=== PATIENT | female | born 1945 | race Caucasian/White ===

== ENCOUNTER 2020-08-11 12:41 | Outpatient (REF) | payer MEDICARE, SELFPAY ==
--- NOTE | 2020-08-11 12:52 | XR_ITS ---
EXAMINATION: XR HAND WRIST, RIGHT CLINICAL INFORMATION: Unspecified injury right wrist, hand, fingers COMPARISON: None TECHNIQUE: The hand and wrist are imaged together in large [id number] images for a total of 3 views. FINDINGS: There is an oblique fracture involving the base and proximal shaft fifth metacarpal. There is mild dorsal angulation at the fracture site suggested on lateral view. There is no dislocation or destructive process. The ulnar variance is neutral. There is narrowing of the DIP joints. Associated central erosive changes are are present at the index finger DIP joint and lesser involvement fourth finger DIP joint. 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 IMPRESSION: 1. Fracture base and proximal shaft fifth metacarpal with mild dorsal angulation fracture site. 2. 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
== END 2020-08-11 12:42 | disposition home or self-care (01) ==
LOC: HO.HMGCX 12:41
PROVIDERS: PCP Family Medicine; Visit Provider Nurse Practitioner Family
DX: S69.91XA Unspecified injury of right wrist, hand and finger(s), initial encounter (principal); X58.XXXA Exposure to other specified factors, initial encounter; Y93.9 Activity, unspecified; Y92.9 Unspecified place or not applicable; Y99.8 Other external cause status
CPT/HCPCS: 73110; 73130

== ENCOUNTER 2020-08-25 12:07 | Outpatient (REF) | payer MEDICARE, SELFPAY ==
--- NOTE | 2020-08-25 12:53 | XR_ITS ---
EXAMINATION: XR HAND, RIGHT CLINICAL INFORMATION: Pain COMPARISON: Previous exam 08/11/2020 TECHNIQUE: 3 views of the right hand. FINDINGS: There is a fracture through the base and proximal shaft of the fifth metacarpal bone. Alignment is unchanged. There is overlying soft tissue swelling. There is a cyst in the scaphoid bone. There is arthritis at the IP joints with joint space narrowing, osteophyte formation and some cystic or erosive changes. There is arthritis at the second MCP joint. XR/XR hand RT min 3V IMPRESSION: No change in the minimally displaced fracture at the base of the fifth metacarpal bone from previous exam. Arthritis.
== END 2020-08-25 12:08 | disposition home or self-care (01) ==
LOC: HO.HOSX 12:07
PROVIDERS: PCP Family Medicine; Visit Provider Physician Assistant
DX: S62.306A Unspecified fracture of fifth metacarpal bone, right hand, initial encounter for closed fracture (principal)
CPT/HCPCS: 26600; 29075; 73130; 99212

== ENCOUNTER 2020-09-09 13:29 | Outpatient (REF) | payer MEDICARE, SELFPAY ==
--- NOTE | 2020-09-09 13:33 | XR_ITS ---
EXAMINATION: XR HAND, RIGHT CLINICAL INFORMATION: Fracture of the fifth metacarpal bone. COMPARISON: 08/25/2020 TECHNIQUE: PA, lateral, and oblique views of the right hand. FINDINGS: Fracture at the proximal aspect of the fifth metacarpal is again noted with unchanged alignment compared to prior. Minimal callus noted. There is diffuse joint space narrowing throughout the interphalangeal joints. Mild radial subluxation and angulation at the second and fourth digit distal interphalangeal joints. Associated Gull wing deformity . The soft tissues are unremarkable. XR/XR hand RT min 3V IMPRESSION: Unchanged alignment of the fifth metacarpal fracture. Early callus formation. Arthritic changes are again noted, with findings suggestive of erosive osteoarthritis at the second and fourth distal interphalangeal joints.
== END 2020-09-09 13:30 | disposition home or self-care (01) ==
LOC: HO.HOSX 13:29
PROVIDERS: Visit Provider Physician Assistant
DX: S62.306A Unspecified fracture of fifth metacarpal bone, right hand, initial encounter for closed fracture (principal); S62.308D Unspecified fracture of other metacarpal bone, subsequent encounter for fracture with routine healing
CPT/HCPCS: 73130; 99212

== ENCOUNTER 2020-10-29 14:30 | Outpatient (REF) | payer MEDICARE, SELFPAY ==
--- NOTE | 2020-10-29 14:36 | XR_ITS ---
EXAMINATION: XR CHEST CLINICAL INFORMATION: COPD. COMPARISON: Chest radiographs 08/26/2018, 05/23/2016 TECHNIQUE: 2 views of the chest were obtained. FINDINGS: There is mild hyperinflation/COPD slightly greater left upper zone. There is no airspace consolidation, vascular congestion, pleural reaction, or effusion. The cardiac and hilar and mediastinal contours and bony structures are stable. There are no significant changes from prior studies. XR/XR chest 2V IMPRESSION: Mild hyperinflation/COPD. No acute intrathoracic disease.
== END 2020-10-29 14:31 | disposition home or self-care (01) ==
LOC: HO.HMGCX 14:30
PROVIDERS: PCP Family Medicine; Visit Provider Nurse Practitioner Family
DX: J44.9 Chronic obstructive pulmonary disease, unspecified (principal)
CPT/HCPCS: 71046

== ENCOUNTER 2020-10-30 14:51 | Emergency (ER) | payer MEDICARE, SELFPAY ==
[2020-10-30 14:54] VITALS: BP 149/88; PULSE 99; RESP 28; TEMP 36.7; O2SAT 92; BMI 25.2
--- NOTE | 2020-10-30 15:01 | ECG_ITS ---
Test Reason : DYSPNEA Blood Pressure : / mmHG Vent. Rate : 087 BPM Atrial Rate : 087 BPM P-R Int : 174 ms QRS Dur : 080 ms QT Int : 378 ms P-R-T Axes : 075 018 058 degrees QTc Int : 454 ms Sinus rhythm with occasional Premature ventricular complexes Possible Left atrial enlargement Anteroseptal infarct (cited on or before 26-APR-2013) Abnormal ECG When compared with ECG of 14-DEC-2017 01:13, Premature ventricular complexes are now Present Questionable change in initial forces of Anterior leads Referred By: Kathy Ramsay Electronically Signed By:Remy Howard
--- NOTE | 2020-10-30 15:01 | XR_ITS ---
EXAMINATION: XR CHEST CLINICAL INFORMATION: Shortness of breath COMPARISON: Chest radiograph from 10/29/2020 TECHNIQUE: Frontal view of the chest was obtained. FINDINGS: Mild hyperinflation of the bilateral lung griffin. Mild right basilar atelectasis. There is no focal consolidation. There is no pneumothorax. The trachea is midline. The current mediastinal silhouette is not enlarged. Aorta is mildly tortuous with atherosclerotic calcifications. There is no pleural effusions. Osseous structures are intact. XR/XR chest 1V IMPRESSION: 1. Hyperinflation of the bilateral lung griffin. 2. Mild right basilar atelectasis.
--- NOTE | 2020-10-30 15:37 | ED_ITS ---
HPI - SOB/Dyspnea General Chief Complaint: Dyspnea Stated Complaint: sob Time Seen by Provider: 10/30/20 15:00 Source: patient Mode of arrival: ambulatory History of Present Illness HPI Narrative: 74-year-old F with a past medical history of COPD, diabetes, depression, osteoporosis, cholecystectomy, presenting to the ED complaining of worsening SOB, cough, upper back pain, & myalgias x4 days. Reports sister who lives below her is COVID-19 positive. Denies fever, chills, recent travel, LE edema, history of blood clots, abdominal pain, vomiting/diarrhea, oral OCPs MD elicited complaint: shortness of breath and cough Related Data Home Medications Medication Instructions Recorded Confirmed albuterol sulfate 90 mcg/actuation INHALATION 08/10/20 10/11/20 aerosol inhaler atorvastatin 20 mg tablet 20 mg PO DAILY 08/10/20 10/11/20 budesonide 180 mcg/actuation INHALATION 08/10/20 10/11/20 breath activated powder inhaler ibuprofen 800 mg tablet 800 mg PO TID 08/10/20 10/11/20 ipratropium 20 mcg-albuterol 100 1 puff PO QID 08/10/20 10/11/20 mcg/actuation mist for inhalation metformin 500 mg tablet 500 mg PO BID 08/10/20 10/11/20 omeprazole 40 mg capsule,delayed 40 mg PO BEDTIME 08/10/20 10/11/20 release oxybutynin chloride 15 mg 15 mg PO DAILY 08/10/20 10/11/20 tablet,extended release 24 hr pantoprazole 40 mg tablet,delayed 40 mg PO DAILY 08/10/20 release escitalopram oxalate 5 mg tablet 5 mg PO DAILY 10/29/20 flu vac qv 2019(18yr up)rc(PF) ml IM 10/29/20 sertraline 100 mg tablet 0 mg PO 10/29/20 Previous Rx's Medication Instructions Recorded bupropion HCl 150 mg tablet,12 hr 150 mg PO BID 90 Days #180 tab 08/10/20 sustained-release citalopram 40 mg tablet 40 mg PO DAILY 90 Days #90 tab 08/10/20 miscellaneous medical supply 1 ea MISCELLANEOUS DAILY #1 ea 08/13/20 arm brace #1 ea 09/10/20 ipratropium 0.5 mg-albuterol 3 mg 3 ml INHALATION Q6H PRN #90 ml 10/11/20 (2.5 mg base)/3 mL nebulization soln azithromycin 250 mg tablet See Rx Instructions PO .COMPLEX #6 10/29/20 tab prednisone 20 mg tablet 20 mg PO DAILY 9 Days #18 tab 10/29/20 azithromycin 250 mg PO DAILY 4 Days #4 tab 10/30/20 benzonatate [Tessalon Perles] 100 mg PO TID PRN #10 cap 10/30/20 prednisone 40 mg PO DAILY 4 Days #8 tab 10/30/20 Allergies Allergy/AdvReac Type Severity Reaction Status Date / Time lisinopril Allergy Unknown RAsh, Verified 10/11/20 12:11 Swelling No Known Allergies Allergy Verified 09/09/20 13:47 [No Known Allergies*] Review of Systems Review of Systems: Constitutional: No Weight loss, No Fever, No Chills, + Fatigue, No Malaise Cardiovascular: No Chest Pain, + SOB, + Dyspnea on Exertion, No Orthopnea, No Edema, No Palpitations Respiratory: + Cough, No Sputum, No Wheezing, No Dyspnea Gastrointestinal: No Nausea, No Vomiting, No Diarrhea, No Constipation, No Abdominal pain Genitourinary: No irregular bleeding, No Dysuria, No Urinary Frequency, No Hematuria Musculoskeletal: +back pain, No Myalgias, No Joint Swelling Skin: No Skin Lesions, No rash Yes all other systems are reviewed and are negative [facility] Past Medical History Attestation statement: The following information was validated with the patient. Medical History (Updated 10/30/20 @ 18:30 by DELTA Travis) COPD (chronic obstructive pulmonary disease) Diabetes FHx: cholecystectomy Major depression Osteoporosis Surgical History Hx of tonsillectomy Previous back surgery Family History Family History Other Diabetes Social History Social History Household Members: None Alcohol intake: former Smoking Status: Former smoker Advance Directives: No Advance Directives Information Provided: No Current occupation: Retired -[employer] Physical Exam Vital Signs: Vital Signs: Last Vital Signs Temp 97.9 F 10/30/20 17:19 Pulse 78 10/30/20 17:19 Resp 32 H 10/30/20 17:19 BP 128/80 10/30/20 17:19 Pulse Ox 95 10/30/20 17:19 Body Mass Index 25.2 Const: General: cooperative Orientation/consciousness: patient oriented x3 Limitations: no limitations HENMT: Head: Yes normal to inspection Ears: hearing grossly normal bilaterally General nose exam: Normal external nose present Face and sinus: Yes normal facial exam Eyes: General: appearance normal, both eyes and all related structures EOM: EOMs intact bilaterally Neck: Neck: Yes normal visual inspection and Yes no meningeal signs Resp: Effort & Inspection: no stridor and tachypneic Auscultation: clear to auscultation bilaterally, no rales, no rhonchi and no wheezes Cardio: Rate: regular rate Heart sounds: S1 normal heart sound present and S2 normal heart sound present GI: Inspection: Yes normal to inspection Palpation (GI): Soft to palpation, nontender, no guarding and not rigid Skin: Rashes: no rashes Wounds: no wounds Neuro: General: patient oriented x3 and no meningeal signs Extrem: Other: No LE edema or calf tenderness General: Yes normal to inspection Course Course Course Narrative: * No leukocytosis, D-dimer negative, mild hyponatremia of 132, CRP mildly elevated * Chest x-ray showing hyperinflation of the bilateral lung griffin. Mild right basilar atelectasis * COVID-19 positive > will ambulate with pulse ox * Patient ambulated with pulse ox with respiratory maintaining saturation 95% or greater on room air. Reports symptomatic improvement in the ED. Would like to go home. Will give 1st dose of azithromycin in the ED and symptoms and strict return precautions discussed. Patient verbalized understanding feel safe for discharge home MDM - SOB/Dyspnea MDM Narrative Medical decision making narrative: 74-year-old F with a past medical history of COPD, diabetes, depression, osteoporosis, cholecystectomy, presenting to the ED complaining of worsening SOB, cough, upper back pain, & myalgias x4 days. On exam tachypneic, sating 92% on room air, lungs CTA, no LE edema. Concern for COVID-19/viral syndrome vs COPD exacerbation vs PE. Lower concern for bacterial PNA Plan: EKG, labs, CXR, COVID-19 testing, albuterol, Decadron, magnesium, re- evaluate Lab Data Result diagrams: 10/30/20 16:26 10/30/20 16:26 Labs: Lab Results 10/30/20 10/30/20 10/30/20 Range/Units 16:26 16:26 16:26 WBC 7.1 (4.8-10.8) X10*3/uL RBC 3.69 L (4.20-5.50) X10*6/uL Hgb 10.0 L (12.0-16.0) g/dl Hct 30.2 L (37-47) % MCV 81.8 (80-98) fL MCH 27.1 (27.0-33.0) pg MCHC 33.1 (31.0-35.0) g/dl RDW 15.2 (11.0-16.0) % Plt Count 280 (160-400) X10*3/uL MPV 8.5 L (9.4-12.3) fL Immature Gran % (Auto) 0.4 (0.0-0.4) % Neut % (Auto) 72.7 (45-73) % Lymph % (Auto) 23.3 (20-40) % [place] % (Auto) 3.4 (2-11) % Eos % (Auto) 0.1 (0-4) % Baso % (Auto) 0.1 (0-2) % Lymph # (Auto) 1.7 (1.2-4.9) X10*3/uL [place] # (Auto) 0.2 (0.1-1.2) X10*3/uL Eos # (Auto) 0.0 (0.0-0.4) X10*3/uL Baso # (Auto) 0.0 (0.0-0.2) X10*3/uL Abs Immat Gran (auto) 0.03 (0.00-0.03) X10*3/uL Absolute Neuts (auto) 5.2 (2.0-8.3) X10*3/uL Absolute Nucleated RBC 0.000 (0.0-0.012) X10*3/uL Nucleated RBC % (auto) 0.0 (0.0-0.2) /100WBC PT (10.8-13.0) SEC INR (0.9-1.1) APTT (24.1-38.0) SEC D-Dimer NG/ML Hold Blue Top Sodium 132 L (135-145) mmol/L Potassium 4.6 (3.3-5.1) mmol/l Chloride 97 (96-108) mmol/L Carbon Dioxide 23 (22-29) mmol/L Anion Gap 17 (12-20) BUN 14 (9-16) mg/dL Creatinine 0.65 (0.5-1.4) mg/dL Estim Creat Clear Calc 62.6 Estimated GFR > 60 Random Glucose 114 (60-115) mg/dL Lactic Acid 1.6 (0.5-2.0) mmol/L Calcium 8.8 (8.4-10.2) mg/dL Magnesium 2.0 (1.6-2.6) mg/dL Ferritin (10-250) ng/mL Total Bilirubin 0.2 (0.0-1.0) mg/dL Direct Bilirubin 0.2 (0.0-0.5) mg/dL AST 16 (5-31) U/L ALT 18 (0-31) U/L Alkaline Phosphatase 69 (39-117) U/L Lactate Dehydrogenase 197 (122-220) U/L Troponin I High Sens (<3.5-17.0) ng/L C-Reactive Protein 1.79 H (< or = 0.50) mg/dL B-Natriuretic Peptide (<100) pg/mL Total Protein 6.5 (6.5-8.0) g/dL Albumin 4.2 (3.5-5.0) g/dL Procalcitonin ng/mL Coronavirus (PCR) (Negative) Influenza Type A (PCR) (Negative) Influenza Type B (PCR) (Negative) RSV RNA Qual (PCR) (Negative) 10/30/20 10/30/20 10/30/20 Range/Units 16:26 16:26 16:26 WBC (4.8-10.8) X10*3/uL RBC (4.20-5.50) X10*6/uL Hgb (12.0-16.0) g/dl Hct (37-47) % MCV (80-98) fL MCH (27.0-33.0) pg MCHC (31.0-35.0) g/dl RDW (11.0-16.0) % Plt Count (160-400) X10*3/uL MPV (9.4-12.3) fL Immature Gran % (Auto) (0.0-0.4) % Neut % (Auto) (45-73) % Lymph % (Auto) (20-40) % [place] % (Auto) (2-11) % Eos % (Auto) (0-4) % Baso % (Auto) (0-2) % Lymph # (Auto) (1.2-4.9) X10*3/uL [place] # (Auto) (0.1-1.2) X10*3/uL Eos # (Auto) (0.0-0.4) X10*3/uL Baso # (Auto) (0.0-0.2) X10*3/uL Abs Immat Gran (auto) (0.00-0.03) X10*3/uL Absolute Neuts (auto) (2.0-8.3) X10*3/uL Absolute Nucleated RBC (0.0-0.012) X10*3/uL Nucleated RBC % (auto) (0.0-0.2) /100WBC PT 10.7 L (10.8-13.0) SEC INR 0.9 (0.9-1.1) APTT 27.6 (24.1-38.0) SEC D-Dimer 202 NG/ML Hold Blue Top SEE NOTE Sodium (135-145) mmol/L Potassium (3.3-5.1) mmol/l Chloride (96-108) mmol/L Carbon Dioxide (22-29) mmol/L Anion Gap (12-20) BUN (9-16) mg/dL Creatinine (0.5-1.4) mg/dL Estim Creat Clear Calc Estimated GFR Random Glucose (60-115) mg/dL Lactic Acid (0.5-2.0) mmol/L Calcium (8.4-10.2) mg/dL Magnesium (1.6-2.6) mg/dL Ferritin 29 (10-250) ng/mL Total Bilirubin (0.0-1.0) mg/dL Direct Bilirubin (0.0-0.5) mg/dL AST (5-31) U/L ALT (0-31) U/L Alkaline Phosphatase (39-117) U/L Lactate Dehydrogenase (122-220) U/L Troponin I High Sens (<3.5-17.0) ng/L C-Reactive Protein (< or = 0.50) mg/dL B-Natriuretic Peptide (<100) pg/mL Total Protein (6.5-8.0) g/dL Albumin (3.5-5.0) g/dL Procalcitonin ng/mL Coronavirus (PCR) POSITIVE A (Negative) Influenza Type A (PCR) NEGATIVE (Negative) Influenza Type B (PCR) NEGATIVE (Negative) RSV RNA Qual (PCR) NEGATIVE (Negative) 10/30/20 10/30/20 Range/Units 16:26 16:26 WBC (4.8-10.8) X10*3/uL RBC (4.20-5.50) X10*6/uL Hgb (12.0-16.0) g/dl Hct (37-47) % MCV (80-98) fL MCH (27.0-33.0) pg MCHC (31.0-35.0) g/dl RDW (11.0-16.0) % Plt Count (160-400) X10*3/uL MPV (9.4-12.3) fL Immature Gran % (Auto) (0.0-0.4) % Neut % (Auto) (45-73) % Lymph % (Auto) (20-40) % [place] % (Auto) (2-11) % Eos % (Auto) (0-4) % Baso % (Auto) (0-2) % Lymph # (Auto) (1.2-4.9) X10*3/uL [place] # (Auto) (0.1-1.2) X10*3/uL Eos # (Auto) (0.0-0.4) X10*3/uL Baso # (Auto) (0.0-0.2) X10*3/uL Abs Immat Gran (auto) (0.00-0.03) X10*3/uL Absolute Neuts (auto) (2.0-8.3) X10*3/uL Absolute Nucleated RBC (0.0-0.012) X10*3/uL Nucleated RBC % (auto) (0.0-0.2) /100WBC PT (10.8-13.0) SEC INR (0.9-1.1) APTT (24.1-38.0) SEC D-Dimer NG/ML Hold Blue Top Sodium (135-145) mmol/L Potassium (3.3-5.1) mmol/l Chloride (96-108) mmol/L Carbon Dioxide (22-29) mmol/L Anion Gap (12-20) BUN (9-16) mg/dL Creatinine (0.5-1.4) mg/dL Estim Creat Clear Calc Estimated GFR Random Glucose (60-115) mg/dL Lactic Acid (0.5-2.0) mmol/L Calcium (8.4-10.2) mg/dL Magnesium (1.6-2.6) mg/dL Ferritin (10-250) ng/mL Total Bilirubin (0.0-1.0) mg/dL Direct Bilirubin (0.0-0.5) mg/dL AST (5-31) U/L ALT (0-31) U/L Alkaline Phosphatase (39-117) U/L Lactate Dehydrogenase (122-220) U/L Troponin I High Sens 7.2 (<3.5-17.0) ng/L C-Reactive Protein (< or = 0.50) mg/dL B-Natriuretic Peptide 153 H (<100) pg/mL Total Protein (6.5-8.0) g/dL Albumin (3.5-5.0) g/dL Procalcitonin < 0.02 ng/mL Coronavirus (PCR) (Negative) Influenza Type A (PCR) (Negative) Influenza Type B (PCR) (Negative) RSV RNA Qual (PCR) (Negative) Discharge Plan Discharge Clinical Impression: COVID-19 Patient Disposition: Home, Self-Care Instructions: COVID-19 (Coronavirus Disease 2019) (ED) Additional Instructions: You have COVID-19 Continue using your prescribed medications at home You need to self isolate according to state and Federal regulations Call your doctor to inform them If you develop constant worsening shortness of breath, chest pain, or fever unresolved with Tylenol and Motrin at home return to the ED Azithromycin as an antibiotic, take as prescribed Prednisone as a steroid, take as prescribed Use albuterol inhaler dose apply to you today in emergency department Natalie Oconnell are for cough Prescriptions: New benzonatate [Jiasalon Anish] 100 mg capsule 100 mg PO TID PRN (Reason: cough) Qty: 10 RF: 0 azithromycin 250 mg tablet 250 mg PO DAILY 4 Days Qty: 4 RF: 0 prednisone 20 mg tablet 40 mg PO DAILY 4 Days Qty: 8 RF: 0 No Action albuterol sulfate 90 mcg/actuation HFA aerosol inhaler inhalation RF: 0 oxybutynin chloride 15 mg tablet extended release 24hr 15 mg PO DAILY RF: 0 ibuprofen 800 mg tablet 800 mg PO TID RF: 0 Combivent Respimat 20-100 mcg/actuation mist 1 puff PO QID RF: 0 pantoprazole 40 mg tablet,delayed release (DR/EC) 40 mg PO DAILY RF: 0 omeprazole 40 mg capsule,delayed release(DR/EC) 40 mg PO BEDTIME RF: 0 atorvastatin 20 mg tablet 20 mg PO DAILY RF: 0 metformin 500 mg tablet 500 mg PO BID RF: 0 Pulmicort Flexhaler 180 mcg/actuation aerosol powdr breath activated inhalation RF: 0 citalopram 40 mg tablet 40 mg PO DAILY 90 Days Qty: 90 RF: 0 bupropion HCl 150 mg tablet sustained-release 12 hr 150 mg PO BID 90 Days Qty: 180 RF: 0 miscellaneous medical supply Misc 1 ea miscellaneous DAILY Qty: 1 RF: 0 ipratropium-albuterol 0.5 mg-3 mg(2.5 mg base)/3 mL solution for nebulization 3 ml inhalation Q6H PRN (Reason: wheezing) Qty: 90 RF: 3 sertraline 100 mg tablet 0 mg PO RF: 0 escitalopram oxalate 5 mg tablet 5 mg PO DAILY RF: 0 Flublok Quad [id number] (PF) 180 mcg (45 mcg x 4)/0.5 mL syringe IM RF: 0 azithromycin 250 mg tablet See Rx Instructions PO .COMPLEX Qty: 6 RF: 0 prednisone 20 mg tablet 20 mg PO DAILY 9 Days Qty: 18 RF: 0 (DME) Wrist Brace Misc See Rx Instructions .MEDSUPPLY Qty: 1 RF: 0 Referrals: Jonathan Geronimo MD [Primary Care Provider] - 2 days (Call)
[2020-10-30 16:16] VITALS: BP 132/77; PULSE 85; RESP 34; TEMP 36.9; O2SAT 96
--- NOTE | 2020-10-30 16:17 | PC.NURSE ---
first contact with patient. anxious. skion pwd. tachipnic but able to calm with reassurance. st on monitor. aware of plan for labs etc. states room o2 normallyt 94%.
[2020-10-30 16:41] LABS: MANUAL DIFF FLAG NO
[2020-10-30 16:42] LABS: Basophils Percent Auto 0.1 % (0-2); Eosinophils Percent Auto 0.1 % (0-4); Hematocrit 30.2 % (37-47); Imm Gran Abs Auto 0.03 X10*3/uL (0.00-0.03); Imm Gran Pct Auto 0.4 % (0.0-0.4); Lymphocytes Absolute Auto 1.7 X10*3/uL (1.2-4.9); Lymphocytes Percent Auto 23.3 % (20-40); Mean Corpuscular HGB Conc 33.1 g/dl (31.0-35.0); Mean Corpuscular Hemoglobin 27.1 pg (27.0-33.0); Mean Corpuscular Volume 81.8 fL (80-98); Mean Platelet Volume 8.5 fL (9.4-12.3); Monocytes Absolute Auto 0.2 X10*3/uL (0.1-1.2); Monocytes Percent Auto 3.4 % (2-11); Neutrophils Absolute Auto 5.2 X10*3/uL (2.0-8.3); Neutrophils Percent Auto 72.7 % (45-73); Platelet Count 280 X10*3/uL (160-400); Red Blood Count 3.69 X10*6/uL (4.20-5.50); Red Cell Distribution Width 15.2 % (11.0-16.0); White Blood Count 7.1 X10*3/uL (4.8-10.8)
[2020-10-30 16:48] LABS: INTERNATIONAL NORM RATIO 0.9 (0.9-1.1); Prothrombin Time 10.7 SEC (10.8-13.0)
[2020-10-30 16:51] LABS: D Dimer 202 NG/ML; Partial Thromboplastin Time 27.6 SEC (24.1-38.0)
[2020-10-30] MEDS: Magnesium Sulfate/H2O 2 GM/50 ML PIGGYBACK IV (16:55)
[2020-10-30] MEDS: dexAMETHasone sod phosphate 4 MG/ML VIAL 6 MG IVPUSH (16:55)
[2020-10-30] MEDS: Albuterol Sulfate 90 MCG 8 GM INHALER 4 PUFF INHALE (17:02)
[2020-10-30 17:12] LABS: Alanine Aminotransferase 18 U/L (0-31); Albumin Level 4.2 g/dL (3.5-5.0); Alkaline Phosphatase 69 U/L (39-117); Anion Gap 17 (12-20); Aspartate Amino Transferase 16 U/L (5-31); Bilirubin Direct 0.2 mg/dL (0.0-0.5); Bilirubin Total 0.2 mg/dL (0.0-1.0); Blood Urea Nitrogen 14 mg/dL (9-16); C Reactive Protein 1.79 mg/dL (< or = 0.50); Calcium 8.8 mg/dL (8.4-10.2); Carbon Dioxide 23 mmol/L (22-29); Chloride 97 mmol/L (96-108); Creatinine Clr Calc Pharmacy 62.6; Estimated Glomerular Filt Rate > 60; Glucose Random 114 mg/dL (60-115); Lactate Dehydrogenase 197 U/L (122-220); Potassium 4.6 mmol/l (3.3-5.1); Sodium 132 mmol/L (135-145); Total Protein 6.5 g/dL (6.5-8.0)
[2020-10-30 17:14] LABS: Lactic Acid 1.6 mmol/L (0.5-2.0)
[2020-10-30 17:19] VITALS: BP 128/80; PULSE 78; RESP 32; TEMP 36.6; O2SAT 95
--- NOTE | 2020-10-30 17:23 | PC.NURSE ---
PT REPORTS FEELING NOTABLE IMPROVEMENT IN EASE OF BREATHING S/P MEDICATION, AWAITING LAB RESULTS AND RE-EVAL.
[2020-10-30 17:29] LABS: Influenza A PCR NEGATIVE (Negative); Influenza B PCR NEGATIVE (Negative); Resp Syncy Virus RNA Qual PCR NEGATIVE (Negative); SARS COV2 PCR INHOUSE POSITIVE (Negative)
[2020-10-30 17:31] LABS: Procalcitonin < 0.02 ng/mL
[2020-10-30 17:32] LABS: Ferritin 29 ng/mL (10-250)
[2020-10-30 17:45] LABS: B Type Natriuretic Peptide 153 pg/mL (<100); Troponin-I High Sensitivity 7.2 ng/L (<3.5-17.0)
[2020-10-30 18:02] VITALS: PULSE 93; RESP 96
[2020-10-30 19:03] VITALS: BP 120/80; PULSE 93; RESP 18; TEMP 36.7; O2SAT 94
[2020-10-30] MEDS: Azithromycin 500 MG TABLET PO (19:05)
== END 2020-10-30 19:12 | disposition home or self-care (01) ==
PROVIDERS: Physician Assistant; Emergency Provider Emergency Medicine; PCP Internal Medicine
DX: U07.1 COVID-19 (principal); E11.9 Type 2 diabetes mellitus without complications; J44.9 Chronic obstructive pulmonary disease, unspecified; Z90.49 Acquired absence of other specified parts of digestive tract; Z79.899 Other long term (current) drug therapy
CPT/HCPCS: 0241U; 36415; 71045; 80048; 80076; 82728; 83605; 83615; 83735; 83880; 84145; 84484; 85025; 85379; 85610; 85730; 86140; 87040; 93005; 96365; 96366; 96367; 96375; 99283; 99284; 99285; J1100; J3475

== ENCOUNTER → 2020-12-07 12:21 | Outpatient (REF) | payer MEDICARE, SELFPAY ==
--- NOTE | 2020-12-07 12:25 | ECG_ITS ---
Hook-up date: 2020-12-07 14:01:00 Duration: 47:59:00 Test Indications: PALPITATIONS Medications: 190565 QRS complexes 3852 Ventricular ectopics which represent 3 % of total QRS comp. 1704 Supraventricular ectopics which represent 1 % of total QRS comp. * Paced QRS complexs which represent % of total QRS comp. VENTRICULAR ECTOPY 3790 Isolated 606 Bigeminal Cycles 31 Couplets 0 Runs 0 Beats in Runs * Beats LONGEST at * BPM at :: -- * Beats FASTEST at * BPM at :: -- SUPRAVENTRICULAR ECTOPY 1682 Isolated 11 Couplets 0 Runs 0 Beats in Runs * Beats LONGEST at * BPM at :: -- * Beats FASTEST at * BPM at :: -- HEART RATES 62 MIN at 07:05:59 2020-12-08 85 AVG 123 MAX at 14:36:46 2020-12-07 LONGEST RR 1.2480 secs at 15:19:40 2020-12-07 S-T LEVELS Channel 1 - 128 mm at 14:01:00 2020-12-07 - 128 mm at 14:01:00 2020-12-07 Channel 2 - 128 mm at 14:01:00 2020-12-07 - 128 mm at 14:01:00 2020-12-07 Channel 3 - 128 mm at 03:32:01 -- - 128 mm at 03:32:01 Basic rhythm Normal sinus rhythm No long pause or profound bradycardia Frequent Premature ventricular complexes , 3% of total beats, isolated Occasional Premature atrial complexes Patient did not report any symptoms in the diary Referred By: Quique Perez Overread By: COLLEEN ZAMUDIO MD
--- NOTE | 2020-12-07 12:25 | CA_ITS ---
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 The visually estimated ejection fraction is between 60-65%. - There is moderate septal asymmetric hypertrophy. - Possible basal inferior hypokinesis. - There is mild calcification of the aortic valve. - There is mild aortic valve regurgitation. - Small plaque is seen in the ascending aorta. Findings Left Ventricle Normal left ventricular cavity size. There is mildly increased left ventricular wall thickness. The left ventricular systolic function is normal. The visually estimated ejection fraction is between 60-65%. E/E prime ratio is between 8 and 15 consistent with indeterminate filling pressures. Evidence suggests grade I (mild) diastolic dysfunction. There is moderate septal asymmetric hypertrophy. Possible basal inferior hypokinesis. Right Ventricle Normal right ventricular cavity size and systolic function. Atria The left atrium is normal in size. The right atrium is normal in size. Aortic Valve There is a normal trileaflet aortic valve. There is mild calcification of the aortic valve. There is no aortic valve stenosis. There is mild aortic valve regurgitation. Mitral Valve The mitral valve appears normal. There is mild mitral valve regurgitation. There is no mitral valve stenosis. Pulmonic Valve The pulmonic valve was not well visualized. Tricuspid Valve There is trace tricuspid valve regurgitation. The pulmonary artery systolic pressure is normal. Great Vessels The asc aorta is normal in size. Small plaque is seen in the ascending aorta. Venous The inferior vena cava is normal in size and collapses greater than 50% with inspiration. Pericardium/Pleural There is no evidence of pericardial effusion. Prior Study Comparison Changes noted compared to prior study dated: 12/17/2018. See comments on wall motion. Measurements 2D Linear Measurements IVSd: 1.37 0.6-0.9/0.6-1.0 cm LVIDd: 4.67 3.9-5.3/4.2-5.9 cm LVIDd Index: 3.05 2.4-3.2/2.2-3.1 cm/m2 LVIDs: 2.45 2.0-3.6 cm LVPWd: 1.10 0.7-1.1 cm Ao Root: 3.20 2.1-3.5 cm LA Diam: 3.10 2.7-3.8/3.0-4.0 cm LAIDs Index: 2.03 1.5-2.3 cm/m2 LV Mass: 272.63 67-162/88-224 g LV Mass Index: 178.19 43-95/49-115 g/m2 LVOT Diam: 2.40 3.0+(-)1.3 cm 2D Systolic Function EF 4C: 61.00 >55% Mitral Valve MV Pk E: 0.58 MV PK A: 1.11 MV Decel Time: 74.00 E/A: 0.50 E'Lateral: 4.35 E'Medial: 6.96 E/E' Med: 8.30 E/E' Lat: 13.20 PHT: 22.00 MVA PHT: 10.00 Decel [place]: 7.78 Aortic Valve AoV Pk Henry: 1.17 AoV Pk Grad: 5.00 AI Pk Henry: 3.71 AI [place]: 1.90 LVOT LVOT Pk Henry: 0.39 LVOT Mn Henry: 0.50 LVOT VTI: 0.16 LVOT Pk Grad: 1.00 LVOT Mn Grad: 1.00 LVOT Diam: 2.40 LVOT Area: 4.52 Diastolic Function MV Pk E: 0.58 MV Pk A: 1.11 E/A: 0.50 E'Medial: 6.96 E/E' Med: 8.30 E' Laterial: 4.35 E/E' Lat: 13.20 Tricuspid Valve RA Press: 3.00 Great Vessels Aorta Ao Root-2D: 3.20 2.0-3.7 cm Ao Asc: 3.10 2.1-3.4 cm Updated in Other Vendor System with Status of Final Jose Vyas MD electronically signed on 12/08/2020 12:15:12 PM with status of Final
== END ==
LOC: HO.CARD 12:21
PROVIDERS: Visit Provider Hospitalist
DX: R00.2 Palpitations (principal); R00.0 Tachycardia, unspecified; R06.02 Shortness of breath
CPT/HCPCS: 93225; 93226; 93306

== ENCOUNTER → 2021-03-01 11:33 | Outpatient (BNVA) | payer MEDICARE, SELFPAY | PROVIDERS: PCP Family Medicine; Referring Provider Family Medicine; Visit Provider Nurse Practitioner Family | DX: G47.9 Sleep disorder, unspecified (principal); R40.0 Somnolence | CPT/HCPCS: 99202 ==

== ENCOUNTER → 2021-04-05 19:22 | Outpatient (REF) | payer MEDICARE, SELFPAY | LOC: HO.SL 19:22 | PROVIDERS: Visit Provider Nurse Practitioner Family | DX: G47.33 Obstructive sleep apnea (adult) (pediatric) (principal); G47.61 Periodic limb movement disorder; R06.83 Snoring; J44.9 Chronic obstructive pulmonary disease, unspecified | CPT/HCPCS: 95811 ==

== ENCOUNTER → 2021-05-24 10:16 | Outpatient (BNVA) | payer SELFPAY | PROVIDERS: PCP Family Medicine; Visit Provider Nurse Practitioner Family ==

== ENCOUNTER 2021-06-09 14:00 | Outpatient (REF) | payer MEDICARE, SELFPAY ==
[2021-06-09 16:19] LABS: Hematocrit 33.1 % (37-47); Hemoglobin 10.2 g/dl (12.0-16.0); Mean Corpuscular HGB Conc 30.8 g/dl (31.0-35.0); Mean Corpuscular Volume 81.1 fL (80-98); Mean Platelet Volume 9.3 fL (9.4-12.3); Platelet Count 375 X10*3/uL (160-400); Red Blood Count 4.08 X10*6/uL (4.20-5.50); Red Cell Distribution Width 17.8 % (11.0-16.0); White Blood Count 10.8 X10*3/uL (4.8-10.8)
[2021-06-09 16:56] LABS: Alanine Aminotransferase 9 U/L (0-31); Albumin Level 4.4 g/dL (3.5-5.0); Alkaline Phosphatase 84 U/L (39-117); Anion Gap 15 (12-20); Aspartate Amino Transferase 13 U/L (5-31); Bilirubin Total 0.4 mg/dL (0.0-1.0); Blood Urea Nitrogen 17 mg/dL (9-16); Calcium 9.7 mg/dL (8.4-10.2); Carbon Dioxide 25 mmol/L (22-29); Chloride 103 mmol/L (96-108); Cholesterol 167 mg/dL; Estimated Glomerular Filt Rate > 60; Glucose Fasting 107 mg/dL (60-99); HDL Cholesterol 63 mg/dL; Iron 264 mcg/dL (30-160); LDL Cholesterol Calculated 87 mg/dl; Percent Iron Saturation 55 % (15-50); Potassium 5.3 mmol/L (3.3-5.1); Sodium 138 mmol/L (135-145); Total Iron Binding Capacity 477 mcg/dL (228-428); Total Protein 6.9 g/dL (6.5-8.0); Triglycerides 86 mg/dL; Unsaturated Iron Binding 213 ug/dL
[2021-06-09 17:17] LABS: Ferritin 14 ng/mL (10-250); TSH reflex Free T4 1.09 uIU/mL (0.32-4.0)
[2021-06-09 17:26] LABS: Folate 10.1 ng/mL (> or = 4.0); Vitamin B12 368 pg/mL (200-900)
== END 2021-06-09 14:01 | disposition home or self-care (01) ==
LOC: HO.HMGCLDS 14:00
PROVIDERS: PCP Family Medicine; Visit Provider Nurse Practitioner Family
DX: Z00.00 Encounter for general adult medical examination without abnormal findings (principal); D64.9 Anemia, unspecified; G25.81 Restless legs syndrome
CPT/HCPCS: 36415; 80053; 80061; 82607; 82728; 82746; 83540; 84443; 85027

== ENCOUNTER 2021-07-27 14:43 | Outpatient (REF) | payer MEDICARE, SELFPAY ==
--- NOTE | ~2021-07-27 | MM_ITS ---
EXAMINATION: MM SCREENING DIGITAL BREAST TOMOSYNTHESIS, BILATERAL CLINICAL INFORMATION: Screening. Asymptomatic. The lifetime risk of breast cancer based on the Tyrer-Cuzick Model is 3%. COMPARISON: Mammography: 09/05/2019, 09/03/2018, 11/20/2017, 02/27/2017 (new baseline) TECHNIQUE: Digital breast tomosynthesis is performed in both the craniocaudal and mediolateral oblique views along with computer-aided detection (CAD). Synthesized 2D images are generated from the tomosynthesis. FINDINGS: There are scattered areas of fibroglandular density (ACR BI-RADS breast composition Category b). Parenchymal pattern is similar to prior exams. There is no developing density or interval mass or architectural abnormality. No abnormal calcifications the axilla and skin contours are unremarkable. No significant changes. MM/MM tomosynthesis screening BI IMPRESSION: No mammographic evidence of malignancy. ASSESSMENT: BI-RADS 2: Benign RECOMMENDATION: Routine annual mammography screening. This patient's information was entered into a reminder system with a target due date for their next mammogram.
== END 2021-07-27 14:44 | disposition home or self-care (01) ==
LOC: HO.MAMMO 14:43
PROVIDERS: Visit Provider Family Medicine
DX: Z12.31 Encounter for screening mammogram for malignant neoplasm of breast (principal)
CPT/HCPCS: 77063; 77067

== ENCOUNTER → 2021-08-02 13:57 | Outpatient (BNVA) | payer MEDICARE, SELFPAY | PROVIDERS: PCP Family Medicine; Visit Provider Internal Medicine | DX: G47.33 Obstructive sleep apnea (adult) (pediatric) (principal); J44.9 Chronic obstructive pulmonary disease, unspecified | CPT/HCPCS: 99212 ==

== ENCOUNTER → 2021-08-23 09:39 | Outpatient (BNVA) | payer MEDICARE, SELFPAY | PROVIDERS: PCP Family Medicine; Referring Provider Family Medicine; Visit Provider Nurse Practitioner Family | DX: R19.01 Right upper quadrant abdominal swelling, mass and lump (principal); G47.33 Obstructive sleep apnea (adult) (pediatric); G47.61 Periodic limb movement disorder; G25.81 Restless legs syndrome | CPT/HCPCS: 99202; Q3014 ==

== ENCOUNTER 2021-08-30 12:06 | Outpatient (REF) | payer MEDICARE, SELFPAY ==
[2021-08-30 14:31] LABS: Blood Urea Nitrogen 23 mg/dL (9-16); Estimated Glomerular Filt Rate > 60
== END 2021-08-30 12:07 | disposition home or self-care (01) ==
LOC: HO.HMGCLDS 12:06
PROVIDERS: PCP Family Medicine; Visit Provider Surgery
DX: R19.01 Right upper quadrant abdominal swelling, mass and lump (principal)
CPT/HCPCS: 36415; 82565; 84520

== ENCOUNTER 2021-09-16 08:57 | Outpatient (REF) | payer MEDICARE, SELFPAY ==
--- NOTE | ~2021-09-16 | CT_ITS ---
EXAMINATION: CT ABDOMEN AND PELVIS WITH CONTRAST CLINICAL INFORMATION: Right upper quadrant abdominal swelling COMPARISON: Previous CT of the abdomen and pelvis most recent November 2017 TECHNIQUE: Multidetector volumetric images were obtained from the superior aspect of the liver through the pubic symphysis following administration 85 mL of Omnipaque 350 intravenous contrast. Sagittal and coronal reformatted images were obtained on the technologist's workstation. Oral contrast: Yes This CT examination was performed using dose optimization techniques as appropriate, variously including the following: *Automated exposure control *Adjustment of mA and/or kV according to patient size (this includes techniques or standardized protocols for targeted exams where dose is matched to indication/reason for exam; i.e. extremities or head) *Use of iterative reconstruction technique DLP: 370 mGy-cm FINDINGS: LUNG BASES: The visualized lung bases are unremarkable. LIVER, GALLBLADDER, AND BILIARY TREE: The liver is normal in size, shape, and attenuation. No focal hepatic lesion or biliary ductal dilatation is present. The gallbladder has been removed. PANCREAS: Body and tail of the pancreas are normal. The head of the pancreas appears to have been removed. SPLEEN: Unremarkable. ADRENAL GLANDS: Unremarkable. KIDNEYS AND URETERS: There are areas of mild cortical thinning or scarring in both kidneys. The kidneys are otherwise unremarkable. BLADDER: Not optimally distended. GASTROINTESTINAL TRACT: There is diverticulosis of the colon. There is no evidence of diverticulitis. There are postsurgical changes from gastrojejunostomy. There is question of a small esophagal hernia. The appendix is unremarkable. ABDOMINAL WALL: There is a small umbilical hernia containing fat. There are atrophic changes of the right rectus muscle. LYMPH NODES: Normal. VASCULAR: There is evidence of atherosclerotic disease. No aneurysm is seen. PELVIC VISCERA: Unremarkable. OSSEOUS STRUCTURES: There is bilateral femoral head AVN. There is scoliosis and degenerative changes of the lumbar spine. CT/CT abdomen pelvis w con IMPRESSION: Atrophy of the right rectus muscle. No right upper quadrant hernia seen. Small umbilical hernia containing fat. Postsurgical changes and question prior Whipple procedure. Question small esophageal hernia. Diverticulosis of the colon. Bilateral femoral head AVN. Scoliosis and degenerative changes of the lumbar spine. Fleischner guidelines were followed.
[2021-09-16] MEDS: iohexoL 350 MG/ML 100 ML INFUS..BTL IV (11:58)
== END 2021-09-16 08:58 | disposition home or self-care (01) ==
LOC: HO.CT 08:57
PROVIDERS: PCP Family Medicine; Visit Provider Surgery
DX: R19.01 Right upper quadrant abdominal swelling, mass and lump (principal); K57.30 Diverticulosis of large intestine without perforation or abscess without bleeding; Z90.49 Acquired absence of other specified parts of digestive tract; Z90.411 Acquired partial absence of pancreas
CPT/HCPCS: 74177; Q9967

== ENCOUNTER → 2021-09-27 11:35 | Outpatient (BNVA) | payer MEDICARE, SELFPAY | PROVIDERS: PCP Family Medicine; Referring Provider Family Medicine; Visit Provider Nurse Practitioner | DX: K91.5 Postcholecystectomy syndrome (principal); K21.9 Gastro-esophageal reflux disease without esophagitis; K86.89 Other specified diseases of pancreas; R13.10 Dysphagia, unspecified; R68.81 Early satiety; F10.11 Alcohol abuse, in remission; J44.9 Chronic obstructive pulmonary disease, unspecified; G47.30 Sleep apnea, unspecified; M87.051 Idiopathic aseptic necrosis of right femur; M87.052 Idiopathic aseptic necrosis of left femur | CPT/HCPCS: 99202 ==

== ENCOUNTER → 2021-10-04 13:39 | Outpatient (BNVA) | payer MEDICARE, SELFPAY | PROVIDERS: PCP Family Medicine; Visit Provider Internal Medicine | DX: J44.9 Chronic obstructive pulmonary disease, unspecified (principal); G47.33 Obstructive sleep apnea (adult) (pediatric) | CPT/HCPCS: 99212 ==

== ENCOUNTER → 2021-10-27 12:49 | Outpatient (BNVA) | payer OTHER, MEDICARE, SELFPAY | PROVIDERS: PCP Family Medicine; Referring Provider Family Medicine; Visit Provider Nurse Practitioner | DX: K91.5 Postcholecystectomy syndrome (principal); K21.9 Gastro-esophageal reflux disease without esophagitis; K30 Functional dyspepsia; F10.11 Alcohol abuse, in remission | CPT/HCPCS: 99212 ==

== ENCOUNTER 2021-11-11 12:12 | Outpatient (REF) | payer OTHER, SELFPAY ==
[2021-11-11 14:21] LABS: Estimated Average Glucose 131 mg/dL; Hemoglobin A1c % 6.2 %
[2021-11-11 14:39] LABS: Creatinine Urine 111.51 mg/dL; Microalbum/Creatinine Ratio Ur 17.9 ug/mg cr
== END 2021-11-11 12:13 | disposition home or self-care (01) ==
LOC: HO.WFDLDS 12:12
PROVIDERS: Visit Provider Family Medicine
DX: R73.01 Impaired fasting glucose (principal); I10 Essential (primary) hypertension
CPT/HCPCS: 36415; 82043; 83036

== ENCOUNTER → 2021-11-17 13:25 | Outpatient (BNVA) | payer OTHER, SELFPAY | PROVIDERS: PCP Family Medicine; Referring Provider Family Medicine; Visit Provider Nurse Practitioner | DX: K86.89 Other specified diseases of pancreas (principal); K91.5 Postcholecystectomy syndrome; K21.9 Gastro-esophageal reflux disease without esophagitis; R13.10 Dysphagia, unspecified | CPT/HCPCS: 99212 ==

== ENCOUNTER → 2021-11-29 09:34 | Outpatient (BNVA) | payer OTHER, SELFPAY | PROVIDERS: PCP Family Medicine; Visit Provider Nurse Practitioner Family | DX: Z13.89 Encounter for screening for other disorder (principal) | CPT/HCPCS: Q3014 ==

== ENCOUNTER → 2021-12-07 10:13 | Outpatient (BNVA) | payer OTHER, SELFPAY | PROVIDERS: PCP Family Medicine; Visit Provider Internal Medicine | DX: G47.33 Obstructive sleep apnea (adult) (pediatric) (principal); J44.9 Chronic obstructive pulmonary disease, unspecified | CPT/HCPCS: 99212 ==

== ENCOUNTER 2021-12-23 08:02 | Outpatient (REF) | payer OTHER, SELFPAY ==
--- NOTE | ~2021-12-23 | XR_ITS ---
EXAMINATION: AP PELVIS AND BILATERAL HIPS CLINICAL INFORMATION: Right hip and pelvic pain COMPARISON: CT scan of the abdomen from 09/16/2021 TECHNIQUE: AP pelvis and bilateral hips 2 views each FINDINGS: Partially visualized lumbar spine revealed multilevel degenerative changes with scoliosis and disc space narrowing. Sacroiliac joints are unremarkable. Right hip revealed subchondral subchondral cysts formation and no narrowing of the joint space. Soft tissues are normal. Left hip demonstrate small area of geographic sclerosis most likely due to area of osteonecrosis. Pelvic bones are intact. Soft tissues unremarkable. XR/XR hip RT min 2V IMPRESSION: Subchondral cysts in right femoral head and small area of osteonecrosis in left humeral head. Degenerative changes in lower lumbar spine
--- NOTE | ~2021-12-23 | XR_ITS ---
EXAMINATION: AP PELVIS AND BILATERAL HIPS CLINICAL INFORMATION: Right hip and pelvic pain COMPARISON: CT scan of the abdomen from 09/16/2021 TECHNIQUE: AP pelvis and bilateral hips 2 views each FINDINGS: Partially visualized lumbar spine revealed multilevel degenerative changes with scoliosis and disc space narrowing. Sacroiliac joints are unremarkable. Right hip revealed subchondral subchondral cysts formation and no narrowing of the joint space. Soft tissues are normal. Left hip demonstrate small area of geographic sclerosis most likely due to area of osteonecrosis. Pelvic bones are intact. Soft tissues unremarkable. XR/XR hip LT min 2V IMPRESSION: Subchondral cysts in right femoral head and small area of osteonecrosis in left humeral head. Degenerative changes in lower lumbar spine
--- NOTE | ~2021-12-23 | XR_ITS ---
EXAMINATION: AP PELVIS AND BILATERAL HIPS CLINICAL INFORMATION: Right hip and pelvic pain COMPARISON: CT scan of the abdomen from 09/16/2021 TECHNIQUE: AP pelvis and bilateral hips 2 views each FINDINGS: Partially visualized lumbar spine revealed multilevel degenerative changes with scoliosis and disc space narrowing. Sacroiliac joints are unremarkable. Right hip revealed subchondral subchondral cysts formation and no narrowing of the joint space. Soft tissues are normal. Left hip demonstrate small area of geographic sclerosis most likely due to area of osteonecrosis. Pelvic bones are intact. Soft tissues unremarkable. XR/XR pelvis 1-2V IMPRESSION: Subchondral cysts in right femoral head and small area of osteonecrosis in left humeral head. Degenerative changes in lower lumbar spine
== END 2021-12-23 08:03 | disposition home or self-care (01) ==
LOC: HO.HOSX 08:02
PROVIDERS: Visit Provider Physician Assistant
DX: M25.551 Pain in right hip (principal); M25.552 Pain in left hip; M54.30 Sciatica, unspecified side
CPT/HCPCS: 72170; 73502; 99212

== ENCOUNTER 2022-01-25 08:13 | Outpatient (REF) | payer OTHER, SELFPAY ==
--- NOTE | ~2022-01-25 | FL_ITS ---
EXAMINATION: FL BARIUM SWALLOW CLINICAL INFORMATION: Dysphagia with liquids COMPARISON: None TECHNIQUE: Barium swallow examination is performed using fluoroscopic evaluation in addition to multiple fluoroscopic spot views. The patient is imaged both upright and prone and using both thick and thin sulfate along with effervescent granules. Barium tablet was also administered. Fluoroscopy time: 0.8 minutes DAP: 2.7 Gycm2 Images: 52 FINDINGS: There is laryngeal penetration. No aspiration is seen. There is a small sliding-type hiatal hernia. There is mild gastroesophageal reflux. Esophageal motility is normal. No mass or stricture is seen. There are postoperative changes to the stomach. The barium tablet passed freely into the stomach. FL/FL barium swallow IMPRESSION: Laryngeal penetration. No aspiration. Small sliding-type hiatal hernia and mild gastroesophageal reflux.
== END 2022-01-25 08:14 | disposition home or self-care (01) ==
LOC: HO.XRAY 08:13
PROVIDERS: PCP Family Medicine; Visit Provider Nurse Practitioner
DX: R13.10 Dysphagia, unspecified (principal)
CPT/HCPCS: 74220

== ENCOUNTER 2022-01-30 11:30 | Outpatient (REF) | payer OTHER, SELFPAY ==
[2022-01-30 13:58] LABS: Hematocrit 35.6 % (37.0-47.0); Hemoglobin 11.4 g/dl (12.0-16.0); Mean Corpuscular Hemoglobin 29.2 pg (27.0-33.0); Mean Platelet Volume 9.9 fL (9.4-12.3); Platelet Count 291 X10*3/uL (160-400); Red Blood Count 3.91 X10*6/uL (4.20-5.50); Red Cell Distribution Width 14.1 % (11.0-16.0); White Blood Count 9.9 X10*3/uL (4.8-10.8)
[2022-01-30 14:15] LABS: Iron 113 mcg/dL (30-160); Percent Iron Saturation 28 % (15-50); Total Iron Binding Capacity 410 mcg/dL (228-428); Unsaturated Iron Binding 297 ug/dL
[2022-01-30 14:38] LABS: Ferritin 19 ng/mL (10-250)
[2022-02-01 14:47] LABS: Transferrin 325 mg/dL (188-341)
== END 2022-01-30 11:31 | disposition home or self-care (01) ==
LOC: HO.HMGCLDS 11:30
PROVIDERS: Visit Provider Nurse Practitioner Family
DX: D64.9 Anemia, unspecified (principal)
CPT/HCPCS: 36415; 82728; 83540; 84466; 85027

== ENCOUNTER → 2022-03-13 10:57 | Outpatient (BNVA) | payer OTHER, SELFPAY | PROVIDERS: PCP Family Medicine; Visit Provider Internal Medicine | DX: J44.9 Chronic obstructive pulmonary disease, unspecified (principal); J96.91 Respiratory failure, unspecified with hypoxia; G47.33 Obstructive sleep apnea (adult) (pediatric) | CPT/HCPCS: 99212 ==

== ENCOUNTER → 2022-05-18 11:27 | Outpatient (BNVA) | payer OTHER, SELFPAY | PROVIDERS: PCP Family Medicine; Visit Provider Internal Medicine | DX: J44.9 Chronic obstructive pulmonary disease, unspecified (principal); G47.33 Obstructive sleep apnea (adult) (pediatric); J96.91 Respiratory failure, unspecified with hypoxia | CPT/HCPCS: 99212 ==

== ENCOUNTER 2022-07-15 10:36 | Outpatient (REF) | payer OTHER, SELFPAY ==
--- NOTE | ~2022-07-15 | XR_ITS ---
EXAMINATION: XR CHEST CLINICAL INFORMATION: Chest pain. COMPARISON: 10/30/2020 chest radiograph. TECHNIQUE: 2 views of the chest were obtained. FINDINGS: No significant abnormality is noted involving the heart, lungs, mediastinum, bony thorax or soft tissues. XR/XR chest 2V IMPRESSION: No acute cardiopulmonary process.
[2022-07-15 13:41] LABS: MANUAL DIFF FLAG NO
[2022-07-15 13:51] LABS: Appearance Urine Clear; Color Urine Yellow; Glucose Urine UA Negative (Negative); Leukocyte Esterase Urine Trace (Negative); Nitrite Urine Negative (Negative); PH 5.5 (5.0-9.0); Specific Gravity - Urine 1.025 (1.005-1.025); UMIC TRIGGER UA YES; Urine Blood Negative (Negative); Urine Ketones Negative (Negative); Urine Protein Negative (Neg-Trace)
[2022-07-15 13:54] LABS: Bacteria Urine 4+ (None Seen); Hyaline Casts Urine 0-2 /LPF (0-2); WBC Urine 0-5 /HPF (0-5)
[2022-07-15 13:56] LABS: Basophils Percent Auto 0.3 % (0-2); Eosinophils Absolute Auto 0.2 X10*3/uL (0.0-0.4); Eosinophils Percent Auto 2.6 % (0-4); Hematocrit 35.8 % (37.0-47.0); Hemoglobin 11.4 g/dl (12.0-16.0); Imm Gran Abs Auto 0.03 X10*3/uL (0.00-0.03); Imm Gran Pct Auto 0.3 % (0.0-0.4); Lymphocytes Absolute Auto 2.7 X10*3/uL (1.2-4.9); Lymphocytes Percent Auto 30.4 % (20-40); Mean Corpuscular HGB Conc 31.8 g/dl (31.0-35.0); Mean Corpuscular Hemoglobin 28.4 pg (27.0-33.0); Mean Corpuscular Volume 89.3 fL (80.0-98.0); Mean Platelet Volume 9.4 fL (9.4-12.3); Monocytes Absolute Auto 0.5 X10*3/uL (0.1-1.2); Monocytes Percent Auto 5.8 % (2-11); Neutrophils Absolute Auto 5.4 x10*3/uL (2.0-8.3); Neutrophils Percent Auto 60.6 % (45-73); Platelet Count 336 X10*3/uL (160-400); Red Blood Count 4.01 X10*6/uL (4.20-5.50); Red Cell Distribution Width 14.3 % (11.0-16.0); White Blood Count 8.9 X10*3/uL (4.8-10.8)
[2022-07-15 14:13] LABS: Alanine Aminotransferase 12 U/L (0-31); Albumin Level 4.4 g/dL (3.5-5.0); Alkaline Phosphatase 78 U/L (39-117); Anion Gap 16 (12-20); Aspartate Amino Transferase 12 U/L (5-31); Bilirubin Total < 0.2 mg/dL (0.0-1.0); Blood Urea Nitrogen 19 mg/dL (9-16); Calcium 9.1 mg/dL (8.4-10.2); Carbon Dioxide 23 mmol/L (22-29); Chloride 104 mmol/L (96-108); Cholesterol 169 mg/dL; Estimated Glomerular Filt Rate > 60; Glucose Fasting 108 mg/dL (60-99); HDL Cholesterol 66 mg/dL; LDL Cholesterol Calculated 95 mg/dl; Potassium 4.3 mmol/L (3.3-5.1); Sodium 139 mmol/L (135-145); Total Protein 6.6 g/dL (6.5-8.0); Triglycerides 42 mg/dL
[2022-07-15 14:17] LABS: Creatinine Urine 90.89 mg/dL; Microalbum/Creatinine Ratio Ur 17.6 ug/mg cr
[2022-07-15 14:21] LABS: Troponin-I High Sensitivity 5.7 ng/L (<3.5-17.0)
== END 2022-07-15 10:37 | disposition home or self-care (01) ==
LOC: HO.HMGCX 10:36
PROVIDERS: PCP Family Medicine; Visit Provider Family Medicine
DX: Z00.00 Encounter for general adult medical examination without abnormal findings (principal); R07.89 Other chest pain; I10 Essential (primary) hypertension
CPT/HCPCS: 36415; 71046; 80053; 80061; 81001; 82043; 84443; 84484; 85025

== ENCOUNTER 2022-08-02 09:50 | Outpatient (REF) | payer OTHER, SELFPAY ==
--- NOTE | ~2022-08-02 | MM_ITS ---
EXAMINATION: MM SCREENING DIGITAL BREAST TOMOSYNTHESIS, BILATERAL CLINICAL INFORMATION: Screening. Asymptomatic. The lifetime risk of breast cancer based on the Tyrer-Cuzick Model is 2%. COMPARISON: Mammography: 07/27/2021, 09/05/2019, 09/03/2018 TECHNIQUE: Digital breast tomosynthesis is performed in both the craniocaudal and mediolateral oblique views along with computer-aided detection (CAD). Synthesized 2D images are generated from the tomosynthesis. FINDINGS: There are scattered areas of fibroglandular density (ACR BI-RADS breast composition Category b). There are no significant masses, abnormal calcifications, or other abnormalities. Parenchymal pattern is similar to prior studies. There is no developing density or architectural abnormality. The axilla and skin contours are unremarkable. No significant changes. MM/MM tomosynthesis screening BI IMPRESSION: No mammographic evidence of malignancy. ASSESSMENT: BI-RADS 1: Negative RECOMMENDATION: Routine annual mammography screening. This patient's information was entered into a reminder system with a target due date for their next mammogram.
== END 2022-08-02 09:51 | disposition home or self-care (01) ==
LOC: HO.MAMMO 09:50
PROVIDERS: PCP Family Medicine; Visit Provider Family Medicine
DX: Z12.31 Encounter for screening mammogram for malignant neoplasm of breast (principal)
CPT/HCPCS: 77063; 77067

== ENCOUNTER → 2022-08-25 08:33 | Outpatient (REF) | payer OTHER, SELFPAY ==
--- NOTE | ~2022-08-25 | NM_ITS ---
Exercise Myocardial perfusion study Indication: Chest pain Technique: The patient was brought in for an dobutamine perfusion study on 08/25/2022. Patient performed a dobutamine test as per protocol and was injected 25 mCi of sestamibi was given intravenously one target HR was achieved. Images were obtained using the SPECT gamma camera interlaced with the gating device. Images were obtained in supine position. Resting perfusion study was performed on 08/28/2022. Patient was administered 25 mCi of sestamibi intravenously at rest. Images were then obtained in supine position. Images obtained with and without CT attenuation. Total DLP 76 mGy-cm. Images were processed with the software and compared side to side in short axis, horizontal long axis and vertical long axis views. Findings: The stress perfusion study showed non attenuated images show minimally reduced uptake in the basal inferolateral wall of the LV myocardium. Remainder of the LV myocardium is normally perfused. Attenuation corrected images shows thinning and mildly reduced uptake in the basal inferolateral wall of the LV myocardium.. The gated study shows normal LV systolic function with calculated LVEF of 54%. LV cavity is normal in size. The gated study shows normal systolic wall thickening and contraction of all segments. There is no transient ischemic dilation. Resting study shows no change in perfusion pattern compared to stress perfusion study. Gating at rest reveals normal systolic wall motion with ejection fraction at 55%. The findings are consistent with no reversible defect suggestive of ischemia. Fixed basal inferolateral wall defect most suggestive attenuation artifact normal wall motion although nontransmural myocardial infarction cannot be entirely ruled out.. NM/NM ruba perf SPECT rest & str Impression: 1. Likely normal myocardial perfusion with no ischemia 2. Gated LVEF is 55% 3. Transient ischemic dilatation not present Stress EKG is negative for ischemia
--- NOTE | 2022-08-25 08:37 | CA_ITS ---
Acquisition Time: 2022-08-25 08:47:18 Total Exercise Time: 00:10:40 Test Indications: cp, copd Medications: see chart Protocol: DOBUTAMINE Max HR: 141 BPM 96% of Pred: 146 BPM Max BP: 168/068 mmHG Max Work Load: 1.0 METS Pharmacological stress test with Dobutamine infusion, to max 20mcg/kg/min, without anginal symptoms, with isolated PVCs and ventricular cuplets, with normotensive response to infusion, without EKG changes meeting criteria for ischemia. Nuclear images pending. Test reviewed with dr Vays. Note: test initially ordered as a pharmacological stress test with Lexiscan however pt was sob and wheezing at baseline. Pharmacological agent changed to Dobutamine, order changed. Referred By: Yoseph Mccarthy Overread By: ELTON MARIE
== END ==
LOC: HO.CARD 08:33
PROVIDERS: PCP Family Medicine; Visit Provider Family Medicine
DX: R07.89 Other chest pain (principal)
CPT/HCPCS: 78452; 93017; A9500; J1250

== ENCOUNTER 2022-09-04 06:02 | Day surgery (SDC) | payer OTHER, SELFPAY ==
[2022-08-29 13:16] VITALS: BMI 25.9
--- NOTE | 2022-08-31 13:13 | HO.ANESPROP2 ---
Documented by User: Suzanne Chowdary NP 08/31/22 13:19 HPI - Anesthesia Eval Consult details Narrative: 76yo F for Left Cataract Extraction IOL Insertion PCP cleared (w/u for chest pain negative) No previous cataract on record PMFSH Active Problems Active Problems: All Active Problems (Updated 08/28/22 @ 13:47 by Naty Tolbert RN) Insomnia (Acute) Hand injury (Acute) Metacarpal bone fracture (Acute) Cellulitis (Acute) Diabetes (Acute) Hand pain, right (Acute) Fracture of fifth metacarpal bone of right hand (Acute) Fracture of fifth metacarpal bone with routine healing (Acute) Tachycardia (Acute) Tracheobronchitis (Acute) Cough (Acute) Anxiety (Acute) Daytime sleepiness (Acute) Memory changes (Acute) Laboratory examination ordered as part of a routine general medical examination (Acute) Severe obstructive sleep apnea (Acute) Restless leg syndrome (Acute) Periodic limb movement sleep disorder (Acute) Anemia (Acute) Annual visit for general adult medical examination without abnormal findings (Acute) Sleep apnea (Acute) Anxiety and depression (Acute) Screening for colon cancer (Acute) Screening for breast cancer (Acute) Elevated blood pressure reading (Acute) Early satiety (Acute) Abdominal mass (Acute) Right upper quadrant abdominal mass (Acute) GERD (gastroesophageal reflux disease) (Acute) Post-cholecystectomy syndrome (Acute) Pancreatic insufficiency (Acute) Dysphagia (Acute) Avascular necrosis of bones of both hips (Acute) History of alcohol abuse (Acute) Bilateral hip pain (Acute) Left otitis media (Acute) Sciatica (Acute) Otitis externa (Acute) Yeast infection (Acute) Weakness of both lower extremities (Acute) Type II diabetes mellitus, well controlled (Acute) Adult general medical exam (Acute) Mild anemia (Acute) Cervicalgia (Acute) Chest tightness (Acute) Chest pressure (Acute) UTI (urinary tract infection) (Acute) Preoperative clearance (Acute) Respiratory failure with hypoxia (Acute) Diabetes (Acute) COPD (chronic obstructive pulmonary disease) (Acute) Osteoporosis (Acute) Major depression (Acute) Past Medical History Medical History (Updated 08/28/22 @ 13:47 by Naty Tolbert RN) COPD (chronic obstructive pulmonary disease) COVID-19 Delayed gastric emptying Diabetes FHx: cholecystectomy Major depression Osteoporosis Respiratory failure with hypoxia Sleep disorder, unspecified Family History Family History Father No problems noted. Mother CVD (cardiovascular disease) Diabetes mellitus Brother No problems noted. Brother No problems noted. Brother No problems noted. Sister No problems noted. Daughter No problems noted. Daughter No problems noted. Daughter No problems noted. Other Mental health disorder Surgical History Surgical History H/O Whipple procedure History of carpal tunnel release of both wrists History of cholecystectomy History of partial gastrectomy Hx of tonsillectomy Previous back surgery Social History Social History Household Members: None Housing: House Housing Other:: no assistive devices Alcohol intake: former Patient Tobacco Use Status: Former Tobacco user e-Cigarette/Vaping Use: Never Used Second Hand Smoke Exposure: No Advance Directives: No Advance Directives Information Provided: Yes (brochure mailed) Advance Directives on File: No service: No Current occupational status: retired 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 Current occupational exposures/hazards: No Cognitive needs: No Hearing needs: No Vision needs: No Meds Allergies Allergy/AdvReac Type Severity Reaction Status Date / Time lisinopril Allergy Unknown RAsh, Verified 08/30/22 10:41 Swelling Home Medications Medication Instructions Recorded Confirmed Last Taken Type flu vac qv 2019(18yr up)rc(PF) 180 ml IM 10/29/20 07/19/22 Unknown History mcg(45 mcgx4)/0.5 mL IM syringe sertraline 100 mg tablet 200 mg PO DAILY 10/04/21 08/29/22 Unknown History docusate sodium 100 mg capsule 100 mg PO BID PRN constipation 02/10/22 08/29/22 Unknown History Exam Exam Date and Time: August 31, 2022 1313 Height,Weight and Vital Signs: Height 5 ft Weight 60.328 kg Pertinent Lab Results Pertinent Lab Results: Laboratory Tests 07/15/22 07/15/22 11:04 11:04 WBC 8.9 Hgb 11.4 L Hct 35.8 L Plt Count 336 Sodium 139 Potassium 4.3 Chloride 104 Carbon Dioxide 23 BUN 19 H Creatinine 0.76 Narrative Narrative: NM ruba perf SPECT rest & str 08/2022 Impression: ? 1.? Likely normal myocardial perfusion with no ischemia 2.? Gated LVEF is 55% 3. Transient ischemic dilatation not present ? Stress EKG is negative for ischemia EKG 07/2022 NSR @ 78 ECHO 11/2020 Conclusions: - The left ventricular systolic function is normal.? The visually estimated ejection fraction is between 60-65%. ? - There is moderate septal asymmetric hypertrophy. ? - Possible basal inferior hypokinesis. ? - There is mild calcification of the aortic valve. ? - There is mild aortic valve regurgitation.? - Small plaque is seen in the ascending aorta. ?? Assessment and Plan Assessment Anesthesia Assessment: Chart Reviewed Documented by User: Yvette Vera MD 09/04/22 07:10 [facility] Past Medical History Medical History (Updated 08/28/22 @ 13:47 by Naty Tolbert RN) COPD (chronic obstructive pulmonary disease) COVID-19 Delayed gastric emptying Diabetes FHx: cholecystectomy Major depression Osteoporosis Respiratory failure with hypoxia Sleep disorder, unspecified Family History Family History Father No problems noted. Mother CVD (cardiovascular disease) Diabetes mellitus Brother No problems noted. Brother No problems noted. Brother No problems noted. Sister No problems noted. Daughter No problems noted. Daughter No problems noted. Daughter No problems noted. Other Mental health disorder Family history of problems with anesthesia: No Surgical History Surgical History H/O Whipple procedure History of carpal tunnel release of both wrists History of cholecystectomy History of partial gastrectomy Hx of tonsillectomy Previous back surgery History of Problems with Anesthesia: No Social History Social History Household Members: None Housing: House Housing Other:: no assistive devices Alcohol intake: former Patient Tobacco Use Status: Former Tobacco user e-Cigarette/Vaping Use: Never Used Second Hand Smoke Exposure: No Advance Directives: No Advance Directives Information Provided: Yes (brochure mailed) Advance Directives on File: No service: No Current occupational status: retired 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 Current occupational exposures/hazards: No Cognitive needs: No Hearing needs: No Vision needs: No Meds Allergies Allergy/AdvReac Type Severity Reaction Status Date / Time lisinopril Allergy Unknown RAsh, Verified 08/30/22 10:41 Swelling Home Medications Medication Instructions Recorded Confirmed Last Taken Type flu vac qv 2019(18yr up)rc(PF) 180 ml IM 10/29/20 07/19/22 Unknown History mcg(45 mcgx4)/0.5 mL IM syringe sertraline 100 mg tablet 200 mg PO DAILY 10/04/21 08/29/22 Unknown History docusate sodium 100 mg capsule 100 mg PO BID PRN constipation 02/10/22 08/29/22 Unknown History Exam Airway Mallampati Class: II TM Dist: >3cm Neck ROM: Full Denture: Upper Heart: rrr Lungs: slight wheeze receiving updraft Assessment and Plan Assessment Anesthesia Assessment: Anesthesia Plan Discussed Final Anesthetic Review Family History of Problems with Anesthesia: No History of Problems with Anesthesia: No NPO: Yes ASA Class: III Final Preanesthetic Review: No Changes in Pt Med Stat, Meds/Allgs Chart Reviewed and Consent Obtained/Reviewed Patient Risk: Intermediate Procedure Risk: Intermediate Anesthetic Plan Anesthetic Plan: MAC: Disposition: Standard PACU
[2022-09-04 06:23] VITALS: BP 100/69; PULSE 83; RESP 18; TEMP 36.8; O2SAT 96
[2022-09-04] MEDS: Phenylephrine HCL 2.5% Oph SoL 2 ML BOTTLE 1 DROP EYE-LEFT ×3 (06:34→06:39)
[2022-09-04] MEDS: Tetracaine HCl/PF 0.5% Oph Sol 4 ML DROPS 1 DROP EYE-LEFT (06:34)
[2022-09-04 06:35] LABS: Glucose, Whole Blood 136 mg/dL (60-115)
[2022-09-04] MEDS: Tropicamide 1 % Ophth Sol 3 ML BTL 1 DROP EYE-LEFT ×3 (06:35→06:40)
[2022-09-04] MEDS: Cyclopentolate 1 % Ophth Sol 2 ML DRPBTL 1 DROP EYE-LEFT ×3 (06:35→06:40)
[2022-09-04] MEDS: Ketorolac Tromethamine 0.5% Op 5 ML DROPS 1 DROP EYE-LEFT ×3 (06:35→06:40)
[2022-09-04 06:56] VITALS: BP 100/69; PULSE 83; RESP 18; TEMP 36.8; O2SAT 96; BMI 25.7
[2022-09-04] MEDS: Lactated Ringers 500 ML 50 ML IV (06:59)
[2022-09-04] MEDS: Albuterol Sulfate (0.083%) 2.5 MG/3 ML VIAL.NEB INHALE (07:19)
[2022-09-04 07:20] VITALS: PULSE 79; RESP 16; O2SAT 95
--- NOTE | 2022-09-04 07:25 | HO.PNOPHT ---
Ophthalmology Procedure Procedure Date of Service: 09/04/22 Ophthalmology Viscoelastic: Healleonor Duet Dual Pack Pro Ophthalmology Lenses: TECSAEID [id number] (27) Procedure Notes: PREOPERATIVE DIAGNOSIS: Decreased visual acuity left eye secondary to cataract POSTOPERATIVE DIAGNOSIS: Same PROCEDURE: Left cataract extraction with intraocular lens insertion SURGEON: Quique Waller M.D. ANESTHESIA: Topical/MAC ESTIMATED BLOOD LOSS: None COMPLICATIONS: None After obtaining informed consent, the patient was brought to the operation room suite and placed in the supine position. After adequate sedation per anesthesia, topical drops of Tetracaine were given to the left eye. The eye was then prepped and draped in the usual sterile fashion. The operating room microscope was then positioned over the operative eye and a lid speculum placed. A paracentesis was created. Viscoelastic was then instilled into the anterior chamber. A three plane incision was then created temporally, utilizing a 2.85 mm keratome. Capsulotomy forceps were then utilized to create a circular tear capsulotomy. Hydrodissection and hydrodelineation were carried out until adequate mobilization of the nucleus occurred. Phacoemulsification was then utilized to remove the dense central nucleus followed by removal of the cortical material utilizing the automated aspiration irrigation unit. Viscoat elastic was instilled into the posterior capsular bag followed by placement of a posterior chamber intraocular lens without difficulty. The residual Viscoat elastic was then removed utilizing the automated IA machine. The wound was check and found to be watertight. The patient tolerated the procedure well and the lid speculum was removed. Intracameral injection of Vigamox 0.1 mL followed by a subtenon injection of Kenalog-40 0.2 mL were administered. The patient will be seen in the a.m.
[2022-09-04 08:00] VITALS: BP 161/64; PULSE 88; RESP 16; TEMP 36.8; O2SAT 94
--- NOTE | 2022-09-04 08:35 | P.CONAN_ITS ---
HPI - Anesthesia Eval Consult details Narrative: Left eye cataract PMFSH Active Problems Active Problems: All Active Problems (Updated 08/28/22 @ 13:47 by Naty Tolbert RN) Insomnia (Acute) Hand injury (Acute) Metacarpal bone fracture (Acute) Cellulitis (Acute) Diabetes (Acute) Hand pain, right (Acute) Fracture of fifth metacarpal bone of right hand (Acute) Fracture of fifth metacarpal bone with routine healing (Acute) Tachycardia (Acute) Tracheobronchitis (Acute) Cough (Acute) Anxiety (Acute) Daytime sleepiness (Acute) Memory changes (Acute) Laboratory examination ordered as part of a routine general medical examination (Acute) Severe obstructive sleep apnea (Acute) Restless leg syndrome (Acute) Periodic limb movement sleep disorder (Acute) Anemia (Acute) Annual visit for general adult medical examination without abnormal findings (Acute) Sleep apnea (Acute) Anxiety and depression (Acute) Screening for colon cancer (Acute) Screening for breast cancer (Acute) Elevated blood pressure reading (Acute) Early satiety (Acute) Abdominal mass (Acute) Right upper quadrant abdominal mass (Acute) GERD (gastroesophageal reflux disease) (Acute) Post-cholecystectomy syndrome (Acute) Pancreatic insufficiency (Acute) Dysphagia (Acute) Avascular necrosis of bones of both hips (Acute) History of alcohol abuse (Acute) Bilateral hip pain (Acute) Left otitis media (Acute) Sciatica (Acute) Otitis externa (Acute) Yeast infection (Acute) Weakness of both lower extremities (Acute) Type II diabetes mellitus, well controlled (Acute) Adult general medical exam (Acute) Mild anemia (Acute) Cervicalgia (Acute) Chest tightness (Acute) Chest pressure (Acute) UTI (urinary tract infection) (Acute) Preoperative clearance (Acute) Respiratory failure with hypoxia (Acute) Diabetes (Acute) COPD (chronic obstructive pulmonary disease) (Acute) Osteoporosis (Acute) Major depression (Acute) Past Medical History Medical History COPD (chronic obstructive pulmonary disease) COVID-19 Delayed gastric emptying Diabetes FHx: cholecystectomy Major depression Osteoporosis Respiratory failure with hypoxia Sleep disorder, unspecified Family History Family History Father No problems noted. Mother CVD (cardiovascular disease) Diabetes mellitus Brother No problems noted. Brother No problems noted. Brother No problems noted. Sister No problems noted. Daughter No problems noted. Daughter No problems noted. Daughter No problems noted. Other Mental health disorder Family history of problems with anesthesia: No Surgical History Surgical History H/O Whipple procedure History of carpal tunnel release of both wrists History of cholecystectomy History of partial gastrectomy Hx of tonsillectomy Previous back surgery History of Problems with Anesthesia: No Social History Social History Household Members: None Housing: House Housing Other:: no assistive devices Alcohol intake: former Patient Tobacco Use Status: Former Tobacco user e-Cigarette/Vaping Use: Never Used Second Hand Smoke Exposure: No Advance Directives: No Advance Directives Information Provided: Yes (brochure mailed) Advance Directives on File: No service: No Current occupational status: retired 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 Current occupational exposures/hazards: No Cognitive needs: No Hearing needs: No Vision needs: No Meds Allergies Allergy/AdvReac Type Severity Reaction Status Date / Time lisinopril Allergy Unknown RAsh, Verified 08/30/22 10:41 Swelling Home Medications Medication Instructions Recorded Confirmed Last Taken Type flu vac qv 2019(18yr up)rc(PF) 180 ml IM 10/29/20 07/19/22 Unknown History mcg(45 mcgx4)/0.5 mL IM syringe sertraline 100 mg tablet 200 mg PO DAILY 10/04/21 08/29/22 09/04/22 History docusate sodium 100 mg capsule 100 mg PO BID PRN constipation 02/10/22 08/29/22 Unknown History Exam Exam Date and Time: September 04, 2022 0836 Height,Weight and Vital Signs: Height 5 ft Weight 59.874 kg Last Vital Signs Temp 98.3 F 09/04/22 08:00 Pulse 88 09/04/22 08:00 Resp 16 09/04/22 08:00 BP 161/64 H 09/04/22 08:00 Pulse Ox 94 09/04/22 08:00 O2 Del Method 09/04/22 08:00 Pertinent Lab Results Pertinent Lab Results: Laboratory Tests 09/04/22 06:24 POC Glucose 136 H Airway Mallampati Class: II TM Dist: >3cm Neck ROM: Full Denture: Upper and Lower Loose/Missing/Broken Teeth: Yes Heart: rrr+[id number] Lungs: cta b/l Assessment and Plan Assessment Anesthesia Assessment: Anesthesia Plan Discussed and Chart Reviewed Final Anesthetic Review Family History of Problems with Anesthesia: No History of Problems with Anesthesia: No NPO: Yes ASA Class: III Final Preanesthetic Review: No Changes in Pt Med Stat, Meds/Allgs Chart Reviewed, Consent Obtained/Reviewed and Anes Risks/Benef Reviewed Patient Risk: Intermediate Procedure Risk: Intermediate Assessment/Block/Sedation in SS: Assess/Block/Sedation-SS Anesthetic Plan Anesthetic Plan: MAC: and Agree w/ Assess. and Plan Disposition: Standard PACU
== END 2022-09-04 08:13 | disposition home or self-care (01) ==
PROVIDERS: PCP Family Medicine; Visit Provider Ophthalmology
PROC: (CPT 66985; principal; 2022-09-04 08:50)
DX: H25.12 Age-related nuclear cataract, left eye (principal); H40.213 Acute angle-closure glaucoma, bilateral; H11.133 Conjunctival pigmentations, bilateral; Z83.511 Family history of glaucoma; H54.7 Unspecified visual loss; J44.9 Chronic obstructive pulmonary disease, unspecified; J96.91 Respiratory failure, unspecified with hypoxia; Z87.891 Personal history of nicotine dependence; F32.9 Major depressive disorder, single episode, unspecified; E11.9 Type 2 diabetes mellitus without complications; Z90.3 Acquired absence of stomach [part of]; Z79.84 Long term (current) use of oral hypoglycemic drugs; Z79.51 Long term (current) use of inhaled steroids; Z79.899 Other long term (current) drug therapy; Z88.8 Allergy status to other drugs, medicaments and biological substances; Z86.16 Personal history of COVID-19
CPT/HCPCS: 66984; 82947; 94640; J2250; J3300; V2632

== ENCOUNTER 2022-09-18 07:07 | Day surgery (SDC) | payer OTHER, SELFPAY ==
[2022-08-29 13:22] VITALS: BMI 25.9
--- NOTE | 2022-09-12 12:51 | P.CONAN_ITS ---
Documented by User: Suzanne Chowdary NP 09/12/22 12:52 HPI - Anesthesia Eval Consult details Narrative: 76yo F for Right Cataract Extraction IOL Insertion PCP cleared Left eye 09/04/22 with MAC: Midaz 2 PMFSH Active Problems Active Problems: All Active Problems (Updated 08/28/22 @ 13:47 by Naty Tolbert RN) Insomnia (Acute) Hand injury (Acute) Metacarpal bone fracture (Acute) Cellulitis (Acute) Diabetes (Acute) Hand pain, right (Acute) Fracture of fifth metacarpal bone of right hand (Acute) Fracture of fifth metacarpal bone with routine healing (Acute) Tachycardia (Acute) Tracheobronchitis (Acute) Cough (Acute) Anxiety (Acute) Daytime sleepiness (Acute) Memory changes (Acute) Laboratory examination ordered as part of a routine general medical examination (Acute) Severe obstructive sleep apnea (Acute) Restless leg syndrome (Acute) Periodic limb movement sleep disorder (Acute) Anemia (Acute) Annual visit for general adult medical examination without abnormal findings (Acute) Sleep apnea (Acute) Anxiety and depression (Acute) Screening for colon cancer (Acute) Screening for breast cancer (Acute) Elevated blood pressure reading (Acute) Early satiety (Acute) Abdominal mass (Acute) Right upper quadrant abdominal mass (Acute) GERD (gastroesophageal reflux disease) (Acute) Post-cholecystectomy syndrome (Acute) Pancreatic insufficiency (Acute) Dysphagia (Acute) Avascular necrosis of bones of both hips (Acute) History of alcohol abuse (Acute) Bilateral hip pain (Acute) Left otitis media (Acute) Sciatica (Acute) Otitis externa (Acute) Yeast infection (Acute) Weakness of both lower extremities (Acute) Type II diabetes mellitus, well controlled (Acute) Adult general medical exam (Acute) Mild anemia (Acute) Cervicalgia (Acute) Chest tightness (Acute) Chest pressure (Acute) UTI (urinary tract infection) (Acute) Preoperative clearance (Acute) Respiratory failure with hypoxia (Acute) Diabetes (Acute) COPD (chronic obstructive pulmonary disease) (Acute) Osteoporosis (Acute) Major depression (Acute) Past Medical History Medical History COPD (chronic obstructive pulmonary disease) COVID-19 Delayed gastric emptying Diabetes FHx: cholecystectomy Major depression Osteoporosis Respiratory failure with hypoxia Sleep disorder, unspecified Family History Family History Father No problems noted. Mother CVD (cardiovascular disease) Diabetes mellitus Brother No problems noted. Brother No problems noted. Brother No problems noted. Sister No problems noted. Daughter No problems noted. Daughter No problems noted. Daughter No problems noted. Other Mental health disorder Family history of problems with anesthesia: No Surgical History Surgical History H/O Whipple procedure History of carpal tunnel release of both wrists History of cholecystectomy History of partial gastrectomy Hx of tonsillectomy Previous back surgery History of Problems with Anesthesia: No Social History Social History Household Members: None Housing: House Housing Other:: no assistive devices Alcohol intake: former Patient Tobacco Use Status: Former Tobacco user e-Cigarette/Vaping Use: Never Used Second Hand Smoke Exposure: No Advance Directives: No Advance Directives Information Provided: Yes (brochure mailed) Advance Directives on File: No service: No Current occupational status: retired 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 Current occupational exposures/hazards: No Cognitive needs: No Hearing needs: No Vision needs: No Meds Allergies Allergy/AdvReac Type Severity Reaction Status Date / Time lisinopril Allergy Unknown RAsh, Verified 08/30/22 10:41 Swelling Home Medications Medication Instructions Recorded Confirmed Last Taken Type flu vac qv 2019(18yr up)rc(PF) 180 ml IM 10/29/20 07/19/22 Unknown History mcg(45 mcgx4)/0.5 mL IM syringe sertraline 100 mg tablet 200 mg PO DAILY 10/04/21 08/29/22 09/04/22 History docusate sodium 100 mg capsule 100 mg PO BID PRN constipation 02/10/22 08/29/22 Unknown History Exam Exam Date and Time: September 12, 2022 1251 Height,Weight and Vital Signs: Height 5 ft Weight 60.328 kg Pertinent Lab Results Pertinent Lab Results: Laboratory Tests 07/15/22 07/15/22 11:04 11:04 WBC 8.9 Hgb 11.4 L Hct 35.8 L Plt Count 336 Sodium 139 Potassium 4.3 Chloride 104 Carbon Dioxide 23 BUN 19 H Creatinine 0.76 Narrative Narrative: NM ruba perf SPECT rest & str 08/2022 Impression: ? 1.? Likely normal myocardial perfusion with no ischemia 2.? Gated LVEF is 55% 3. Transient ischemic dilatation not present ? Stress EKG is negative for ischemia EKG 07/2022 NSR @ 78 ECHO 11/2020 Conclusions: - The left ventricular systolic function is normal.? The visually estimated ejection fraction is between 60-65%. ? - There is moderate septal asymmetric hypertrophy. ? - Possible basal inferior hypokinesis. ? - There is mild calcification of the aortic valve. ? - There is mild aortic valve regurgitation.? - Small plaque is seen in the ascending aorta. ?? Airway Mallampati Class: II TM Dist: >3cm Neck ROM: Full Denture: Upper Heart: rrr Lungs: slight wheeze receiving updraft Assessment and Plan Assessment Anesthesia Assessment: Chart Reviewed Final Anesthetic Review Family History of Problems with Anesthesia: No History of Problems with Anesthesia: No Documented by User: Gonzalez Escobar MD 09/18/22 12:09 [facility] Past Medical History Medical History COPD (chronic obstructive pulmonary disease) COVID-19 Delayed gastric emptying Diabetes FHx: cholecystectomy Major depression Osteoporosis Respiratory failure with hypoxia Sleep disorder, unspecified Family History Family History Father No problems noted. Mother CVD (cardiovascular disease) Diabetes mellitus Brother No problems noted. Brother No problems noted. Brother No problems noted. Sister No problems noted. Daughter No problems noted. Daughter No problems noted. Daughter No problems noted. Other Mental health disorder Surgical History Surgical History H/O Whipple procedure History of carpal tunnel release of both wrists History of cholecystectomy History of partial gastrectomy Hx of tonsillectomy Previous back surgery Social History Social History Household Members: None Housing: House Housing Other:: no assistive devices Alcohol intake: former Patient Tobacco Use Status: Former Tobacco user e-Cigarette/Vaping Use: Never Used Second Hand Smoke Exposure: No Advance Directives: No Advance Directives Information Provided: Yes (brochure mailed) Advance Directives on File: No service: No Current occupational status: retired 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 Current occupational exposures/hazards: No Cognitive needs: No Hearing needs: No Vision needs: No Meds Allergies Allergy/AdvReac Type Severity Reaction Status Date / Time lisinopril Allergy Unknown RAsh, Verified 08/30/22 10:41 Swelling Home Medications Medication Instructions Recorded Confirmed Last Taken Type flu vac qv 2019(18yr up)rc(PF) 180 ml IM 10/29/20 07/19/22 Unknown History mcg(45 mcgx4)/0.5 mL IM syringe sertraline 100 mg tablet 200 mg PO DAILY 10/04/21 08/29/22 09/04/22 History docusate sodium 100 mg capsule 100 mg PO BID PRN constipation 02/10/22 08/29/22 Unknown History Exam Airway Denture: Lower Assessment and Plan Assessment Anesthesia Assessment: Anesthesia Plan Discussed Final Anesthetic Review NPO: Yes ASA Class: III Final Preanesthetic Review: No Changes in Pt Med Stat, Meds/Allgs Chart Reviewed, Consent Obtained/Reviewed and Anes Risks/Benef Reviewed Patient Risk: Intermediate Procedure Risk: Intermediate Assessment/Block/Sedation in SS: Assess/Block/Sedation-SS Anesthetic Plan Anesthetic Plan: MAC: and Agree w/ Assess. and Plan Disposition: Standard PACU
--- NOTE | 2022-09-13 08:32 | MHC.SHP ---
Pre-Procedural Eval Section A Date of Service: 09/13/22 The patient is an INPATIENT: No Changes since office visit: No Cold of Flu in the past 2 weeks, No New Medical Problems, No Changes in Medication and No Patient answered all questions The History & Physical has been completed within 30 days and I have reviewed it.: Yes Section B Chief Complaint: Age-related nuclear cataract, right eye Allergies: Allergies Allergy/AdvReac Type Severity Reaction Status Date / Time lisinopril Allergy Unknown RAsh, Verified 08/30/22 10:41 Swelling Plan Diagnosis/Plan: Unchanged I have reviewed the history and physical and performed a pertinent physical examination on my patient. No changes have occurred unless specified.
[2022-09-18 10:14] VITALS: BP 163/91; PULSE 82; RESP 18; TEMP 36.1; O2SAT 94
[2022-09-18 10:20] LABS: Glucose, Whole Blood 117 mg/dL (60-115)
[2022-09-18] MEDS: Tetracaine HCl/PF 0.5% Oph Sol 4 ML DROPS 1 DROP EYE-RIGHT (10:52)
[2022-09-18] MEDS: Lactated Ringers 500 ML 50 ML IV (10:54)
[2022-09-18] MEDS: Ketorolac Tromethamine 0.5% Op 5 ML DROPS 1 DROP EYE-RIGHT ×3 (10:55→10:58)
[2022-09-18] MEDS: Phenylephrine HCL 2.5% Oph SoL 2 ML BOTTLE 1 DROP EYE-RIGHT ×3 (10:55→10:58)
[2022-09-18] MEDS: Cyclopentolate 1 % Ophth Sol 2 ML DRPBTL 1 DROP EYE-RIGHT ×3 (10:55→10:59)
[2022-09-18] MEDS: Tropicamide 1 % Ophth Sol 3 ML BTL 1 DROP EYE-RIGHT ×3 (10:55→10:57)
--- NOTE | 2022-09-18 12:28 | HO.PNOPHT ---
Ophthalmology Procedure Procedure Date of Service: 09/18/22 Ophthalmology Viscoelastic: Mike Trant Dual Pack Pro Ophthalmology Lenses: TECSAEID [id number] (27) Procedure Notes: PREOPERATIVE DIAGNOSIS: Decreased visual acuity right eye secondary to cataract POSTOPERATIVE DIAGNOSIS: Same PROCEDURE: Right cataract extraction with intraocular lens insertion SURGEON: Quique Waller M.D. ANESTHESIA: Topical/MAC ESTIMATED BLOOD LOSS: None COMPLICATIONS: None After obtaining informed consent, the patient was brought to the operating room suite and placed in the supine position. After adequate sedation per anesthesia, topical drops of Tetracaine were given to the right eye. The eye was then prepped and draped in the usual sterile fashion. The operating room microscope was then positioned over the operative eye and a lid speculum placed. A paracentesis was created. Viscoelastic was then instilled into the anterior chamber. A three plane incision was then created temporally, utilizing a 2.85 mm keratome. Capsulotomy forceps were then utilized to create a circular tear capsulotomy. Hydrodissection and hydrodelineation were carried out until adequate mobilization of the nucleus occurred. Phacoemulsification was then utilized to remove the dense central nucleus followed by removal of the cortical material utilizing the automated aspiration irrigation unit. Viscoelastic was instilled into the posterior capsular bag followed by placement of a posterior chamber intraocular lens without difficulty. The residual Viscoelastic was then removed utilizing the automated IA machine. The wound was checked and found to be watertight. The patient tolerated the procedure well and the lid speculum was removed. Intracameral injection of Vigamox 0.1 mL followed by a subtenon injection of Kenalog-40 0.2 mL were administered. The patient will be seen in the a.m.
[2022-09-18 12:55] VITALS: BP 129/79; PULSE 88; RESP 16; TEMP 36.9; O2SAT 99
== END 2022-09-18 12:57 | disposition home or self-care (01) ==
PROVIDERS: PCP Family Medicine; Visit Provider Ophthalmology
PROC: (CPT 66985; principal; 2022-09-18 10:10)
DX: H25.11 Age-related nuclear cataract, right eye (principal); E11.9 Type 2 diabetes mellitus without complications; J44.9 Chronic obstructive pulmonary disease, unspecified; Z79.84 Long term (current) use of oral hypoglycemic drugs; Z79.899 Other long term (current) drug therapy; Z88.8 Allergy status to other drugs, medicaments and biological substances
CPT/HCPCS: 66984; 82947; J2250; J3300; J7999; V2632

== ENCOUNTER → 2022-10-19 11:26 | Outpatient (BNVA) | payer OTHER, SELFPAY | PROVIDERS: PCP Family Medicine; Visit Provider Internal Medicine | DX: J44.9 Chronic obstructive pulmonary disease, unspecified (principal); J96.91 Respiratory failure, unspecified with hypoxia; R05.9 Cough, unspecified | CPT/HCPCS: 99212 ==

== ENCOUNTER 2022-11-07 10:53 | Outpatient (REF) | payer OTHER, SELFPAY ==
--- NOTE | 2022-11-07 12:20 | PFT_ITS ---
Forced vital capacity 65%. FEV1 49%. FEV1/FVC ratio is 56. IWS11-65 25% and MVV 40%. Post bronchodilator therapy, there is a minimal improvement in FVC, FEV1 and significant improvement in LHD82-16. Total lung capacity 103%. Residual volume 138%. Diffusion capacity 62%. CONCLUSION: Severe obstructive airway disorder. There is a minimal response to bronchodilator therapy. Clinical correlation is recommended. MD SWATHI Coronado/JESSE / [id number]
== END 2022-11-07 10:54 | disposition home or self-care (01) ==
LOC: HO.RESP 10:53
PROVIDERS: PCP Family Medicine; Visit Provider Internal Medicine
DX: J44.9 Chronic obstructive pulmonary disease, unspecified (principal); J96.91 Respiratory failure, unspecified with hypoxia; R05.9 Cough, unspecified
CPT/HCPCS: 94060; 94727; 94729

== ENCOUNTER → 2022-11-15 11:02 | Outpatient (BNVA) | payer OTHER, SELFPAY | PROVIDERS: PCP Family Medicine; Visit Provider Internal Medicine | DX: J96.91 Respiratory failure, unspecified with hypoxia (principal); J44.9 Chronic obstructive pulmonary disease, unspecified; G47.61 Periodic limb movement disorder; G47.33 Obstructive sleep apnea (adult) (pediatric); Z99.81 Dependence on supplemental oxygen | CPT/HCPCS: 99212 ==

== ENCOUNTER → 2023-02-12 11:07 | Outpatient (BNVA) | payer OTHER, SELFPAY | PROVIDERS: PCP Family Medicine; Visit Provider Internal Medicine | DX: J44.9 Chronic obstructive pulmonary disease, unspecified (principal); J96.91 Respiratory failure, unspecified with hypoxia; G47.33 Obstructive sleep apnea (adult) (pediatric) | CPT/HCPCS: 99212 ==

== ENCOUNTER 2023-06-18 10:25 | Outpatient (AMB) | payer OTHER, SELFPAY ==
--- NOTE | 2023-06-18 10:43 | MHC.OFFVIS ---
Intake Vital Signs 06/18/23 10:45 Height 5 ft Weight 128 lb BMI 25.0 BP 110/64 Blood Pressure Location Lt brachial Position Sitting Pulse 87 Pulse Source Pulse Oximeter Pulse Oximetry (%) 97 Oxygen Delivery Method Room Air Intake Visit Reasons: COPD Intake Note: pt is here for follow up and states she is coughing and wheezing. but she is like this everyday. PLEASE SEND IN DUONEB TO PHARMACY. Pt's family is questioning the use of scooter for her to get around the house. Mailing Clerk Required: No Allergies lisinopril Allergy (Unknown, Verified 06/18/23 11:05) RAsh, Swelling Medication List - Last Reconciled 06/18/23 by Dmitriy Frye MD albuterol sulfate 90 mcg/actuation 1 puff inhalation Q4H PRN ascorbic acid (vitamin C) 250 mg PO DAILY atorvastatin 20 mg PO DAILY blood sugar diagnostic ([employer] Verio test strips) As directed, 90 day supply blood-glucose meter ([employer] Verio Flex Start kit) daily As directed. 999 days bupropion HCl 150 mg PO BID 1 month buspirone 10 mg PO BID clotrimazole 1% 1 appl topical BID 4 weeks flu vac qv 2019(18yr up)rc(PF) mL IM fluticasone propionate 50 mcg/actuation 1 spray intranasal Q12H ibuprofen 800 mg PO TID ipratropium-albuterol 0.5 mg-3 mg(2.5 mg base)/3 mL 3 mL inhalation QID 30 days metformin 500 mg PO BID miscellaneous medical supply 1 ea miscellaneous DAILY mupirocin 2% 1 appl topical BID 10 days omeprazole 40 mg PO .qamac 3 months sertraline 200 mg PO DAILY sucralfate (Carafate) 2 grams (2 x 1 gram) PO .qac supper 30 days Symbicort 160-4.5 mcg/actuation (budesonide-formoterol) 2 puffs inhalation BID NS Do you need a note to return to daycare/school/sports/work: No HPI COPD HPI Details 77 YEARS OLD FEMALE IS HERE FOR FOLLOW-UP, FOR HER COPD AND ALSO CINDY. CONTINUES TO HAVE COUGH AND FEELS CONGESTED IN THE CHEST, NOT ABLE TO BRING UP ANY MUCUS. MUCINEX USED TO HELP BUT SHE CANNOT AFFORD IT. GETS SHORT OF BREATH ON MINIMAL EXERTION, AND IF SHE TRIES TO WALK UP HILL OR CLIMBS STAIRS. PATIENT USED TO BENEFIT FROM USE OF DUONEB UPDRAFTS BUT HAS NOT BEEN ABLE TO GET THE SOLUTION . FAR CINDY IS CONCERNED SHE COULD NOT USE CPAP, SHE DOES USE OXYGEN 2 L/MINUTE AT NIGHT AND P.R.N. DURING THE DAYTIME. [facility] Medical History COPD (chronic obstructive pulmonary disease) COVID-19 Delayed gastric emptying Diabetes FHx: cholecystectomy Major depression Osteoporosis Respiratory failure with hypoxia Sleep disorder, unspecified Surgical History H/O Whipple procedure History of carpal tunnel release of both wrists History of cholecystectomy History of partial gastrectomy Hx of tonsillectomy Previous back surgery Family History Father MVA (motor vehicle accident) Mother CVD (cardiovascular disease) Diabetes mellitus Brother No problems noted. Brother No problems noted. Brother No problems noted. Sister No problems noted. Daughter No problems noted. Daughter No problems noted. Daughter No problems noted. 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 Current occupational exposures/hazards: No Cognitive needs: No Hearing needs: No Vision needs: No Review of Systems Const All systems reviewed & are unremarkable except as noted in HPI and below Eyes Reports no additional complaints ENT Reports nasal congestion (Mild intermittent on some days) Card Denies chest pain, Denies irregular heart rhythm and Denies leg edema Resp Reports as per HPI GI Reports heartburn (Symptoms of GERD or controlled) Reports urinary incontinence Musc Reports no additional complaints Skin/Breast Reports system reviewed and no additional complaints, except as documented Neuro Reports no additional complaints Psych Reports no additional complaints Physical Exam Vital Signs: Last Vital Signs Pulse 87 06/18/23 10:45 BP 110/64 06/18/23 10:45 Pulse Ox 97 06/18/23 10:45 Oxygen Delivery Method Room Air 06/18/23 10:45 BMI result Body Mass Index 25.0 Const General: comfortable, no acute distress, alert and awake Orientation/consciousness: patient oriented x3 HEENT Head: Yes normal to inspection General nose exam: No nasal polyps present and No nasal discharge present Face and sinus: Yes sinuses nontender Mouth: oropharynx normal Throat: Yes posterior oropharynx normal Eyes General: appearance normal, both eyes and all related structures Neck Neck: Yes normal visual inspection, Yes no lymphadenopathy, Yes trachea midline and Yes no JVD Thyroid: Thyroid normal Chest Chest palpation & inspection: normal inspection of the chest, normal palpation of entire chest wall and no tenderness Resp Other: Percussion note hyper-resonant, breath sounds are distant with prolonged expiratory phase but equal on both sides. She does have expiratory wheezes over both lower lobes. Cardio Palpation: normal PMI Rate: regular rate Rhythm: regular rhythm Heart sounds: no gallops and no murmurs GI Palpation (GI): Soft to palpation, nontender, No hepatosplenomegaly present and no masses Auscultation: normal bowel sounds Back/Spine/Pelvis Thoracic/Lumbar Spine: thoracic and lumbar spine normal to inspection Skin General skin exam: no rashes or lesions noted Neuro General: patient oriented x3 and no focal motor deficits Cranial nerves: Yes CN's II-XII intact bilaterally Extrem General: Yes normal to inspection, Yes no clubbing, cyanosis or edema and Yes no calf tenderness Psych Appearance: grossly normal and well kempt Speech and movement: Normal speech and movement present Assessment & Plan Assessment & Plan (1) COPD (chronic obstructive pulmonary disease): Comment: PATIENT HAS MODERATELY SEVERE OBSTRUCTIVE AIRWAY DISORDER. AT THIS TIME IT IS RELATIVELY STABLE TX : CONTINUE SYMBICORT 160-4.52 PUFFS B.I.D.. DUONEB UPDRAFT Q 6 HOURS WHILE AWAKE.( I have reordered the solution ) VENTOLIN HFA 2 PUFFS Q 4-6 HOURS P.R.N. WHEN OUTDOORSB Code(s): J44.9 - Chronic obstructive pulmonary disease, unspecified (2) Cough: Comment: Frequent and increasing amount of cough, is secondary to her chronic obstructive pulmonary disease, And having had COVID-19 infection. TX: Use of DuoNeb updrafts should help And advised to use diabetic Tussin syrup 2 tsp t.i.d. Code(s): R05 - Cough (3) Severe obstructive sleep apnea: Comment: In-lab PSG (04/05/21 at [facility] [place] revealed: AHI: 25.6/hr; REM AHI: n/a; O2 nadir83; Periodic limb movement of sleep (PLMS) index: 198/hr; PLMS arousal index: 27/hr. PATIENT HAS NOT BEEN ABLE TO USE USING CPAP BECAUSE, SHE JUST CANNOT TOLERATE THE MASK ON HER FACE. JUST USING O2 2 L/MINUTE DURING SLEEP. Code(s): G47.33 - Obstructive sleep apnea (adult) (pediatric) Medications: Refilled ipratropium-albuterol 0.5 mg-3 mg(2.5 mg base)/3 mL 3 mL inhalation QID 270 mL 3RF Severe COPD 30 days Coding Level of Care Code Est Pt Level 3 (05777) Diagnoses COPD (chronic obstructive pulmonary disease) J44.9 Cough R05 Severe obstructive sleep apnea G47.33
[2023-06-18 10:45] VITALS: BP 110/64; PULSE 87; O2SAT 97; BMI 25.0
== END 2023-06-18 11:05 | disposition home or self-care (01) ==
PROVIDERS: PCP Family Medicine; Visit Provider Internal Medicine
DX: J44.9 Chronic obstructive pulmonary disease, unspecified (principal); R05.9 Cough, unspecified; G47.33 Obstructive sleep apnea (adult) (pediatric)
CPT/HCPCS: 99213

== ENCOUNTER → 2023-06-18 10:25 | Outpatient (BNVA) | payer OTHER, SELFPAY | PROVIDERS: PCP Family Medicine; Visit Provider Internal Medicine | DX: J96.91 Respiratory failure, unspecified with hypoxia (principal); J44.9 Chronic obstructive pulmonary disease, unspecified; R05.9 Cough, unspecified; G47.33 Obstructive sleep apnea (adult) (pediatric); Z87.891 Personal history of nicotine dependence; Z99.81 Dependence on supplemental oxygen | CPT/HCPCS: 99212 ==

== ENCOUNTER 2023-07-16 11:47 | Outpatient (AMB) | payer OTHER, SELFPAY ==
--- NOTE | 2023-07-16 12:04 | A.OFFPC_ITS ---
Vital Signs 07/16/23 12:06 Height 5 ft Weight 130 lb 4 oz BMI 25.4 BP 112/74 Blood Pressure Location Lt brachial Position Sitting Pulse 83 Pulse Source Pulse Oximeter Pulse Oximetry (%) 98 Oxygen Delivery Method Room Air Intake Visit Reasons: CPE with f/u labs and health main Intake Note: Patient is here for her physical today, she is complaining of hip pain, right side being worse. Patient states she was supposed to get Protonix prescription, but never got it, would also like flu shot. Allergies lisinopril Allergy (Unknown, Verified 07/16/23 12:07) RAsh, Swelling Tobacco use date assessed: 07/16/23 Fall risk assessment: 2 + Falls in past year Last assessed Fall Risk: 07/16/23 Dental Screening Dental Screen Date: 07/16/23 Did you have a dental visit in the last 12 months?: Yes Did you have a dental problem in the last 6 months where you did not have access to dental care?: No Was dental information given to patient?: Patient has dentist [facility] Medical History Respiratory failure with hypoxia Delayed gastric emptying Sleep disorder, unspecified COVID-19 Diabetes COPD (chronic obstructive pulmonary disease) FHx: cholecystectomy Osteoporosis Major depression Surgical History History of carpal tunnel release of both wrists History of partial gastrectomy History of cholecystectomy H/O Whipple procedure Hx of tonsillectomy Previous back surgery Family History Father MVA (motor vehicle accident) Mother CVD (cardiovascular disease) Diabetes mellitus Brother No problems noted. Brother No problems noted. Brother No problems noted. Sister No problems noted. Daughter No problems noted. Daughter No problems noted. Daughter No problems noted. 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 Kem Medrano, Irena Farr, Shilo Arzate and colleagues, with an educational diandra from [employer]. Physical exam (Primary Care) Vital Signs: Last Vital Signs Pulse 83 07/16/23 12:06 BP 112/74 07/16/23 12:06 Pulse Ox 98 07/16/23 12:06 Oxygen Delivery Method Room Air 07/16/23 12:06 BMI result Body Mass Index 25.4 Tobacco/Smoking Status: Tobacco use Status Tobacco use date assessed 07/16/23 07/16/23 12:14 Patient Tobacco Use Status Former Tobacco user 07/16/23 12:06 e-Cigarette/Vaping Use Never Used 07/16/23 12:06 Thrive Assessment: Date of Thrive Assessment Date Thrive assessed 08/30/22 07/16/23 12:06 Assessment and Plan Assessment & Plan (1) Adult general medical exam: Code(s): Z00.00 - Encounter for general adult medical examination without abnormal findings Plan: 77-year-old female presents for complete physical exam Encouraged healthy diet with active lifestyle and plenty of exercise (2) COPD (chronic obstructive pulmonary disease): Comment: PATIENT HAS MODERATELY SEVERE OBSTRUCTIVE AIRWAY DISORDER. AT THIS TIME IT IS RELATIVELY STABLE TX : CONTINUE SYMBICORT 160-4.52 PUFFS B.I.D.. DUONEB UPDRAFT Q 6 HOURS WHILE AWAKE.( I have reordered the solution ) VENTOLIN HFA 2 PUFFS Q 4-6 HOURS P.R.N. WHEN OUTDOORSB Code(s): J44.9 - Chronic obstructive pulmonary disease, unspecified Plan: Breathing well today. No exacerbation. Continue inhaled medications. Follow-up with pulmonary medicine as recommended (3) Bilateral hip pain: Code(s): M25.551 - Pain in right hip; M25.552 - Pain in left hip Plan: Ongoing bilateral hip pain, right worse than left. She has lower extremity w eakness due to deconditioning secondary to hip pain and she has had falls due to these. Will benefit from physical therapy. She has trouble getting out of the house and also transportation issues. Referred to A for physical therapy at home. (4) GERD (gastroesophageal reflux disease): Code(s): K21.9 - Gastro-esophageal reflux disease without esophagitis Plan: Has used omeprazole in the past. Will trial esomeprazole Orders: Orders Comprehensive [place]. Panel Fast Today Z00.00 - Encounter for general adult medical examination without abnormal findings Complete Blood Count Auto Diff Today Z00.00 - Encounter for general adult medical examination without abnormal findings Microalbumin, Random (w Creat) Today I10 - Essential (primary) hypertension, Z00.00 - Encounter for general adult medical examination without abnormal findings LDL Cholesterol Direct Today Z00.00 - Encounter for general adult medical examination without abnormal findings Lipid Panel Today Z00.00 - Encounter for general adult medical examination without abnormal findings TSH reflex Free T4 Today Z00.00 - Encounter for general adult medical examination without abnormal findings UA and rflx microscopic Today Z00.00 - Encounter for general adult medical examination without abnormal findings Influenza [id number] Immunization Today Z00.00 - Encounter for general adult medical examination without abnormal findings, Z23 - Encounter for immunization [facility]errals [facility] Referral M25.559 - Pain in unspecified hip Medications: New esomeprazole magnesium 40 mg PO DAILY 90 caps 3RF 90 days flu vacc [id number] 6mos up(PF) 0.5 mL IM ONCE 0.5 mL 0RF Z00.00 - Encounter for general adult medical examination without abnormal findings, Z23 - Encounter for immunization Coding Level of Care Code Est Pt Prev Care >65y(13267) Diagnoses Adult general medical exam Z00.00 COPD (chronic obstructive pulmonary disease) J44.9 Bilateral hip pain M25.551; M25.552 GERD (gastroesophageal reflux disease) K21.9
[2023-07-16 12:06] VITALS: BP 112/74; PULSE 83; O2SAT 98; BMI 25.4
== END 2023-07-16 12:55 | disposition home or self-care (01) ==
PROVIDERS: Visit Provider Family Medicine
DX: Z23 Encounter for immunization (principal)
CPT/HCPCS: 90471; 90686; 99397

== ENCOUNTER 2023-07-16 12:42 | Outpatient (REF) | payer OTHER, SELFPAY ==
[2023-07-16 14:07] LABS: MANUAL DIFF FLAG NO
[2023-07-16 14:17] LABS: Basophils Percent Auto 0.4 % (0-2); Eosinophils Absolute Auto 0.2 X10*3/uL (0.0-0.4); Eosinophils Percent Auto 2.3 % (0-4); Hematocrit 33.8 % (37.0-47.0); Hemoglobin 10.3 g/dl (12.0-16.0); Imm Gran Abs Auto 0.03 X10*3/uL (0.00-0.03); Imm Gran Pct Auto 0.3 % (0.0-0.4); Lymphocytes Absolute Auto 3.1 X10*3/uL (1.2-4.9); Lymphocytes Percent Auto 31.8 % (20-40); Mean Corpuscular HGB Conc 30.5 g/dl (31.0-35.0); Mean Corpuscular Hemoglobin 26.2 pg (27.0-33.0); Mean Platelet Volume 9.4 fL (9.4-12.3); Monocytes Absolute Auto 0.6 X10*3/uL (0.1-1.2); Neutrophils Absolute Auto 5.7 x10*3/uL (2.0-8.3); Neutrophils Percent Auto 59.2 % (45-73); Platelet Count 350 X10*3/uL (160-400); Red Blood Count 3.93 X10*6/uL (4.20-5.50); Red Cell Distribution Width 16.4 % (11.0-16.0); White Blood Count 9.6 X10*3/uL (4.8-10.8)
[2023-07-16 14:20] LABS: Appearance Urine Clear; Color Urine Yellow; Glucose Urine UA Negative (Negative); Leukocyte Esterase Urine Small (1+) (Negative); Nitrite Urine Negative (Negative); PH 5.5 (5.0-9.0); UMIC TRIGGER UA YES; Urine Blood Negative (Negative); Urine Ketones Negative (Negative); Urine Protein Negative (Neg-Trace)
[2023-07-16 14:33] LABS: Bacteria Urine Trace (None Seen); Hyaline Casts Urine 0-2 /LPF (0-2); RBC Urine 0-2 /HPF (0-2); Squamous Epithelial Cell Urine 0-2 /HPF (0-2); WBC Urine 0-5 /HPF (0-5)
[2023-07-16 14:50] LABS: Creatinine Urine 58.86 mg/dL; Microalbum/Creatinine Ratio Ur 8.4 ug/mg cr (<30)
[2023-07-16 15:03] LABS: Alanine Aminotransferase 9 U/L (0-31); Albumin Level 4.2 g/dL (3.5-5.0); Alkaline Phosphatase 69 U/L (39-117); Anion Gap 12 (12-20); Aspartate Amino Transferase 14 U/L (5-31); Bilirubin Total 0.2 mg/dL (0.0-1.0); Blood Urea Nitrogen 17 mg/dL (9-16); Carbon Dioxide 24 mmol/L (22-29); Chloride 106 mmol/L (96-108); Cholesterol 159 mg/dL (<200); Estimated Glomerular Filt Rate > 60; Glucose Fasting 103 mg/dL (60-99); HDL Cholesterol 67 mg/dL (>40); LDL Cholesterol Calculated 74 mg/dL (<100); Potassium 4.3 mmol/L (3.3-5.1); Sodium 138 mmol/L (135-145); Total Protein 6.7 g/dL (6.5-8.0); Triglycerides 93 mg/dL (<150)
[2023-07-16 15:09] LABS: TSH reflex Free T4 1.84 uIU/mL (0.32-4.0)
[2023-07-19 04:09] LABS: LDL Cholesterol Direct 73 mg/dL (<100)
== END 2023-07-16 12:43 | disposition home or self-care (01) ==
LOC: HO.WFDLDS 12:42
PROVIDERS: Visit Provider Family Medicine
DX: Z00.00 Encounter for general adult medical examination without abnormal findings (principal); I10 Essential (primary) hypertension
CPT/HCPCS: 36415; 80053; 80061; 81001; 82043; 82570; 83721; 84443; 85025

== ENCOUNTER 2023-11-15 10:38 | Outpatient (AMB) | payer OTHER, SELFPAY ==
[2023-11-15 11:21] VITALS: BP 100/60; PULSE 89; O2SAT 98; BMI 24.4
--- NOTE | 2023-11-15 11:21 | MHC.OFFVIS ---
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 Still having shortness of breath, when walking around she has to rest , and using oxygen at night, can she get tested for poc. 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 999 days bupropion HCl 150 mg PO BID 1 month buspirone 10 mg PO BID clotrimazole 1% 1 appl topical BID 4 weeks flu vac qv 2019(18yr up)rc(PF) mL IM fluticasone propionate 50 mcg/actuation 1 spray intranasal Q12H ibuprofen 800 mg PO TID ipratropium-albuterol 0.5 mg-3 mg(2.5 mg base)/3 mL 3 mL inhalation QID 30 days metformin 500 mg PO BID miscellaneous medical supply 1 ea miscellaneous DAILY mupirocin 2% 1 appl topical BID 10 days omeprazole 40 mg PO .qamac 3 months sertraline 200 mg PO DAILY sucralfate (Carafate) 2 grams (2 x 1 gram) PO .qac supper 30 days Symbicort 160-4.5 mcg/actuation (budesonide-formoterol) 2 puffs inhalation BID NS Do you need a note to return to daycare/school/sports/work: No HPI COPD HPI Details BRENDA IS A VERY PLEASANT 78 YEARS OLD FEMALE, SHE WAS TREATED AT [facility] 4 WEEKS AGO FOR MULTILOBAR PNEUMONIA ON THE LEFT SIDE. SHE RECOVERED FROM PNEUMONIA BUT CONTINUES TO HAVE FREQUENT BOUTS OF COUGH, AND CANNOT EXPECTORATES MUCH. SHE HAS HAD NO RECURRENCE OF FEVER OR CHILLS. SHE USED TO TAKE MUCINEX BUT NOW SHE CANNOT AFFORD IT. SHE IS USING DUONEB UPDRAFTS 4 TIMES A DAY IN ADDITION TO SYMBICORT 2 PUFFS B.I.D.. .SHE REMAINS WEAK AND TIRED SHE FEELS LIKE USING OXYGEN BUT IT IS HARD FOR HER TO USE THE PORTABLE CYLINDERS. SHE HAS HISTORY OF SLEEP APNEA BUT NOT ABLE TO USE CPAP. SO SHE HAS BEEN USING O2 2 L/MINUTE AT NIGHT TO OVERCOME NOCTURNAL HYPOXEMIA. [facility] Medical History Pneumonia Respiratory failure with hypoxia Delayed gastric emptying Sleep disorder, unspecified COVID-19 Diabetes COPD (chronic obstructive pulmonary disease) FHx: cholecystectomy Osteoporosis Major depression Surgical History History of carpal tunnel release of both wrists History of partial gastrectomy History of cholecystectomy H/O Whipple procedure Hx of tonsillectomy Previous back surgery Family History Father MVA (motor vehicle accident) Mother CVD (cardiovascular disease) Diabetes mellitus Brother No problems noted. Brother No problems noted. Brother No problems noted. Sister No problems noted. Daughter No problems noted. Daughter No problems noted. Daughter No problems noted. 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 Current occupational exposures/hazards: No Cognitive needs: No Hearing needs: No Vision needs: No Review of Systems Const All systems reviewed & are unremarkable except as noted in HPI and below Eyes Reports no additional complaints ENT Reports nasal congestion (Mild intermittent on some days) Card Denies chest pain, Denies irregular heart rhythm and Denies leg edema Resp Reports as per HPI GI Reports heartburn (Symptoms of GERD or controlled) Reports urinary incontinence Musc Reports no additional complaints Skin/Breast Reports system reviewed and no additional complaints, except as documented Neuro Reports no additional complaints Psych Reports no additional complaints Physical Exam Vital Signs: Last Vital Signs Pulse 89 11/15/23 11:21 BP 100/60 11/15/23 11:21 Pulse Ox 98 11/15/23 11:21 Oxygen Delivery Method Room Air 11/15/23 11:21 BMI result Body Mass Index 24.4 Const General: comfortable, no acute distress, alert and awake Orientation/consciousness: patient oriented x3 HEENT Head: Yes normal to inspection General nose exam: No nasal polyps present and No nasal discharge present Face and sinus: Yes sinuses nontender Mouth: oropharynx normal Throat: Yes posterior oropharynx normal Eyes General: appearance normal, both eyes and all related structures Neck Neck: Yes normal visual inspection, Yes no lymphadenopathy, Yes trachea midline and Yes no JVD Thyroid: Thyroid normal Chest Chest palpation & inspection: normal inspection of the chest, normal palpation of entire chest wall and no tenderness Resp Other: Percussion note hyper-resonant, breath sounds are distant with prolonged expiratory phase but equal on both sides. SHE DOES NOT HAVE ANY LOCALIZE CREPITATIONS OR WHEEZES ON AUSCULTATION. Cardio Palpation: normal PMI Rate: regular rate Rhythm: regular rhythm Heart sounds: no gallops and no murmurs GI Palpation (GI): Soft to palpation, nontender, No hepatosplenomegaly present and no masses Auscultation: normal bowel sounds Back/Spine/Pelvis Thoracic/Lumbar Spine: thoracic and lumbar spine normal to inspection Skin General skin exam: no rashes or lesions noted Neuro General: patient oriented x3 and no focal motor deficits Cranial nerves: Yes CN's II-XII intact bilaterally Extrem General: Yes normal to inspection, Yes no clubbing, cyanosis or edema and Yes no calf tenderness Psych Appearance: grossly normal and well kempt Speech and movement: Normal speech and movement present Assessment & Plan Assessment & Plan (1) COPD (chronic obstructive pulmonary disease): Comment: PATIENT HAS MODERATELY SEVERE OBSTRUCTIVE AIRWAY DISORDER. AT THIS TIME IT IS RELATIVELY STABLE Code(s): J44.9 - Chronic obstructive pulmonary disease, unspecified Plan: TX : CONTINUE SYMBICORT 160-4.52 PUFFS B.I.D.. DUONEB UPDRAFT Q 6 HOURS WHILE AWAKE. VENTOLIN HFA 2 PUFFS Q 4-6 HOURS P.R.N. WHEN OUTDOORSB (2) Respiratory failure with hypoxia: Comment: PATIENT DOES HAVE HISTORY OF NOCTURNAL HYPOXEMIA PART OF UNTREATED SLEEP APNEA. SHE DOES USE OXYGEN 2 L/MINUTE AT NIGHT. I MADE HER WALK FOR 3-4 MINUTES IN THE HALLWAY AND O2 SAT REMAINED 96-94%. Code(s): J96.91 - Respiratory failure, unspecified with hypoxia Plan: EXPLAINED ABOUT OXYGEN. I THINK HER SHORTNESS OF BREATH IS MORE DUE TO COPD AND NOT DUE TO HYPOXEMIA. ADVISE THAT SHE CONTINUES TO USE OXYGEN 2 L/MINUTE. DURING THE DAYTIME SHE CAN USE 2 L/MINUTE FOR SHORT PERIODS ONLY P.R.N. IF SHE GETS SHORT OF BREATH WHILE SITTING. *ON HER NEXT VISIT WE WILL DO IS 6 MINUTES WALK TEST AGAIN. (3) Pneumonia: Comment: PATIENT WAS TREATED AT [facility] 4 WEEKS AGO FOR MULTI LOBE URGE PNEUMONIA ON THE LEFT SIDE. TREATED WITH COURSE OF ANTIBIOTICS AND PREDNISONE, . AND GOT BETTER PRESENT SYMPTOM IS MAINLY FREQUENT COUGH AND NOT ABLE TO EXPECTORATES. Code(s): J18.9 - Pneumonia, unspecified organism Plan: CHEST X-RAY ORDERED TO MAKE SURE THAT THERE IS NO RESIDUAL INFILTRATE. PATIENT ADVISED THAT SHE DOES NOT NEED. ANTIBIOTIC ANYMORE FOR COUGH SHE CAN USE GUAIFENESIN SYRUP 1 OR 2 TSP T.I.D.. *I WOULD ALSO GIVE HER A SHORT COURSE OF PREDNISONE THAT MAY LESSON HER RESIDUAL INFLAMMATORY PROCESS. Orders: Orders XR chest 2V Today J18.9 - Pneumonia, unspecified organism, J44.9 - Chronic obstructive pulmonary disease, unspecified Medications: New prednisone 10 mg PO BID 14 tabs 0RF COPD EXCERBATION 7 days Coding Level of Care Code Est Pt Level 4 (56447) Diagnoses COPD (chronic obstructive pulmonary disease) J44.9 Respiratory failure with hypoxia J96.91 Pneumonia J18.9
== END 2023-11-15 11:54 | disposition home or self-care (01) ==
PROVIDERS: PCP Family Medicine; Visit Provider Internal Medicine
DX: J44.9 Chronic obstructive pulmonary disease, unspecified (principal); J96.91 Respiratory failure, unspecified with hypoxia; J18.9 Pneumonia, unspecified organism
CPT/HCPCS: 99214

== ENCOUNTER 2023-11-15 10:38 | Outpatient (REF) | payer OTHER, SELFPAY ==
--- NOTE | ~2023-11-15 | XR_ITS ---
EXAMINATION: XR CHEST CLINICAL INFORMATION: Reason for Exam J18.9 - Pneumonia, unspecified organism COMPARISON: Chest radiograph 07/15/2022 TECHNIQUE: 2 views of the chest FINDINGS: Lines and tubes: None. Clear lungs. No pleural effusion. No pneumothorax. Unchanged cardiomediastinal silhouette. XR/XR chest 2V IMPRESSION: * Clear lungs.
== END 2023-11-15 10:39 | disposition home or self-care (01) ==
LOC: HO.XRAY 10:38
PROVIDERS: PCP Family Medicine; Visit Provider Internal Medicine
DX: J18.9 Pneumonia, unspecified organism (principal); J44.9 Chronic obstructive pulmonary disease, unspecified; J96.91 Respiratory failure, unspecified with hypoxia
CPT/HCPCS: 71046; 99212

== ENCOUNTER 2023-12-05 15:10 | Outpatient (AMB) | payer OTHER, SELFPAY ==
--- NOTE | 2023-12-05 15:14 | MHC.PC.OV ---
Vital Signs 12/05/23 15:16 Height 5 ft Weight 127 lb 6 oz BMI 24.9 BP 116/70 Blood Pressure Location Lt brachial Position Sitting Pulse 96 Pulse Source Pulse Oximeter Pulse Oximetry (%) 94 Oxygen Delivery Method Room Air Intake Visit Reasons: f/u diabetes, health maintenance and LE weakness Intake Note: Patient is here to follow up on diabetes and health maintenance, and lower extremity weakness, which is getting better. Allergies lisinopril Allergy (Unknown, Verified 12/05/23 15:19) RAsh, Swelling Tobacco use date assessed: 12/05/23 Dental Screening Dental Screen Date: 12/05/23 Did you have a dental visit in the last 12 months?: Yes Did you have a dental problem in the last 6 months where you did not have access to dental care?: No Was dental information given to patient?: Patient has dentist HPI f/u diabetes, health maintenance and LE weakness HPI Details 78 y/o female presents to f/u diabetes, health maintenance and LE weakness. Last A1c 03/12/23 6.1%. A1c today 12/05/23 is 7.0%. She is on metformin 500mg b.i.d. Pt notes she had been undergoing steroid therapy for her breathing. Pt notes she has been doing at home physical therapy for her lower extremity weakness which has been helping. She reports she has been feeling more steady though she does report ongoing hip and back pain. She has been trying to take ibuprofen for relief. [facility], [facility] Medical History Pneumonia Respiratory failure with hypoxia Delayed gastric emptying Sleep disorder, unspecified COVID-19 Diabetes COPD (chronic obstructive pulmonary disease) FHx: cholecystectomy Osteoporosis Major depression Surgical History History of carpal tunnel release of both wrists History of partial gastrectomy History of cholecystectomy H/O Whipple procedure Hx of tonsillectomy Previous back surgery Family History Father MVA (motor vehicle accident) Mother CVD (cardiovascular disease) Diabetes mellitus Brother No problems noted. Brother No problems noted. Brother No problems noted. Sister No problems noted. Daughter No problems noted. Daughter No problems noted. Daughter No problems noted. 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 1. Little interest or pleasure in doing things: more than half the days 2. Feeling down, depressed, or hopeless: more than half the days 3. Trouble falling or staying asleep, or sleeping too much: nearly every day 4. Feeling tired or having little energy: nearly every day 5. Poor appetite or overeating: not at all 6. Feeling bad about yourself - or that you are a failure or have let yourself or your family down: not at all 7. Trouble concentrating on things, such as reading the newspaper or watching television: nearly every day 8. Moving or speaking so slowly that other people could have noticed. Or the opposite - being so fidgety or restless that you have been moving around a lot more than usual: not at all 9. Thoughts that you would be better off or of hurting yourself in some way: not at all Total score: 13 Depression Screening Interpretation: Positive Depression Screening Done: Yes Source: Developed by Drs. Kem Medrano, Irena Farr, Shilo Arzate and colleagues, with an educational diandra from [employer]. Thrive Questionnaire Date Thrive assessed: 08/30/22 I am a: Patient What is your living situation today?: I have a steady place to live Within the past 12 months, did the food you bought not last and you didn't have the money to get more?: Never true Within the past 12 months, did you worry whether your food would run out before you got money to buy more?: Never true Do you have trouble paying for medicines?: No Do you have trouble getting transportation to medical appointments?: Yes Do you have trouble paying your heating and electricity bill?: No Do you have trouble taking care of your child, family member or friend?: No Do you have trouble with day-to-day activities such as bathing, preparing meals, shopping, managing finances, etc.?: No Are you currently unemployed and looking for a job?: No Are you interested in more education?: No THRIVE Score: 1 AUDIT C Alcohol Use Questionnaire (AUDIT-C) 1. How often do you have a drink containing alcohol?: Never 3. How often do you have six or more drinks on one occasion?: Never Total Score: 0 NANCY-7 AMB Questionnaire NANCY-7 Date NANCY - 7 assessed: 12/05/23 Feeling nervous, anxious, or on edge: 2 = More than half the days Not being able to stop or control worryin = Not at all Worrying too much about different things: 1 = Several days Trouble relaxin = Nearly every day Being so restless that it is hard to sit still: 0 = Not at all Becoming easily annoyed or irritable: 1 = Several days Feeling afraid as if something awful might happen: 1 = Several days Total NANCY-7 score (0-4 normal; 5-9 mild; 10-14 moderate; 15-21 severe): 8 Source: Developed by Drs. Kem Medrano, Irena Farr, Shilo Arzate and colleagues, with an educational diandra from [employer]. Review of Systems Const Denies chills, Denies fatigue, Denies fever(s), Denies headache(s) and Denies weakness ENT Denies dizziness and Denies headache(s) Card Denies dyspnea Resp Denies cough, Denies dyspnea, Denies wheezing and Denies other (shortness of breath) Musc Denies numbness and Denies tingling Neuro Denies dizziness, Denies headache(s), Denies numbness, Denies tingling and Denies weakness Psych Denies anxiety and Denies depression Endo Denies fatigue Aller/Immun Denies wheezing Physical exam (Primary Care) Vital Signs: Last Vital Signs Pulse 96 12/05/23 15:16 BP 116/70 12/05/23 15:16 Pulse Ox 94 12/05/23 15:16 Oxygen Delivery Method Room Air 12/05/23 15:16 BMI result Body Mass Index 24.9 Tobacco/Smoking Status: Tobacco use Status Tobacco use date assessed 12/05/23 12/05/23 15:31 Patient Tobacco Use Status Former Tobacco user 12/05/23 15:15 e-Cigarette/Vaping Use Never Used 12/05/23 15:15 PHQ-9: PHQ-9 Score PHQ-9: Total score 13 12/05/23 15:41 Depression Screening Interpretation: Positive Thrive Assessment: Date of Thrive Assessment Date Thrive assessed 08/30/22 12/05/23 15:15 Const General: well developed; No acute distress Nutritional Appearance: well nourished Orientation/consciousness: patient oriented x3 HENMT Head: Yes normocephalic and Yes atraumatic Eyes General: appearance normal, both eyes and all related structures Pupils: Equal, round and reactive pupils present EOM: EOMs intact bilaterally Resp Effort & Inspection: normal respiratory effort Auscultation: clear to auscultation bilaterally Cardio Rate: regular rate Rhythm: regular rhythm Heart sounds: S1 normal heart sound present, S2 normal heart sound present, no gallops, no murmurs and no rubs Neuro General: patient oriented x3 and gait normal Cranial nerves: Yes Equal, round and reactive pupils present Motor exam (neuro): 5/5 motor strength present throughout Psych Affect: normal affect Results AMB Hemoglobin A1c AMB Hemoglobin A1c 7.0 % Last Edit by Mirta Tran CMA on 12/05/23 15:42 Results Reviewed Results Reviewed: Laboratory Last Values Hgb A1c (Clinic) 7.0 % (4.0-6.0) H 12/05/23 15:41 Assessment and Plan Assessment & Plan (1) Diabetes: Code(s): E11.9 - Type 2 diabetes mellitus without complications Plan: A1c?has?climbed?to?7.0%.??Goal?is?less?than?7.0% She?has?had?a?couple?of?rounds?of?steroids?due?to?pneumonia?and?COPD?exacerbations. No?changes?made?to?her?metformin?today. Encouraged?her?to?continue?working?on?a?diet?low?in?sugars?and?starches Will?recheck?again?in?3?months?and?if?A1c?climbs?further,?will?adjust?her?medications (2) COPD (chronic obstructive pulmonary disease): Code(s): J44.9 - Chronic obstructive pulmonary disease, unspecified Plan: Improving?back?to?baseline?after?pneumonia. 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 Will?give?her?meloxicam?and?I?have?referred?her?to?pain?management Orders: Orders AMB Hemoglobin A1c Today Z13.9 - Encounter for screening, unspecified Referrals Pain Management Referral M25.559 - Pain in unspecified hip, M87.051 - Idiopathic aseptic necrosis of right femur, M87.052 - Idiopathic aseptic necrosis of left femur Medications: New meloxicam 15 mg PO DAILY 30 tabs 2RF 30 days Coding Level of Care Code Est Pt Level 4 (08340) Diagnoses Diabetes E11.9 COPD (chronic obstructive pulmonary disease) J44.9 Lower extremity weakness R29.898 Hip pain M25.559
[2023-12-05 15:16] VITALS: BP 116/70; PULSE 96; O2SAT 94; BMI 24.9
== END 2023-12-05 15:46 | disposition home or self-care (01) ==
PROVIDERS: PCP Family Medicine; Visit Provider Family Medicine
DX: E11.9 Type 2 diabetes mellitus without complications (principal); J44.9 Chronic obstructive pulmonary disease, unspecified; R29.898 Other symptoms and signs involving the musculoskeletal system; M25.551 Pain in right hip; M25.552 Pain in left hip
CPT/HCPCS: 83036; 99214

== ENCOUNTER 2024-01-08 11:04 | Outpatient (AMB) | payer OTHER, SELFPAY ==
[2024-01-08 11:11] VITALS: BP 94/62; PULSE 105; O2SAT 95
--- NOTE | 2024-01-08 11:11 | MHC.OFFVIS ---
Intake Vital Signs 01/08/24 11:11 Height 50 ft Weight 123 lb 7.342 oz BMI 0.2 BP 94/62 Blood Pressure Location Lt brachial Position Sitting Pulse 105 H Pulse Source Pulse Oximeter Pulse Oximetry (%) 95 Oxygen Delivery Method Room Air Intake Visit Reasons: copd Intake Note: pt is here for follow up and states she is okay, short of breath with walking. Front Desk Auxiliary Required: No Allergies lisinopril Allergy (Unknown, Verified 01/08/24 11:34) RAsh, Swelling Medication List - Last Reconciled 01/08/24 by Dmitriy Frye MD albuterol sulfate 90 mcg/actuation 1 puff inhalation Q4H PRN ascorbic acid (vitamin C) 250 mg PO DAILY atorvastatin 20 mg PO DAILY blood sugar diagnostic ([employer] Verio test strips) As directed, 90 day supply blood-glucose meter ([employer] Verio Flex Start kit) daily As directed. 999 days bupropion HCl 150 mg PO BID 1 month buspirone 10 mg PO BID clotrimazole 1% 1 appl topical BID 4 weeks flu vac qv 2019(18yr up)rc(PF) mL IM fluticasone propion-salmeterol 232-14 mcg/actuation (AirDuo RespiClick) 1 inh inhalation BID 30 days fluticasone propionate 50 mcg/actuation 1 spray intranasal Q12H ibuprofen 800 mg PO TID ipratropium-albuterol 0.5 mg-3 mg(2.5 mg base)/3 mL 3 mL inhalation QID 30 days meloxicam 15 mg PO DAILY 30 days metformin 500 mg PO BID miscellaneous medical supply 1 ea miscellaneous DAILY mupirocin 2% 1 appl topical BID 10 days omeprazole 40 mg PO .qamac 3 months sertraline 200 mg PO DAILY sucralfate (Carafate) 2 grams (2 x 1 gram) PO .qac supper 30 days Do you need a note to return to daycare/school/sports/work: No HPI copd HPI Details Eryn is 78 years old very pleasant female who is here for pulmonary follow-up after 2 months. She does have advanced chronic obstructive pulmonary disease, She has O2 concentrator at home and uses O2 2 L/minute at night. She is supposed to use portable oxygen but can not carry her large cylinder. She is supposed to have a 6 minutes walk and also to be tested for using POC . She is feeling somewhat better with the use of Advair , but the cost is prohibitive for her. She does use DuoNeb updrafts about 3 times a day. She has a past history of smoking up to 3 packs a day and quit 5 years ago, she is not in lung screening program at this time. [facility] Medical History (Updated 01/08/24 @ 11:45 by Dmitriy Frye MD) History of smoking at least 1 pack per day for at least 30 years Pneumonia Respiratory failure with hypoxia Delayed gastric emptying Sleep disorder, unspecified COVID-19 Diabetes COPD (chronic obstructive pulmonary disease) FHx: cholecystectomy Osteoporosis Major depression Surgical History History of carpal tunnel release of both wrists History of partial gastrectomy History of cholecystectomy H/O Whipple procedure Hx of tonsillectomy Previous back surgery Family History Father MVA (motor vehicle accident) Mother CVD (cardiovascular disease) Diabetes mellitus Brother No problems noted. Brother No problems noted. Brother No problems noted. Sister No problems noted. Daughter No problems noted. Daughter No problems noted. Daughter No problems noted. 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 Current occupational exposures/hazards: No Cognitive needs: No Hearing needs: No Vision needs: No Review of Systems Const All systems reviewed & are unremarkable except as noted in HPI and below Eyes Reports no additional complaints ENT Reports nasal congestion (Mild intermittent on some days) Card Denies chest pain, Denies irregular heart rhythm and Denies leg edema Resp Reports as per HPI GI Reports heartburn (Symptoms of GERD or controlled) Reports urinary incontinence Musc Reports no additional complaints Skin/Breast Reports system reviewed and no additional complaints, except as documented Neuro Reports no additional complaints Psych Reports no additional complaints Physical Exam Vital Signs: Last Vital Signs Pulse 105 H 01/08/24 11:11 BP 94/62 01/08/24 11:11 Pulse Ox 95 01/08/24 11:11 Oxygen Delivery Method Room Air 01/08/24 11:11 BMI result Body Mass Index 0.2 Const General: comfortable, no acute distress, alert and awake Orientation/consciousness: patient oriented x3 HEENT Head: Yes normal to inspection General nose exam: No nasal polyps present and No nasal discharge present Face and sinus: Yes sinuses nontender Mouth: oropharynx normal Throat: Yes posterior oropharynx normal Eyes General: appearance normal, both eyes and all related structures Neck Neck: Yes normal visual inspection, Yes no lymphadenopathy, Yes trachea midline and Yes no JVD Thyroid: Thyroid normal Chest Chest palpation & inspection: normal inspection of the chest, normal palpation of entire chest wall and no tenderness Resp Other: Percussion note hyper-resonant, breath sounds are distant with prolonged expiratory phase but equal on both sides. SHE DOES NOT HAVE ANY LOCALIZED CREPITATIONS OR WHEEZES ON AUSCULTATION BUT DOES HAVE COUGH ON DEEP INSPIRATION. Cardio Palpation: normal PMI Rate: regular rate Rhythm: regular rhythm Heart sounds: no gallops and no murmurs GI Palpation (GI): Soft to palpation, nontender, No hepatosplenomegaly present and no masses Auscultation: normal bowel sounds Back/Spine/Pelvis Thoracic/Lumbar Spine: thoracic and lumbar spine normal to inspection Skin General skin exam: no rashes or lesions noted Neuro General: patient oriented x3 and no focal motor deficits Cranial nerves: Yes CN's II-XII intact bilaterally Extrem General: Yes normal to inspection, Yes no clubbing, cyanosis or edema and Yes no calf tenderness Psych Appearance: grossly normal and well kempt Speech and movement: Normal speech and movement present Results Reviewed Results Reviewed: CHEST XRAY ON 11/14/23 WAS NEGATIVE Assessment & Plan Assessment & Plan (1) COPD (chronic obstructive pulmonary disease): Comment: PATIENT DOES HAVE CHRONIC OBSTRUCTIVE PULMONARY DISORDER SECONDARY TO HER SMOKING, CURRENT SYMPTOM IS MAINLY INTERMITTENT COUGH AND SHORTNESS OF BREATH ON EXERTION. Code(s): J44.9 - Chronic obstructive pulmonary disease, unspecified Plan: FLUTICASONE PROPIONATE NON-SALMETEROL 232-14( AIRDUO) 1 CLICK B.I.D. JONES PENA Q 6 HOURS P.R.N. ( MAY USE UP TO 3 TIMES A DAY) ALBUTEROL HFA 2 PUFFS Q 4-6 HOURS P.R.N. WHEN OUTDOORS (2) Respiratory failure with hypoxia: Comment: PATIENT DOES HAVE HISTORY OF NOCTURNAL HYPOXEMIA PART OF UNTREATED SLEEP APNEA. SHE DOES USE OXYGEN 2 L/MINUTE AT NIGHT. I MADE HER WALK FOR 3-4 MINUTES IN THE HALLWAY AND O2 SAT REMAINED 96-94%. Code(s): J96.91 - Respiratory failure, unspecified with hypoxia Plan: USE O2 2 L/MINUTE AT NIGHT (3) Severe obstructive sleep apnea: Comment: In-lab PSG (04/05/21 at [facility] ) revealed: AHI: 25.6/hr; REM AHI: n/a; O2 nadir83; Periodic limb movement of sleep (PLMS) index: 198/hr; PLMS arousal index: 27/hr. PATIENT HAS NOT BEEN ABLE TO USE USING CPAP BECAUSE, SHE JUST CANNOT TOLERATE THE MASK ON HER FACE. JUST USING O2 2 L/MINUTE DURING SLEEP. Code(s): G47.33 - Obstructive sleep apnea (adult) (pediatric) Plan: CONTINUE USING O2 2 L/MINUTE AT NIGHT (4) Pneumonia: Comment: PATIENT WAS TREATED AT [facility] 4 WEEKS AGO FOR MULTI LOBAR PNEUMONIA ON THE LEFT SIDE. TREATED WITH COURSE OF ANTIBIOTICS AND PREDNISONE, . AND GOT BETTER PRESENT SYMPTOM IS MAINLY FREQUENT COUGH AND NOT ABLE TO EXPECTORATES. Code(s): J18.9 - Pneumonia, unspecified organism Plan: CHEST X-RAY ON 11/14/2023, WAS FOUND TO BE NEGATIVE AND THE PNEUMONIA HAD RESOLVED COMPLETELY. (5) History of smoking at least 1 pack per day for at least 30 years: Comment: PATIENT HAS PAST HISTORY OF SMOKING UP TO 3 PACKS A DAY FOR ALMOST 30 YEARS. SHE QUIT SMOKING 5 YEARS AGO. Code(s): Z87.891 - Personal history of nicotine dependence Plan: COMMENDED FOR NOT SMOKING. I THINK SHE WILL BENEFIT FROM LOW-DOSE CT SCANNING PROGRAM , FOR WHICH SHE IS BEING REFERRED. Orders: Referrals Thoracic Surgery Referral J44.9 - Chronic obstructive pulmonary disease, unspecified, Z87.891 - Personal history of nicotine dependence Coding Level of Care Code Est Pt Level 4 (55886) Diagnoses COPD (chronic obstructive pulmonary disease) J44.9 Respiratory failure with hypoxia J96.91 Severe obstructive sleep apnea G47.33 Pneumonia J18.9 History of smoking at least 1 pack per day for at least 30 years Z87.893
== END 2024-01-08 11:34 | disposition home or self-care (01) ==
PROVIDERS: PCP Family Medicine; Visit Provider Internal Medicine
DX: J44.9 Chronic obstructive pulmonary disease, unspecified (principal); J96.91 Respiratory failure, unspecified with hypoxia; G47.33 Obstructive sleep apnea (adult) (pediatric); J18.9 Pneumonia, unspecified organism; Z87.891 Personal history of nicotine dependence
CPT/HCPCS: 99214

== ENCOUNTER → 2024-01-08 11:04 | Outpatient (BNVA) | payer OTHER, SELFPAY | PROVIDERS: PCP Family Medicine; Visit Provider Internal Medicine | DX: J44.9 Chronic obstructive pulmonary disease, unspecified (principal); J96.91 Respiratory failure, unspecified with hypoxia; J18.9 Pneumonia, unspecified organism; G47.33 Obstructive sleep apnea (adult) (pediatric); Z87.891 Personal history of nicotine dependence | CPT/HCPCS: 99212 ==

== ENCOUNTER 2024-02-15 09:40 | Outpatient (AMB) | payer OTHER, SELFPAY ==
--- NOTE | 2024-02-15 07:41 | MHC.OFFVIS ---
Intake Visit Reasons: Former Smoker Allergies lisinopril Allergy (Unknown, Verified 01/08/24 11:34) RAsh, Swelling HPI HPI Former Smoker: Details: Initial visit for this 78yo former smoker with a 100+PYH. Patient started smoking at age 21 for 50 years at - max 3ppd She quit ~2018. . Denies marijuana use. Denies second hand smoke exposure. Denies exposure to chemicals or substances like asbestos. . Denies known family history of lung cancer. Denies personal history of cancers. . Denies chest CT in last year. Had LDCT 11/01/2018 noting lung RADS 3- with no follow up. . Denies recent travel outside the [place]. Denies recent respiratory illness or recent hospitalization for respiratory issues. Reports testing positive for COVID x 2 Admits receiving COVID Vaccine. x 3. . Denies fever, chills, new/worsening cough, hemoptysis, hoarseness or dysphagia. Denies significant chest pain, significant dyspnea or unintentional weight loss. Patient Lung Cancer Screening Questionnaire reviewed with patient by provider. . Shared Decision Making Completed. Patient meets criteria. Discussed in detail with patient, the risk vs benefit of LDCT screening. Patient consents to proceed with scan. Discussed and encouraged continued smoking cessation. [facility] Medical History (Updated 02/15/24 @ 10:01 by Vicenta Camp PA-C) COPD (chronic obstructive pulmonary disease) Respiratory failure with hypoxia Severe obstructive sleep apnea History of COVID-19 Personal history of nicotine dependence Diabetes Pancreatic insufficiency (~2001) Post-cholecystectomy syndrome (~2001) Delayed gastric emptying Osteoporosis Surgical History (Updated 02/11/24 @ 14:43 by Vicenta Camp PA-C) History of Whipple procedure History of partial gastrectomy History of cholecystectomy History of back surgery History of carpal tunnel release of both wrists History of cataract surgery History of tonsillectomy Family History Father MVA (motor vehicle accident) Mother CVD (cardiovascular disease) Diabetes mellitus Brother No problems noted. Brother No problems noted. Brother No problems noted. Sister No problems noted. Daughter No problems noted. Daughter No problems noted. Daughter No problems noted. 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 - Patient meets criteria for LDCT for lung cancer screening purposes and is asymptomatic. - Smoking cessation counseling offered. Patients can always call [phone]. - Will arrange for a LDCT scan of the chest for screening purposes at [facility]. - Risks, benefits, and alternatives were discussed in detail and the patient agrees to proceed. - Risks discussed include but are not limited to: radiation exposure, anxiety during testing and while awaiting results, false negatives, false positives and possibility of additional intervention such as further imaging or surgical procedures for benign disease. - Benefits are obviously detection of lung cancer at an early stage which can lead to improved outcomes. - Discussed the importance of screening program compliance with adherence to yearly LDCT scan as scheduled - or sooner interval scans for personalized screening regimen. - Discussed follow up plan. Our office will send a letter discussing results and if needed set up phone call and office visit based on CT findings. - Patient educated on results categorization and the management decisions for suspicious findings potentially found on the screening LDCT scan. Any patient with a Lung RADS score of 3 or 4 will be reviewed by a multidisciplinary team at [facility] to form a plan of action in regards to scan findings. - If further work up is warranted for a suspicious lung finding this will be followed by the Lung Cancer Screening program in conjunction with the Thoracic Surgery Department at [facility]. - A copy of the office note and LDCT will be sent to the patient's PCP - as well as documentation on any associated further plans of care. - Incidental findings on LDCT are the PCP's responsibility. These findings are indicated with an S finding on the LDCT Assessment. A note discussing the findings will be sent to the PCP who is then responsible for further management. - All questions answered.? Coding Level of Care Code Lung Cancer Screening G0296 Diagnoses Personal history of nicotine dependence Z87.891
== END 2024-02-15 10:05 | disposition home or self-care (01) ==
PROVIDERS: PCP Family Medicine; Referring Provider Internal Medicine; Visit Provider Physician Assistant Medical
DX: Z87.891 Personal history of nicotine dependence (principal)
CPT/HCPCS: G0296

== ENCOUNTER 2024-02-15 09:57 | Outpatient (REF) | payer OTHER, SELFPAY ==
--- NOTE | ~2024-02-15 | CT_ITS ---
EXAMINATION: CT CHEST SCREENING CLINICAL INFORMATION: Personal history of nicotine dependence. The patient has a 35 pack-year history of smoking, having quit 3 years ago. COMPARISON: X-ray chest 11/15/2023. CT chest 11/01/2018. TECHNIQUE: Multidetector volumetric CT imaging of the chest is performed on a Siemens SOMATOM Definition scanner without contrast using low dose technique. Additional 2D coronal and sagittal reformatted images and axial 3D maximum intensity projection (MIP) images are generated on the CT workstation. This CT examination was performed using dose optimization techniques as appropriate, variously including the following: *Automated exposure control *Adjustment of mA and/or kV according to patient size (this includes techniques or standardized protocols for targeted exams where dose is matched to indication/reason for exam; i.e. extremities or head) *Use of iterative reconstruction technique DLP: 38 mGy-cm FINDINGS: LUNGS: Moderate emphysematous changes are seen along with bronchial thickening. Scattered pulmonary nodules are present the largest in the left upper lobe measuring 9 mm in greatest dimension (5:88 and solo images). This latter nodule is completely new when compared to the prior study. There is another new ill-defined subpleural density seen in the left lower lobe which could be related to scarring (5:325). A number of other small pulmonary nodules are present (Solo images have all been saved) and they are essentially unchanged when compared to the prior study, the largest being a triangular presumed perifissural left lower lobe lymph node (5:265 compare prior 4:265). MEDIASTINUM: The mediastinum is normal. CORONARY ARTERY CALCIFICATION: None visualized on this study. PLEURA: There is no pleural effusion. No pleural mass or thickening. AXILLA: No lymphadenopathy. UPPER ABDOMEN: Unremarkable. OSSEOUS STRUCTURES: Unremarkable. CT/CT lung screening IMPRESSION: New left upper lobe pulmonary nodule measuring 9 mm must be considered very suspicious. Other smaller stable nodules unchanged. ASSESSMENT: Lung-RADS category 4B: Suspicious. RECOMMENDATION: Further evaluation with PET/CT or biopsy is recommended.
== END 2024-02-15 09:58 | disposition home or self-care (01) ==
LOC: HO.CT 09:57
PROVIDERS: PCP Family Medicine; Visit Provider Physician Assistant Medical
DX: Z12.2 Encounter for screening for malignant neoplasm of respiratory organs (principal); Z87.891 Personal history of nicotine dependence
CPT/HCPCS: 71271; G0296

== ENCOUNTER 2024-02-25 10:59 | Outpatient (REF) | payer OTHER, SELFPAY ==
[2024-02-25 08:50] VITALS: PULSE 74; RESP 16; O2SAT 96
--- NOTE | 2024-02-25 13:32 | PFT_ITS ---
Flows: FEV1: 59 % of predicted at 1.05 L FVC: 89 % of predicted at 2.03 L FEV1/FVC: 52 % Bronchodilator response: Absent Volumes: Total lung capacity: 107 % of predicted at 4.55 L Residual volume: 142 % of predicted at 2.58 L Slow vital capacity: 82 % of predicted at 1.97 L Expiratory reserve volume: 111 % of predicted at 0.62 L Diffusion capacity: Moderately decreased Impression: Moderate obstructive ventilatory defect with no bronchodilator response. Increased residual volume suggests air trapping. Decreased diffusion capacity suggests emphysema. MTDD
== END 2024-02-25 11:00 | disposition home or self-care (01) ==
LOC: HO.RESP 10:59
PROVIDERS: PCP Family Medicine; Visit Provider Physician Assistant Medical
DX: R91.1 Solitary pulmonary nodule (principal); Z87.891 Personal history of nicotine dependence
CPT/HCPCS: 94010; 94640; 94729

== ENCOUNTER → 2024-02-25 13:32 | Outpatient (BNV) | payer OTHER, SELFPAY | PROVIDERS: PCP Family Medicine; Visit Provider Internal Medicine Pulmonary Disease | DX: R91.1 Solitary pulmonary nodule (principal); Z87.891 Personal history of nicotine dependence | CPT/HCPCS: 94060; 94727; 94729 ==

== ENCOUNTER 2024-03-03 10:20 | Outpatient (AMB) | payer OTHER, SELFPAY ==
--- NOTE | 2024-03-03 10:21 | MHC.OFFVIS ---
Vital Signs 03/03/24 10:31 Height 5 ft Weight 123 lb BMI 24.0 BP 126/68 Blood Pressure Location Rt brachial Position Sitting Pulse 68 Pulse Oximetry (%) 96 Oxygen Delivery Method Room Air Intake Visit Reasons: Lt upper lobe nodule Intake Note: Patient referred by Vicenta Camp PA-C for Lt upper lobe nodule. Patient c/o: COPD, SOB. Uses O2 QHS. Lung CT: 02-15-24. Numerical Tool Programmer Required: No Accompanied by: Self / Same As Patient Allergies lisinopril Allergy (Unknown, Verified 03/03/24 10:22) RAsh, Swelling Medication List - Last Reconciled 03/03/24 by Andre Vasquez MD albuterol sulfate 90 mcg/actuation 1 puff inhalation Q4H PRN ascorbic acid (vitamin C) 250 mg PO DAILY atorvastatin 20 mg PO DAILY blood sugar diagnostic ([employer] Verio test strips) As directed, 90 day supply blood-glucose meter ([employer] Verio Flex Start kit) daily As directed. 999 days bupropion HCl SR 150 mg PO BID 1 month buspirone 10 mg PO BID clotrimazole 1% 1 appl topical BID 4 weeks flu vac qv 2019(18yr up)rc(PF) mL IM fluticasone propion-salmeterol 232-14 mcg/actuation (AirDuo RespiClick) 1 inh inhalation BID 30 days fluticasone propionate 50 mcg/actuation 1 spray intranasal Q12H ibuprofen 800 mg PO TID ipratropium-albuterol 0.5 mg-3 mg(2.5 mg base)/3 mL 3 mL inhalation QID 30 days meloxicam 15 mg PO DAILY 30 days metformin 500 mg PO BID miscellaneous medical supply 1 ea miscellaneous DAILY mupirocin 2% 1 appl topical BID 10 days omeprazole 40 mg PO .qamac 3 months sertraline 200 mg PO DAILY HPI Comments Details: Patient presents for evaluation of a recently diagnosed left upper lobe lung mass. She was presented at our weekly multidisciplinary lung cancer screening conference. Patient has a suspicious spiculated mid left lung mass. She has no new respiratory symptoms. She has appreciable COPD and has had wheezing and chronic cough for many years along with mild dyspnea with exertion. Patient denies any hemoptysis or chest pain. Her energy, weight, and appetite are stable. Patient has a very significant smoking history although she discontinued 6 years ago. She at 1 point had 3 packs a day and then was down to 1 pack for many many years. Pulmonary function tests were obtained and were consistent with moderate COPD Chart was reviewed and patient evaluated. Patient is status post Whipple operation in [place] several years ago. [facility] Medical History COPD (chronic obstructive pulmonary disease) Respiratory failure with hypoxia Severe obstructive sleep apnea History of COVID-19 Personal history of nicotine dependence Diabetes Pancreatic insufficiency (~2001) Post-cholecystectomy syndrome (~2001) Delayed gastric emptying Osteoporosis Surgical History History of Whipple procedure History of partial gastrectomy History of cholecystectomy History of back surgery History of carpal tunnel release of both wrists History of cataract surgery History of tonsillectomy Family History Father MVA (motor vehicle accident) Mother CVD (cardiovascular disease) Diabetes mellitus Brother No problems noted. Brother No problems noted. Brother No problems noted. Sister No problems noted. Daughter No problems noted. Daughter No problems noted. Daughter No problems noted. Other Mental health disorder Social History Household Members: None Housing: House Housing Other:: no assistive devices Alcohol intake: former Patient Tobacco Use Status: Former Tobacco user Quit Date: 2017 Years Smoked: (former smoker, onset 21yo, 2-3ppd x 50yrs, 100+pyh, quit ~2017) e-Cigarette/Vaping Use: Never Used Second Hand Smoke Exposure: No service: No Current occupational status: retired Current occupation: Retired -[employer]ING [employer]ATION [employer] Current occupational exposures/hazards: No Cognitive needs: No Hearing needs: No Vision needs: No Physical Exam Vital Signs: Last Vital Signs Pulse 68 03/03/24 10:31 BP 126/68 03/03/24 10:31 Pulse Ox 96 03/03/24 10:31 Oxygen Delivery Method Room Air 03/03/24 10:31 BMI result Body Mass Index 24.0 Chest Other: Chest breath sounds bilaterally consistent with COPD. No periclavicular, cervical, or axillary adenopathy bilaterally. GI Other: Chevron incision from patient's prior pancreatic surgery. Otherwise abdomen mildly corpulent, benign Assessment & Plan Assessment & Plan (1) Left upper lobe pulmonary nodule: Comment: (9mm SAMARA nodule on 01/2024 LDCT - new compared to 2019) Code(s): R91.1 - Solitary pulmonary nodule Category: Surgical Plan: Current plan is to arrange for a PET scan as well as CT-guided biopsy and direct further therapy based on these results. All questions answered. Patient will see me after these interventions. Plan See above Orders: Orders PET CT fusion skull to thigh Today R91.1 - Solitary pulmonary nodule CT biopsy lung LT Today R91.1 - Solitary pulmonary nodule Coding Level of Care Code New Pt Level 4 (23096) Diagnoses Left upper lobe pulmonary nodule R91.1
[2024-03-03 10:31] VITALS: BP 126/68; PULSE 68; O2SAT 96; BMI 24.0
== END 2024-03-03 10:35 | disposition home or self-care (01) ==
PROVIDERS: PCP Family Medicine; Referring Provider Physician Assistant Medical; Visit Provider Surgery
DX: R91.1 Solitary pulmonary nodule (principal)
CPT/HCPCS: 99204

== ENCOUNTER → 2024-03-03 10:20 | Outpatient (BNVA) | payer OTHER, SELFPAY | PROVIDERS: PCP Family Medicine; Referring Provider Physician Assistant Medical; Visit Provider Surgery | DX: R91.1 Solitary pulmonary nodule (principal) | CPT/HCPCS: 99202 ==

== ENCOUNTER 2024-03-31 15:06 | Inpatient (IN) | payer OTHER, SELFPAY ==
[2024-03-31] VITALS (16 sets, daily range): BP systolic 120–159; BP diastolic 55–75; PULSE 77–92; RESP 14–22; TEMP 36–37.1; O2SAT 91–99; BMI 23.4
--- NOTE | ~2024-03-31 | XR_ITS ---
EXAMINATION: XR CHEST CLINICAL INFORMATION: Pneumothorax evaluation COMPARISON: Prior 04/01/2024 examination at 7:43 AM TECHNIQUE: Frontal view of the chest was obtained. FINDINGS: Small left apical pneumothorax stable. Minor areas of airspace atelectasis and opacity left lung stable. Mediastinal structures are midline. Heart and pulmonary vessels normal. Degenerative changes right shoulder joint noted. XR/XR chest 1V IMPRESSION: Stable small left apical pneumothorax.
--- NOTE | ~2024-03-31 | XR_ITS ---
EXAMINATION: XR CHEST CLINICAL INFORMATION: Follow-up left pneumothorax COMPARISON: Chest radiograph from 04/01/2024 TECHNIQUE: Frontal view of the chest was obtained. FINDINGS: Left-sided pigtail chest tube. Trace left apical pneumothorax. Blunting left costophrenic recess which may reflect a trace pleural effusion. Trachea is midline. Cardiac mediastinal silhouette is stable. Aorta demonstrates atherosclerotic calcifications. Osseous structures are intact. Soft tissues are unremarkable. XR/XR chest 1V IMPRESSION: 1. Left-sided pigtail chest tube. 2. Trace left apical pneumothorax. 3. Blunting left costophrenic recess which may reflect a trace pleural effusion.
--- NOTE | ~2024-03-31 | CT_ITS ---
78-year-old female with a 9 mm left upper lobe lung nodule. Thoracic surgery requests a percutaneous biopsy. PROCEDURES: 1. Limited preprocedure CT of the chest. Permanent images saved in PACS. 2. CT-guided biopsy of the left upper lobe lung nodule. 3. Limited postprocedure CT of the chest. Permanent images saved in PACS. CLINICIANS: Fabiano Vazquez PA-C MEDICATIONS: -Versed 1.5 mg, Fentanyl 75 mcg, and lidocaine 1% 10 mL SQ -Antibiotics: None -For additional details, please see nursing flowsheet. COMPLICATIONS: None ESTIMATED BLOOD LOSS: < 5 ml CONTRAST: None SPECIMENS: 2 x 20 g cores were sent for pathology MODERATE SEDATION TIME: 44 min PROCEDURE NOTE: The procedure, risks, benefits, and alternatives were carefully explained to the patient and written informed consent was obtained. The patient was placed supine on the CT table. A timeout was performed. A limited CT of the chest was performed to localize the left upper lobe lung nodule and choose appropriate needle entry and trajectory. The patient was prepped and draped in usual sterile fashion. The skin and deeper soft tissues were anesthetized with lidocaine. Under CT guidance, a19 gague trocar needle was advanced to the left upper lobe lung nodule. A 20 gauge biopsy device was inserted through the trocar needle and advanced into the nodule. A total of 2 cores were performed. The specimens were placed in formalin and sent to pathology. The patient developed a moderate-sized intraparenchymal hemorrhage that made additional sampling of the small left upper lobe nodule not feasible. The needle was removed. A dry dressing was applied and secured with Tegaderm. A limited postprocedure CT of the chest was performed, which did not demonstrate any pneumothorax or hemothorax. The patient was stable after the procedure and was transferred to the post anesthesia care unit. The procedure was done under moderate sedation with a dedicated nurse for monitoring of vital signs. CT/CT biopsy lung LT Impression: CT-guided biopsy of the 9 mm left upper lobe lung nodule. This procedure was performed by Fabiano Vazquez PA-C and supervised by Dr. Islas.
--- NOTE | ~2024-03-31 | XR_ITS ---
EXAMINATION: XR CHEST CLINICAL INFORMATION: Left-sided chest tube for pneumothorax COMPARISON: Earlier 04/01/2024 exam TECHNIQUE: Frontal view of the chest was obtained. FINDINGS: A sided chest tube is placed. There is been improvement with only a tiny residual left apical pneumothorax noted. Minor residual atelectasis in the lungs noted. Mediastinal structures are midline. Heart and pulmonary vessels normal. There is advanced degenerative change in the right shoulder joint. XR/XR chest 1V IMPRESSION: Left-sided chest tube placed as described with only residual tiny left apical pneumothorax.
--- NOTE | ~2024-03-31 | XR_ITS ---
EXAMINATION: XR CHEST CLINICAL INFORMATION: Post CT guided biopsy left apical nodule COMPARISON: 11/15/2023, 10/30/2020. CT lung screening 02/15/2024, CT biopsy left lung earlier same day. TECHNIQUE: PA view of the chest was obtained. FINDINGS: Left apical nodule was biopsied via CT guidance. There is a moderate amount of postbiopsy hemorrhage within the apical anterior segment of the left upper lobe. There is no perceptible pneumothorax or pleural effusion. The right lung is grossly clear. Cardiac size is normal. There is moderate calcification of the aorta. Mediastinal and hilar contours are normal. No suspicious bony abnormality. Loss of subacromial space in the right shoulder joint likely indicates full-thickness rotator cuff tear. There is a mild dextroconvex scoliosis of the thoracic spine. XR/XR chest 1V IMPRESSION: 1. No postbiopsy pneumothorax. 2. Moderate amount of postbiopsy hemorrhage in the left apical anterior segment. 3. Otherwise, no active disease or effusion.
--- NOTE | ~2024-03-31 | XR_ITS ---
EXAMINATION: XR CHEST CLINICAL INFORMATION: 2 hour film post left CT guided lung biopsy. COMPARISON: Earlier same day at 12:45 PM. TECHNIQUE: PA view of the chest was obtained. FINDINGS: There has been development of a 2 mm left apical pneumothorax, barely perceptible. Stable opacity in the left anterior apical segment consistent with postbiopsy hemorrhage. No effusions detected. Right lung remains clear. No other changes. Heart, hilum, and mediastinum are stable. XR/XR chest 1V IMPRESSION: 1. Interval development of a tiny 2 mm left apical pneumothorax on this 2 hour film. 2. Stable left apical anterior postbiopsy hemorrhage.
--- NOTE | ~2024-03-31 | CT_ITS ---
CLINICAL HISTORY: 78-year-old female with small, but increasing left pneumothorax after lung biopsy. Patient presents for placement of a chest tube PROCEDURES: 1. Limited preprocedure CT of the chest. Permanent images saved in PACS. 2. CT-guided left chest tube 3. Limited post procedure CT of the chest. Permanent images saved in PACS. CLINICIANS: Fabiano Vazquez PA-C MEDICATIONS: -Fentanyl 25 mcg, and lidocaine 1% 10 mL SQ -Antibiotics: None -For additional details, please see nursing flowsheet. COMPLICATIONS: None ESTIMATED BLOOD LOSS: < 5 ml CONTRAST: None SPECIMENS: None PROCEDURE NOTE: The procedure, risks, benefits, and alternatives were carefully explained to the patient and written informed consent was obtained. The patient was placed supine on the CT table. A timeout was performed. A limited CT of the chest was performed to localize the left pneumothorax and choose appropriate needle entry and trajectory. The patient was prepped and draped in usual sterile fashion. The skin and subcutaneous tissues were anesthetized with lidocaine. Under CT guidance, a 5 [place] FlowPayeh catheter was advanced into the left pleural space. Air was immediately aspirated. A 0.0035 J wire was inserted through the the catheter and coiled in the left pleural space. The catheter was then removed over the wire. The tract was then serially dilated. Over the wire, a 10 fr all-purpose drainage catheter was advanced and coiled into the left pleural space under CT guidance. The wire was then removed. The tube was connected to a closed drainage system. The catheter was secured to the skin with a 2-0 nylon suture. A limited postprocedure CT was then obtained. The patient was stable after the procedure and was transferred back to the surgical floor. CT/CT chest tube placement Impression: CT guided left chest tube placement This procedure was performed by Fabiano Vazquez PA-C and supervised by Dr. Islas.
--- NOTE | ~2024-03-31 | XR_ITS ---
EXAMINATION: XR CHEST, SINGLE VIEW CLINICAL INFORMATION: Follow-up left pneumothorax COMPARISON: Chest radiograph from 10/31/2023 TECHNIQUE: Single view of the chest FINDINGS: Left sided pigtail chest tube. No appreciable left-sided pneumothorax. Blunting left costophrenic recess potentially representing pleural effusion. Left apical lung nodule less conspicuous and better evaluated on prior cross-sectional imaging though prior postbiopsy hemorrhage has improved. Trachea is midline. Cardiac mediastinal silhouette is stable. Aorta demonstrates atherosclerotic calcifications. Dextrocurvature of the mid thoracic spine. Soft tissues are unremarkable. XR/XR chest 1V IMPRESSION: 1. Left sided pigtail chest tube. No appreciable left-sided pneumothorax. 2. Blunting left costophrenic recess potentially representing pleural effusion. 3. Left apical lung nodule less conspicuous and better evaluated on prior cross-sectional imaging though prior postbiopsy hemorrhage has improved.
--- NOTE | ~2024-03-31 | XR_ITS ---
EXAMINATION: XR CHEST CLINICAL INFORMATION: Follow-up left pneumothorax COMPARISON: 04/02/2024 and 04/01/2024 TECHNIQUE: Frontal view of the chest was obtained. FINDINGS: Left-sided pigtail catheter is in stable position. Lungs are clear without evidence of pneumothorax. There is left lower lobe opacity questionably due to small pleural effusion. Cardiomediastinal silhouette is unremarkable. There is mediastinal rotation to the left. XR/XR chest 1V IMPRESSION: Pigtail catheter in place. Resolution of pneumothorax
--- NOTE | ~2024-03-31 | XR_ITS ---
EXAMINATION: XR CHEST CLINICAL INFORMATION: Evaluate known pneumothorax COMPARISON: 03/31/2024 2:30 PM TECHNIQUE: Frontal view of the chest was obtained. FINDINGS: Small left apical pneumothorax stable. Slightly improved aeration in the lungs. Mediastinal structures midline. Heart and pulmonary vessels normal. Degenerative change in the right shoulder joint. XR/XR chest 1V IMPRESSION: Stable left apical pneumothorax.
--- NOTE | ~2024-03-31 | XR_ITS ---
EXAMINATION: XR CHEST CLINICAL INFORMATION: Reason for Exam s/p chest tube removal COMPARISON: Chest radiograph 04/03/2024 TECHNIQUE: One view of the chest FINDINGS: Lines and tubes: Interval removal of the left thoracostomy tube. EKG leads overlie the patient. Clear lungs. No pleural effusion. No definite residual pneumothorax. Unchanged cardiomediastinal silhouette. XR/XR chest 1V IMPRESSION: Interval removal of the left side thoracostomy tube. No definite residual pneumothorax.
--- NOTE | ~2024-03-31 | XR_ITS ---
EXAMINATION: XR CHEST CLINICAL INFORMATION: Evaluate tiny left apical pneumothorax, portable chest requested by doctor. COMPARISON: 03/31/2024 at 1:36 PM. TECHNIQUE: Frontal view of the chest was obtained. FINDINGS: Stable small left apical pneumothorax. Heart size normal. Stable opacity in the upper left lung, possibly related to postbiopsy hemorrhage versus other etiology. No gross pleural effusion. XR/XR chest 1V IMPRESSION: 1. Stable small left apical pneumothorax. 2. Stable opacity in the upper left lung, possibly related to postbiopsy hemorrhage versus other etiology
--- NOTE | ~2024-03-31 | XR_ITS ---
EXAMINATION: XR CHEST CLINICAL INFORMATION: Pneumothorax COMPARISON: Multiple previous examinations TECHNIQUE: Frontal view of the chest was obtained. FINDINGS: There is pigtail catheter present on the left in stable position. There are increased interstitial markings over the left lung. Left pneumothorax is not appreciable. Cardiomediastinal silhouette is normal. There is no pleural effusion seen. XR/XR chest 1V IMPRESSION: No evidence of pneumothorax. Pigtail catheter in place.
[2024-03-31 09:31] LABS: Glucose, Whole Blood 165 mg/dL (60-115)
[2024-03-31 09:43] LABS: MANUAL DIFF FLAG NO
[2024-03-31 09:48] LABS: Basophils Percent Auto 0.4 % (0-2); Eosinophils Absolute Auto 0.2 X10*3/uL (0.0-0.4); Eosinophils Percent Auto 1.5 % (0-4); Hematocrit 28.1 % (37.0-47.0); Hemoglobin 8.7 g/dl (12.0-16.0); Imm Gran Abs Auto 0.04 X10*3/uL (0.00-0.03); Imm Gran Pct Auto 0.4 % (0.0-0.4); Lymphocytes Absolute Auto 1.8 X10*3/uL (1.2-4.9); Lymphocytes Percent Auto 17.2 % (20-40); Mean Corpuscular Volume 77.6 fL (80.0-98.0); Mean Platelet Volume 8.3 fL (9.4-12.3); Monocytes Absolute Auto 0.5 X10*3/uL (0.1-1.2); Monocytes Percent Auto 4.3 % (2-11); Neutrophils Absolute Auto 7.9 x10*3/uL (2.0-8.3); Neutrophils Percent Auto 76.2 % (45-73); Platelet Count 329 X10*3/uL (160-400); Red Blood Count 3.62 X10*6/uL (4.20-5.50); Red Cell Distribution Width 18.5 % (11.0-16.0); White Blood Count 10.4 X10*3/uL (4.8-10.8)
[2024-03-31 09:56] LABS: INTERNATIONAL NORM RATIO 0.9 (0.9-1.1); Prothrombin Time 10.7 SEC (11.1-13.3)
[2024-03-31 09:58] LABS: Partial Thromboplastin Time 28.6 SEC (26.0-36.8)
--- NOTE | 2024-03-31 10:18 | MHC.SHP ---
Pre-Procedural Eval Section A - 24 Hr Update-Section A only Date of Service: 03/31/24 Section B - Complete if H&P > 30 days Chief Complaint: LUNG. Solitary pulm nodule Left Upper Lobe Details of Present Illness: 78 y/o female with a 9mm SAMARA lung nodule Relevant Family History (Specify if Yes): No Relevant Social History: Tobacco Use (quit many yrs ago) Present Medications: see Short Stay Collaborative assessment Medical History: Significant History History of Previous Operations: No relevant previous surgery Allergies: Allergies Allergy/AdvReac Type Severity Reaction Status Date / Time lisinopril Allergy Unknown RAsh, Verified 03/31/24 09:18 Swelling Review of Systems Sugical H&P ROS: Negative: Constitution, Cardiovascular and Respiratory Exam Surgical H&P Exam: Normal: Heart, Normal: Lungs, Normal: Skin and Normal: Neurological and Not Evaluated: HEENT Plan CT SAMARA lung nodule biopsy Time Spent With Patient Time: Total time managing care of this patient today ____ minutes.
--- NOTE | 2024-03-31 15:14 | PM.EVENT ---
Event Note Date of Service: 03/31/24 Event Note: Patient is 3.5 hrs s/p left lung biopsy. She has developed a very tiny but progressively increasing left apical pneumothorax. Given the very small size of the pneumothorax, there is no intervention needed or likely even possible at this time. Given the current circumstances and the patient's underlying COPD/emphysema, will request admission overnight for monitoring. While high flow oxygen is useful for reabsorption of pneumothoraces, this may not be beneficial for this patient with underlying COPD. Will follow up with imaging in the morning. Discussed with hospitalist for admission. Fabiano SORENSON Time Spent With Patient Time: Total time managing care of this patient today ____ minutes.
--- NOTE | 2024-03-31 15:38 | PM.IMHP ---
History of Present Illness Date of Service: 03/31/24 Chief Complaint: post-biopsy PTX 78yo ex-smoking F with spiculated SAMARA nodule undergoing workup by Dr Andre Vasquez [place] [place] [facility] COPD on home O2 at night [2L], DM2, CINDY [intolerant of CPAP], pancreatic insufficiency s/p Whipple, GERD, RLS, bilateral hip AVN, and osteoporosis. She underwent CT-guided biopsy of the SAMARA nodule today. One-hour post-procedure CXR showed a moderate hemorrhage in the left apical anterior segment. Two-hour post-procedure CXR showed stable hemorrhage and a tiny 2 mm apical pneumothorax. She denies any pain at the biopsy site. She has chronic dyspnea and cough that are not any worse than usual. Her chief complaint is back pain, which is chronic. She is not on any blood thinners and has not recetly taken any NSAIDs [she has been prescribed meloxicam and ibuprofen in the past]. Review of Systems Review of Systems: Yes all other systems are reviewed and are negative [facility] Medical History COPD (chronic obstructive pulmonary disease) Respiratory failure with hypoxia Severe obstructive sleep apnea History of COVID-19 Personal history of nicotine dependence Diabetes Pancreatic insufficiency (~2001) Post-cholecystectomy syndrome (~2001) Delayed gastric emptying Osteoporosis Family History Father MVA (motor vehicle accident) Mother CVD (cardiovascular disease) Diabetes mellitus Brother No problems noted. Brother No problems noted. Brother No problems noted. Sister No problems noted. Daughter No problems noted. Daughter No problems noted. Daughter No problems noted. Other Mental health disorder Surgical History History of Whipple procedure History of partial gastrectomy History of cholecystectomy History of back surgery History of carpal tunnel release of both wrists History of cataract surgery History of tonsillectomy Social History Household Members: None Housing: House Housing Other:: no assistive devices Alcohol intake: former Patient Tobacco Use Status: Former Tobacco user Years Smoked: (former smoker, onset 21yo, 2-3ppd x 50yrs, 100+pyh, quit ~2018) e-Cigarette/Vaping Use: Never Used Second Hand Smoke Exposure: No Advance Directives: No Advance Directives Information Provided: Yes service: No Current occupational status: retired Current occupation: Retired -[employer] Current occupational exposures/hazards: No Cognitive needs: No Hearing needs: No Vision needs: No Meds Allergies Allergy/AdvReac Type Severity Reaction Status Date / Time lisinopril Allergy Unknown RAsh, Verified 03/31/24 09:18 Swelling Active Medications: Current Medications Acetaminophen (Acetaminophen 325 Mg Tablet) 650 mg PO Q6H PRN PRN Reason: Pain, Mild (Pain Scale 1-3) Albuterol Sulfate (Albuterol Sulfate 90 Mcg 8 Gm Inhaler) 1 puff INHALE Q4H PRN PRN Reason: for wheezing Albuterol/Ipratropium (Albuterol/Iprat 2.5/0.5mg 3 Ml Ampul.Neb) 3 ml INHALE QID [facility] Atorvastatin Calcium (Atorvastatin Calcium 20 Mg Tablet) 20 mg PO DAILY [facility] Buspirone HCl (Buspirone Hcl 10 Mg Tablet) 10 mg PO BID [facility] Clotrimazole (Clotrimazole 1 % Cream 15 Gm Tube) 1 appl TOPICAL BID [facility]; Protocol Fluticasone Propionate (Fluticasone Propionate Nasal 16 Gm Fisher) 1 spray NOSTRIL-B Q12H [facility] Metformin HCl (Metformin Hcl 500 Mg Tablet) 500 mg PO BID [facility] Morphine Sulfate (Morphine Sulfate 4 Mg/Ml Cartridge) 2 mg IVPUSH Q4H PRN; Protocol PRN Reason: Pain, Severe (Pain Scale 7-10) Mupirocin (Mupirocin 2 % Oint 22 Gm Tube) 1 appl TOPICAL BID BERNARD; Protocol Non-Formulary Medication (Fluticasone Propion-Salmeterol [Airduo Respiclick]) 1 inhalation INHALE BID [facility] Non-Formulary Medication (Bupropion Hcl) 150 mg PO BID [facility] Omeprazole (Omeprazole 40 Mg Capsule.Dr) 40 mg PO .qamac [facility] Ondansetron HCl (Ondansetron Hcl 4 Mg/2 Ml Vial) 4 mg IVPUSH Q8H PRN PRN Reason: Nausea and Vomiting Oxycodone HCl (Oxycodone Hcl Immed Release 5 Mg Tablet) 5 mg PO Q6H PRN PRN Reason: Pain, Moderate(Pain Scale 4-6) Sertraline HCl (Sertraline Hcl 100 Mg Tablet) 200 mg PO DAILY [facility] Sodium Chloride (0.9 % Sodium Chloride Flush 3 Ml Syringe) 3 ml IVFLUSH QSHIFT [facility]ERN[facility] Home Medications ?Medication ?Instructions ?Recorded ?Confirmed ?Last Taken ?Type sertraline 100 mg tablet 200 mg PO DAILY 10/04/21 03/31/24 09/04/22 History buspirone 10 mg tablet 10 mg PO BID 02/12/23 03/31/24 Unknown History Physical Exam Vital Signs and Narrative: Vital Signs: Last Vital Signs Temp 98 F 03/31/24 12:00 Pulse 77 03/31/24 15:10 Resp 15 03/31/24 15:10 BP 159/58 H 03/31/24 15:10 Pulse Ox 97 03/31/24 15:10 O2 Del Method Nasal Cannula 03/31/24 15:10 O2 Flow Rate 2 03/31/24 15:10 BMI result Body Mass Index 23.4 Gen: in no acute distress HEENT: sclera anicteric, moist mucus membranes Neck: supple Lungs: clear to auscultation bilaterally, left anterior chest biopsy site with dry dressing Heart: regular rate and rhythm, no murmurs Abd: soft, non-tender, non-distended Ext: no edema Skin: warm/well-perfused Neuro: alert and oriented x3, no focal findings Psych: appropriate affect Results Labs 03/31/24 09:37 Labs: Laboratory Results - last 24 hr 03/31/24 03/31/24 09:24 09:37 MCV 77.6 L MCH 24.0 L MCHC 31.0 RDW 18.5 H Plt Count 329 MPV 8.3 L Immature Gran % (Auto) 0.4 Neut % (Auto) 76.2 H Lymph % (Auto) 17.2 L Loup % (Auto) 4.3 Eos % (Auto) 1.5 Baso % (Auto) 0.4 Lymph # (Auto) 1.8 Loup # (Auto) 0.5 Eos # (Auto) 0.2 Baso # (Auto) 0.0 Abs Immat Gran (auto) 0.04 H Absolute Neuts (auto) 7.9 Absolute Nucleated RBC 0.000 Nucleated RBC % (auto) 0.0 PT 10.7 L INR 0.9 APTT 28.6 POC Glucose 165 H Imaging Radiologist's Impressions: Impressions Chest X-Ray 03/31/24 12:49 IMPRESSION: 1. No postbiopsy pneumothorax. 2. Moderate amount of postbiopsy hemorrhage in the left apical anterior segment. 3. Otherwise, no active disease or effusion. Chest X-Ray 03/31/24 13:47 IMPRESSION: 1. Interval development of a tiny 2 mm left apical pneumothorax on this 2 hour film. 2. Stable left apical anterior postbiopsy hemorrhage. Assessment and Plan (1) Pneumothorax after biopsy: Status: Acute Plan 78yo ex-smoking F with COPD on nocturnal O2 who developed a pulmonary hemorrhage and small PTX after biopsy of a suspicious spiculated SAMARA nodule. post-biopsy PTX and pulmonary hemorrhage - admit to telemetry on continuous SaO2, observation status. 2-hr CXR pending; will also recheck CXR in AM no heparin or other blood thinners; also avoid NSAIDs + ASA. microcytic anemia - recheck H+H in am along with iron studies COPD, no acute exac - continue home controller inhaler [ICS/LABA] and prn albuterol inhalers/nebs HLD - statin mood disorder - buspirone, bupropion, sertraline DM2 - MTF, harini-dose lispro, DM diet GERD - PPI VTE ppx - SCDs dispo - eventual home code - DNR/DNI per pt Quality Stroke Does the patient have a stroke diagnosis?: No VTE Prior VTE?: No VTE Risk Level:: Medical - moderate - high VTE Device Contraindication: N/A - Device Ordered VTE Drug Contraindication: Treatment Not Indicated
[2024-03-31 16:38] LABS: Glucose, Whole Blood 97 mg/dL (60-115)
[2024-03-31] MEDS: oxyCODONE HCl Immed Release 5 MG TABLET PO ×2 (16:40→23:45)
[2024-03-31] MEDS: 0.9 % Sodium Chloride Flush 3 ML SYRINGE IVFLUSH ×2 (16:41→21:19)
--- NOTE | 2024-03-31 17:06 | PHA.MEDREC ---
Pharmacy Consult ? Medication Reconciliation Pharmacy has completed the medication reconciliation. Spoke to patient to confirm med list. Patient says she takes Bupropion 150mg bid, claim says 150 mg daily and Ibuprfen 800mg qid, claim says tid. Patient also states she is no longer taking Omeprzole 40mg daily, she was switched to Esomeprazole 40 mg daily.
[2024-03-31] MEDS: Albuterol/Iprat 2.5/0.5MG 3 ML AMPUL.NEB INHALE (19:47)
[2024-03-31] MEDS: Morphine Sulfate 4 MG/ML CARTRIDGE 2 MG IVPUSH (20:47)
[2024-03-31 21:01] LABS: Glucose, Whole Blood 118 mg/dL (60-115)
[2024-03-31] MEDS: metFORMIN HCl 500 MG TABLET PO (21:16)
[2024-03-31] MEDS: busPIRone HCl 10 MG TABLET PO (21:16)
[2024-03-31] MEDS: Mupirocin 2 % Oint 22 GM TUBE 1 APPL TOPICAL (21:18)
[2024-04-01] VITALS (11 sets, daily range): BP systolic 100–112; BP diastolic 59–74; PULSE 66–92; RESP 16–20; TEMP 36–37.1; O2SAT 95–98
[2024-04-01 00:36] LABS: Hematocrit 25.8 % (37.0-47.0); Hemoglobin 8.1 g/dl (12.0-16.0); Mean Corpuscular HGB Conc 31.4 g/dl (31.0-35.0); Mean Corpuscular Volume 76.3 fL (80.0-98.0); Mean Platelet Volume 8.8 fL (9.4-12.3); Platelet Count 303 X10*3/uL (160-400); Red Blood Count 3.38 X10*6/uL (4.20-5.50); Red Cell Distribution Width 18.3 % (11.0-16.0)
[2024-04-01] MEDS: Morphine Sulfate 4 MG/ML CARTRIDGE 2 MG IVPUSH ×2 (04:18→11:38)
[2024-04-01 05:57] LABS: Hematocrit 25.9 % (37.0-47.0); Hemoglobin 7.9 g/dl (12.0-16.0); Mean Corpuscular HGB Conc 30.5 g/dl (31.0-35.0); Mean Corpuscular Hemoglobin 23.9 pg (27.0-33.0); Mean Corpuscular Volume 78.2 fL (80.0-98.0); Mean Platelet Volume 8.8 fL (9.4-12.3); Platelet Count 282 X10*3/uL (160-400); Red Blood Count 3.31 X10*6/uL (4.20-5.50); Red Cell Distribution Width 18.4 % (11.0-16.0)
[2024-04-01 06:38] LABS: Anion Gap 11 (12-20); Blood Urea Nitrogen 14 mg/dL (9-16); Calcium 8.7 mg/dL (8.4-10.2); Carbon Dioxide 21 mmol/L (22-29); Chloride 109 mmol/L (96-108); Creatinine Clr Calc Pharmacy 54.5; Estimated Glomerular Filt Rate > 60; Glucose Random 117 mg/dL (60-115); Iron 39 mcg/dL (30-160); Percent Iron Saturation 12 % (15-50); Potassium 3.6 mmol/L (3.3-5.1); Sodium 137 mmol/L (135-145); Total Iron Binding Capacity 335 mcg/dL (228-428); Unsaturated Iron Binding 296 ug/dL
[2024-04-01] MEDS: Omeprazole 20 MG CAPSULE.DR PO (07:12)
[2024-04-01] MEDS: 0.9 % Sodium Chloride Flush 3 ML SYRINGE IVFLUSH ×3 (07:13→20:11)
[2024-04-01 07:20] LABS: Glucose, Whole Blood 118 mg/dL (60-115)
[2024-04-01] MEDS: Albuterol/Iprat 2.5/0.5MG 3 ML AMPUL.NEB INHALE ×4 (07:34→20:19)
[2024-04-01] MEDS: Sertraline HCL 100 MG TABLET 200 MG PO (08:04)
[2024-04-01] MEDS: Atorvastatin Calcium 20 MG TABLET PO (08:04)
[2024-04-01] MEDS: buPROPion HCl XL 300 MG TAB.ER.24H PO (08:04)
[2024-04-01] MEDS: oxyCODONE HCl Immed Release 5 MG TABLET PO ×4 (08:04→23:02)
[2024-04-01] MEDS: busPIRone HCl 10 MG TABLET PO ×2 (08:04→20:08)
--- NOTE | 2024-04-01 08:49 | MHC.CM.PN ---
CM met with Patient at bedside and originally addressed JUSTICE with her and later the IMM (changed to Inpatient); originals of both were given to Patient and copies have been placed on the chart. Patient lives in a house with her Daughter/Ekaterina and she uses a walker PRN. Patient receives her home O2 from [facility] and home/resume said services is the goal. CM has initiated and will follow for dc planning. PCP is Dr. Yoseph Mccarthy.Daughter/Shital, who is a Nurse, is the HCP.
--- NOTE | 2024-04-01 10:22 | P.PNIM_ITS ---
Subjective Subjective Date of Service: 04/01/24 Interval History: feels a little short of breath and has some wheezing 2 episodes of minor hemoptysis, about the size of a quarter each time Review of Systems Review of Systems: Yes all other systems are reviewed and are negative Physical Exam 2 Vital Signs: Vital Signs: Last Vital Signs Temp 97.2 F 04/01/24 07:22 Pulse 66 04/01/24 07:34 Resp 18 04/01/24 07:34 BP 112/74 04/01/24 07:22 Pulse Ox 98 04/01/24 07:22 O2 Del Method Nasal Cannula 04/01/24 07:22 O2 Flow Rate 2 04/01/24 07:22 BMI result Body Mass Index 23.4 Gen: in no acute distress HEENT: sclera anicteric, moist mucus membranes Neck: supple Lungs: diminished, a few expiratory wheezes, anterior L chest biopsy site with dry dressing Heart: regular rate and rhythm, no murmurs Abd: soft, non-tender, non-distended Ext: no edema Skin: warm/well-perfused Neuro: alert and oriented x3, no focal findings Psych: appropriate affect Objective Data Active Medications Acetaminophen (Acetaminophen 325 Mg Tablet) 650 mg PO Q6H PRN PRN Reason: Pain, Mild (Pain Scale 1-3) Albuterol Sulfate (Albuterol Sulfate 90 Mcg 8 Gm Inhaler) 1 puff INHALE Q4H PRN PRN Reason: for wheezing Albuterol/Ipratropium (Albuterol/Iprat 2.5/0.5mg 3 Ml Ampul.Neb) 3 ml INHALE QID [facility] Last Admin: 04/01/24 07:34 Dose: 3 ml Documented By: GERMÁN Atorvastatin Calcium (Atorvastatin Calcium 20 Mg Tablet) 20 mg PO DAILY [facility] Last Admin: 04/01/24 08:04 Dose: 20 mg Documented By: MARLENE Bupropion HCl (Bupropion Hcl Xl 300 Mg Tab.Er.24h) 300 mg PO DAILY [facility] Last Admin: 04/01/24 08:04 Dose: 300 mg Documented By: MARLENE Buspirone HCl (Buspirone Hcl 10 Mg Tablet) 10 mg PO BID [facility] Last Admin: 04/01/24 08:04 Dose: 10 mg Documented By: MARLENE Clotrimazole (Clotrimazole 1 % Cream 15 Gm Tube) 1 appl TOPICAL BID [facility]; Protocol Last Admin: 04/01/24 08:07 Dose: Not Given Documented By: MARLENE Non-Admin Reason: Patient Refused Fluticasone Propionate (Fluticasone Propionate Nasal 16 Gm [place]) 1 spray NOSTRIL-B Q12H [facility] Last Admin: 04/01/24 04:02 Dose: Not Given Documented By: ENID Non-Admin Reason: Patient Refused Glucose (Glucose Gel 15 Gm Gel..Gram.) 15 gm PO Q15M PRN; Protocol PRN Reason: per Hypoglycemia Standing Ord. Dextrose (D10) 250 mls @ 750 mls/hr IV Q15M PRN; Protocol PRN Reason: per Hypoglycemia Standing Ord. Insulin Human Lispro (Insulin Lispro 100 Unit/Ml 3 Ml Vial) 0 unit SUBCUT QIDACHS [facility]; Protocol Last Admin: 04/01/24 07:14 Dose: Not Given Documented By: MARLENE Non-Admin Reason: No Insulin Coverage Metformin HCl (Metformin Hcl 500 Mg Tablet) 500 mg PO BID [facility] Last Admin: 03/31/24 21:16 Dose: 500 mg Documented By: ENID Morphine Sulfate (Morphine Sulfate 4 Mg/Ml Cartridge) 2 mg IVPUSH Q4H PRN; Protocol PRN Reason: Pain, Severe (Pain Scale 7-10) Last Admin: 04/01/24 04:18 Dose: 2 mg Documented By: ENID Mupirocin (Mupirocin 2 % Oint 22 Gm Tube) 1 appl TOPICAL BID [facility]; Protocol Last Admin: 04/01/24 08:07 Dose: Not Given Documented By: MARLENE Non-Admin Reason: Patient Refused Non-Formulary Medication (Fluticasone Propion-Salmeterol [Airduo Respiclick]) 1 inhalation INHALE BID [facility] Omeprazole (Omeprazole 20 Mg Capsule.) 20 mg PO DAILY@0630 [facility] Last Admin: 04/01/24 07:12 Dose: 20 mg Documented By: MARLENE Ondansetron HCl (Ondansetron Hcl 4 Mg/2 Ml Vial) 4 mg IVPUSH Q8H PRN PRN Reason: Nausea and Vomiting Oxycodone HCl (Oxycodone Hcl Immed Release 5 Mg Tablet) 5 mg PO Q6H PRN PRN Reason: Pain, Moderate(Pain Scale 4-6) Last Admin: 04/01/24 08:04 Dose: 5 mg Documented By: MARLENE Sertraline HCl (Sertraline Hcl 100 Mg Tablet) 200 mg PO DAILY [facility] Last Admin: 04/01/24 08:04 Dose: 200 mg Documented By: MARLENE Sodium Chloride (0.9 % Sodium Chloride Flush 3 Ml Syringe) 3 ml IVFLUSH QSHIFT [facility] Last Admin: 04/01/24 07:13 Dose: 3 ml Documented By: MARLENE Labs 04/01/24 05:42 04/01/24 05:42 Labs: Laboratory Results - last 24 hr 03/31/24 03/31/24 04/01/24 16:33 20:47 00:21 MCV 76.3 L MCH 24.0 L MCHC 31.4 RDW 18.3 H Plt Count 303 MPV 8.8 L Absolute Nucleated RBC 0.000 Nucleated RBC % (auto) 0.0 Anion Gap Estim Creat Clear Calc Estimated GFR POC Glucose 97 118 H Random Glucose Calcium Iron TIBC % Saturation Unsat Iron Binding 04/01/24 04/01/24 05:42 07:13 MCV 78.2 L MCH 23.9 L MCHC 30.5 L RDW 18.4 H Plt Count 282 MPV 8.8 L Absolute Nucleated RBC 0.000 Nucleated RBC % (auto) 0.0 Anion Gap 11 L Estim Creat Clear Calc 54.5 Estimated GFR > 60 POC Glucose 118 H Random Glucose 117 H Calcium 8.7 Iron 39 TIBC 335 % Saturation 12 L Unsat Iron Binding 296 Assessment and Plan (1) Pneumothorax after biopsy: Status: Acute (2) Hemoptysis: Status: Acute Plan d2 78yo ex-smoking F with COPD on nocturnal O2 who developed a pulmonary hemorrhage and small PTX after biopsy of a suspicious spiculated SAMARA nodule. post-biopsy PTX and pulmonary hemorrhage - PTX larger today; 2->6->18mm; IR will place pigtail catheter; no heparin or other blood thinners; also avoid NSAIDs + ASA. - Pulm consult iron deficiency anemia - recheck H+H in am; replete iron COPD, no acute exac - continue home controller inhaler [ICS/LABA] and prn albuterol inhalers/nebs HLD - statin mood disorder - buspirone, bupropion, sertraline DM2 - harini-dose lispro, DM diet GERD - PPI VTE ppx - SCDs dispo - eventual home code - DNR/DNI per pt In my clinical judgment, the patient requires continued inpatient hospitalization for the following reasons: post-bx PTX + hemoptysis Total time managing care of this patient today: 35 minutes. Quality Stroke Does the patient have a stroke diagnosis?: No VTE Prior VTE?: No VTE Risk Level:: Medical - moderate - high VTE Device Contraindication: N/A - Device Ordered VTE Drug Contraindication: Treatment Not Indicated
--- NOTE | 2024-04-01 10:50 | PCN2_ITS ---
Brief Operative Note Date of procedure: 04/01/24 Pre-op diagnosis: s/p left lung biopsy 03/31, smal but increasing left pneumoth orax Post-op diagnosis: same Procedure: CT left chest tube Small left ptx on CT. 10 fr anterior pigtail placed under CT. No immediate com plications. Orders placed for suction. Anesthesia: local (75 mcg Fentanyl) Condition: stable Disposition: floor
--- NOTE | 2024-04-01 10:50 | PM.PROC ---
Brief Operative Note Date of procedure: 04/01/24 Pre-op diagnosis: s/p left lung biopsy 03/31, smal but increasing left pneumothorax Post-op diagnosis: same Procedure: CT left chest tube Small left ptx on CT. 10 fr anterior pigtail placed under CT. No immediate complications. Orders placed for suction. Anesthesia: local (75 mcg Fentanyl) Condition: stable Disposition: floor
[2024-04-01 11:28] LABS: Glucose, Whole Blood 143 mg/dL (60-115)
--- NOTE | 2024-04-01 11:29 | HO.THORCONS ---
History of Present Illness Consult details Consult date: 04/01/24 Requesting physician: Fabiano Vazqeuz Narrative: Eryn Cote is a 78 year old female with extensive PMH significant for advanced COPD on home O2 2 L/minute at night, diabetes mellitus, sleep apnea, pancreatic insufficiency s/p Whipple, GERD, RLS, bilateral hip AVN, and osteoporosis found to have new 9mm suspicious spiculated left upper lobe pulmonary nodule on lung cancer screening Chest CT. She has a past history of smoking up to 3 packs a day and quit 5 years ago. She was referred to thoracic surgery and was to undergo PET scan as well as CT-guided biopsy with further therapy based on these results. She underwent CT guided biopsy of the SAMARA nodule yesterday and developed a moderate amount of post biopsy hemorrhage within the apical anterior segment of the left upper lobe and then a small left apical pneumothorax on subsequent CXR. She was admitted to the medicine service for observation. On repeat CXR this morning, she had increasing left pneumothorax and therefore IR guided left pigtail chest tube was placed today. She is short of breath at baseline but denies worsening. She had some hemoptysis early this morning but nothing since. H/H minimally drifted down since yesterday. Review of Systems Constitutional: Constitutional: Denies chills and Denies fever(s) ENT: Denies dizziness Cardiovascular: Cardiovascular: Denies chest pain, Denies palpitations, Reports dyspnea and Reports dyspnea on exertion Respiratory: Respiratory: Reports cough, Reports dyspnea and Reports dyspnea on exertion Gastrointestinal: Gastrointestinal: Denies abdominal pain, Denies nausea and Denies vomiting Musculoskeletal: Musculoskeletal: Denies numbness Integumentary/Breasts: Skin/Breast: Denies rash and Denies jaundice Neurologic: Denies dizziness and Denies numbness Endocrine: Endocrine: Denies palpitations [facility] Past Medical History Medical History COPD (chronic obstructive pulmonary disease) Respiratory failure with hypoxia Severe obstructive sleep apnea History of COVID-19 Personal history of nicotine dependence Diabetes Pancreatic insufficiency (~2001) Post-cholecystectomy syndrome (~2001) Delayed gastric emptying Osteoporosis Family History Family History Father MVA (motor vehicle accident) Mother CVD (cardiovascular disease) Diabetes mellitus Brother No problems noted. Brother No problems noted. Brother No problems noted. Sister No problems noted. Daughter No problems noted. Daughter No problems noted. Daughter No problems noted. Other Mental health disorder Surgical History Surgical History History of Whipple procedure History of partial gastrectomy History of cholecystectomy History of back surgery History of carpal tunnel release of both wrists History of cataract surgery History of tonsillectomy Social History Social History Household Members: Children Housing: House Housing Other:: no assistive devices Do you presently have visiting nurse or other home services: No Alcohol intake: former Patient Tobacco Use Status: Former Tobacco user Years Smoked: (former smoker, onset 21yo, 2-3ppd x 50yrs, 100+pyh, quit ~2018) e-Cigarette/Vaping Use: Never Used Second Hand Smoke Exposure: No Use of substances other than those prescribed or required for medical reasons: No Currently Displaying Signs/Symptoms of Drug Intoxication Withdrawal: No Have you been hit, kicked, punched, or otherwise hurt by someone within the past year? If so, by whom?: No Do you feel safe in your current relationship?: Yes Is there a partner from a previous relationship who is making you feel unsafe now?: No Are you made to feel afraid or neglected: No Advance Directives: No Advance Directives Information Provided: Yes Do you have a plan to hurt others: No Plan Recently lost weight without trying: No Nutrition Risks: No Nutritional Risk Patient : No : No Poor oral hygiene: No service: No Current occupational status: retired Current occupation: Retired -[employer] Current occupational exposures/hazards: No Cognitive needs: No Hearing needs: No Vision needs: No Meds Allergies Allergy/AdvReac Type Severity Reaction Status Date / Time lisinopril Allergy Unknown RAsh, Verified 03/31/24 09:18 Swelling Active Medications: Current Medications Acetaminophen (Acetaminophen 325 Mg Tablet) 650 mg PO Q6H PRN PRN Reason: Pain, Mild (Pain Scale 1-3) Albuterol Sulfate (Albuterol Sulfate 90 Mcg 8 Gm Inhaler) 1 puff INHALE Q4H PRN PRN Reason: for wheezing Albuterol/Ipratropium (Albuterol/Iprat 2.5/0.5mg 3 Ml Ampul.Neb) 3 ml INHALE QID [facility] Last Admin: 04/01/24 11:20 Dose: 3 ml Atorvastatin Calcium (Atorvastatin Calcium 20 Mg Tablet) 20 mg PO DAILY [facility] Last Admin: 04/01/24 08:04 Dose: 20 mg Bupropion HCl (Bupropion Hcl Xl 300 Mg Tab.Er.24h) 300 mg PO DAILY [facility] Last Admin: 04/01/24 08:04 Dose: 300 mg Buspirone HCl (Buspirone Hcl 10 Mg Tablet) 10 mg PO BID [facility] Last Admin: 04/01/24 08:04 Dose: 10 mg Clotrimazole (Clotrimazole 1 % Cream 15 Gm Tube) 1 appl TOPICAL BID [facility]; Protocol Last Admin: 04/01/24 08:07 Dose: Not Given Ferrous Sulfate (Ferrous Sulfate 324 Mg Tablet.Dr) 324 mg PO DAILY [facility] Fluticasone Propionate (Fluticasone Propionate Nasal 16 Gm [place]) 1 spray NOSTRIL-B Q12H [facility] Last Admin: 04/01/24 04:02 Dose: Not Given Glucose (Glucose Gel 15 Gm Gel..Gram.) 15 gm PO Q15M PRN; Protocol PRN Reason: per Hypoglycemia Standing Ord. Dextrose (D10) 250 mls @ 750 mls/hr IV Q15M PRN; Protocol PRN Reason: per Hypoglycemia Standing Ord. Insulin Human Lispro (Insulin Lispro 100 Unit/Ml 3 Ml Vial) 0 unit SUBCUT QIDACHS [facility]; Protocol Last Admin: 04/01/24 07:14 Dose: Not Given Metformin HCl (Metformin Hcl 500 Mg Tablet) 500 mg PO BID [facility] Last Admin: 03/31/24 21:16 Dose: 500 mg Morphine Sulfate (Morphine Sulfate 4 Mg/Ml Cartridge) 2 mg IVPUSH Q4H PRN; Protocol PRN Reason: Pain, Severe (Pain Scale 7-10) Last Admin: 04/01/24 04:18 Dose: 2 mg Mupirocin (Mupirocin 2 % Oint 22 Gm Tube) 1 appl TOPICAL BID [facility]; Protocol Last Admin: 04/01/24 08:07 Dose: Not Given Non-Formulary Medication (Fluticasone Propion-Salmeterol [Airduo Respiclick]) 1 inhalation INHALE BID [facility] Omeprazole (Omeprazole 20 Mg Capsule.) 20 mg PO DAILY@0630 [facility] Last Admin: 04/01/24 07:12 Dose: 20 mg Ondansetron HCl (Ondansetron Hcl 4 Mg/2 Ml Vial) 4 mg IVPUSH Q8H PRN PRN Reason: Nausea and Vomiting Oxycodone HCl (Oxycodone Hcl Immed Release 5 Mg Tablet) 5 mg PO Q6H PRN PRN Reason: Pain, Moderate(Pain Scale 4-6) Last Admin: 04/01/24 08:04 Dose: 5 mg Sertraline HCl (Sertraline Hcl 100 Mg Tablet) 200 mg PO DAILY [facility] Last Admin: 04/01/24 08:04 Dose: 200 mg Sodium Chloride (0.9 % Sodium Chloride Flush 3 Ml Syringe) 3 ml IVFLUSH QSHIFT [facility] Last Admin: 04/01/24 07:13 Dose: 3 ml Home Medications ?Medication ?Instructions ?Recorded ?Confirmed ?Last Taken ?Type sertraline 100 mg tablet 200 mg PO DAILY 10/04/21 03/31/24 03/30/24 History buspirone 10 mg tablet 10 mg PO BID 02/12/23 03/31/24 03/30/24 History esomeprazole magnesium 40 mg 40 mg PO DAILY@0630 03/31/24 03/31/24 03/30/24 History capsule,delayed release ibuprofen 800 mg tablet 800 mg PO QID 03/31/24 03/31/24 Unknown History Physical Exam Vital Signs: Vital Signs: Last Vital Signs Temp 97.8 F 04/01/24 10:59 Pulse 89 04/01/24 11:21 Resp 18 04/01/24 11:21 BP 104/60 04/01/24 10:59 Pulse Ox 95 04/01/24 10:59 O2 Del Method Nasal Cannula 04/01/24 10:59 O2 Flow Rate 2 04/01/24 10:59 BMI result Body Mass Index 23.4 Const: General: comfortable, no acute distress and alert Orientation/consciousness: patient oriented x3 Resp: Other: left anterior pigtail chest tube in place no drainage in pleurvac, no air leak Effort & Inspection: normal respiratory effort, Actively coughing, no respiratory distress, not tachypneic and no tracheal deviation Cardio: Rate: regular rate Skin: General skin exam: no rashes or lesions noted Neuro: General: patient oriented x3 and moves all extremities Results Labs 04/01/24 05:42 04/01/24 05:42 Labs: Abnormal lab results 03/31/24 04/01/24 04/01/24 Range/Units 20:47 00:21 05:42 WBC 11.0 H (4.8-10.8) X10*3/uL RBC 3.38 L 3.31 L (4.20-5.50) X10*6/uL Hgb 8.1 L 7.9 L (12.0-16.0) g/dl Hct 25.8 L 25.9 L (37.0-47.0) % MCV 76.3 L 78.2 L (80.0-98.0) fL MCH 24.0 L 23.9 L (27.0-33.0) pg MCHC 30.5 L (31.0-35.0) g/dl RDW 18.3 H 18.4 H (11.0-16.0) % MPV 8.8 L 8.8 L (9.4-12.3) fL Chloride 109 H (96-108) mmol/L Carbon Dioxide 21 L (22-29) mmol/L Anion Gap 11 L (12-20) POC Glucose 118 H (60-115) mg/dL Random Glucose 117 H (60-115) mg/dL % Saturation 12 L (15-50) % 04/01/24 04/01/24 Range/Units 07:13 11:20 WBC (4.8-10.8) X10*3/uL RBC (4.20-5.50) X10*6/uL Hgb (12.0-16.0) g/dl Hct (37.0-47.0) % MCV (80.0-98.0) fL MCH (27.0-33.0) pg MCHC (31.0-35.0) g/dl RDW (11.0-16.0) % MPV (9.4-12.3) fL Chloride (96-108) mmol/L Carbon Dioxide (22-29) mmol/L Anion Gap (12-20) POC Glucose 118 H 143 H (60-115) mg/dL Random Glucose (60-115) mg/dL % Saturation (15-50) % Short CBC 04/01/24 04/01/24 Range/Units 00:21 05:42 WBC 11.0 H 8.0 (4.8-10.8) X10*3/uL Hgb 8.1 L 7.9 L (12.0-16.0) g/dl Hct 25.8 L 25.9 L (37.0-47.0) % Plt Count 303 282 (160-400) X10*3/uL BMP 04/01/24 05:42 Sodium 137 Potassium 3.6 Chloride 109 H Carbon Dioxide 21 L BUN 14 Creatinine 0.63 Calcium 8.7 All other labs normal. Imaging Chest x-ray: report reviewed and image reviewed CT scan - chest: report reviewed and image reviewed Assessment and Plan (1) Pneumothorax after biopsy: Status: Acute (2) Left upper lobe pulmonary nodule: Status: Acute (3) Hemoptysis: Status: Acute Plan 78 year old female with extensive PMH including advanced COPD on home O2 2 L/minute at night found to have new 9mm suspicious spiculated left upper lobe pulmonary nodule and subsequently underwent CT guided biopsy yesterday and developed post biopsy hemorrhage within the apical anterior segment of the left upper lobe and then a small left apical pneumothorax, increased in size this AM. IR pigtail chest tube placed to left anterior chest today. F/u CXR pending. Will continue chest tube to suction for now. Repeat CXR in AM, if lung remains up will place to water seal. Patient comfortable with plan. Cont pain control for allow deep breathing, incentive spirometer use. Hemoptysis appears to have resolved and H/H is relatively stable. Can continue to trend. Procedures Date of Service Date of Service: 04/01/24
--- NOTE | 2024-04-01 13:11 | P.CONPL_ITS ---
History of Present Illness History of Present Illness Consult date: 04/01/24 Requesting physician: Scout Reyes Chief complaint: LUNG. Solitary pulm nodule Left Upper Lobe Narrative: 78-year-old lady with underlying COPD on nocturnal O2 at 2 L, followed by Dr. Frye, who has been undergoing workup for left upper lobe spiculated nodule with transthoracic biopsy on 03/31/2024 complicated by small pneumothorax and a small volume hemoptysis admitted postprocedure for close monitoring. Overnight patient with increase in left-sided pneumothorax up to 2 cm on upright film. X- ray reviewed this a.m. and hospitalist attending advised on proceeding with left-sided chest tube placement that has been done by IR now with re-expansion of the lung Review of Systems 2 Constitutional: Constitutional: Denies daytime sleepiness, Denies excessive sweating, Denies fatigue, Denies fever(s), Denies lethargy, Denies malaise, Denies night sweats, Denies snoring and Denies weight loss Eyes: Eyes: Denies blurry vision and Denies itchy eyes ENT: Denies nasal congestion, Denies post nasal drip, Denies sinus pain, Denies sinus pressure and Denies other ( Thrush) Cardiovascular: Cardiovascular: Denies chest pain, Denies pedal edema, Denies dyspnea, Denies orthopnea and Denies paroxysmal nocturnal dyspnea Respiratory: Respiratory: Denies cough, Reports hemoptysis, Denies excessive phlegm production, Denies dyspnea, Denies snoring and Denies wheezing Gastrointestinal: Gastrointestinal: Denies abdominal pain and Denies heartburn Musculoskeletal: Musculoskeletal: Denies myalgias, Denies arthralgias and Denies joint swelling Integumentary/Breasts: Skin/Breast: Denies rash Neurologic: Denies memory loss and Denies seizure-like activity Psychiatric: Psychiatric: Denies abnormal sleep pattern, Denies anxiety and Denies memory loss Endocrine: Endocrine: Denies excessive sweating, Denies fatigue and Denies heat intolerance Hematologic/Lymphatic: Hematologic/Lymphatic: Denies easy bruising Allergic/Immunologic: Allergic/Immunologic: Denies itchy eyes, Denies seasonal rhinorrhea and Denies wheezing PMFSH Past Medical History Medical History COPD (chronic obstructive pulmonary disease) Respiratory failure with hypoxia Severe obstructive sleep apnea History of COVID-19 Personal history of nicotine dependence Diabetes Pancreatic insufficiency (~2001) Post-cholecystectomy syndrome (~2001) Delayed gastric emptying Osteoporosis Family History Family History Father MVA (motor vehicle accident) Mother CVD (cardiovascular disease) Diabetes mellitus Brother No problems noted. Brother No problems noted. Brother No problems noted. Sister No problems noted. Daughter No problems noted. Daughter No problems noted. Daughter No problems noted. Other Mental health disorder Surgical History Surgical History History of Whipple procedure History of partial gastrectomy History of cholecystectomy History of back surgery History of carpal tunnel release of both wrists History of cataract surgery History of tonsillectomy Social History Social History Household Members: Children Housing: House Housing Other:: no assistive devices Do you presently have visiting nurse or other home services: No Alcohol intake: former Patient Tobacco Use Status: Former Tobacco user Years Smoked: (former smoker, onset 21yo, 2-3ppd x 50yrs, 100+pyh, quit ~2018) e-Cigarette/Vaping Use: Never Used Second Hand Smoke Exposure: No Use of substances other than those prescribed or required for medical reasons: No Currently Displaying Signs/Symptoms of Drug Intoxication Withdrawal: No Have you been hit, kicked, punched, or otherwise hurt by someone within the past year? If so, by whom?: No Do you feel safe in your current relationship?: Yes Is there a partner from a previous relationship who is making you feel unsafe now?: No Are you made to feel afraid or neglected: No Advance Directives: No Advance Directives Information Provided: Yes Do you have a plan to hurt others: No Plan Recently lost weight without trying: No Nutrition Risks: No Nutritional Risk Patient : No : No Poor oral hygiene: No service: No Current occupational status: retired Current occupation: Retired -[employer] Current occupational exposures/hazards: No Cognitive needs: No Hearing needs: No Vision needs: No Meds Allergies Allergy/AdvReac Type Severity Reaction Status Date / Time lisinopril Allergy Unknown RAsh, Verified 03/31/24 09:18 Swelling Active Medications: Current Medications Acetaminophen (Acetaminophen 325 Mg Tablet) 650 mg PO Q6H PRN PRN Reason: Pain, Mild (Pain Scale 1-3) Albuterol Sulfate (Albuterol Sulfate 90 Mcg 8 Gm Inhaler) 1 puff INHALE Q4H PRN PRN Reason: for wheezing Albuterol/Ipratropium (Albuterol/Iprat 2.5/0.5mg 3 Ml Ampul.Neb) 3 ml INHALE QID [facility] Last Admin: 04/01/24 11:20 Dose: 3 ml Atorvastatin Calcium (Atorvastatin Calcium 20 Mg Tablet) 20 mg PO DAILY [facility] Last Admin: 04/01/24 08:04 Dose: 20 mg Bupropion HCl (Bupropion Hcl Xl 300 Mg Tab.Er.24h) 300 mg PO DAILY [facility] Last Admin: 04/01/24 08:04 Dose: 300 mg Buspirone HCl (Buspirone Hcl 10 Mg Tablet) 10 mg PO BID [facility] Last Admin: 04/01/24 08:04 Dose: 10 mg Clotrimazole (Clotrimazole 1 % Cream 15 Gm Tube) 1 appl TOPICAL BID [facility]; Protocol Last Admin: 04/01/24 08:07 Dose: Not Given Ferrous Sulfate (Ferrous Sulfate 324 Mg Tablet.Dr) 324 mg PO DAILY [facility] Fluticasone Propionate (Fluticasone Propionate Nasal 16 Gm [place]) 1 spray NOSTRIL-B Q12H [facility] Last Admin: 04/01/24 04:02 Dose: Not Given Glucose (Glucose Gel 15 Gm Gel..Gram.) 15 gm PO Q15M PRN; Protocol PRN Reason: per Hypoglycemia Standing Ord. Dextrose (D10) 250 mls @ 750 mls/hr IV Q15M PRN; Protocol PRN Reason: per Hypoglycemia Standing Ord. Insulin Human Lispro (Insulin Lispro 100 Unit/Ml 3 Ml Vial) 0 unit SUBCUT QIDACHS [facility]; Protocol Last Admin: 04/01/24 11:33 Dose: Not Given Metformin HCl (Metformin Hcl 500 Mg Tablet) 500 mg PO BID [facility] Last Admin: 03/31/24 21:16 Dose: 500 mg Morphine Sulfate (Morphine Sulfate 4 Mg/Ml Cartridge) 2 mg IVPUSH Q4H PRN; Protocol PRN Reason: Pain, Severe (Pain Scale 7-10) Last Admin: 04/01/24 11:38 Dose: 2 mg Mupirocin (Mupirocin 2 % Oint 22 Gm Tube) 1 appl TOPICAL BID [facility]; Protocol Last Admin: 04/01/24 08:07 Dose: Not Given Non-Formulary Medication (Fluticasone Propion-Salmeterol [Airduo Respiclick]) 1 inhalation INHALE BID [facility] Omeprazole (Omeprazole 20 Mg Capsule.Dr) 20 mg PO DAILY@629 [facility] Last Admin: 04/01/24 07:12 Dose: 20 mg Ondansetron HCl (Ondansetron Hcl 4 Mg/2 Ml Vial) 4 mg IVPUSH Q8H PRN PRN Reason: Nausea and Vomiting Oxycodone HCl (Oxycodone Hcl Immed Release 5 Mg Tablet) 5 mg PO Q6H PRN PRN Reason: Pain, Moderate(Pain Scale 4-6) Last Admin: 04/01/24 08:04 Dose: 5 mg Sertraline HCl (Sertraline Hcl 100 Mg Tablet) 200 mg PO DAILY [facility] Last Admin: 04/01/24 08:04 Dose: 200 mg Sodium Chloride (0.9 % Sodium Chloride Flush 3 Ml Syringe) 3 ml IVFLUSH QSHIFT [facility] Last Admin: 04/01/24 07:13 Dose: 3 ml Home Medications ?Medication ?Instructions ?Recorded ?Confirmed ?Last Taken ?Type sertraline 100 mg tablet 200 mg PO DAILY 10/04/21 03/31/24 03/30/24 History buspirone 10 mg tablet 10 mg PO BID 02/12/23 03/31/24 03/30/24 History esomeprazole magnesium 40 mg 40 mg PO DAILY@0630 03/31/24 03/31/24 03/30/24 History capsule,delayed release ibuprofen 800 mg tablet 800 mg PO QID 03/31/24 03/31/24 Unknown History Physical Exam 2 Vital Signs: Vital Signs: Last Vital Signs Temp 97.8 F 04/01/24 10:59 Pulse 89 04/01/24 11:21 Resp 18 04/01/24 11:21 BP 104/60 04/01/24 10:59 Pulse Ox 95 04/01/24 10:59 O2 Del Method Nasal Cannula 04/01/24 10:59 O2 Flow Rate 2 04/01/24 10:59 BMI result Body Mass Index 23.4 Const: General: no acute distress and alert Nutritional Appearance: not obese Orientation/consciousness: Other orientation findings ( oriented) HEENT: Head: Yes atraumatic Eyes: General: appearance normal, both eyes and all related structures S clerae: sclerae normal EOM: EOMs intact bilaterally Neck: Neck: Yes supple Lymphatic: no lymphadenopathy noted Resp: Effort & Inspection: normal respiratory effort and no use of accessory muscles Auscultation: clear to auscultation bilaterally Cardio: Rate: regular rate Rhythm: regular rhythm Heart sounds: no gallops, no murmurs and no rubs Skin: General skin exam: other ( warm) Extrem: General: No clubbing, No cyanosis and No edema Results Laboratory Findings 04/01/24 05:42 04/01/24 05:42 ABG, PT/INR, D-dimer: PT/INR, D-dimer PT 10.7 SEC (11.1-13.3) L 03/31/24 09:37 INR 0.9 (0.9-1.1) 03/31/24 09:37 Abnormal lab findings: Abnormal Labs 03/31/24 03/31/24 03/31/24 09:24 09:37 20:47 WBC RBC 3.62 L Hgb 8.7 L Hct 28.1 L MCV 77.6 L MCH 24.0 L MCHC RDW 18.5 H MPV 8.3 L Neut % (Auto) 76.2 H Lymph % (Auto) 17.2 L Abs Immat Gran (auto) 0.04 H PT 10.7 L Chloride Carbon Dioxide Anion Gap POC Glucose 165 H 118 H Random Glucose % Saturation 04/01/24 04/01/24 04/01/24 00:21 05:42 07:13 WBC 11.0 H RBC 3.38 L 3.31 L Hgb 8.1 L 7.9 L Hct 25.8 L 25.9 L MCV 76.3 L 78.2 L MCH 24.0 L 23.9 L MCHC 30.5 L RDW 18.3 H 18.4 H MPV 8.8 L 8.8 L Neut % (Auto) Lymph % (Auto) Abs Immat Gran (auto) PT Chloride 109 H Carbon Dioxide 21 L Anion Gap 11 L POC Glucose 118 H Random Glucose 117 H % Saturation 12 L 04/01/24 11:20 WBC RBC Hgb Hct MCV MCH MCHC RDW MPV Neut % (Auto) Lymph % (Auto) Abs Immat Gran (auto) PT Chloride Carbon Dioxide Anion Gap POC Glucose 143 H Random Glucose % Saturation Assessment and Plan (1) Hemoptysis: Status: Acute (2) Pneumothorax after biopsy: Status: Acute (3) COPD (chronic obstructive pulmonary disease): Status: Acute (4) Left upper lobe pulmonary nodule: Status: Acute Plan Impression: 78-year-old lady with left upper lobe spiculated nodule and COPD nocturnal supplemental oxygen dependent now with post procedure left-sided pneumothorax increasing overnight, status post chest tube now with re-expansion of the lung and small amount of hemoptysis (self-limited). Recommendations: Chest tube to water seal till a.m.. Repeat x-ray in a.m., if no pneumothorax noted, will consider clamping. Small amount of hemoptysis is expected after the procedure, continue to monitor clinically. Procedures Date of Service Date of Service: 04/01/24
--- NOTE | 2024-04-01 14:46 | MHC.CM.PN ---
CM has assisted Patient with the completion of a new HCP; Patient has named her Daughter/Nicole as her Agent.
[2024-04-01] MEDS: Morphine Sulfate 4 MG/ML CARTRIDGE 3 MG IVPUSH ×2 (15:21→22:16)
[2024-04-01 16:21] LABS: Glucose, Whole Blood 97 mg/dL (60-115)
[2024-04-01 19:56] LABS: Glucose, Whole Blood 133 mg/dL (60-115)
[2024-04-02] VITALS (9 sets, daily range): BP systolic 89–99; BP diastolic 58–75; PULSE 73–106; RESP 12–20; TEMP 36.1–37.1; O2SAT 93–98
[2024-04-02] MEDS: Morphine Sulfate 4 MG/ML CARTRIDGE 3 MG IVPUSH ×2 (01:26→11:12)
[2024-04-02] MEDS: oxyCODONE HCl Immed Release 5 MG TABLET PO ×2 (03:23→07:41)
[2024-04-02] MEDS: Omeprazole 20 MG CAPSULE.DR PO (06:29)
[2024-04-02 07:11] LABS: Hematocrit 28.9 % (37.0-47.0); Hemoglobin 8.7 g/dl (12.0-16.0); Mean Corpuscular HGB Conc 30.1 g/dl (31.0-35.0); Mean Corpuscular Hemoglobin 23.3 pg (27.0-33.0); Mean Corpuscular Volume 77.5 fL (80.0-98.0); Mean Platelet Volume 9.2 fL (9.4-12.3); Platelet Count 310 X10*3/uL (160-400); Red Blood Count 3.73 X10*6/uL (4.20-5.50); Red Cell Distribution Width 18.5 % (11.0-16.0); White Blood Count 11.9 X10*3/uL (4.8-10.8)
[2024-04-02] MEDS: Albuterol/Iprat 2.5/0.5MG 3 ML AMPUL.NEB INHALE ×3 (07:12→15:21)
[2024-04-02 07:34] LABS: Glucose, Whole Blood 122 mg/dL (60-115)
[2024-04-02] MEDS: buPROPion HCl XL 300 MG TAB.ER.24H PO (07:41)
[2024-04-02] MEDS: busPIRone HCl 10 MG TABLET PO ×2 (07:41→21:08)
[2024-04-02] MEDS: Sertraline HCL 100 MG TABLET 200 MG PO (07:41)
[2024-04-02] MEDS: 0.9 % Sodium Chloride Flush 3 ML SYRINGE IVFLUSH ×3 (07:42→21:09)
[2024-04-02] MEDS: Atorvastatin Calcium 20 MG TABLET PO (07:42)
--- NOTE | 2024-04-02 08:29 | PM.PNTS ---
Subjective Subjective Date of Service: 04/02/24 Interval history: No new respiratory issues or complaints. No further episodes of hemoptysis Chest tube no output with no obvious air leak. A.m. chest x-ray official read still pending but no obvious pneumothorax Physical Exam Vital Signs: Vital Signs: Last Vital Signs Temp 97.6 F 04/02/24 07:34 Pulse 85 04/02/24 07:34 Resp 17 04/02/24 07:34 BP 94/58 L 04/02/24 07:34 Pulse Ox 95 04/02/24 07:34 O2 Del Method Nasal Cannula 04/02/24 07:34 O2 Flow Rate 4 04/02/24 07:34 BMI result Body Mass Index 23.4 Chest: Other: Chest breath sounds bilaterally consistent with COPD, chest tube dressing clean dry and intact Procedures Date of Service Date of Service: 04/02/24 Progress Note: A&P Assessment and plan (1) Pneumothorax after biopsy: Status: Acute (2) Left upper lobe pulmonary nodule: Status: Acute (3) Hemoptysis: Status: Acute Plan Continue chest tube to wall suction for today. Repeat film early tomorrow morning if looks good, we will placed chest tube to water seal and repeat film later for possible chest tube removal. Time Spent With Patient Time: Total time managing care of this patient today ____ minutes. Quality Stroke Does the patient have a stroke diagnosis?: No VTE Prior VTE?: No VTE Risk Level:: Medical - moderate - high VTE Device Contraindication: N/A - Device Ordered VTE Drug Contraindication: Treatment Not Indicated
--- NOTE | 2024-04-02 10:14 | MHC.CM.PN ---
Per ROUNDS discussion, Patient has a chest tube and is not yet medically cleared for dc. Home is the goal, with possible VNA; CM will continue to follow.
--- NOTE | 2024-04-02 11:10 | P.PNIM_ITS ---
Subjective Subjective Date of Service: 04/02/24 Interval History: about 4-5 more episodes of hemoptysis, less than quarter-sized denies dyspnea Review of Systems Review of Systems: Yes all other systems are reviewed and are negative Physical Exam 2 Vital Signs: Vital Signs: Last Vital Signs Temp 97.6 F 04/02/24 07:34 Pulse 85 04/02/24 07:34 Resp 17 04/02/24 07:34 BP 94/58 L 04/02/24 07:34 Pulse Ox 95 04/02/24 07:34 O2 Del Method Nasal Cannula 04/02/24 07:34 O2 Flow Rate 4 04/02/24 07:34 BMI result Body Mass Index 23.4 Gen: in no acute distress HEENT: sclera anicteric, moist mucus membranes Neck: supple Lungs: diminished, anterior L chest biopsy site with dry dressing, L chest tube without air leak Heart: regular rate and rhythm, no murmurs Abd: soft, non-tender, non-distended Ext: no edema Skin: warm/well-perfused Neuro: alert and oriented x3, no focal findings Psych: appropriate affect Objective Data Active Medications Acetaminophen (Acetaminophen 325 Mg Tablet) 650 mg PO Q6H PRN PRN Reason: Pain, Mild (Pain Scale 1-3) Albuterol Sulfate (Albuterol Sulfate 90 Mcg 8 Gm Inhaler) 1 puff INHALE Q4H PRN PRN Reason: for wheezing Albuterol/Ipratropium (Albuterol/Iprat 2.5/0.5mg 3 Ml Ampul.Neb) 3 ml INHALE QID [facility] Last Admin: 04/02/24 07:12 Dose: 3 ml Documented By: RAAD Atorvastatin Calcium (Atorvastatin Calcium 20 Mg Tablet) 20 mg PO DAILY [facility] Last Admin: 04/02/24 07:42 Dose: 20 mg Documented By: NASREEN Bupropion HCl (Bupropion Hcl Xl 300 Mg Tab.Er.24h) 300 mg PO DAILY [facility] Last Admin: 04/02/24 07:41 Dose: 300 mg Documented By: NASREEN Buspirone HCl (Buspirone Hcl 10 Mg Tablet) 10 mg PO BID [facility] Last Admin: 04/02/24 07:41 Dose: 10 mg Documented By: NASREEN Clotrimazole (Clotrimazole 1 % Cream 15 Gm Tube) 1 appl TOPICAL BID [facility]; Protocol Last Admin: 04/01/24 20:10 Dose: Not Given Documented By: CAROLINE Non-Admin Reason: Patient Refused Ferrous Sulfate (Ferrous Sulfate 324 Mg Tablet.) 324 mg PO DAILY [facility] Fluticasone Propionate (Fluticasone Propionate Nasal 16 Gm [place]) 1 spray NOSTRIL-B Q12H [facility] Last Admin: 04/02/24 03:24 Dose: Not Given Documented By: CAROLINE Non-Admin Reason: Patient Refused Glucose (Glucose Gel 15 Gm Gel..Gram.) 15 gm PO Q15M PRN; Protocol PRN Reason: per Hypoglycemia Standing Ord. Dextrose (D10) 250 mls @ 750 mls/hr IV Q15M PRN; Protocol PRN Reason: per Hypoglycemia Standing Ord. Insulin Human Lispro (Insulin Lispro 100 Unit/Ml 3 Ml Vial) 0 unit SUBCUT QIDACHS [facility]; Protocol Last Admin: 04/01/24 20:10 Dose: Not Given Documented By: CAROLINE Non-Admin Reason: No Insulin Coverage Comments: blood sugar not within limits for lispro Metformin HCl (Metformin Hcl 500 Mg Tablet) 500 mg PO BID [facility] Last Admin: 03/31/24 21:16 Dose: 500 mg Documented By: ENID Morphine Sulfate (Morphine Sulfate 4 Mg/Ml Cartridge) 3 mg IVPUSH Q3H PRN; Protocol PRN Reason: Pain, Severe (Pain Scale 7-10) Last Admin: 04/02/24 01:26 Dose: 3 mg Documented By: CAROLINE Mupirocin (Mupirocin 2 % Oint 22 Gm Tube) 1 appl TOPICAL BID [facility]; Protocol Last Admin: 04/01/24 20:10 Dose: Not Given Documented By: CAROLINE Non-Admin Reason: Patient Refused Non-Formulary Medication (Fluticasone Propion-Salmeterol [Airduo Respiclick]) 1 inhalation INHALE BID [facility] Omeprazole (Omeprazole 20 Mg Capsule.) 20 mg PO DAILY@0630 [facility] Last Admin: 04/02/24 06:29 Dose: 20 mg Documented By: CAROLINE Ondansetron HCl (Ondansetron Hcl 4 Mg/2 Ml Vial) 4 mg IVPUSH Q8H PRN PRN Reason: Nausea and Vomiting Oxycodone HCl (Oxycodone Hcl Immed Release 5 Mg Tablet) 10 mg PO Q4H PRN PRN Reason: Pain, Moderate(Pain Scale 4-6) Sertraline HCl (Sertraline Hcl 100 Mg Tablet) 200 mg PO DAILY [facility] Last Admin: 04/02/24 07:41 Dose: 200 mg Documented By: NASREEN Sodium Chloride (0.9 % Sodium Chloride Flush 3 Ml Syringe) 3 ml IVFLUSH QSHIFT [facility] Last Admin: 04/02/24 07:42 Dose: 3 ml Documented By: NASREEN Labs 04/02/24 06:29 04/01/24 05:42 Labs: Laboratory Results - last 24 hr 04/01/24 04/01/24 04/01/24 11:20 16:17 19:49 MCV MCH MCHC RDW Plt Count MPV Absolute Nucleated RBC Nucleated RBC % (auto) POC Glucose 143 H 97 133 H Blood Type Antibody Screen 04/02/24 04/02/24 06:29 07:23 MCV 77.5 L MCH 23.3 L MCHC 30.1 L RDW 18.5 H Plt Count 310 MPV 9.2 L Absolute Nucleated RBC 0.000 Nucleated RBC % (auto) 0.0 POC Glucose 122 H Blood Type A Positive Antibody Screen NEGATIVE Assessment and Plan (1) Pneumothorax after biopsy: Status: Acute (2) Hemoptysis: Status: Acute Plan d3 78yo ex-smoking F with COPD on nocturnal O2 who developed a pulmonary hemorrhage and small PTX after biopsy of a suspicious spiculated SAMARA nodule. post-biopsy PTX and pulmonary hemorrhage - pigtail catheter placed 04/01/24 by IR for small but enlarging PTX - continue chest tube to wall suction; repeat CXR tomorrow in AM and if no PTX, will place tube to water seal - no heparin or other blood thinners; also avoid NSAIDs + ASA. iron deficiency anemia - H+H stable; replete iron COPD, no acute exac - continue home controller inhaler [ICS/LABA] and prn albuterol inhalers/nebs HLD - statin mood disorder - buspirone, bupropion, sertraline DM2 - harini-dose lispro, DM diet GERD - PPI VTE ppx - SCDs dispo - eventual home code - DNR/DNI per pt In my clinical judgment, the patient requires continued inpatient hospitalization for the following reasons: chest tube management Total time managing care of this patient today: 35 minutes. Quality Stroke Does the patient have a stroke diagnosis?: No VTE Prior VTE?: No VTE Risk Level:: Medical - moderate - high VTE Device Contraindication: N/A - Device Ordered VTE Drug Contraindication: Treatment Not Indicated
[2024-04-02] MEDS: Clotrimazole 1 % Cream 15 GM TUBE 1 APPL TOPICAL ×2 (11:11→21:09)
[2024-04-02] MEDS: Mupirocin 2 % Oint 22 GM TUBE 1 APPL TOPICAL ×2 (11:12→21:09)
[2024-04-02] MEDS: Ferrous Sulfate 324 MG TABLET.DR PO (11:12)
[2024-04-02 11:21] LABS: Glucose, Whole Blood 135 mg/dL (60-115)
[2024-04-02] MEDS: 0.9 % Sodium Chloride 500 ML 250 ML IVCONT (11:45)
[2024-04-02] MEDS: oxyCODONE HCl Immed Release 5 MG TABLET 10 MG PO ×3 (13:51→22:34)
--- NOTE | 2024-04-02 14:30 | P.PNPL_ITS ---
Subjective Subjective Date of Service: 04/02/24 Interval history: No recurrence of hemoptysis. No air bubbles in the collection chamber with deep inspiration. Objective Data Labs 04/02/24 06:29 04/01/24 05:42 Labs: Laboratory Results - last 24 hr 04/01/24 04/01/24 04/02/24 16:17 19:49 06:29 WBC 11.9 H RBC 3.73 L Hgb 8.7 L Hct 28.9 L MCV 77.5 L MCH 23.3 L MCHC 30.1 L RDW 18.5 H Plt Count 310 MPV 9.2 L Absolute Nucleated RBC 0.000 Nucleated RBC % (auto) 0.0 POC Glucose 97 133 H Blood Type A Positive Antibody Screen NEGATIVE 04/02/24 04/02/24 07:23 11:14 WBC RBC Hgb Hct MCV MCH MCHC RDW Plt Count MPV Absolute Nucleated RBC Nucleated RBC % (auto) POC Glucose 122 H 135 H Blood Type Antibody Screen Physical Exam 2 Vital Signs: Vital Signs: Last Vital Signs Temp 98.7 F 04/02/24 11:19 Pulse 98 04/02/24 11:37 Resp 20 04/02/24 11:37 BP 99/75 04/02/24 11:19 Pulse Ox 94 04/02/24 11:19 O2 Del Method Nasal Cannula 04/02/24 11:19 O2 Flow Rate 4 04/02/24 11:19 BMI result Body Mass Index 23.4 Const: General: no acute distress, alert and awake Eyes: Sclerae: sclerae normal EOM: EOMs intact bilaterally Neck: Neck: Yes no lymphadenopathy, Yes trachea midline and Yes supple Resp: Effort & Inspection: normal respiratory effort and no respiratory distress Auscultation: clear to auscultation bilaterally Cardio: Rate: regular rate Rhythm: regular rhythm Heart sounds: no gallops, no murmurs and no rubs GI: Palpation (GI): Soft to palpation and Other GI palpation findings present ( Nontender) Auscultation: normal bowel sounds Extrem: General: Yes no pedal edema, No clubbing and No cyanosis Procedures Date of Service Date of Service: 04/02/24 Assessment and Plan Assessment and plan (1) Pneumothorax after biopsy: Status: Acute (2) Left upper lobe pulmonary nodule: Problem details: (9mm SAMARA nodule on 01/2024 LDCT - new compared to 2019) Status: Acute Plan Impression: 78-year-old lady with left upper lobe spiculated nodule and COPD nocturnal supplemental oxygen dependent now with post procedure left-sided pneumothorax increasing overnight, status post chest tube now with re-expansion of the lung and small amount of hemoptysis (self-limited). Recommendations: Chest tube clamped. Repeat x-ray in 4 hours, if no recurrence of pneumothorax, will leave chest tube overnight and consider removing in the morning. If with evidence of pneumothorax recurrence, unclamp the chest tube. Discussed with Dr. Reyes. Time Spent With Patient Time: Total time managing care of this patient today ____ minutes. Progress Note: Quality Stroke Does the patient have a stroke diagnosis?: No
[2024-04-02 16:25] LABS: Glucose, Whole Blood 176 mg/dL (60-115)
[2024-04-02] MEDS: Acetaminophen 325 MG TABLET 650 MG PO (16:47)
[2024-04-02] MEDS: ondansetron HCL 4 MG/2 ML VIAL IVPUSH (16:57)
[2024-04-02] MEDS: Insulin Lispro 100 UNIT/ML 3 ML VIAL SUBCUT (17:00)
--- NOTE | 2024-04-02 19:58 | PC.NURSE ---
1441 entered room, patient reported md was in and clamped chest tube. Md told patient no drainage was expected.
[2024-04-02 20:29] LABS: Glucose, Whole Blood 128 mg/dL (60-115)
[2024-04-03] VITALS (11 sets, daily range): BP systolic 120–153; BP diastolic 46–78; PULSE 93–118; RESP 18–20; TEMP 36.1–36.7; O2SAT 90–97
--- NOTE | 2024-04-03 01:26 | PC.NURSE ---
Took over care of pt at 1900. Pt AOx4, calm and cooperative with the call aleman within reach. Chest Tube was clamped at start of shift, Radiology contacted to come to bedside for CXR. reviewed and advised to keep it clamped for the evening. Pt denies any SOB, dyspnea.
[2024-04-03] MEDS: oxyCODONE HCl Immed Release 5 MG TABLET 10 MG PO ×5 (03:31→22:11)
[2024-04-03] MEDS: Omeprazole 20 MG CAPSULE.DR PO (05:55)
[2024-04-03] MEDS: Albuterol/Iprat 2.5/0.5MG 3 ML AMPUL.NEB INHALE ×4 (07:32→18:51)
[2024-04-03 07:54] LABS: Glucose, Whole Blood 113 mg/dL (60-115)
--- NOTE | 2024-04-03 08:11 | PM.PNTS ---
Subjective Subjective Date of Service: 04/03/24 Interval history: No new respiratory issues or complaints. Chest tube; minimal output and no air leak while on wall suction Physical Exam Vital Signs: Vital Signs: Last Vital Signs Temp 97.8 F 04/03/24 07:54 Pulse 94 04/03/24 07:54 Resp 19 04/03/24 07:54 BP 136/64 04/03/24 07:54 Pulse Ox 93 04/03/24 07:54 O2 Del Method Nasal Cannula 04/03/24 07:54 O2 Flow Rate 4 04/03/24 07:54 BMI result Body Mass Index 23.4 Chest: Other: Breath sounds bilaterally, consistent with COPD, chest tube dressing clean dry and intact Procedures Date of Service Date of Service: 04/03/24 Progress Note: A&P Assessment and plan (1) Hemoptysis: Status: Acute (2) Pneumothorax after biopsy: Status: Acute (3) Left upper lobe pulmonary nodule: Status: Acute Plan Chest tube to water seal. Repeat chest x-ray later today. If x-ray looks good and there is no air leak, consider chest tube removal. Time Spent With Patient Time: Total time managing care of this patient today ____ minutes. Quality Stroke Does the patient have a stroke diagnosis?: No VTE Prior VTE?: No VTE Risk Level:: Medical - moderate - high VTE Device Contraindication: N/A - Device Ordered VTE Drug Contraindication: Treatment Not Indicated
[2024-04-03] MEDS: 0.9 % Sodium Chloride Flush 3 ML SYRINGE IVFLUSH ×3 (08:46→20:37)
[2024-04-03] MEDS: buPROPion HCl XL 300 MG TAB.ER.24H PO (08:47)
[2024-04-03] MEDS: Atorvastatin Calcium 20 MG TABLET PO (08:47)
[2024-04-03] MEDS: busPIRone HCl 10 MG TABLET PO ×2 (08:47→20:36)
[2024-04-03] MEDS: Ferrous Sulfate 324 MG TABLET.DR PO (08:47)
[2024-04-03] MEDS: Mupirocin 2 % Oint 22 GM TUBE 1 APPL TOPICAL ×2 (08:47→20:37)
[2024-04-03] MEDS: Sertraline HCL 100 MG TABLET 200 MG PO (08:47)
[2024-04-03] MEDS: Clotrimazole 1 % Cream 15 GM TUBE 1 APPL TOPICAL ×2 (08:48→20:37)
--- NOTE | 2024-04-03 10:10 | P.PNPL_ITS ---
Subjective Subjective Date of Service: 04/03/24 Interval history: Chest tube clamped overnight, no recurrence of pneumothorax. Objective Data Labs 04/02/24 06:29 04/01/24 05:42 Labs: Laboratory Results - last 24 hr 04/02/24 04/02/24 04/02/24 11:14 16:13 20:22 POC Glucose 135 H 176 H 128 H 04/03/24 07:33 POC Glucose 113 Physical Exam 2 Vital Signs: Vital Signs: Last Vital Signs Temp 97.8 F 04/03/24 07:54 Pulse 94 04/03/24 07:54 Resp 19 04/03/24 07:54 BP 136/64 04/03/24 07:54 Pulse Ox 93 04/03/24 07:54 O2 Del Method Nasal Cannula 04/03/24 07:54 O2 Flow Rate 4 04/03/24 07:54 BMI result Body Mass Index 23.4 Const: General: no acute distress, alert and awake Eyes: Sclerae: sclerae normal EOM: EOMs intact bilaterally Neck: Neck: Yes no lymphadenopathy, Yes trachea midline and Yes supple Resp: Effort & Inspection: normal respiratory effort and no respiratory distress Auscultation: clear to auscultation bilaterally Cardio: Rate: regular rate Rhythm: regular rhythm Heart sounds: no gallops, no murmurs and no rubs GI: Palpation (GI): Soft to palpation and Other GI palpation findings present ( Nontender) Auscultation: normal bowel sounds Extrem: General: Yes no pedal edema, No clubbing and No cyanosis Procedures Date of Service Date of Service: 04/03/24 Assessment and Plan Assessment and plan (1) Hemoptysis: Status: Acute (2) Pneumothorax after biopsy: Status: Acute (3) COPD (chronic obstructive pulmonary disease): Problem details: (COPD secondary to smoking - intermittent cough and dyspnea on exertion) Status: Acute Plan Impression: 78-year-old lady with left upper lobe spiculated nodule and COPD nocturnal supplemental oxygen dependent now with post procedure left-sided pneumothorax increasing overnight, status post chest tube now with re-expansion of the lung and small amount of hemoptysis (self-limited). Recommendations: Chest tube clamped overnight with no recurrence of pneumothorax on follow-up x-ray. Thoracic surgery wants to wait till afternoon to pull chest tube. No recurrence of hemoptysis. Time Spent With Patient Time: Total time managing care of this patient today ____ minutes. Progress Note: Quality Stroke Does the patient have a stroke diagnosis?: No
[2024-04-03] MEDS: Doxycycline Monohydrate 100 MG CAPSULE PO ×2 (10:36→20:36)
[2024-04-03] MEDS: predniSONE 20 MG TABLET 40 MG PO (10:36)
--- NOTE | 2024-04-03 11:18 | P.PNIM_ITS ---
Subjective Subjective Date of Service: 04/03/24 Interval History: short of breath and wheezing coughing up some old blood; no bright red blood no fever Review of Systems Review of Systems: Yes all other systems are reviewed and are negative Physical Exam 2 Vital Signs: Vital Signs: Last Vital Signs Temp 97.8 F 04/03/24 07:54 Pulse 94 04/03/24 07:54 Resp 19 04/03/24 07:54 BP 136/64 04/03/24 07:54 Pulse Ox 93 04/03/24 07:54 O2 Del Method Nasal Cannula 04/03/24 07:54 O2 Flow Rate 4 04/03/24 07:54 BMI result Body Mass Index 23.4 Gen: short of breath HEENT: sclera anicteric, moist mucus membranes Neck: supple Lungs: diffuse expiratory wheezing, anterior L chest biopsy site with dry dressing, L chest tube without air leak Heart: regular rate and rhythm, no murmurs Abd: soft, non-tender, non-distended Ext: no edema Skin: warm/well-perfused Neuro: alert and oriented x3, no focal findings Psych: appropriate affect Objective Data Active Medications Acetaminophen (Acetaminophen 325 Mg Tablet) 650 mg PO Q6H PRN PRN Reason: Pain, Mild (Pain Scale 1-3) Last Admin: 04/02/24 16:47 Dose: 325 mg Documented By: NASREEN Albuterol Sulfate (Albuterol Sulfate (0.083%) 2.5 Mg/3 Ml Vial.Neb) 2.5 mg INHALE Q2H PRN PRN Reason: Shortness of Breath/Wheezing Albuterol/Ipratropium (Albuterol/Iprat 2.5/0.5mg 3 Ml Ampul.Neb) 3 ml INHALE RQ4H WHILE AWAKE [facility] Last Admin: 04/03/24 11:00 Dose: Not Given Documented By: SAIDA Non-Admin Reason: See Note Atorvastatin Calcium (Atorvastatin Calcium 20 Mg Tablet) 20 mg PO DAILY [facility] Last Admin: 04/03/24 08:47 Dose: 20 mg Documented By: YURIDIA Bupropion HCl (Bupropion Hcl Xl 300 Mg Tab.Er.24h) 300 mg PO DAILY [facility] Last Admin: 04/03/24 08:47 Dose: 300 mg Documented By: YURIDIA Buspirone HCl (Buspirone Hcl 10 Mg Tablet) 10 mg PO BID [facility] Last Admin: 04/03/24 08:47 Dose: 10 mg Documented By: YURIDIA Clotrimazole (Clotrimazole 1 % Cream 15 Gm Tube) 1 appl TOPICAL BID [facility]; Protocol Last Admin: 04/03/24 08:48 Dose: 1 appl Documented By: YURIDIA Doxycycline Monohydrate (Doxycycline Monohydrate 100 Mg Capsule) 100 mg PO Q12H [facility] Last Admin: 04/03/24 10:36 Dose: 100 mg Documented By: YURIDIA Ferrous Sulfate (Ferrous Sulfate 324 Mg Tablet.Dr) 324 mg PO DAILY [facility] Last Admin: 04/03/24 08:47 Dose: 324 mg Documented By: YURIDIA Fluticasone Propionate (Fluticasone Propionate Nasal 16 Gm [place]) 1 spray NOSTRIL-B Q12H [facility] Last Admin: 04/03/24 03:19 Dose: Not Given Documented By: ELLEN Non-Admin Reason: Patient Refused Glucose (Glucose Gel 15 Gm Gel..Gram.) 15 gm PO Q15M PRN; Protocol PRN Reason: per Hypoglycemia Standing Ord. Dextrose (D10) 250 mls @ 750 mls/hr IV Q15M PRN; Protocol PRN Reason: per Hypoglycemia Standing Ord. Insulin Human Lispro (Insulin Lispro 100 Unit/Ml 3 Ml Vial) 0 unit SUBCUT QIDACHS [facility]; Protocol Last Admin: 04/03/24 08:35 Dose: Not Given Documented By: YURIDIA Non-Admin Reason: No Insulin Coverage Metformin HCl (Metformin Hcl 500 Mg Tablet) 500 mg PO BID [facility] Last Admin: 03/31/24 21:16 Dose: 500 mg Documented By: ENID Morphine Sulfate (Morphine Sulfate 4 Mg/Ml Cartridge) 3 mg IVPUSH Q3H PRN; Protocol PRN Reason: Pain, Severe (Pain Scale 7-10) Last Admin: 04/02/24 11:12 Dose: 3 mg Documented By: MIGUEL Mupirocin (Mupirocin 2 % Oint 22 Gm Tube) 1 appl TOPICAL BID [facility]; Protocol Last Admin: 04/03/24 08:47 Dose: 1 appl Documented By: YURIDIA Non-Formulary Medication (Fluticasone Propion-Salmeterol [Airduo Respiclick]) 1 inhalation INHALE BID [facility] Omeprazole (Omeprazole 20 Mg Capsule.Dr) 20 mg PO DAILY@0630 [facility] Last Admin: 04/03/24 05:55 Dose: 20 mg Documented By: ELLEN Ondansetron HCl (Ondansetron Hcl 4 Mg/2 Ml Vial) 4 mg IVPUSH Q4H PRN PRN Reason: Nausea and Vomiting Oxycodone HCl (Oxycodone Hcl Immed Release 5 Mg Tablet) 10 mg PO Q4H PRN PRN Reason: Pain, Moderate(Pain Scale 4-6) Last Admin: 04/03/24 08:47 Dose: 10 mg Documented By: YURIDIA Prednisone (Prednisone 20 Mg Tablet) 40 mg PO DAILY [facility] Last Admin: 04/03/24 10:36 Dose: 40 mg Documented By: YURIDIA Sertraline HCl (Sertraline Hcl 100 Mg Tablet) 200 mg PO DAILY [facility] Last Admin: 04/03/24 08:47 Dose: 200 mg Documented By: YURIDIA Sodium Chloride (0.9 % Sodium Chloride Flush 3 Ml Syringe) 3 ml IVFLUSH QSHIFT [facility] Last Admin: 04/03/24 08:46 Dose: 3 ml Documented By: YURIDIA Labs 04/02/24 06:29 04/01/24 05:42 Labs: Laboratory Results - last 24 hr 04/02/24 04/02/24 04/02/24 11:14 16:13 20:22 POC Glucose 135 H 176 H 128 H 04/03/24 07:33 POC Glucose 113 Assessment and Plan (1) Pneumothorax after biopsy: Status: Acute (2) Hemoptysis: Status: Acute Plan d4 78yo ex-smoking F with COPD on nocturnal O2 who developed a pulmonary hemorrhage and small PTX after biopsy of a suspicious spiculated SAMARA nodule. post-biopsy PTX and pulmonary hemorrhage - pigtail catheter placed 04/01/24 by IR for small but enlarging PTX - chest tube clamped yesterday by Pulmonology; repeat CXR without PTX; if another CXR today shows no PTX, Thoracic Surgery will remove tube - no heparin or other blood thinners; also avoid NSAIDs + ASA. lung CA - pathology shows moderately differentiated squamous cell CA; immunochemistry pending; followed by Thoracic Surgery COPD with acute exac - start prednisone + doxycycline today [04/03]; continue home controller inhaler [ICS/LABA] and prn albuterol inhalers/nebs iron deficiency anemia - H+H stable; replete iron HLD - statin mood disorder - buspirone, bupropion, sertraline DM2 - harini-dose lispro, DM diet GERD - PPI VTE ppx - SCDs dispo - eventual home code - DNR/DNI per pt In my clinical judgment, the patient requires continued inpatient hospitalization for the following reasons: chest tube, COPD Total time managing care of this patient today: 35 minutes. Quality Stroke Does the patient have a stroke diagnosis?: No VTE Prior VTE?: No VTE Risk Level:: Medical - moderate - high VTE Device Contraindication: N/A - Device Ordered VTE Drug Contraindication: Treatment Not Indicated
[2024-04-03 11:42] LABS: Glucose, Whole Blood 112 mg/dL (60-115)
[2024-04-03] MEDS: Fluticasone Propionate Nasal 16 GM SPRAY 1 SPRAY NOSTRIL-B (15:49)
[2024-04-03] MEDS: Morphine Sulfate 4 MG/ML CARTRIDGE 3 MG IVPUSH ×2 (15:50→21:04)
[2024-04-03 16:16] LABS: Glucose, Whole Blood 231 mg/dL (60-115)
[2024-04-03] MEDS: Insulin Lispro 100 UNIT/ML 3 ML VIAL SUBCUT (16:54)
[2024-04-03 20:03] LABS: Glucose, Whole Blood 125 mg/dL (60-115)
[2024-04-04] MEDS: Morphine Sulfate 4 MG/ML CARTRIDGE 3 MG IVPUSH ×2 (01:23→07:24)
[2024-04-04 02:55] VITALS: PULSE 106; RESP 20; TEMP 36.4
[2024-04-04] MEDS: oxyCODONE HCl Immed Release 5 MG TABLET 10 MG PO ×2 (03:06→10:20)
[2024-04-04 03:17] VITALS: BP 141/65; O2SAT 92
[2024-04-04] MEDS: Omeprazole 20 MG CAPSULE.DR PO (05:13)
[2024-04-04] MEDS: 0.9 % Sodium Chloride Flush 3 ML SYRINGE IVFLUSH (07:24)
[2024-04-04 07:34] LABS: Glucose, Whole Blood 107 mg/dL (60-115)
[2024-04-04] MEDS: Albuterol/Iprat 2.5/0.5MG 3 ML AMPUL.NEB INHALE ×2 (07:43→11:20)
[2024-04-04 07:44] VITALS: PULSE 92; RESP 18; O2SAT 95
[2024-04-04 08:00] VITALS: BP 106/66; PULSE 88; RESP 20; TEMP 36.2; O2SAT 96
[2024-04-04] MEDS: busPIRone HCl 10 MG TABLET PO (08:10)
[2024-04-04] MEDS: Doxycycline Monohydrate 100 MG CAPSULE PO (08:10)
[2024-04-04] MEDS: Atorvastatin Calcium 20 MG TABLET PO (08:11)
[2024-04-04] MEDS: Sertraline HCL 100 MG TABLET 200 MG PO (08:11)
[2024-04-04] MEDS: Ferrous Sulfate 324 MG TABLET.DR PO (08:11)
[2024-04-04] MEDS: Clotrimazole 1 % Cream 15 GM TUBE 1 APPL TOPICAL (08:11)
[2024-04-04] MEDS: Mupirocin 2 % Oint 22 GM TUBE 1 APPL TOPICAL (08:11)
[2024-04-04] MEDS: buPROPion HCl XL 300 MG TAB.ER.24H PO (08:11)
[2024-04-04] MEDS: predniSONE 20 MG TABLET 40 MG PO (08:11)
--- NOTE | 2024-04-04 09:44 | P.DS_ITS ---
DS: Providers Provider Date of Service: 04/04/24 Date of admission: 04/01/24 08:34 Date of discharge: 04/04/24 Primary care physician: Yoseph Mccarthy MD Consults: 04/01/24 07:42 Consult to Pulmonology Routine Consulting Provider: [facility] Reason for consultation: Hemoptysis after lung mass biopsy; small PTX 04/01/24 10:47 Consult to Thoracic Surgery Routine Consulting Provider: Andre Vasquez Reason for consultation: SAMARA 9mm lung biopsy requested by Dr. Vasquez. 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 She underwent CT-guided biopsy of the SAMARA nodule today. One-hour post-procedure CXR showed a moderate hemorrhage in the left apical anterior segment. Two-hour post-procedure CXR showed stable hemorrhage and a tiny 2 mm apical pneumothorax. She denies any pain at the biopsy site. She has chronic dyspnea and cough that are not any worse than usual. Her chief complaint is back pain, which is chronic. She is not on any blood thinners and has not recetly taken any NSAIDs [she has been prescribed meloxicam and ibuprofen in the past]. 78yo ex-smoking F with COPD on nocturnal O2 who developed a pulmonary hemorrhage and small PTX after biopsy of a suspicious spiculated SAMARA nodule. Hospital course by problem: post-biopsy PTX and hemoptysis - pigtail catheter placed 04/01/24 by IR for small but enlarging PTX [went from 2 mm to 6 mm to 18 mm on serial films] - Pulmonology and Thoracic Surgery consulted; once air leak sealed, chest tube was discontinued on 04/03/24 and post-removal film showed no pneumothorax - hemoptysis was minor and resolved lung CA - pathology returned moderately differentiated squamous cell CA; followed by Thoracic Surgery and will be seen by Dr Vasquez next week COPD with acute exacerbation - started prednisone + doxycycline on 04/03/24 and discharged to complete a 5-day course of these; continued home controller inhaler [ICS/LABA] and prn albuterol inhalers/nebs iron deficiency anemia - started on iron repletion; H+H stable chronic hypoxic respiratory failure - has O2 to use at night 2Lpm but now using during the day as well She was discharged home in improved condition. Time Attestation Total time managing care of this patient today: 35 mintues. Discharge Coordination Time (in mins): 35 Quality: Safe Use of Opioids Does Pt have an Active Cancer Diagnosis on the Problem List?: Yes Opioid Measure Date for [facility] Report: 03/05/24 Opioid Measure Time for [facility] Report: 09:51 Quality: Stroke Does the patient have a stroke diagnosis?: No Physical Exam Vital Signs: Vital Signs: Last Vital Signs Temp 97.1 F 04/04/24 08:00 Pulse 88 04/04/24 08:00 Resp 20 04/04/24 08:00 BP 106/66 04/04/24 08:00 Pulse Ox 96 04/04/24 08:00 O2 Del Method Nasal Cannula 04/04/24 08:00 O2 Flow Rate 3 04/04/24 08:00 BMI result Body Mass Index 23.4 Gen: NAD HEENT: sclera anicteric, moist mucus membranes Neck: supple Lungs: dry dressing on L chest wall, soft expiratory wheeze on R that cleared with coughing Heart: regular rate and rhythm, no murmurs Abd: soft, non-tender, non-distended Ext: no edema Skin: warm/well-perfused Neuro: alert and oriented x3, no focal findings Psych: appropriate affect DS: Data Data Completed and Pending Completed studies during hospitalization [Text1]: Laboratory Results WBC 11.9 X10*3/uL (4.8-10.8) H 04/02/24 06:29 RBC 3.73 X10*6/uL (4.20-5.50) L 04/02/24 06:29 Hgb 8.7 g/dl (12.0-16.0) L 04/02/24 06:29 Hct 28.9 % (37.0-47.0) L 04/02/24 06:29 MCV 77.5 fL (80.0-98.0) L 04/02/24 06:29 MCH 23.3 pg (27.0-33.0) L 04/02/24 06:29 MCHC 30.1 g/dl (31.0-35.0) L 04/02/24 06:29 RDW 18.5 % (11.0-16.0) H 04/02/24 06:29 Plt Count 310 X10*3/uL (160-400) 04/02/24 06:29 MPV 9.2 fL (9.4-12.3) L 04/02/24 06:29 Immature Gran % (Auto) 0.4 % (0.0-0.4) 03/31/24 09:37 Neut % (Auto) 76.2 % (45-73) H 03/31/24 09:37 Lymph % (Auto) 17.2 % (20-40) L 03/31/24 09:37 Park % (Auto) 4.3 % (2-11) 03/31/24 09:37 Eos % (Auto) 1.5 % (0-4) 03/31/24 09:37 Baso % (Auto) 0.4 % (0-2) 03/31/24 09:37 Lymph # (Auto) 1.8 X10*3/uL (1.2-4.9) 03/31/24 09:37 Park # (Auto) 0.5 X10*3/uL (0.1-1.2) 03/31/24 09:37 Eos # (Auto) 0.2 X10*3/uL (0.0-0.4) 03/31/24 09:37 Baso # (Auto) 0.0 X10*3/uL (0.0-0.2) 03/31/24 09:37 Abs Immat Gran (auto) 0.04 X10*3/uL (0.00-0.03) H 03/31/24 09:37 Absolute Neuts (auto) 7.9 x10*3/uL (2.0-8.3) 03/31/24 09:37 Absolute Nucleated RBC 0.000 X10*3/uL (0.0-0.012) 04/02/24 06:29 Nucleated RBC % (auto) 0.0 /100WBC (0.0-0.2) 04/02/24 06:29 PT 10.7 SEC (11.1-13.3) L 03/31/24 09:37 INR 0.9 (0.9-1.1) 03/31/24 09:37 APTT 28.6 SEC (26.0-36.8) 03/31/24 09:37 Sodium 137 mmol/L (135-145) 04/01/24 05:42 Potassium 3.6 mmol/L (3.3-5.1) 04/01/24 05:42 Chloride 109 mmol/L (96-108) H 04/01/24 05:42 Carbon Dioxide 21 mmol/L (22-29) L 04/01/24 05:42 Anion Gap 11 (12-20) L 04/01/24 05:42 BUN 14 mg/dL (9-16) 04/01/24 05:42 Creatinine 0.63 mg/dL (0.5-1.4) 04/01/24 05:42 Estim Creat Clear Calc 54.5 04/01/24 05:42 Estimated GFR > 60 04/01/24 05:42 POC Glucose 107 mg/dL (60-115) 04/04/24 07:13 Random Glucose 117 mg/dL (60-115) H 04/01/24 05:42 Calcium 8.7 mg/dL (8.4-10.2) 04/01/24 05:42 Iron 39 mcg/dL (30-160) 04/01/24 05:42 TIBC 335 mcg/dL (228-428) 04/01/24 05:42 % Saturation 12 % (15-50) L 04/01/24 05:42 Unsat Iron Binding 296 ug/dL 04/01/24 05:42 Blood Type A Positive 04/02/24 06:29 Antibody Screen NEGATIVE 04/02/24 06:29 Impressions Chest X-Ray 04/03/24 15:35 IMPRESSION: Interval removal of the left side thoracostomy tube. No definite residual pneumothorax. Pathology 03/31/24 Lung, left nodule, biopsy: Squamous cell carcinoma, moderately differentiated. See description and comment. Comment: Lung ancillary testing will be addended. Discharge Plan Discharge Anticipated Discharge Date/Time: 04/04/24 09:38 Patient Disposition: Home, Self-Care Discharge Diagnosis: left upper lobe nodule/squamous cell carcinoma post-biopsy hemoptysis and pneumothorax COPD exacerbation chronic hypoxia iron deficiency anemia Referrals: Yoseph Mccarthy MD [Primary Care Provider] - 1 Week Andre Vasquez MD [Physician] - 1 Week Discharge Medications: New doxycycline monohydrate 100 mg Capsule 100 mg PO Q12H Qty: 7 0RF oxycodone 5 mg Tablet 5 mg PO Q4H PRN (Reason: severe pain) Qty: 12 0RF Rx Instructions: Partial Fill upon patient request. ferrous sulfate 324 mg (65 mg iron) Tablet,Delayed Release (Dr/Ec) 324 mg PO DAILY Qty: 30 0RF prednisone 20 mg Tablet 40 mg PO DAILY Qty: 6 0RF Continued bupropion HCl 150 mg tablet sustained-release 12 hr 150 mg PO BID 30 Days Qty: 60 3RF albuterol sulfate 90 mcg/actuation HFA aerosol inhaler 1 puff inhalation Q4H PRN (Reason: for wheezing) Qty: 3 3RF fluticasone propionate 50 mcg/actuation spray,suspension 1 spray intranasal Q12H Qty: 48 3RF ipratropium-albuterol 0.5 mg-3 mg(2.5 mg base)/3 mL solution for nebulization 3 ml inhalation QID 30 Days Qty: 270 3RF fluticasone propion-salmeterol [AirDuo RespiClick] 232-14 mcg/actuation aerosol powdr breath activated 1 inh inhalation BID 30 Days Qty: 1 6RF atorvastatin 20 mg tablet 20 mg PO DAILY Qty: 90 1RF metformin 500 mg tablet 500 mg PO BID Qty: 180 1RF esomeprazole magnesium 40 mg capsule,delayed release(DR/EC) 40 mg PO DAILY@0630 (DME) OneTouch Verio test strips Strip See Rx Instructions .ROUTE .MEDSUPPLY Qty: 100 4RF Rx Instructions: As directed, 90 day supply (DME) blood-glucose meter [OneTouch Verio Flex Start] Kit See Rx Instructions .Route Qty: 1 0RF Rx Instructions: daily As directed. 999 days mupirocin 2 % ointment 1 appl topical BID 10 Days Qty: 15 0RF clotrimazole 1 % cream 1 appl topical BID 28 Days Qty: 90 0RF sertraline 100 mg tablet 200 mg PO DAILY buspirone 10 mg tablet 10 mg PO BID Discontinued meloxicam 15 mg tablet 15 mg PO DAILY 30 Days Qty: 30 2RF ibuprofen 800 mg tablet 800 mg PO QID Discharge Orders: Discharge Order (Routine); Ordered 04/04/24 Ordered By: Scout Reyes Diet: Advance to usual diet Activity on Discharge: no air travel x 1 month Stand Alone Forms: Patient Portal Discharge page Print Language: [place] Other Ambulatory Orders: Complete Blood Count Auto Diff (Routine) Timeframe: 1 Month Facility: [facility] - Location: Laboratory Ordered By: Scout Reyes Care Plan Goals: lung health Health Concerns: left upper lobe nodule/squamous cell carcinoma post-biopsy hemoptysis and pneumothorax COPD exacerbation chronic hypoxia iron deficiency anemia Plan of Treatment: prednisone 40 mg daily x 3 days PLUS doxycycline 100 mg twice daily x 3 days continue preventive and rescue inhalers/nebulizer treatments follow up with Dr Vasquez [[facility]] as scheduled next week take iron as prescribed; eat iron-rich foods; recheck CBC in 1 month for pain, take acetaminophen [Tylenol] for mild-moderate pain, oxycodone for severe pain Please follow up with your primary care doctor within 1 week. Return to the hospital if you experience recurrent or worsening symptoms. Assessment: See Discharge Summary.
--- NOTE | 2024-04-04 10:57 | MHC.CM.PN ---
Second IMM given 04/04. Pt is medically cleared for discharge home self-care today. Pts daughter will transport her home.
[2024-04-04 11:22] VITALS: PULSE 105; RESP 20; O2SAT 92
== END 2024-04-04 11:42 | disposition home or self-care (01) | DRG 200 ==
LOC: HO.EDOVER 15:07 → HO.IMC 15:46
PROVIDERS: Internal Medicine; Physician Assistant Surgical; Student in an Organized Health Care Education/Training Program; Surgery; Admitting Provider Family Medicine; PCP Family Medicine; Visit Provider Family Medicine
DX: J95.811 Postprocedural pneumothorax (principal); C34.12 Malignant neoplasm of upper lobe, left bronchus or lung; R04.2 Hemoptysis; J44.9 Chronic obstructive pulmonary disease, unspecified; E78.5 Hyperlipidemia, unspecified; Z66 Do not resuscitate; G47.33 Obstructive sleep apnea (adult) (pediatric); F39 Unspecified mood [affective] disorder; E11.9 Type 2 diabetes mellitus without complications; K21.9 Gastro-esophageal reflux disease without esophagitis; Z87.891 Personal history of nicotine dependence; Z79.51 Long term (current) use of inhaled steroids; Z79.84 Long term (current) use of oral hypoglycemic drugs; Z79.899 Other long term (current) drug therapy
CPT/HCPCS: 32408; 32551; 36415; 71045; 80048; 82947; 83540; 85025; 85027; 85610; 85730; 86850; 86900; 86901; 88305; 88341; 88342; 94640; 99152; 99153; 99222; A7041; C1729; J2250; J2270; J2310; J2405; J3010; Q4186

== ENCOUNTER → 2024-03-31 15:06 | Outpatient (BNV) | payer OTHER, SELFPAY | PROVIDERS: Admitting Provider Family Medicine; PCP Family Medicine; Visit Provider Physician Assistant Surgical | DX: R91.1 Solitary pulmonary nodule (principal) | CPT/HCPCS: 32408; 99499 ==

== ENCOUNTER → 2024-03-31 15:06 | Outpatient (BNV) | payer OTHER, SELFPAY | PROVIDERS: Admitting Provider Family Medicine; PCP Family Medicine; Visit Provider Family Medicine | DX: J95.811 Postprocedural pneumothorax (principal); R04.2 Hemoptysis; C34.12 Malignant neoplasm of upper lobe, left bronchus or lung; R91.1 Solitary pulmonary nodule; J96.91 Respiratory failure, unspecified with hypoxia; J44.1 Chronic obstructive pulmonary disease with (acute) exacerbation; D50.9 Iron deficiency anemia, unspecified | CPT/HCPCS: 99223; 99232; 99239 ==

== ENCOUNTER 2024-04-01 08:34 | Outpatient (BNV) | payer OTHER, SELFPAY | END 2024-04-01 10:45 | PROVIDERS: Admitting Provider Family Medicine; PCP Family Medicine; Visit Provider Physician Assistant Surgical | DX: J93.9 Pneumothorax, unspecified (principal) | CPT/HCPCS: 32551 ==

== ENCOUNTER → 2024-04-01 08:34 | Outpatient (BNV) | payer OTHER, SELFPAY | PROVIDERS: Admitting Provider Family Medicine; PCP Family Medicine; Visit Provider Internal Medicine Pulmonary Disease | DX: R04.2 Hemoptysis (principal); J95.811 Postprocedural pneumothorax; J44.9 Chronic obstructive pulmonary disease, unspecified | CPT/HCPCS: 99223; 99232; 99233 ==

== ENCOUNTER → 2024-04-01 08:34 | Outpatient (BNV) | payer OTHER, SELFPAY | PROVIDERS: Admitting Provider Family Medicine; PCP Family Medicine; Visit Provider Physician Assistant Surgical | DX: R04.2 Hemoptysis (principal); J95.811 Postprocedural pneumothorax; R91.1 Solitary pulmonary nodule | CPT/HCPCS: 99222; 99232 ==

== ENCOUNTER 2024-04-07 09:51 | Outpatient (AMB) | payer OTHER, SELFPAY ==
[2024-04-07 09:57] VITALS: BP 91/53; PULSE 113; O2SAT 100
--- NOTE | 2024-04-07 09:57 | MHC.OFFVIS ---
Vital Signs 04/07/24 09:57 Weight 119 lb BP 91/53 L Blood Pressure Location Lt brachial Position Sitting Pulse 113 H Pulse Oximetry (%) 100 Oxygen Delivery Method Room Air Intake Visit Reasons: follow up visit after lung biopsy Intake Note: This patient presents for a follow-up assessment status post lung biopsy. Patient c/o; reports no complaints. 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 Status post left upper lobe lung biopsy of a suspicious lesion which proved to be a bronchogenic carcinoma/squamous cell carcinoma. This was discussed with the patient and her daughter. I cared for in the hospital last week status post iatrogenic pneumothorax following biopsy. Patient was seen in the office approximately 2 weeks ago Patient has no sequelae status post postprocedure pneumothorax. She is on home oxygen p.r.n.. I reviewed with them that her case was presented at the recent lung cancer screening thoracic conference. Her PET scan demonstrated isolated disease and left upper lobe and other mediastinal or suspicious lesions. Her PFTs were reviewed by Dr. Boles as well and the consensus of opinion is that surgical intervention would be the most appropriate for this early stage lung cancer. Patient's PFTs are considered acceptable for lobectomy of left upper lobe. COUNTS INCLUDE 234 BEDS AT THE [facility] Medical History COPD (chronic obstructive pulmonary disease) Respiratory failure with hypoxia Severe obstructive sleep apnea History of COVID-19 Personal history of nicotine dependence Diabetes Pancreatic insufficiency (~2001) Post-cholecystectomy syndrome (~2001) Delayed gastric emptying Osteoporosis Surgical History History of Whipple procedure History of partial gastrectomy History of cholecystectomy History of back surgery History of carpal tunnel release of both wrists History of cataract surgery History of tonsillectomy Family History Father MVA (motor vehicle accident) Mother CVD (cardiovascular disease) Diabetes mellitus Brother No problems noted. Brother No problems noted. Brother No problems noted. Sister No problems noted. Daughter No problems noted. Daughter No problems noted. Daughter No problems noted. 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 HS 1 into GI Other: Prior scar from pancreatic surgery. 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 The patient is adamant that she does not wished to have any radiation therapy or chemotherapy as her primary management of early stage lung cancer and would prefer to undergo surgical excision. She understood the above-mentioned risks, benefits, and alternatives which again were extensively reviewed and the patient wishes to proceed. Patient will be seen by anesthesia and PAT prior to scheduled surgery. All questions answered. The patient and daughter have any further questions or issues, then call the office or follow-up p.r.n.. 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
== END 2024-04-07 10:21 | disposition home or self-care (01) ==
PROVIDERS: PCP Family Medicine; Visit Provider Surgery
DX: C34.12 Malignant neoplasm of upper lobe, left bronchus or lung (principal)
CPT/HCPCS: 99215

== ENCOUNTER → 2024-04-07 09:51 | Outpatient (BNVA) | payer OTHER, SELFPAY | PROVIDERS: PCP Family Medicine; Visit Provider Surgery | DX: C34.12 Malignant neoplasm of upper lobe, left bronchus or lung (principal) | CPT/HCPCS: 99212 ==

== ENCOUNTER 2024-04-16 10:46 | Outpatient (AMB) | payer OTHER, SELFPAY ==
--- NOTE | 2024-04-16 10:53 | MHC.OFFVIS ---
Vital Signs 04/16/24 10:54 Height 5 ft Weight 116 lb 13.52 oz BMI 22.8 BP 160/60 H Blood Pressure Location Lt brachial Position Sitting Pulse 101 H Pulse Source Pulse Oximeter Pulse Oximetry (%) 95 Oxygen Delivery Method Room Air Intake Visit Reasons: COPD Intake Note: pt is here for follow up of testing, surgery is scheduled for April by Dr. Vasquez, during post biopsy she had chest tube and admitted for 5 days. [employer]er Required: No Allergies lisinopril Allergy (Unknown, Verified 04/16/24 11:21) RAsh, Swelling Medication List - Last Reconciled 04/16/24 by Dmitriy Frye MD albuterol sulfate 90 mcg/actuation 1 puff inhalation Q4H PRN atorvastatin 20 mg PO DAILY blood sugar diagnostic (Power AfricaTouch Verio test strips) As directed, 90 day supply blood-glucose meter (The [employer] Verio Flex Start kit) daily As directed. 999 days bupropion HCl SR 150 mg PO BID 1 month buspirone 10 mg PO BID clotrimazole 1% 1 appl topical BID 4 weeks esomeprazole magnesium 40 mg PO DAILY@0630 ferrous sulfate 324 mg PO DAILY fluticasone propion-salmeterol 232-14 mcg/actuation (AirDuo RespiClick) 1 inh inhalation BID 30 days fluticasone propionate 50 mcg/actuation 1 spray intranasal Q12H ipratropium-albuterol 0.5 mg-3 mg(2.5 mg base)/3 mL 3 mL inhalation QID 30 days metformin 500 mg PO BID mupirocin 2% 1 appl topical BID 10 days oxycodone 5 mg PO Q4H PRN sertraline 200 mg PO DAILY HPI HPI COPD: Details: 78 YEARS OLD FEMALE WITH PAST HISTORY OF SMOKING AND MODERATELY ADVANCED CHRONIC OBSTRUCTIVE PULMONARY DISEASE, IS HERE FOR FOLLOW-UP. SHE HAS BEEN IN ANNUAL LUNG SCREENING PROGRAM AND WAS FOUND TO HAVE A SPICULATED MASS IN THE LEFT UPPER LOBE. PERCUTANEOUS BIOPSY ON 03/31, WAS FOLLOWED BY PNEUMOTHORAX WHICH WAS TREATED BY CHEST TUBE PLACEMENT FOR A FEW DAYS. BIOPSY IS POSITIVE FOR SQUAMOUS CELL CARCINOMA. HER PREVIOUS CT SCAN DOES NOT SHOW ANY HILAR OR MEDIASTINAL MASS. PATIENT HAS BEEN SEEN BY DR. VASQUEZ, FOR THORACIC SURGERY, AND PLAN IS TO HAVE VATS ASSISTED LEFT UPPER LOBECTOMY. PATIENT WANTED TO DISCUSS ABOUT THAT WITH ME, SHE IS QUITE CONCERNED ABOUT POSSIBLE COMPLICATIONS. AT PRESENT SHE IS NOT SMOKING, SHE HAS DYSPNEA ON EXERTION LIKE WALKING, BUT NOT MUCH ISSUE AT REST. SHE HAS ONLY MILD INTERMITTENT COUGH . USING AIRDUO 232-14 1 INHALATION B.I.D. AND DUONEB UPDRAFTS Q 6 HOURS WHILE AWAKE. SHE CLAIMS THAT AT PRESENT HER BREATHING IS WELL CONTROLLED AND STABLE. PATIENT IS KNOWN TO HAVE OBSTRUCTIVE SLEEP APNEA WITH NOCTURNAL HYPOXEMIA, SHE HAS NOT BEEN ABLE TO USE CPAP. SHE USES O2 2 L/MINUTE AT NIGHT. [facility] Medical History COPD (chronic obstructive pulmonary disease) Respiratory failure with hypoxia Severe obstructive sleep apnea History of COVID-19 Personal history of nicotine dependence Diabetes Pancreatic insufficiency (~2001) Post-cholecystectomy syndrome (~2001) Delayed gastric emptying Osteoporosis Surgical History History of Whipple procedure History of partial gastrectomy History of cholecystectomy History of back surgery History of carpal tunnel release of both wrists History of cataract surgery History of tonsillectomy Family History Father MVA (motor vehicle accident) Mother CVD (cardiovascular disease) Diabetes mellitus Brother No problems noted. Brother No problems noted. Brother No problems noted. Sister No problems noted. Daughter No problems noted. Daughter No problems noted. Daughter No problems noted. 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 Current occupational exposures/hazards: No Cognitive needs: No Hearing needs: No Vision needs: No Review of Systems Const All systems reviewed & are unremarkable except as noted in HPI and below Eyes Reports no additional complaints ENT Reports nasal congestion (Mild intermittent on some days) Card Denies chest pain, Denies irregular heart rhythm and Denies leg edema Resp Reports as per HPI GI Reports heartburn (Symptoms of GERD or controlled) Reports urinary incontinence Musc Reports no additional complaints Skin/Breast Reports system reviewed and no additional complaints, except as documented Neuro Reports no additional complaints Psych Reports no additional complaints Physical Exam Vital Signs: Last Vital Signs Pulse 101 H 04/16/24 10:54 BP 160/60 H 04/16/24 10:54 Pulse Ox 95 04/16/24 10:54 Oxygen Delivery Method Room Air 04/16/24 10:54 BMI result Body Mass Index 22.8 Const General: comfortable, no acute distress, alert and awake Orientation/consciousness: patient oriented x3 HEENT Head: Yes normal to inspection General nose exam: No nasal polyps present and No nasal discharge present Face and sinus: Yes sinuses nontender Mouth: oropharynx normal Throat: Yes posterior oropharynx normal Eyes General: appearance normal, both eyes and all related structures Neck Neck: Yes normal visual inspection, Yes no lymphadenopathy, Yes trachea midline and Yes no JVD Thyroid: Thyroid normal Chest Chest palpation & inspection: normal inspection of the chest, normal palpation of entire chest wall and no tenderness Resp Other: Percussion note hyper-resonant, breath sounds are distant with prolonged expiratory phase but equal on both sides. SHE DOES NOT HAVE ANY LOCALIZED CREPITATIONS OR WHEEZES ON AUSCULTATION BUT DOES HAVE COUGH ON DEEP INSPIRATION. Cardio Palpation: normal PMI Rate: regular rate Rhythm: regular rhythm Heart sounds: no gallops and no murmurs GI Palpation (GI): Soft to palpation, nontender, No hepatosplenomegaly present and no masses Auscultation: normal bowel sounds Back/Spine/Pelvis Thoracic/Lumbar Spine: thoracic and lumbar spine normal to inspection Skin General skin exam: no rashes or lesions noted Neuro General: patient oriented x3 and no focal motor deficits Cranial nerves: Yes CN's II-XII intact bilaterally Extrem General: Yes normal to inspection, Yes no clubbing, cyanosis or edema and Yes no calf tenderness Psych Appearance: grossly normal and well kempt Speech and movement: Normal speech and movement present Results Reviewed Results Reviewed: PULMONARY FUNCTION TEST ON 02/25/2024 , RESULTS ARE CONSISTENT WITH MODERATELY SEVERE OBSTRUCTIVE AIRWAY DISORDER. BIOPSY OF THE NODULE IN LEFT UPPER LOBE, ON 03/31, SQUAMOUS CELL CARCINOMA. Assessment & Plan Assessment & Plan (1) COPD (chronic obstructive pulmonary disease): Comment: (COPD secondary to smoking -moderately severe with intermittent cough and dyspnea on exertion), seems to be fairly stable at this time. Code(s): J44.9 - Chronic obstructive pulmonary disease, unspecified Category: Medical Plan: Continue to use AirDuo 232-14 1 inhalation b.i.d. DuoNeb updrafts Q 6 hours while awake (2) Severe obstructive sleep apnea: Comment: (In-lab PSG 04/05/21 at [facility] [place] revealed: AHI: 25.6/hr; REM AHI: n/a; O2 nadir83; PLMS index: 198/hr; PLMS arousal index: 27/hr. 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 Code(s): C34.12 - Malignant neoplasm of upper lobe, left bronchus or lung Category: Surgical Plan: From pulmonary point of view she is as stable as expected. She is advised to continue doing deep breathing exercises 3 times a day. Explained that surgical excision is the best option at this time and she understands well. (4) Respiratory failure with hypoxia: Comment: (Nocturnal Hypoxemia from Untreated Sleep Apnea. 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
[2024-04-16 10:54] VITALS: BP 160/60; PULSE 101; O2SAT 95; BMI 22.8
== END 2024-04-16 11:15 | disposition home or self-care (01) ==
PROVIDERS: PCP Family Medicine; Visit Provider Internal Medicine
DX: J44.9 Chronic obstructive pulmonary disease, unspecified (principal); G47.33 Obstructive sleep apnea (adult) (pediatric); C34.12 Malignant neoplasm of upper lobe, left bronchus or lung; J96.91 Respiratory failure, unspecified with hypoxia
CPT/HCPCS: 99214

== ENCOUNTER → 2024-04-16 10:46 | Outpatient (BNVA) | payer OTHER, SELFPAY | PROVIDERS: PCP Family Medicine; Visit Provider Internal Medicine | DX: J96.91 Respiratory failure, unspecified with hypoxia (principal); J44.9 Chronic obstructive pulmonary disease, unspecified; C34.12 Malignant neoplasm of upper lobe, left bronchus or lung; G47.33 Obstructive sleep apnea (adult) (pediatric); Z87.891 Personal history of nicotine dependence; Z99.81 Dependence on supplemental oxygen | CPT/HCPCS: 99212 ==

== ENCOUNTER → 2024-05-16 11:59 | Outpatient (BNV) | payer OTHER, SELFPAY | PROVIDERS: Admitting Provider Surgery; PCP Family Medicine; Visit Provider Internal Medicine | DX: I49.3 Ventricular premature depolarization (principal); Z01.810 Encounter for preprocedural cardiovascular examination | CPT/HCPCS: 93010 ==

== ENCOUNTER 2024-05-19 10:50 | Outpatient (AMB) | payer OTHER, SELFPAY ==
[2024-05-19 11:11] VITALS: BP 134/62; PULSE 83; O2SAT 96; BMI 23.7
--- NOTE | 2024-05-19 11:11 | MHC.PC.OV ---
Vital Signs 05/19/24 11:11 Height 5 ft Weight 121 lb 4 oz BMI 23.7 BP 134/62 Blood Pressure Location Rt brachial Position Sitting Pulse 83 Pulse Source Pulse Oximeter Pulse Oximetry (%) 96 Oxygen Delivery Method Room Air Intake Visit Reasons: Surgery 05/22 Intake Note: Eryn is a 78 year old female who presents to the office today for a pre-op appt for her surgery on 05/22/24. Pt states she is having her upper lobe removed on her left lung due to lung cancer. Allergies morphine Allergy (Mild, Verified 05/19/24 11:11) Itching lisinopril Adverse Reaction (Intermediate, Verified 05/19/24 11:11) constant cough Medication List - Last Reconciled 05/19/24 by Yoseph Mccarthy MD albuterol sulfate 90 mcg/actuation 1 puff inhalation Q4H PRN atorvastatin 20 mg PO BEDTIME blood sugar diagnostic ([employer] HealthTouch Verio test strips) As directed, 90 day supply blood-glucose meter ([employer] HealthTouch Verio Flex Start kit) daily As directed. 999 days clotrimazole 1% 1 appl topical BID 4 weeks esomeprazole magnesium 40 mg PO DAILY@0630 ferrous sulfate 324 mg PO QAM fluticasone propion-salmeterol 232-14 mcg/actuation (AirDuo RespiClick) 1 inh inhalation BID 30 days fluticasone propionate 50 mcg/actuation 1 spray intranasal Q12H ipratropium-albuterol 0.5 mg-3 mg(2.5 mg base)/3 mL 3 mL inhalation QID 30 days metformin 500 mg PO BID mupirocin 2% 1 appl topical BID 10 days Tobacco use date assessed: 12/05/23 Fall risk assessment: 2 + Falls in past year Last assessed Fall Risk: 05/19/24 Dental Screening Dental Screen Date: 12/05/23 [facility] Surgery 05/22 HPI Details Patient presents for preoperative clearance prior to L upper lobectomy. Procedure: VATS assisted left upper lobectomy. Date:?05/22/24 Surgeon: Andre Vasquez Anesthesia: Cardiac Hx: None Pulmonary Hx: COPD, Hypoxia, Squamous cell carcinoma of upper lobe of L lung Prior Surgical Complications: None Prior Anesthesia Complications: None Coag issues: Functional [place]: Poor functional reserve - Has to stop every 15-[address] Frye. HPI Comments History of Present Illness Details Documentation assistance for Yoseph Mccarthy MD, was provided by Guy Johnson,? Transplant Rn on 05/19/2024 at 11:49 AM LOCO. I, Dr. Mccarthy, have read, observed, and verified documentation. [facility] Medical History Family history of anesthesia complication RLS (restless legs syndrome) Depression Anxiety History of MRSA infection Arthritis GERD (gastroesophageal reflux disease) History of COVID-19 Personal history of nicotine dependence Respiratory failure with hypoxia Delayed gastric emptying Pancreatic insufficiency (~2001) Post-cholecystectomy syndrome (~2001) Severe obstructive sleep apnea Diabetes COPD (chronic obstructive pulmonary disease) Osteoporosis Surgical History History of esophagogastroduodenoscopy (EGD) H/O colonoscopy History of cataract surgery History of back surgery History of tonsillectomy History of Whipple procedure History of carpal tunnel release of both wrists History of partial gastrectomy History of cholecystectomy Family History Father MVA (motor vehicle accident) Mother CVD (cardiovascular disease) Diabetes mellitus Brother No problems noted. Brother No problems noted. Brother No problems noted. Sister No problems noted. Daughter No problems noted. Daughter No problems noted. Daughter No problems noted. 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 1. Little interest or pleasure in doing things: more than half the days 2. Feeling down, depressed, or hopeless: more than half the days 3. Trouble falling or staying asleep, or sleeping too much: nearly every day 4. Feeling tired or having little energy: nearly every day 5. Poor appetite or overeating: not at all 6. Feeling bad about yourself - or that you are a failure or have let yourself or your family down: not at all 7. Trouble concentrating on things, such as reading the newspaper or watching television: nearly every day 8. Moving or speaking so slowly that other people could have noticed. Or the opposite - being so fidgety or restless that you have been moving around a lot more than usual: not at all 9. Thoughts that you would be better off or of hurting yourself in some way: not at all Total score: 13 Depression Screening Interpretation: Positive Depression Screening Done: Yes Source: Developed by Drs. Kem Medrano, Irena Farr, Shilo Arzate and colleagues, with an educational diandra from [employer]. Thrive Questionnaire Date Thrive assessed: 04/01/24 I am a: Patient What is your living situation today?: I have a steady place to live Within the past 12 months, did the food you bought not last and you didn't have the money to get more?: Never true Within the past 12 months, did you worry whether your food would run out before you got money to buy more?: Never true Do you have trouble paying for medicines?: No Do you have trouble getting transportation to medical appointments?: Yes Do you have trouble paying your heating and electricity bill?: No Do you have trouble taking care of your child, family member or friend?: No Do you have trouble with day-to-day activities such as bathing, preparing meals, shopping, managing finances, etc.?: No Are you currently unemployed and looking for a job?: No Are you interested in more education?: No THRIVE Score: 1 AUDIT C Alcohol Use Questionnaire (AUDIT-C) 1. How often do you have a drink containing alcohol?: Never 3. How often do you have six or more drinks on one occasion?: Never Total Score: 0 NANCY-7 AMB Questionnaire NANCY-7 Date NANCY - 7 assessed: 12/05/23 Feeling nervous, anxious, or on edge: 2 = More than half the days Not being able to stop or control worryin = Not at all Worrying too much about different things: 1 = Several days Trouble relaxin = Nearly every day Being so restless that it is hard to sit still: 0 = Not at all Becoming easily annoyed or irritable: 1 = Several days Feeling afraid as if something awful might happen: 1 = Several days Total NANCY-7 score (0-4 normal; 5-9 mild; 10-14 moderate; 15-21 severe): 8 Source: Developed by Drs. Kem Medrano, Irena Farr, Shilo Arzate and colleagues, with an educational diandra from [employer]. Review of Systems Const Denies chills, Denies fatigue, Denies fever(s), Denies headache(s) and Denies weakness ENT Denies dizziness and Denies headache(s) Card Denies chest pain, Denies lightheadedness, Reports dyspnea and Denies other (Palpitations) Resp Denies cough, Reports dyspnea, Denies wheezing and Denies other ( shortness of breath) Musc Denies numbness and Denies tingling Neuro Denies dizziness, Denies headache(s), Denies numbness, Denies tingling, Denies paresthesias and Denies weakness Psych Denies anxiety and Denies depression Endo Denies fatigue Aller/Immun Denies wheezing Physical exam (Primary Care) Vital Signs: Last Vital Signs Pulse 83 05/19/24 11:11 BP 134/62 05/19/24 11:11 Pulse Ox 96 05/19/24 11:11 Oxygen Delivery Method Room Air 05/19/24 11:11 BMI result Body Mass Index 23.7 Tobacco/Smoking Status: Tobacco use Status Tobacco use date assessed 12/05/23 05/19/24 11:13 Patient Tobacco Use Status Former Tobacco user 05/19/24 11:13 Tobacco use type Cigarette 05/19/24 11:13 e-Cigarette/Vaping Use Never Used 05/19/24 11:13 PHQ-9: PHQ-9 Score PHQ-9: Total score 13 05/19/24 11:33 Depression Screening Interpretation: Positive Thrive Assessment: Date of Thrive Assessment Date Thrive assessed 04/01/24 05/19/24 11:13 Const General: no acute distress and well developed Nutritional Appearance: well nourished Orientation/consciousness: patient oriented x3 [facility] Head: Yes normocephalic and Yes atraumatic Eyes General: appearance normal, both eyes and all related structures Pupils: Equal, round and reactive pupils present EOM: EOMs intact bilaterally Resp Effort & Inspection: normal respiratory effort Auscultation: clear to auscultation bilaterally Cardio Rate: regular rate Rhythm: regular rhythm Heart sounds: S1 normal heart sound present, S2 normal heart sound present, no gallops, no murmurs and no rubs Neuro General: patient oriented x3 and gait normal Cranial nerves: Yes Equal, round and reactive pupils present Psych Affect: normal affect Assessment and Plan Assessment & Plan (1) Preoperative clearance: Code(s): Z01.818 - Encounter for other preprocedural examination Plan: 78-year-old?female?presents?for?resection?of?left?upper?lobe?squamous?cell?carcinoma?of?the?lung No?history?of?cardiac?disease?and?recent?EKG?essentially?normal?with?a?few?PVCs. Cardiac?exam?and?auscultation?normal?today Patient?has?a?history?of?COPD?and?hypoxia.??She?uses?oxygen?at?night. Lungs?are?currently?clear.??Stable.??She?is?followed?by?Pulmonary?Medicine. Optimized No?prior?surgical?or?anesthesia?complications. Rather?poor?functional?reserve?due?to?COPD?and?hypoxia.??She?has?a?known?chronic?anemia?which?is?stable. Intermediate risk patient for low-intermediate risk procedure. Pt is optimized. No?contraindication?for?proceeding?with?proposed?procedure? 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 Code(s): C34.12 - Malignant neoplasm of upper lobe, left bronchus or lung Plan: As?above,?scheduled?for?resection?on?05/22/2024 (3) COPD (chronic obstructive pulmonary disease): Comment: (COPD secondary to smoking -moderately severe with intermittent cough and dyspnea on exertion), seems to be fairly stable at this time. Code(s): J44.9 - Chronic obstructive pulmonary disease, unspecified Plan: Stable (4) Anemia: Code(s): D64.9 - Anemia, unspecified Plan: Chronic?anemia?and?this?is?stable. 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
== END 2024-05-19 12:01 | disposition home or self-care (01) ==
PROVIDERS: PCP Family Medicine; Visit Provider Family Medicine
DX: Z01.818 Encounter for other preprocedural examination (principal); C34.12 Malignant neoplasm of upper lobe, left bronchus or lung; J44.9 Chronic obstructive pulmonary disease, unspecified; D64.9 Anemia, unspecified
CPT/HCPCS: 99214

== ENCOUNTER 2024-05-22 06:58 | Inpatient (IN) | payer OTHER, SELFPAY ==
--- NOTE | 2024-05-16 | ECG_ITS ---
Test Reason : PREOP Blood Pressure : / mmHG Vent. Rate : 077 BPM Atrial Rate : 077 BPM P-R Int : 196 ms QRS Dur : 084 ms QT Int : 394 ms P-R-T Axes : 079 005 053 degrees QTc Int : 445 ms Sinus rhythm with occasional Premature ventricular complexes Otherwise normal ECG When compared with ECG of 30-OCT-2020 15:51, Criteria for Anteroseptal infarct are no longer Present Referred By: Suzanne Chowdary Electronically Signed By:DOV HENSLEY
[2024-05-16 10:31] VITALS: BP 104/63; PULSE 75; RESP 22; O2SAT 98; BMI 23.6
[2024-05-16 12:33] LABS: Hematocrit 29.1 % (37.0-47.0); Hemoglobin 8.7 g/dl (12.0-16.0); Mean Corpuscular HGB Conc 29.9 g/dl (31.0-35.0); Mean Corpuscular Hemoglobin 23.6 pg (27.0-33.0); Mean Corpuscular Volume 79.1 fL (80.0-98.0); Platelet Count 375 X10*3/uL (160-400); Red Blood Count 3.68 X10*6/uL (4.20-5.50); Red Cell Distribution Width 19.5 % (11.0-16.0); White Blood Count 7.5 X10*3/uL (4.8-10.8)
[2024-05-16 12:48] LABS: Estimated Average Glucose 131 mg/dL; Hemoglobin A1c % 6.2 % (<6.0)
[2024-05-16 13:05] LABS: Alanine Aminotransferase 6 U/L (0-31); Albumin Level 4.3 g/dL (3.5-5.0); Alkaline Phosphatase 71 U/L (39-117); Anion Gap 13 (12-20); Aspartate Amino Transferase 9 U/L (5-31); Bilirubin Total 0.2 mg/dL (0.0-1.0); Blood Urea Nitrogen 22 mg/dL (9-16); Calcium 8.9 mg/dL (8.4-10.2); Carbon Dioxide 23 mmol/L (22-29); Chloride 109 mmol/L (96-108); Creatinine Clr Calc Pharmacy 51.3; Estimated Glomerular Filt Rate > 60; Glucose Random 121 mg/dL (60-115); Potassium 4.3 mmol/L (3.3-5.1); Sodium 141 mmol/L (135-145); Total Protein 6.7 g/dL (6.5-8.0)
--- NOTE | 2024-05-21 09:54 | MHC.SHP ---
Pre-Procedural Eval Section A - 24 Hr Update-Section A only Date of Service: 05/22/24 The patient is an INPATIENT: Yes Changes since office visit: No Cold of Flu in the past 2 weeks, No New Medical Problems, No Changes in Medication and No Patient answered all questions Section B - Complete if H&P > 30 days Chief Complaint: Malignant neoplasm of upper lobe, left bronchus Allergies: Allergies Allergy/AdvReac Type Severity Reaction Status Date / Time morphine Allergy Mild Itching Verified 05/19/24 11:11 lisinopril AdvReac Intermediate constant Verified 05/19/24 11:11 cough Review of Systems Sugical H&P ROS: Negative: Constitution, Cardiovascular, Respiratory, Neurological, Psychiatric, Hem-Onc, Allergic/Immunologic, Gastrointestinal, Genitourinary, Musculoskeletal, Integumentary, Endocrine and Eyes/Ears/Nose/Throat Exam Surgical H&P Exam: Normal: HEENT, Normal: Heart, Normal: Lungs, Normal: Extremities, Normal: Abdomen, Normal: Skin and Normal: Neurological Plan I have reviewed the history and physical and performed a pertinent physical examination on my patient. No changes have occurred unless specified. Time Spent With Patient Time: Total time managing care of this patient today ____ minutes.
[2024-05-22] VITALS (21 sets, daily range): BP systolic 82–149; BP diastolic 50–85; PULSE 72–108; RESP 16–23; TEMP 36–36.7; O2SAT 90–100; BMI 23.8
--- NOTE | ~2024-05-22 | XR_ITS ---
EXAMINATION: XR ABDOMEN KUB CLINICAL INDICATION: Abdominal pain COMPARISON: None available. TECHNIQUE: AP view of the abdomen. FINDINGS: Extensive subcutaneous emphysema in the anterior soft tissues limit evaluation for underlying bowel. Right upper quadrant cholecystectomy clips. XR/XR KUB IMPRESSION: Extensive subcutaneous emphysema in the anterior soft tissues limit evaluation for underlying bowel.
--- NOTE | ~2024-05-22 | XR_ITS ---
EXAMINATION: XR CHEST CLINICAL INFORMATION: Follow-up status-post left upper lobectomy. COMPARISON: Prior chest radiographs, most recently 05/23/2024. TECHNIQUE: Frontal view of the chest was obtained. FINDINGS: The heart, great vessels, pulmonary vasculature and mediastinum are stable. There is atherosclerotic calcification of the aortic knob. There are left hilar surgical clips, and there is a less than 5% left apical pneumothorax. There is mild left base atelectasis. There is a left thoracostomy tube, with tip situated at the medial apex. No infiltrate or effusion is seen. There is mild elevation of the left hemidiaphragm. There is extensive bilateral thoracic and axillary subcutaneous emphysema. XR/XR chest 1V IMPRESSION: There are postoperative changes consistent with a prior left upper lobectomy. A left thoracostomy tube is unchanged in position, and there is a less than 5% with apical pneumothorax which has increased slightly from 05/23/2024.
--- NOTE | ~2024-05-22 | XR_ITS ---
EXAMINATION: XR CHEST CLINICAL INFORMATION: Status post left chest tube removal. COMPARISON: Chest radiograph 05/30/2024. TECHNIQUE: Frontal view of the chest was obtained. FINDINGS: Interval removal of left-sided chest tube without significant residual pneumothorax. Increased hazy and patchy airspace opacities overlying the left mid to lower lung griffin with redemonstration of asymmetric volume loss in the left lung and postoperative changes in the left perihilar region. Unchanged small left-sided pleural effusion. Stable prominence of the cardiomediastinal silhouette with leftward shifting. Atherosclerotic disease of the aortic arch. Similar extensive subcutaneous emphysema on the left greater than right chest harrington. No discrete displaced osseous fractures. XR/XR chest 1V IMPRESSION: 1. Interval removal of left-sided chest tube without significant residual pneumothorax. 2. Increased hazy and patchy airspace opacities in the left mid to lower lung griffin. 3. Unchanged small left pleural effusion. 4. Similar extensive subcutaneous emphysema.
--- NOTE | ~2024-05-22 | XR_ITS ---
EXAMINATION: XR CHEST CLINICAL INFORMATION: Follow-up left upper lobectomy. COMPARISON: 05/24/2024 at 9:15 AM. TECHNIQUE: Frontal view of the chest was obtained. FINDINGS: Stable cardiomediastinal silhouette. Increased left basilar consolidation and small left pleural effusion. Redemonstration of extensive bilateral subcutaneous emphysema, left greater than right. Left thoracostomy tube redemonstrated with tip directed more towards the left apex. Tiny left apical pneumothorax redemonstrated. Postoperative changes of previous left upper lobectomy. XR/XR chest 1V IMPRESSION: 1. Increased left basilar consolidation and small left pleural effusion. 2. Redemonstration of extensive bilateral subcutaneous emphysema, left greater than right. 3. Left thoracostomy tube redemonstrated with tip directed more towards the left apex. Tiny left apical pneumothorax redemonstrated. This study was presented today May 27, 2024 for interpretation. Stat results provided at this time as requested by referring provider.
--- NOTE | ~2024-05-22 | XR_ITS ---
EXAMINATION: XR CHEST CLINICAL INFORMATION: Postop COMPARISON: 05/27/2024 TECHNIQUE: Upright portable 5:52 AM view of the chest was obtained. FINDINGS: Right lung remains essentially clear. 2. Left-sided chest tubes overlie the left apex. Previous noted tiny apical pneumothorax is essentially resolved on the current study. No pleural line evident. Lung markings seen to the apex. Extensive subcutaneous emphysema is significant and slightly decreasing overall. Volume loss in left basilar parenchymal pleural disease noted once again. Clips noted. XR/XR chest 1V IMPRESSION: No pneumothorax on the current study. Left-sided chest tubes remain in place. Decreasing subcutaneous emphysema.
--- NOTE | ~2024-05-22 | XR_ITS ---
EXAMINATION: XR CHEST CLINICAL INFORMATION: Shortness of breath COMPARISON: Chest radiograph from 05/2024 TECHNIQUE: Frontal view of the chest was obtained. FINDINGS: Stable appearing radiopacity involving the left mid and lower lung field. Volume loss of left hemithorax. Surgical material along the left suprahilar region. Small left pleural effusion. Redemonstrated subcutaneous emphysema involving the bilateral chest harrington greatest along the left side. No pneumothorax. Trachea is midline. Cardiac mediastinal silhouette is stable. Dextrocurvature of the midthoracic spine. XR/XR chest 1V IMPRESSION: 1. Stable appearing radiopacity involving the left mid and lower lung field. 2. Volume loss of left hemithorax. 3. Surgical material along the left suprahilar region. 4. Small left pleural effusion. 5. Redemonstrated subcutaneous emphysema involving the bilateral chest harrington greatest along the left side.
--- NOTE | ~2024-05-22 | XR_ITS ---
EXAMINATION: XR CHEST CLINICAL INFORMATION: Status post left upper lobectomy. COMPARISON: 05/16/2024 TECHNIQUE: Frontal view of the chest was obtained. FINDINGS: The right hemithorax is clear. Left-sided chest tube is in place there is subcutaneous emphysema on the left chest wall. Surgical clips overlying the left hilum. No large pneumothorax. Cardiac silhouette is unchanged. XR/XR chest 1V IMPRESSION: Postsurgical changes with left-sided chest tube in place. No large pneumothorax.
--- NOTE | ~2024-05-22 | CT_ITS ---
EXAMINATION: CT ABDOMEN AND PELVIS WITHOUT CONTRAST CLINICAL INFORMATION: Abdominal pain, constipation COMPARISON: 09/16/2021 TECHNIQUE: Multidetector volumetric imaging was performed from the superior aspect of the liver through the pubic symphysis. Sagittal and coronal reformatted images were obtained on the technologist's workstation. This CT examination was performed using dose optimization techniques as appropriate, variously including the following: *Automated exposure control *Adjustment of mA and/or kV according to patient size (this includes techniques or standardized protocols for targeted exams where dose is matched to indication/reason for exam; i.e. extremities or head) *Use of iterative reconstruction technique DLP: 457 mGy-cm FINDINGS: LUNG BASES: Loculated left pleural effusion. Intralobular septal thickening and subpleural groundglass opacities as well as left lower lobe consolidative opacity in the left lung base visualized. ABDOMINAL AND PELVIC WALL: Extensive left chest wall and anterior abdominal wall and posterior abdominal wall subcutaneous emphysema. LIVER AND BILIARY TREE: Redemonstration of small volume pneumobilia. GALLBLADDER: Status post cholecystectomy. PANCREAS: Pancreatic head is not visualized. Correlate with surgical history. SPLEEN: Unremarkable. ADRENAL GLANDS: Unremarkable. KIDNEYS AND URETERS: Unremarkable. GASTROINTESTINAL TRACT: There is moderate to large volume stool in the large colon there is thickening of the distal sigmoid colon with a relative featureless appearance (4:563) no obstruction or dilated loops of bowel. Appendix is within normal limits. VASCULAR: Aortic atherosclerotic calcifications, no aneurysmal dilation. LYMPH NODES/PERITONEUM: No lymphadenopathy. FREE FLUID: None. BLADDER: Unremarkable. PELVIC VISCERA: Unremarkable. OSSEOUS STRUCTURES: Degenerative changes of the spine. 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 CT/CT abdomen pelvis wo IV con IMPRESSION: * Thickening of the distal sigmoid colon with a relative featureless appearance. Differential considerations include colitis, infectious, inflammatory, including stercoral given constipation. Ischemic may be considered but is felt to be less likely given limited appearance of inflammatory change. * Loculated left pleural effusion with intralobular septal thickening and subpleural groundglass opacities as well as left lower lobe consolidative opacity in the left lung base visualized. * Extensive left chest wall and anterior abdominal wall and posterior abdominal wall subcutaneous emphysema. 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
--- NOTE | ~2024-05-22 | XR_ITS ---
EXAMINATION: XR CHEST CLINICAL INFORMATION: Preoperative evaluation. COMPARISON: 04/01/2024 TECHNIQUE: 2 views of the chest were obtained. FINDINGS: The lungs are hyperexpanded. There are nodular densities occupying the left upper lobe. Trace left apical pneumothorax. No pleural effusion. Cardiac silhouette is unchanged. XR/XR chest 2V IMPRESSION: Vague ill-defined nodular densities occupying the left upper lobe. Trace left apical pneumothorax.
--- NOTE | ~2024-05-22 | XR_ITS ---
EXAMINATION: XR CHEST CLINICAL INFORMATION: Status post left upper lobectomy COMPARISON: Chest x-ray 05/22/2024. TECHNIQUE: Frontal view of the chest was obtained. FINDINGS: Volume loss on the left with leftward shift of the trachea and mediastinum consistent with history of left upper lobectomy. Left-sided chest tube terminates at the apex. There is increasing subcutaneous emphysema in the left chest wall but no visible pneumothorax. XR/XR chest 1V IMPRESSION: Increasing subcutaneous emphysema left chest wall without visible pneumothorax.
--- OUTSIDE RECORDS SUMMARY | 2024-05-22 07:04 | XMS_ITS | Patient Health Record ---
Author Organization [facility] Address [address] [place] [address] Care Team Providers Care Director [employer] Name Role Phone Yoseph Mccarthy Primary Care Provider Unavailab Kem Rosenbaum Unavailable [phone] REASON FOR REFERRAL No Information MEDICATIONS Medication SIG (Take, Route, Frequency, Duration) Notes Start Date End Date Status Ventolin HFA 108 (90 Base) MCG/ACT 2 puffs as needed Inhalation every 4 hrs Active Albuterol Sulfate HFA 108 (90 Base) MCG/ACT 2 puffs as needed Inhalation every 4 hrs Active Ipratropium [place] HFA 17 MCG/ACT 2 puffs Inhalation Four times a day Active Colyte w Flavor Packs 240 GM as directed Orally as directed for 1 day(s) 06/18/2014 Active Combivent Respimat 20-100 MCG/ACT 1 puff Inhalation Four times a day Active Pantoprazole Sodium 40 MG 1 tablet Orall y Once a day Active Dicyclomine HCl 10MG 1-2 capsules Orally Q 4-6 hours prn abdominal pain/cramps for 30 Active metFORMIN HCl 500 MG 1 tablet with meals Orally Twice a day Active SOCIAL HISTORY Sex Assigned At : Social History Observation Description Sex Assigned At Unknown PROBLEMS Problem Type ICD Code Onset Dates Problem Status W/U Status Risk SNOMED Code Notes Problem Irritable bowel syndrome (564.1) Active confirmed Irritable bowel syndrome (88931950) Problem Colon cancer screening (V76.51) Active confirmed Colon cancer screening (586373700) PLAN OF TREATMENT Future Test Test Name Order Date COLONOSCOPY 06/18/2014 Insurance Providers Payer Name Payer Address Payer Phone Subscriber Number Group Number Insured Name Patient Relationship to Insured Coverage Start Date Coverage End Date [employer] [address] [address] [place] [address] [id number] BRENDA SOFIA Self - patient is the insured Medicare of [place] [employer] [address] [place] [address] [id number] BRENDA SOFIA Self - patient is the insured MEDICAL (GENERAL) HISTORY Medical History History ICD Code COPD/asthma GERD NIDDM Denies [place],CVA,renal disease history of previous episodes of pancreatitis in relation to a 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
[2024-05-22] MEDS: Albuterol Sulfate (0.083%) 2.5 MG/3 ML VIAL.NEB INHALE (07:12)
--- NOTE | 2024-05-22 07:19 | PHA.MEDREC ---
Pharmacy Consult ? Medication Reconciliation Pharmacy has completed the medication reconciliation. Reviewed med rec done by nursing
--- NOTE | 2024-05-22 07:35 | P.CONAN_ITS ---
Documented by User: Suzanne Chowdary NP 05/19/24 17:48 HPI - Anesthesia Eval Consult details Narrative: 78yo F for Thoracoscopy w/Video Assist,possible open,with Left upper lobectomy, Bronchoscopy Medias Fiberoptic Medically optimized per PCP, poor functional capacity. Follows [facility] [place] pulmo. 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 (Acute ~2023) PAD (peripheral artery disease) (Acute) Left upper lobe pulmonary nodule (Acute) Lower extremity weakness (Acute) Pneumonia (Acute) Hip pain (Acute) Elevated blood pressure reading (Acute) Chest pressure (Acute) Cervicalgia (Acute) Type II diabetes mellitus, well controlled (Chronic) Sciatica (Acute) History of alcohol abuse (Acute) Avascular necrosis of bones of both hips (Acute) Dysphagia (Acute) GERD (gastroesophageal reflux disease) (Acute) Right upper quadrant abdominal mass (Acute) Elevated blood pressure reading (Acute) Anxiety and depression (Acute) Anemia (Acute) Periodic limb movement sleep disorder (Acute) Restless leg syndrome (Acute) Memory changes (Acute) Cough (Acute) Tracheobronchitis (Acute) Fracture of fifth metacarpal bone of right hand (Acute) Insomnia (Acute) Respiratory failure with hypoxia (Acute) COPD (chronic obstructive pulmonary disease) (Acute) Severe obstructive sleep apnea (Acute) Personal history of nicotine dependence (Acute) Diabetes (Acute) Pancreatic insufficiency (Acute ~2001) Post-cholecystectomy syndrome (Acute ~2001) Osteoporosis (Acute) Past Medical History Medical History Family history of anesthesia complication RLS (restless legs syndrome) Depression Anxiety History of MRSA infection Arthritis GERD (gastroesophageal reflux disease) History of COVID-19 Personal history of nicotine dependence Respiratory failure with hypoxia Delayed gastric emptying Pancreatic insufficiency (~2001) Post-cholecystectomy syndrome (~2001) Severe obstructive sleep apnea Diabetes COPD (chronic obstructive pulmonary disease) Osteoporosis Family History Family History Father MVA (motor vehicle accident) Mother CVD (cardiovascular disease) Diabetes mellitus Brother No problems noted. Brother No problems noted. Brother No problems noted. Sister No problems noted. Daughter No problems noted. Daughter No problems noted. Daughter No problems noted. Other Mental health disorder Family history of problems with anesthesia: No (Daughter with severe PONV) Surgical History Surgical History History of esophagogastroduodenoscopy (EGD) H/O colonoscopy History of cataract surgery History of back surgery History of tonsillectomy History of Whipple procedure History of carpal tunnel release of both wrists History of partial gastrectomy History of cholecystectomy History of Problems with Anesthesia: No Social History Social History Household Members: Children Household Members Other:: daughter Housing: House Housing Other:: no assistive devices Are you a primary customer care associate to a significant other at home: No Do you presently have visiting nurse or other home services: No Alcohol intake: former Patient Tobacco Use Status: Former Tobacco user Tobacco use type: Cigarette Cigarette Packs Per Day: 2.5 Cigarettes Per Day: 50.0 Years Smoked: 60 e-Cigarette/Vaping Use: Never Used Second Hand Smoke Exposure: No Use of substances other than those prescribed or required for medical reasons: Yes Substance Use Type Other:: edibles Substance Use Frequency: Weekly Have you been hit, kicked, punched, or otherwise hurt by someone within the past year? 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 Current occupational exposures/hazards: No Cognitive needs: No Hearing needs: No Vision needs: No Meds Allergies Allergy/AdvReac Type Severity Reaction Status Date / Time morphine Allergy Mild Itching Verified 05/22/24 06:24 lisinopril AdvReac Intermediate constant Verified 05/22/24 06:24 cough Home Medications ?Medication ?Instructions ?Recorded ?Confirmed ?Last Taken ?Type esomeprazole magnesium 40 mg 40 mg PO DAILY@0630 03/31/24 05/19/24 05/21/24 History capsule,delayed release atorvastatin 20 mg tablet 20 mg PO BEDTIME 05/16/24 05/19/24 05/21/24 History Exam Height,Weight and Vital Signs: Height 4 ft 11.5 in Weight 53.977 kg Last Vital Signs Pulse 75 05/16/24 10:31 Resp 22 H 05/16/24 10:31 BP 104/63 05/16/24 10:31 Pulse Ox 98 05/16/24 10:31 O2 Del Method Room Air 05/16/24 10:31 Pertinent Lab Results Pertinent Lab Results: Lab Results 05/16/24 Range/Units 11:57 WBC 7.5 (4.8-10.8) X10*3/uL RBC 3.68 L (4.20-5.50) X10*6/uL Hgb 8.7 L (12.0-16.0) g/dl Hct 29.1 L (37.0-47.0) % MCV 79.1 L (80.0-98.0) fL MCH 23.6 L (27.0-33.0) pg MCHC 29.9 L (31.0-35.0) g/dl RDW 19.5 H (11.0-16.0) % Plt Count 375 (160-400) X10*3/uL MPV 9.0 L (9.4-12.3) fL Absolute Nucleated RBC 0.000 (0.0-0.012) X10*3/uL Nucleated RBC % (auto) 0.0 (0.0-0.2) /100WBC Sodium 141 (135-145) mmol/L Potassium 4.3 (3.3-5.1) mmol/L Chloride 109 H (96-108) mmol/L Carbon Dioxide 23 (22-29) mmol/L Anion Gap 13 (12-20) BUN 22 H (9-16) mg/dL Creatinine 0.70 (0.5-1.4) mg/dL Estim Creat Clear Calc 51.3 Estimated GFR > 60 Random Glucose 121 H (60-115) mg/dL Estimat Average Glucose 131 mg/dL Hemoglobin A1c % 6.2 H (<6.0) % Calcium 8.9 (8.4-10.2) mg/dL Total Bilirubin 0.2 (0.0-1.0) mg/dL AST 9 (5-31) U/L ALT 6 (0-31) U/L Alkaline Phosphatase 71 (39-117) U/L Total Protein 6.7 (6.5-8.0) g/dL Albumin 4.3 (3.5-5.0) g/dL Narrative Narrative: XR chest 2V 04/2024 IMPRESSION: Vague ill-defined nodular densities occupying the left upper lobe. Trace left apical pneumothorax. EKG 04/2024 Vent. Rate : 077 BPM Atrial Rate : 077 BPM P-R Int : 196 ms QRS Dur : 084 ms QT Int : 394 ms P-R-T Axes : 079 005 053 degrees QTc Int : 445 ms Sinus rhythm with occasional Premature ventricular complexes Otherwise normal ECG When compared with ECG of 30-OCT-2020 15:51, Criteria for Anteroseptal infarct are no longer Present Airway Mallampati Class: III TM Dist: >3cm Neck ROM: Limited (OA) Denture: Upper and Lower Heart: RRR Lungs: Dim throughout, fine crackles bilat bases Assessment and Plan Assessment Anesthesia Assessment: Anesthesia Plan Discussed and PAT Visit Final Anesthetic Review Family History of Problems with Anesthesia: No (Daughter with severe PONV) History of Problems with Anesthesia: No Documented by User: Imani Toussaint DO 05/22/24 09:14 [facility] Past Medical History Medical History Family history of anesthesia complication RLS (restless legs syndrome) Depression Anxiety History of MRSA infection Arthritis GERD (gastroesophageal reflux disease) History of COVID-19 Personal history of nicotine dependence Respiratory failure with hypoxia Delayed gastric emptying Pancreatic insufficiency (~2001) Post-cholecystectomy syndrome (~2001) Severe obstructive sleep apnea Diabetes COPD (chronic obstructive pulmonary disease) Osteoporosis Family History Family History Father MVA (motor vehicle accident) Mother CVD (cardiovascular disease) Diabetes mellitus Brother No problems noted. Brother No problems noted. Brother No problems noted. Sister No problems noted. Daughter No problems noted. Daughter No problems noted. Daughter No problems noted. Other Mental health disorder Family history of problems with anesthesia: No Surgical History Surgical History History of esophagogastroduodenoscopy (EGD) H/O colonoscopy History of cataract surgery History of back surgery History of tonsillectomy History of Whipple procedure History of carpal tunnel release of both wrists History of partial gastrectomy History of cholecystectomy History of Problems with Anesthesia: No Social History Social History Household Members: Children Household Members Other:: daughter Housing: House Housing Other:: no assistive devices Are you a primary customer care associate to a significant other at home: No Do you presently have visiting nurse or other home services: No Alcohol intake: former Patient Tobacco Use Status: Former Tobacco user Tobacco use type: Cigarette Cigarette Packs Per Day: 2.5 Cigarettes Per Day: 50.0 Years Smoked: 60 e-Cigarette/Vaping Use: Never Used Second Hand Smoke Exposure: No Use of substances other than those prescribed or required for medical reasons: Yes Substance Use Type Other:: edibles Substance Use Frequency: Weekly Have you been hit, kicked, punched, or otherwise hurt by someone within the past year? 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 Current occupational exposures/hazards: No Cognitive needs: No Hearing needs: No Vision needs: No Meds Allergies Allergy/AdvReac Type Severity Reaction Status Date / Time morphine Allergy Mild Itching Verified 05/22/24 06:24 lisinopril AdvReac Intermediate constant Verified 05/22/24 06:24 cough Home Medications ?Medication ?Instructions ?Recorded ?Confirmed ?Last Taken ?Type esomeprazole magnesium 40 mg 40 mg PO DAILY@0630 03/31/24 05/19/24 05/21/24 History capsule,delayed release atorvastatin 20 mg tablet 20 mg PO BEDTIME 05/16/24 05/19/24 05/21/24 History Exam Exam Date and Time: May 22, 2024 0730 Height,Weight and Vital Signs: Height 4 ft 11.5 in Weight 53.977 kg Last Vital Signs Pulse 75 05/16/24 10:31 Resp 22 H 05/16/24 10:31 BP 104/63 05/16/24 10:31 Pulse Ox 98 05/16/24 10:31 O2 Del Method Room Air 05/16/24 10:31 Height 4 ft 11.5 in Weight 54.431 kg Vital Signs Pulse Rate 75 05/16/24 10:31 Respiratory Rate 22 H 05/16/24 10:31 Blood Pressure 104/63 05/16/24 10:31 Pulse Oximetry 98 05/16/24 10:31 Oxygen Delivery Method Room Air 05/16/24 10:31 Temperature 97.2 F 05/22/24 06:28 Pulse Rate 72 05/22/24 07:12 Respiratory Rate 16 05/22/24 07:12 Blood Pressure 107/64 05/22/24 06:28 Pulse Oximetry 96 05/22/24 06:28 Oxygen Delivery Method Room Air 05/22/24 06:28 Airway Mallampati Class: III TM Dist: >3cm Neck ROM: Limited Denture: Upper and Lower Heart: S1S2 Lungs: CTAB Assessment and Plan Assessment Anesthesia Assessment: Anesthesia Plan Discussed and Chart Reviewed Final Anesthetic Review Family History of Problems with Anesthesia: No History of Problems with Anesthesia: No NPO: Yes ASA Class: III Final Preanesthetic Review: No Changes in Pt Med Stat, Meds/Allgs Chart Reviewed, Consent Obtained/Reviewed, Anes Risks/Benef Reviewed (Extensive discussions with patient regarding possible post-op ICU admission with prolonged intubation) and DNR Form (If Appl.) (DNR/DNI reversed for 48 hours until 05/24/24 at 0700) Patient Risk: High Procedure Risk: High Anesthetic Plan Anesthetic Plan: GA, Regional Block (left erector spinae block and left serratus anterior block) and Agree w/ Assess. and Plan Disposition: Standard PACU
--- NOTE | 2024-05-22 11:08 | W.PM.OPN ---
Operative Note Operative Note Date of Service: 05/22/24 Narrative: Preoperative diagnosis: [] Left upper lobe non-small cell early stage lung cancer Postop diagnosis: [] The same Procedure [] bronchoscopy,pneumonolysis, vats bilobectomy (left upper lobe/lingula), mediastinal lymph node sampling Surgeon: [] [employer]icer: [] Itzel Baird Type of Anesthesia: [] Double-lumen general Indication for surgery: [] bronchoscopy demonstrated no gross endoluminal pathology. It was also used to assist anesthesia and placement of double-lumen tube. Very dense adhesions of the lower lobe and upper lobe to the costal, mediastinal, diaphragmatic surfaces Mediastinal lymph node stations 11 L, 10 L, 5, 8, 9 were sampled Findings: [] Patient brought to the operating room, placed on operative table supine position, after an adequate level of double-lumen general anesthesia was induced, patient underwent bronchoscopy with findings noted above. Patient then underwent nerve blocks per anesthesia. Please refer to their procedure note regarding this. Patient was then placed in the right lateral decubitus position. Left chest was prepped and draped in usual sterile fashion. Using anterior and posterior 7th intercostal space ports along the axillary line, and a 4 cm axillary incision with wound protector placed in the 4th interspace, findings were as noted above. Extensive pneumonolysis of the entire lung was undertaken in order to allow the lung to be mobilized for surgery and also to allow for re-expansion postoperatively. Hilum was approached anteriorly with the superior pulmonary vein was identified, circumferentially encircled, 2-0 silk tie placed around this, and uneventfully transection using endoscopic CARMELLA vascular stapler performed. Next sequentially the arterial supply to the left upper lobe and lingula were skeletonized, and looped with 2-0 silk sutures, and uneventfully transected using endoscopic vascular staplers. Fissures were completed using CARMELLA staplers. The bronchus was skeletonized, and a heavy wire stapler placed across this and the lung was re-expanded with no compromise to the left lower lobe bronchus. Stapler was uneventfully fired. The specimen was placed in an Endo-Catch bag, and retrieved through the access incision. Throughout the dissection, several mediastinal lymph node stations were sampled (see findings) and specimen sent for permanent evaluation to pathology. At completion of procedure, saline was placed in the chest cavity and remaining lung re-expanded with no evidence of any bronchial stump leak or any significant air leak from the remaining left lower lobe. Through the anterior working port, 28 Congolese straight chest tube was placed and secured the skin using 0 silk suture. Wounds were closed in the following manner; port sites were closed using deep followed by dermal interrupted 2-0 and 3-0 Vicryl sutures respectively. Access incision had the serratus anterior muscle closed using running 0 Vicryl suture. Subdermal 2-0 Vicryl suture running followed by 4-0 Vicryl suture running were then placed. Steri-Strips and sterile dressings were applied. Chest tube was connected to Pleur-evac and lung re-expanded with no significant air leak appreciated. Sponge, needle, and instrument counts were reported correct. Patient tolerated the procedure well and emerged from anesthesia stable condition. EBL approximately 350 cc
[2024-05-22] MEDS: Haloperidol Lactate 5 MG/ML VIAL IVPUSH (11:37)
[2024-05-22] MEDS: HYDROmorphone HCl 0.5 MG/0.5 ML SYRINGE 0.25 MG IVPUSH (11:51)
[2024-05-22 13:41] LABS: Glucose, Whole Blood 166 mg/dL (60-115)
[2024-05-22] MEDS: Lactated Ringers 1,000 ML 80 ML IVCONT (14:30)
[2024-05-22] MEDS: Ferrous Sulfate 324 MG TABLET.DR PO (14:30)
[2024-05-22] MEDS: oxyCODONE HCl Immed Release 5 MG TABLET 10 MG PO ×3 (14:30→22:13)
[2024-05-22] MEDS: Acetaminophen 1,000 MG/100 ML PIGGYBACK 400 MG IV ×2 (14:31→20:30)
[2024-05-22] MEDS: 0.9 % Sodium Chloride Flush 3 ML SYRINGE IVFLUSH ×2 (15:08→20:31)
[2024-05-22] MEDS: Albuterol/Iprat 2.5/0.5MG 3 ML AMPUL.NEB INHALE ×2 (15:18→19:47)
[2024-05-22 15:58] LABS: Glucose, Whole Blood 147 mg/dL (60-115)
[2024-05-22] MEDS: HYDROmorphone HCl 0.5 MG/0.5 ML SYRINGE IVPUSH ×2 (16:19→20:26)
--- NOTE | 2024-05-22 16:29 | HO.PM.IMCN ---
History of Present Illness Data of Consult Service Date: 05/22/24 Requesting physician: Andre Vasquez Primary Care Provider: MD PANCHO Santillan Reason for consult: Postop medical management 71-year-old female with a history of peripheral artery disease, diabetes COPD and history of nicotine dependence underwent bronchoscopy number lysis, vats bile lobectomy and mediastinal lymph node sampling today. Asked to consult postoperatively for medical comorbidities Review of Systems Review of Systems: Admits to chest pain related to surgery Admits to shortness of breath for the same Denies nausea vomiting diarrhea Denies fever chills PMFSH Medical History Family history of anesthesia complication RLS (restless legs syndrome) Depression Anxiety History of MRSA infection Arthritis GERD (gastroesophageal reflux disease) History of COVID-19 Personal history of nicotine dependence Respiratory failure with hypoxia Delayed gastric emptying Pancreatic insufficiency (~2001) Post-cholecystectomy syndrome (~2001) Severe obstructive sleep apnea Diabetes COPD (chronic obstructive pulmonary disease) Osteoporosis Family History Father MVA (motor vehicle accident) Mother CVD (cardiovascular disease) Diabetes mellitus Brother No problems noted. Brother No problems noted. Brother No problems noted. Sister No problems noted. Daughter No problems noted. Daughter No problems noted. Daughter No problems noted. Other Mental health disorder Surgical History History of esophagogastroduodenoscopy (EGD) H/O colonoscopy History of cataract surgery History of back surgery History of tonsillectomy History of Whipple procedure History of carpal tunnel release of both wrists History of partial gastrectomy History of cholecystectomy Social History Household Members: Family Household Members Other:: daughter Housing: House Housing Other:: no assistive devices Are you a primary behavioral health care coordinator to a significant other at home: No Do you presently have visiting nurse or other home services: No Alcohol intake: former Comment: COUNTS CORRECT Patient Tobacco Use Status: Former Tobacco user Tobacco use type: Cigarette Cigarette Packs Per Day: 2.5 Cigarettes Per Day: 50.0 Years Smoked: 60 Smoked in Last 30 Days: No e-Cigarette/Vaping Use: Never Used Patient Interested in Nicotine Replacement: No Patient Given Instructions on How to Stop Smoking: No Second Hand Smoke Exposure: No Use of substances other than those prescribed or required for medical reasons: No Substance Use Type Other:: edibles Substance Use Frequency: Weekly Currently Displaying Signs/Symptoms of Drug Intoxication Withdrawal: No Any prior treatment program specific to substance use: No Have you been hit, kicked, punched, or otherwise hurt by someone within the past year? 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 Current occupational exposures/hazards: No Cognitive needs: No Hearing needs: No Vision needs: No Meds Allergies Allergy/AdvReac Type Severity Reaction Status Date / Time morphine Allergy Mild Itching Verified 05/22/24 06:24 lisinopril AdvReac Intermediate constant Verified 05/22/24 06:24 cough Active Medications: Current Medications Albuterol Sulfate (Albuterol Sulfate 90 Mcg 8 Gm Inhaler) 1 puff INHALE Q4H PRN PRN Reason: for wheezing Albuterol/Ipratropium (Albuterol/Iprat 2.5/0.5mg 3 Ml Ampul.Neb) 3 ml INHALE RQID [facility] Last Admin: 05/22/24 15:18 Dose: 3 ml Atorvastatin Calcium (Atorvastatin Calcium 20 Mg Tablet) 20 mg PO BEDTIME [facility] Calcium Carbonate (Calcium Carbonate 750 Mg Tab.Chew) 750 mg PO Q4H PRN PRN Reason: Heartburn Ferrous Sulfate (Ferrous Sulfate 324 Mg Tablet.Dr) 324 mg PO DAILY [facility] Last Admin: 05/22/24 14:30 Dose: 324 mg Fluticasone Propionate (Fluticasone Propionate Nasal 16 Gm [facility]) 1 spray NOSTRIL-B Q12H [facility] Glucose (Glucose Gel 15 Gm Gel..Gram.) 15 gm PO Q15M PRN; Protocol PRN Reason: per Hypoglycemia Standing Ord. Hydromorphone HCl (Hydromorphone Hcl 0.5 Mg/0.5 Ml Syringe) 0.5 mg IVPUSH Q5M PRN PRN Reason: Pain, Severe (Pain Scale 7-10) Stop: 05/22/24 17:14 Hydromorphone HCl (Hydromorphone Hcl 0.5 Mg/0.5 Ml Syringe) 0.25 mg IVPUSH Q5M PRN PRN Reason: Pain, Moderate(Pain Scale 4-6) Stop: 05/22/24 17:24 Last Admin: 05/22/24 11:51 Dose: 0.25 mg Hydromorphone HCl (Hydromorphone Hcl 0.5 Mg/0.5 Ml Syringe) 0.5 mg IVPUSH Q4H PRN; Protocol PRN Reason: Pain, Severe (Pain Scale 7-10) Last Admin: 05/22/24 16:19 Dose: 0.5 mg Acetaminophen (Ofirmev) 1,000 mg in 100 mls @ 400 mls/hr IV Q6H [facility] Last Infusion: 05/22/24 14:48 Dose: Infused Dextrose (D10) 250 mls @ 750 mls/hr IV Q15M PRN; Protocol PRN Reason: per Hypoglycemia Standing Ord. Lactated Ringer's (Lr) 1,000 mls @ 80 mls/hr IVCONT .[id number] [facility] Last Admin: 05/22/24 14:30 Dose: 80 mls/hr Insulin Human Lispro (Insulin Lispro 100 Unit/Ml 3 Ml Vial) 0 unit SUBCUT QIDACHS [facility]; Protocol Last Admin: 05/22/24 15:58 Dose: Not Given Magnesium Hydroxide (Milk Of Magnesia 30 Ml Oral.Susp) 30 ml PO DAILY PRN PRN Reason: Constipation Melatonin (Melatonin 3 Mg Tablet) 6 mg PO BEDTIME PRN PRN Reason: Insomnia Non-Formulary Medication (Fluticasone Propion-Salmeterol [Airduo Respiclick]) 1 inhalation INHALE BID [facility] Omeprazole (Omeprazole 20 Mg Capsule.Dr) 20 mg PO DAILY@0630 [facility] Ondansetron HCl (Ondansetron Hcl 4 Mg/2 Ml Vial) 4 mg IVPUSH Q6H PRN PRN Reason: Nausea and Vomiting Oxycodone HCl (Oxycodone Hcl Immed Release 5 Mg Tablet) 10 mg PO Q4H [facility] Sodium Chloride (0.9 % Sodium Chloride Flush 3 Ml Syringe) 3 ml IVFLUSH QSHIFT [facility] Last Admin: 05/22/24 15:08 Dose: 3 ml Home Medications ?Medication ?Instructions ?Recorded ?Confirmed ?Last Taken ?Type esomeprazole magnesium 40 mg 40 mg PO DAILY@0630 03/31/24 05/19/24 05/21/24 History capsule,delayed release atorvastatin 20 mg tablet 20 mg PO BEDTIME 05/16/24 05/19/24 05/21/24 History Physical Exam Vital Signs and Narrative: Vital Signs: Last Vital Signs Temp 98.0 F 05/22/24 15:37 Pulse 89 05/22/24 15:37 Resp 18 05/22/24 15:37 BP 104/50 L 05/22/24 15:37 Pulse Ox 98 05/22/24 15:37 O2 Del Method Nasal Cannula 05/22/24 15:37 O2 Flow Rate 3 05/22/24 15:37 BMI result Body Mass Index 23.8 Const: Other: Awake uncomfortable appearing; able to speak in short sentences Resp: Other: Diminished breath sounds on the left with coarse rhonchi throughout Cardio: Other: No S4; positive S1-S2; no S3 murmurs rubs or gallops GI: Other: Soft nontender nondistended normoactive bowel sounds Extrem: Other: No edema bilaterally Results Labs 05/16/24 11:57 05/16/24 11:57 Labs: Laboratory Results - last 24 hr 05/22/24 05/22/24 05/22/24 06:42 13:30 15:50 POC Glucose 166 H 147 H Blood Type A Positive Antibody Screen NEGATIVE Crossmatch See Detail Imaging Radiologist's Impressions: Impressions Chest X-Ray 05/22/24 13:20 IMPRESSION: Postsurgical changes with left-sided chest tube in place. No large pneumothorax. 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 1. Squamous cell carcinoma status post resection -as per thoracic surgery -will schedule oxycodone q.4 hours with Dilaudid for breakthrough 2. Diabetes type 2 -lispro correctional scale -hold oral therapies at this time.. . Add back when clinically appropriate 3. COPD -DuoNebs q.4 hours as needed for shortness of breath -resume outpatient therapies when appropriate 4. GERD -continue PPI at outpatient dosing Full code Anticoagulation as per surgery Thank you for the consultation will follow along with you while inpatient Total time managing care of this patient today: 35 minutes.
[2024-05-22] MEDS: Omeprazole 40 MG CAPSULE.DR PO (17:43)
[2024-05-22] MEDS: ondansetron HCL 4 MG/2 ML VIAL IVPUSH (17:45)
[2024-05-22 20:10] LABS: Glucose, Whole Blood 146 mg/dL (60-115)
[2024-05-22] MEDS: Atorvastatin Calcium 20 MG TABLET PO (20:29)
[2024-05-23] VITALS (15 sets, daily range): BP systolic 93–134; BP diastolic 53–68; PULSE 68–97; RESP 14–20; TEMP 36.1–36.7; O2SAT 92–98
[2024-05-23] MEDS: ondansetron HCL 4 MG/2 ML VIAL IVPUSH ×2 (01:17→18:21)
[2024-05-23] MEDS: Morphine Sulfate 2 MG/ML CARTRIDGE IVPUSH ×3 (01:53→20:46)
[2024-05-23] MEDS: oxyCODONE HCl Immed Release 5 MG TABLET 10 MG PO ×6 (02:40→22:18)
[2024-05-23] MEDS: Lactated Ringers 1,000 ML 80 ML IVCONT ×2 (04:33→18:11)
[2024-05-23] MEDS: Acetaminophen 1,000 MG/100 ML PIGGYBACK 400 MG IV ×3 (04:35→18:11)
[2024-05-23 06:05] LABS: MANUAL DIFF FLAG NO
[2024-05-23 06:10] LABS: Basophils Percent Auto 0.2 % (0-2); Hematocrit 22.2 % (37.0-47.0); Imm Gran Abs Auto 0.08 X10*3/uL (0.00-0.03); Imm Gran Pct Auto 0.8 % (0.0-0.4); Lymphocytes Absolute Auto 1.6 X10*3/uL (1.2-4.9); Lymphocytes Percent Auto 14.7 % (20-40); Mean Corpuscular HGB Conc 29.7 g/dl (31.0-35.0); Mean Corpuscular Hemoglobin 23.2 pg (27.0-33.0); Mean Corpuscular Volume 77.9 fL (80.0-98.0); Mean Platelet Volume 9.1 fL (9.4-12.3); Monocytes Percent Auto 9.2 % (2-11); Neutrophils Percent Auto 75.1 % (45-73); Platelet Count 304 X10*3/uL (160-400); Red Blood Count 2.85 X10*6/uL (4.20-5.50); Red Cell Distribution Width 19.4 % (11.0-16.0); White Blood Count 10.7 X10*3/uL (4.8-10.8)
[2024-05-23 06:16] LABS: Hemoglobin 6.6 g/dl (12.0-16.0)
[2024-05-23] MEDS: Omeprazole 40 MG CAPSULE.DR PO ×2 (06:16→16:55)
[2024-05-23 06:23] LABS: Anion Gap 10 (12-20); Blood Urea Nitrogen 17 mg/dL (9-16); Calcium 8.5 mg/dL (8.4-10.2); Carbon Dioxide 24 mmol/L (22-29); Chloride 107 mmol/L (96-108); Creatinine Clr Calc Pharmacy 53.7; Estimated Glomerular Filt Rate > 60; Glucose Fasting 141 mg/dL (60-99); Potassium 4.7 mmol/L (3.3-5.1); Sodium 136 mmol/L (135-145)
--- NOTE | 2024-05-23 06:43 | P.PNGS_ITS ---
Subjective Subjective Date of Service: 05/23/24 <Andrew Pelayo - Last Filed: 05/23/24 07:36> 05/23/24 <Susy Robbins PA-C - Last Filed: 05/23/24 08:43> 05/23/24 <Andre Vasquez MD - Last Filed: 05/23/24 12:49> Interval history: Experiencing dizziness/lightheadedness upon sitting up in bed too quickly. AM CBC indicates critical Hg of 6.6, BP has been fluctuating 122/72 to 93/53 going from 3am to 6am. Tachy overnight. RBCs ordered for transfusion. Eryn reports severe pain and points to her left upper chest, dilaudid caused severe nausea, Eryn reported a desire to switch to morphine despite mild allergy marked by some acute pruritus. Last dosage of morphine at 1:53. Still experiencing some nausea despite Zofran, feels as if she could vomit. Chest tube air leakage on clamping. Output is serosanguinous, 200mL of overnight output over 7 hours. Andrew Pelayo M3 <Andrew Pelayo - Last Filed: 05/23/24 07:36> Physical Exam 2 Vital Signs: Vital Signs: Last Vital Signs Temp 97 F 05/23/24 03:20 Pulse 90 05/23/24 03:20 Resp 18 05/23/24 03:20 BP 98/54 L 05/23/24 06:00 Pulse Ox 98 05/23/24 03:20 O2 Del Method Nasal Cannula 05/23/24 03:20 O2 Flow Rate 3 05/23/24 03:20 BMI result Body Mass Index 23.8 <Andrew Pelayo - Last Filed: 05/23/24 07:36> Chest: Other: Incisions covered, dry and intact. Appropriately tender. Crepitus on palpation around incisions. <Andrew Pelayo - Last Filed: 05/23/24 07:36> Chest palpation & inspection: crepitus and tenderness <Andrew Ocampo Last Filed: 05/23/24 07:36> Resp: Effort & Inspection: able to speak in complete sentences, Actively coughing and labored <Andrew Pelayo - Last Filed: 05/23/24 07:36> Objective Data Active Medications Albuterol Sulfate (Albuterol Sulfate 90 Mcg 8 Gm Inhaler) 1 puff INHALE Q4H PRN PRN Reason: for wheezing Albuterol/Ipratropium (Albuterol/Iprat 2.5/0.5mg 3 Ml Ampul.Neb) 3 ml INHALE RQID [facility] Last Admin: 05/22/24 19:47 Dose: 3 ml Documented By: REGINA Atorvastatin Calcium (Atorvastatin Calcium 20 Mg Tablet) 20 mg PO BEDTIME [facility] Last Admin: 05/22/24 20:29 Dose: 20 mg Documented By: ENID Calcium Carbonate (Calcium Carbonate 750 Mg Tab.Chew) 750 mg PO Q4H PRN PRN Reason: Heartburn Ferrous Sulfate (Ferrous Sulfate 324 Mg Tablet.Dr) 324 mg PO DAILY [facility] Last Admin: 05/22/24 14:30 Dose: 324 mg Documented By: KRISHNA Fluticasone Propionate (Fluticasone Propionate Nasal 16 Gm [place]) 1 spray NOSTRIL-B Q12H [facility] Last Admin: 05/22/24 22:17 Dose: Not Given Documented By: ENID Non-Admin Reason: Patient Refused Glucose (Glucose Gel 15 Gm Gel..Gram.) 15 gm PO Q15M PRN; Protocol PRN Reason: per Hypoglycemia Standing Ord. Acetaminophen (Ofirmev) 1,000 mg in 100 mls @ 400 mls/hr IV Q6H [facility] Last Infusion: 05/23/24 04:50 Dose: Infused Documented By: ENID Dextrose (D10) 250 mls @ 750 mls/hr IV Q15M PRN; Protocol PRN Reason: per Hypoglycemia Standing Ord. Lactated Ringer's (Lr) 1,000 mls @ 80 mls/hr IVCONT .[id number] [facility] Last Admin: 05/23/24 04:33 Dose: 80 mls/hr Documented By: ENID Sodium Chloride (Ns) 100 mls @ 100 mls/hr IV ONCE ONE Stop: 05/23/24 07:16 Insulin Human Lispro (Insulin Lispro 100 Unit/Ml 3 Ml Vial) 0 unit SUBCUT QIDACHS [facility]; Protocol Last Admin: 05/22/24 22:17 Dose: Not Given Documented By: ENID Non-Admin Reason: poc 146 Magnesium Hydroxide (Milk Of Magnesia 30 Ml Oral.Susp) 30 ml PO DAILY PRN PRN Reason: Constipation Melatonin (Melatonin 3 Mg Tablet) 6 mg PO BEDTIME PRN PRN Reason: Insomnia Morphine Sulfate (Morphine Sulfate 2 Mg/Ml Cartridge) 2 mg IVPUSH Q4H PRN; Protocol PRN Reason: Pain, Severe (Pain Scale 7-10) Last Admin: 05/23/24 01:53 Dose: 2 mg Documented By: ENID Non-Formulary Medication (Fluticasone Propion-Salmeterol [Airduo Respiclick]) 1 inhalation INHALE BID [facility] Omeprazole (Omeprazole 40 Mg Capsule.) 40 mg PO BID@0630,1630 [facility] Last Admin: 05/23/24 06:16 Dose: 40 mg Documented By: ENID Ondansetron HCl (Ondansetron Hcl 4 Mg/2 Ml Vial) 4 mg IVPUSH Q6H PRN PRN Reason: Nausea and Vomiting Last Admin: 05/23/24 01:17 Dose: 4 mg Documented By: ENID Oxycodone HCl (Oxycodone Hcl Immed Release 5 Mg Tablet) 10 mg PO Q4H [facility] Last Admin: 05/23/24 06:13 Dose: 10 mg Documented By: ENID Comments: per Dr. Maurice can give dose now/early as pt. just had a cxr and in 10 pain; BP only 98/54-unable to give Morphine d/t soft bp. Sodium Chloride (0.9 % Sodium Chloride Flush 3 Ml Syringe) 3 ml IVFLUSH QSHIFT [facility] Last Admin: 05/22/24 20:31 Dose: 3 ml Documented By: ENID <Andrew Pelayo - Last Filed: 05/23/24 07:36> Labs CBC & Chem 7: 05/23/24 05:00 05/23/24 05:00 <Andrew Pelayo - Last Filed: 05/23/24 07:36> Labs: Laboratory Results - last 24 hr 05/22/24 05/22/24 05/22/24 06:42 13:30 15:50 MCV MCH MCHC RDW Plt Count MPV Immature Gran % (Auto) Neut % (Auto) Lymph % (Auto) [place] % (Auto) Eos % (Auto) Baso % (Auto) Lymph # (Auto) [place] # (Auto) Eos # (Auto) Baso # (Auto) Abs Immat Gran (auto) Absolute Neuts (auto) Absolute Nucleated RBC Nucleated RBC % (auto) Anion Gap Estim Creat Clear Calc Estimated GFR POC Glucose 166 H 147 H Fasting Glucose Calcium Blood Type A Positive Antibody Screen NEGATIVE Crossmatch See Detail 05/22/24 05/23/24 19:59 05:00 MCV 77.9 L MCH 23.2 L MCHC 29.7 L RDW 19.4 H Plt Count 304 MPV 9.1 L Immature Gran % (Auto) 0.8 H Neut % (Auto) 75.1 H Lymph % (Auto) 14.7 L [place] % (Auto) 9.2 Eos % (Auto) 0.0 Baso % (Auto) 0.2 Lymph # (Auto) 1.6 [place] # (Auto) 1.0 Eos # (Auto) 0.0 Baso # (Auto) 0.0 Abs Immat Gran (auto) 0.08 H Absolute Neuts (auto) 8.0 Absolute Nucleated RBC 0.000 Nucleated RBC % (auto) 0.0 Anion Gap 10 L Estim Creat Clear Calc 53.7 Estimated GFR > 60 POC Glucose 146 H Fasting Glucose 141 H Calcium 8.5 Blood Type Antibody Screen Crossmatch <Andrew Pelayo - Last Filed: 05/23/24 07:36> Procedures Date of Service Date of Service: 05/23/24 <Andrew Pelayo - Last Filed: 05/23/24 07:36> 05/23/24 <Susy Robbins PA-C - Last Filed: 05/23/24 08:43> 05/23/24 <Andre Vasquez MD - Last Filed: 05/23/24 12:49> Progress Note: A&P Assessment and plan (1) Left upper lobe pulmonary nodule: Status: Acute <Andrew Pelayo - Last Filed: 05/23/24 07:36> (2) S/P lobectomy of lung: Status: Acute <Andrew Pelayo - Last Filed: 05/23/24 07:36> Assessment and Plan: Symptomatic anemia. 2 units of RBC transfusion. Breathing labored and reports severe pain. CXR results pending. Output is serosanguinous, 200mL of overnight output over 7 hours. Continue chest tube. Continue pain regimen including morphine and ofirmev. Continue 3L supplemental O2 nasal cannula. Andrew Pelayo M3 <Andrew Pelayo - Last Filed: 05/23/24 07:36> Symptomatic anemia. 2 units of RBC transfusion. Breathing labored and reports severe pain. CXR results pending. Output is serosanguinous, 200mL of overnight output over 7 hours. Continue chest tube. Continue pain regimen including morphine and ofirmev. Continue 3L supplemental O2 nasal cannula. Andrew Pelayo M3 Agree with above assessment and plan of Gita MS-3. Ms. Cote is POD #1 s/p bronchoscopy,pneumonolysis, vats bilobectomy (left upper lobe/lingula), mediastinal lymph node sampling. L VATS dressings clean, mild subq emphysema at chest tube site, expected. Pleurvac with air leak this am, moderate serosanguineous drainage. AM CXR reviewed, no significant pneumo or effusion. H/H 6.6/22.2. Will tranfuse 2U PRBC, repeat H/H later today. Cont chest tube to suction. Repeat CXR in AM. Cont pain control, increase morphine dose as BP allows. Phenergan added for nausea. Plan discussed with patient. Encouraged OOB to recliner today when more comfortable. <Susy Robbins PA-C - Last Filed: 05/23/24 08:43> Time Spent With Patient Time: Total time managing care of this patient today ____ minutes. <Andrew Pelayo - Last Filed: 05/23/24 07:36> Quality Stroke Does the patient have a stroke diagnosis?: No <Susy Robbins PA-C - Last Filed: 05/23/24 08:43> VTE Prior VTE?: No <Susy Robbins PA-C - Last Filed: 05/23/24 08:43> VTE Risk Level:: Surgical - low <Andrew Pelayo - Last Filed: 05/23/24 07:36> VTE Device Contraindication: N/A - Device Ordered <Andrew Pelayo - Last Filed: 05/23/24 07:36> VTE Drug Contraindication: Treatment Not Indicated <Andrew Pelayo - Last Filed: 05/23/24 07:36>
[2024-05-23] MEDS: Albuterol/Iprat 2.5/0.5MG 3 ML AMPUL.NEB INHALE ×3 (08:14→15:46)
[2024-05-23 08:16] LABS: Glucose, Whole Blood 116 mg/dL (60-115)
[2024-05-23] MEDS: Ferrous Sulfate 324 MG TABLET.DR PO (09:25)
[2024-05-23] MEDS: Fluticasone Propionate Nasal 16 GM SPRAY 1 SPRAY NOSTRIL-B (09:29)
[2024-05-23] MEDS: 0.9 % Sodium Chloride Flush 3 ML SYRINGE IVFLUSH (09:29)
--- NOTE | 2024-05-23 10:32 | HO.POSTANES ---
Post Anesthesia Evaluation Post Anesthesia Evaluation Date of Service: 05/23/24 Vital Signs: Vital Signs Temp Pulse Resp BP Pulse Ox O2 Del Method O2 Flow Rate 05/23/24 10:29 94 Room Air 05/23/24 09:56 97.5 F 97 18 134/64 05/23/24 09:40 97.3 F 68 18 107/62 05/23/24 08:14 68 18 05/23/24 08:00 97.3 F 95 14 107/62 98 Room Air 05/23/24 06:00 98/54 L 05/23/24 03:20 97 F 90 18 93/53 L 98 Nasal Cannula 3 05/22/24 23:19 97.5 F 93 18 122/72 100 Nasal Cannula 3 Anesthesia: General Endotracheal-GETA Mental Status: Awake Pain Control: Satisfactory Nausea/Vomiting: None Hydration: Adequate Anesthesia-Related Issues: No Anes. Related Issues
[2024-05-23 12:32] LABS: Glucose, Whole Blood 162 mg/dL (60-115)
[2024-05-23] MEDS: Insulin Lispro 100 UNIT/ML 3 ML VIAL SUBCUT (12:44)
--- NOTE | 2024-05-23 15:07 | P.PNIM_ITS ---
Subjective Subjective Date of Service: 05/23/24 Interval History: Markedly improved this a.m.. Speaking in full sentences forcefully Review of Systems Admits to chest pain related to surgery Admits to shortness of breath for the same Denies nausea vomiting diarrhea Denies fever chills Physical Exam 2 Vital Signs: Vital Signs: Last Vital Signs Temp 97.5 F 05/23/24 14:52 Pulse 85 05/23/24 14:52 Resp 16 05/23/24 14:52 BP 118/56 L 05/23/24 14:52 Pulse Ox 94 05/23/24 10:29 O2 Del Method Room Air 05/23/24 10:29 O2 Flow Rate 3 05/23/24 03:20 BMI result Body Mass Index 23.8 Const: Other: Awake alert speaking in full sentences this a.m. Resp: Other: Diminished breath sounds on the left with coarse rhonchi throughout Cardio: Other: No S4; positive S1-S2; no S3 murmurs rubs or gallops GI: Other: Soft nontender nondistended normoactive bowel sounds Extrem: Other: No edema bilaterally Objective Data Active Medications Albuterol Sulfate (Albuterol Sulfate 90 Mcg 8 Gm Inhaler) 1 puff INHALE Q4H PRN PRN Reason: for wheezing Albuterol/Ipratropium (Albuterol/Iprat 2.5/0.5mg 3 Ml Ampul.Neb) 3 ml INHALE RQID [facility] Last Admin: 05/23/24 11:11 Dose: 3 ml Documented By: TYRESE Atorvastatin Calcium (Atorvastatin Calcium 20 Mg Tablet) 20 mg PO BEDTIME [facility] Last Admin: 05/22/24 20:29 Dose: 20 mg Documented By: ENID Calcium Carbonate (Calcium Carbonate 750 Mg Tab.Chew) 750 mg PO Q4H PRN PRN Reason: Heartburn Ferrous Sulfate (Ferrous Sulfate 324 Mg Tablet.Dr) 324 mg PO DAILY [facility] Last Admin: 05/23/24 09:25 Dose: 324 mg Documented By: DEB Fluticasone Propionate (Fluticasone Propionate Nasal 16 Gm [place]) 1 spray NOSTRIL-B Q12H [facility] Last Admin: 05/23/24 09:29 Dose: 1 spray Documented By: DEB Glucose (Glucose Gel 15 Gm Gel..Gram.) 15 gm PO Q15M PRN; Protocol PRN Reason: per Hypoglycemia Standing Ord. Acetaminophen (Ofirmev) 1,000 mg in 100 mls @ 400 mls/hr IV Q6H [facility] Last Infusion: 05/23/24 09:48 Dose: Infused Documented By: DEB Dextrose (D10) 250 mls @ 750 mls/hr IV Q15M PRN; Protocol PRN Reason: per Hypoglycemia Standing Ord. Lactated Ringer's (Lr) 1,000 mls @ 80 mls/hr IVCONT .[id number] [facility] Last Infusion: 05/23/24 12:58 Dose: 0 mls/hr Documented By: DEB Insulin Human Lispro (Insulin Lispro 100 Unit/Ml 3 Ml Vial) 0 unit SUBCUT QIDACHS [facility]; Protocol Last Admin: 05/23/24 12:44 Dose: 2 unit Documented By: DEB Magnesium Hydroxide (Milk Of Magnesia 30 Ml Oral.Susp) 30 ml PO DAILY PRN PRN Reason: Constipation Melatonin (Melatonin 3 Mg Tablet) 6 mg PO BEDTIME PRN PRN Reason: Insomnia Morphine Sulfate (Morphine Sulfate 2 Mg/Ml Cartridge) 2 mg IVPUSH Q4H PRN; Protocol PRN Reason: Pain, Severe (Pain Scale 7-10) Last Admin: 05/23/24 12:44 Dose: 2 mg Documented By: DEB Non-Formulary Medication (Fluticasone Propion-Salmeterol [Airduo Respiclick]) 1 inhalation INHALE BID [facility] Omeprazole (Omeprazole 40 Mg Capsule.) 40 mg PO BID@0630,1630 [facility] Last Admin: 05/23/24 06:16 Dose: 40 mg Documented By: ENID Ondansetron HCl (Ondansetron Hcl 4 Mg/2 Ml Vial) 4 mg IVPUSH Q6H PRN PRN Reason: Nausea and Vomiting Last Admin: 05/23/24 01:17 Dose: 4 mg Documented By: ENID Oxycodone HCl (Oxycodone Hcl Immed Release 5 Mg Tablet) 10 mg PO Q4H [facility] Last Admin: 05/23/24 14:41 Dose: 10 mg Documented By: DEB Promethazine HCl (Promethazine Hcl 25 Mg Tablet) 25 mg PO Q8H PRN PRN Reason: Nausea and Vomiting Sodium Chloride (0.9 % Sodium Chloride Flush 3 Ml Syringe) 3 ml IVFLUSH QSHIFT [facility] Last Admin: 05/23/24 09:29 Dose: 3 ml Documented By: DEB Labs 05/23/24 05:00 05/23/24 05:00 Labs: Laboratory Results - last 24 hr 05/22/24 05/22/24 05/22/24 06:42 15:50 19:59 MCV MCH MCHC RDW Plt Count MPV Immature Gran % (Auto) Neut % (Auto) Lymph % (Auto) [place] % (Auto) Eos % (Auto) Baso % (Auto) Lymph # (Auto) [place] # (Auto) Eos # (Auto) Baso # (Auto) Abs Immat Gran (auto) Absolute Neuts (auto) Absolute Nucleated RBC Nucleated RBC % (auto) Smear Path Review Anion Gap Estim Creat Clear Calc Estimated GFR POC Glucose 147 H 146 H Fasting Glucose Calcium Blood Type A Positive Antibody Screen NEGATIVE Crossmatch See Detail 05/23/24 05/23/24 05/23/24 05:00 08:11 12:28 MCV 77.9 L MCH 23.2 L MCHC 29.7 L RDW 19.4 H Plt Count 304 MPV 9.1 L Immature Gran % (Auto) 0.8 H Neut % (Auto) 75.1 H Lymph % (Auto) 14.7 L [place] % (Auto) 9.2 Eos % (Auto) 0.0 Baso % (Auto) 0.2 Lymph # (Auto) 1.6 [place] # (Auto) 1.0 Eos # (Auto) 0.0 Baso # (Auto) 0.0 Abs Immat Gran (auto) 0.08 H Absolute Neuts (auto) 8.0 Absolute Nucleated RBC 0.000 Nucleated RBC % (auto) 0.0 Smear Path Review SEE NOTE Anion Gap 10 L Estim Creat Clear Calc 53.7 Estimated GFR > 60 POC Glucose 116 H 162 H Fasting Glucose 141 H Calcium 8.5 Blood Type Antibody Screen Crossmatch Assessment and Plan (1) S/P lobectomy of lung: Status: Acute (2) Type II diabetes mellitus, well controlled: Status: Chronic Plan 71-year-old female with a history of peripheral artery disease, diabetes COPD and history of nicotine dependence underwent bronchoscopy number lysis, vats bile lobectomy and mediastinal lymph node sampling today. 1. Squamous cell carcinoma status post resection -as per thoracic surgery -will schedule oxycodone q.4 hours with Dilaudid for breakthrough... Good response 2. Diabetes type 2 -lispro correctional scale -hold oral therapies at this time.. . Add back when clinically appropriate 3. COPD -DuoNebs q.4 hours as needed for shortness of breath -resume outpatient therapies when appropriate 4. GERD -continue PPI at outpatient dosing Full code Anticoagulation as per surgery Thank you for the consultation will follow along with you while inpatient Quality Stroke Does the patient have a stroke diagnosis?: No VTE Prior VTE?: No VTE Risk Level:: Surgical - low VTE Device Contraindication: N/A - Device Ordered VTE Drug Contraindication: Treatment Not Indicated
[2024-05-23 16:15] LABS: Glucose, Whole Blood 93 mg/dL (60-115)
[2024-05-23 18:53] LABS: Hematocrit 28.7 % (37.0-47.0); Hemoglobin 9.3 g/dl (12.0-16.0)
--- NOTE | 2024-05-23 19:06 | PC.NURSE ---
Grigsby removed at 1824 without any difficulties , pt tolerated well. Pt due to void 1224am. All other needs met at this time, pt call aleman is within reach.
[2024-05-23 20:37] LABS: Glucose, Whole Blood 131 mg/dL (60-115)
[2024-05-23] MEDS: Atorvastatin Calcium 20 MG TABLET PO (20:49)
[2024-05-24] VITALS (11 sets, daily range): BP systolic 95–122; BP diastolic 55–75; PULSE 83–106; RESP 17–20; TEMP 36.2–36.4; O2SAT 91–98
[2024-05-24] MEDS: Acetaminophen 1,000 MG/100 ML PIGGYBACK 400 MG IV ×4 (00:15→21:52)
[2024-05-24] MEDS: Morphine Sulfate 2 MG/ML CARTRIDGE IVPUSH ×4 (00:41→20:13)
[2024-05-24] MEDS: oxyCODONE HCl Immed Release 5 MG TABLET 10 MG PO ×6 (02:20→21:51)
[2024-05-24] MEDS: Albuterol/Iprat 2.5/0.5MG 3 ML AMPUL.NEB INHALE ×5 (05:46→18:44)
[2024-05-24] MEDS: Omeprazole 40 MG CAPSULE.DR PO ×2 (06:25→15:34)
[2024-05-24] MEDS: Lactated Ringers 1,000 ML 80 ML IVCONT ×2 (06:26→18:00)
[2024-05-24 07:37] LABS: MANUAL DIFF FLAG NO
[2024-05-24 07:46] LABS: Basophils Percent Auto 0.2 % (0-2); Eosinophils Absolute Auto 0.1 X10*3/uL (0.0-0.4); Hematocrit 28.7 % (37.0-47.0); Hemoglobin 9.3 g/dl (12.0-16.0); Imm Gran Abs Auto 0.05 X10*3/uL (0.00-0.03); Imm Gran Pct Auto 0.5 % (0.0-0.4); Lymphocytes Percent Auto 18.5 % (20-40); Mean Corpuscular HGB Conc 32.4 g/dl (31.0-35.0); Mean Corpuscular Hemoglobin 25.8 pg (27.0-33.0); Mean Corpuscular Volume 79.5 fL (80.0-98.0); Mean Platelet Volume 9.1 fL (9.4-12.3); Monocytes Percent Auto 9.3 % (2-11); Neutrophils Absolute Auto 7.6 x10*3/uL (2.0-8.3); Neutrophils Percent Auto 70.5 % (45-73); Platelet Count 231 X10*3/uL (160-400); Red Blood Count 3.61 X10*6/uL (4.20-5.50); Red Cell Distribution Width 18.3 % (11.0-16.0); White Blood Count 10.7 X10*3/uL (4.8-10.8)
[2024-05-24 07:49] LABS: Glucose, Whole Blood 122 mg/dL (60-115)
[2024-05-24] MEDS: Ferrous Sulfate 324 MG TABLET.DR PO (08:47)
[2024-05-24] MEDS: 0.9 % Sodium Chloride Flush 3 ML SYRINGE IVFLUSH ×2 (08:49)
--- NOTE | 2024-05-24 09:11 | P.PNGS_ITS ---
Subjective Subjective Date of Service: 05/24/24 Interval history: Reports incisional pain and breast pain especially with coughing. Minimal air leak noted on chest tube especially with coughing Patient reports good pain relief with morphine Physical Exam 2 Vital Signs: Vital Signs: Last Vital Signs Temp 97.6 F 05/24/24 07:10 Pulse 83 05/24/24 07:33 Resp 18 05/24/24 07:33 BP 100/59 L 05/24/24 07:10 Pulse Ox 92 05/24/24 07:10 O2 Del Method Nasal Cannula 05/24/24 07:10 O2 Flow Rate 3 05/24/24 07:10 BMI result Body Mass Index 23.8 Const: General: alert and awake Nutritional Appearance: well nourished O rientation/consciousness: patient oriented x3 Chest: Other: Incisions clean, dry and intact. Chest tube in place, small air leak noted. Possible subcu emphysema especially in breast. Good breath sounds. GI: Inspection: Yes normal to inspection Palpation (GI): Soft to palpation and nontender Neuro: General: patient oriented x3 Objective Data Active Medications Albuterol Sulfate (Albuterol Sulfate 90 Mcg 8 Gm Inhaler) 1 puff INHALE Q4H PRN PRN Reason: for wheezing Albuterol/Ipratropium (Albuterol/Iprat 2.5/0.5mg 3 Ml Ampul.Neb) 3 ml INHALE RQID [facility] Last Admin: 05/24/24 07:33 Dose: 3 ml Documented By: MARILYN Albuterol/Ipratropium (Albuterol/Iprat 2.5/0.5mg 3 Ml Ampul.Neb) 3 ml INHALE Q4H PRN PRN Reason: Wheezing Last Admin: 05/24/24 05:46 Dose: 3 ml Documented By: PALMIRA Atorvastatin Calcium (Atorvastatin Calcium 20 Mg Tablet) 20 mg PO BEDTIME [facility] Last Admin: 05/23/24 20:49 Dose: 20 mg Documented By: VIRAJ Calcium Carbonate (Calcium Carbonate 750 Mg Tab.Chew) 750 mg PO Q4H PRN PRN Reason: Heartburn Ferrous Sulfate (Ferrous Sulfate 324 Mg Tablet.) 324 mg PO DAILY [facility] Last Admin: 05/24/24 08:47 Dose: 324 mg Documented By: JULIEN Fluticasone Propionate (Fluticasone Propionate Nasal 16 Gm [place]) 1 spray NOSTRIL-B Q12H [facility] Last Admin: 05/24/24 08:48 Dose: Not Given Documented By: JULIEN Non-Admin Reason: Patient Refused Glucose (Glucose Gel 15 Gm Gel..Gram.) 15 gm PO Q15M PRN; Protocol PRN Reason: per Hypoglycemia Standing Ord. Acetaminophen (Ofirmev) 1,000 mg in 100 mls @ 400 mls/hr IV Q6H [facility] Last Admin: 05/24/24 08:52 Dose: Not Given Documented By: JULIEN Non-Admin Reason: Patient Refused Dextrose (D10) 250 mls @ 750 mls/hr IV Q15M PRN; Protocol PRN Reason: per Hypoglycemia Standing Ord. Lactated Ringer's (Lr) 1,000 mls @ 80 mls/hr IVCONT .[id number] [facility] Last Admin: 05/24/24 06:26 Dose: 80 mls/hr Documented By: VIRAJ Insulin Human Lispro (Insulin Lispro 100 Unit/Ml 3 Ml Vial) 0 unit SUBCUT QIDACHS [facility]; Protocol Last Admin: 05/24/24 08:48 Dose: Not Given Documented By: JULIEN Non-Admin Reason: No Insulin Coverage Magnesium Hydroxide (Milk Of Magnesia 30 Ml Oral.Susp) 30 ml PO DAILY PRN PRN Reason: Constipation Melatonin (Melatonin 3 Mg Tablet) 6 mg PO BEDTIME PRN PRN Reason: Insomnia Morphine Sulfate (Morphine Sulfate 2 Mg/Ml Cartridge) 2 mg IVPUSH Q4H PRN; Protocol PRN Reason: Pain, Severe (Pain Scale 7-10) Last Admin: 05/24/24 04:45 Dose: 2 mg Documented By: VIRAJ Non-Formulary Medication (Fluticasone Propion-Salmeterol [Airduo Respiclick]) 1 inhalation INHALE BID [facility] Omeprazole (Omeprazole 40 Mg Mic.) 40 mg PO BID@0630,1630 [facility] Last Admin: 05/24/24 06:25 Dose: 40 mg Documented By: VIRAJ Ondansetron HCl (Ondansetron Hcl 4 Mg/2 Ml Vial) 4 mg IVPUSH Q6H PRN PRN Reason: Nausea and Vomiting Last Admin: 05/23/24 18:21 Dose: 4 mg Documented By: DEB Oxycodone HCl (Oxycodone Hcl Immed Release 5 Mg Tablet) 10 mg PO Q4H [facility] Last Admin: 05/24/24 08:47 Dose: 10 mg Documented By: JULIEN Promethazine HCl (Promethazine Hcl 25 Mg Tablet) 25 mg PO Q8H PRN PRN Reason: Nausea and Vomiting Sodium Chloride (0.9 % Sodium Chloride Flush 3 Ml Syringe) 3 ml IVFLUSH QSHIFT [facility] Last Admin: 05/24/24 08:49 Dose: 3 ml Documented By: JULIEN Labs 05/24/24 07:05 05/23/24 05:00 Labs: Laboratory Results - last 24 hr 05/22/24 05/23/24 05/23/24 06:42 12:28 16:00 MCV MCH MCHC RDW Plt Count MPV Immature Gran % (Auto) Neut % (Auto) Lymph % (Auto) [place] % (Auto) Eos % (Auto) Baso % (Auto) Lymph # (Auto) [place] # (Auto) Eos # (Auto) Baso # (Auto) Abs Immat Gran (auto) Absolute Neuts (auto) Absolute Nucleated RBC Nucleated RBC % (auto) POC Glucose 162 H 93 Blood Type A Positive Antibody Screen NEGATIVE Crossmatch See Detail 05/23/24 05/24/24 05/24/24 20:28 07:05 07:33 MCV 79.5 L MCH 25.8 L MCHC 32.4 RDW 18.3 H Plt Count 231 MPV 9.1 L Immature Gran % (Auto) 0.5 H Neut % (Auto) 70.5 Lymph % (Auto) 18.5 L [place] % (Auto) 9.3 Eos % (Auto) 1.0 Baso % (Auto) 0.2 Lymph # (Auto) 2.0 [place] # (Auto) 1.0 Eos # (Auto) 0.1 Baso # (Auto) 0.0 Abs Immat Gran (auto) 0.05 H Absolute Neuts (auto) 7.6 Absolute Nucleated RBC 0.000 Nucleated RBC % (auto) 0.0 POC Glucose 131 H 122 H Blood Type Antibody Screen Crossmatch Procedures Date of Service Date of Service: 05/24/24 Progress Note: A&P Assessment and plan (1) S/P lobectomy of lung: Status: Acute Plan Pod 2 following left upper lobectomy. Patient appears to have good pain control with current medications. Chest tube in place with small air leak. Chest x-ray yesterday shows good expansion of the lung. We will repeat x-ray today, suspect mild increase in subQ air. Hemoglobin and hematocrit improved today after transfusion. We will repeat CBC in a.m. Time Spent With Patient Time: Total time managing care of this patient today ____ minutes. Quality Stroke Does the patient have a stroke diagnosis?: No VTE Prior VTE?: No VTE Risk Level:: Surgical - low VTE Device Contraindication: N/A - Device Ordered VTE Drug Contraindication: Treatment Not Indicated
[2024-05-24 11:49] LABS: Glucose, Whole Blood 112 mg/dL (60-115)
[2024-05-24 12:01] LABS: Glucose, Whole Blood 115 mg/dL (60-115)
--- NOTE | 2024-05-24 12:23 | P.PNIM_ITS ---
Subjective Subjective Date of Service: 05/24/24 Interval History: Doing well overall. States pain control adequate. Does complain of pain and swelling left breast Review of Systems Admits to chest pain related to surgery Admits to shortness of breath for the same Denies nausea vomiting diarrhea Denies fever chills Physical Exam 2 Vital Signs: Vital Signs: Last Vital Signs Temp 97.4 F 05/24/24 11:24 Pulse 96 05/24/24 11:24 Resp 17 05/24/24 11:24 BP 97/68 05/24/24 11:24 Pulse Ox 93 05/24/24 11:24 O2 Del Method Nasal Cannula 05/24/24 11:24 O2 Flow Rate 3 05/24/24 11:24 Oxygen Flow Rate 3 05/24/24 11:00 BMI result Body Mass Index 23.8 Const: Other: Awake alert speaking in full sentences this a.m. Chest: Other: Left breast enlarged/painful. Unable to ascertain crepitance secondary to pain Resp: Other: Diminished breath sounds on the left with coarse rhonchi throughout Cardio: Other: No S4; positive S1-S2; no S3 murmurs rubs or gallops GI: Other: Soft nontender nondistended normoactive bowel sounds Extrem: Other: No edema bilaterally Objective Data Active Medications Albuterol Sulfate (Albuterol Sulfate 90 Mcg 8 Gm Inhaler) 1 puff INHALE Q4H PRN PRN Reason: for wheezing Albuterol/Ipratropium (Albuterol/Iprat 2.5/0.5mg 3 Ml Ampul.Neb) 3 ml INHALE RQID [facility] Last Admin: 05/24/24 11:08 Dose: 3 ml Documented By: MARILYN Albuterol/Ipratropium (Albuterol/Iprat 2.5/0.5mg 3 Ml Ampul.Neb) 3 ml INHALE Q4H PRN PRN Reason: Wheezing Last Admin: 05/24/24 05:46 Dose: 3 ml Documented By: PALMIRA Atorvastatin Calcium (Atorvastatin Calcium 20 Mg Tablet) 20 mg PO BEDTIME [facility] Last Admin: 05/23/24 20:49 Dose: 20 mg Documented By: VIRAJ Calcium Carbonate (Calcium Carbonate 750 Mg Tab.Chew) 750 mg PO Q4H PRN PRN Reason: Heartburn Ferrous Sulfate (Ferrous Sulfate 324 Mg Tablet.) 324 mg PO DAILY [facility] Last Admin: 05/24/24 08:47 Dose: 324 mg Documented By: JULIEN Fluticasone Propionate (Fluticasone Propionate Nasal 16 Gm [place]) 1 spray NOSTRIL-B Q12H [facility] Last Admin: 05/24/24 08:48 Dose: Not Given Documented By: JULIEN Non-Admin Reason: Patient Refused Glucose (Glucose Gel 15 Gm Gel..Gram.) 15 gm PO Q15M PRN; Protocol PRN Reason: per Hypoglycemia Standing Ord. Acetaminophen (Ofirmev) 1,000 mg in 100 mls @ 400 mls/hr IV Q6H [facility] Last Admin: 05/24/24 08:52 Dose: Not Given Documented By: JULIEN Non-Admin Reason: Patient Refused Dextrose (D10) 250 mls @ 750 mls/hr IV Q15M PRN; Protocol PRN Reason: per Hypoglycemia Standing Ord. Lactated Ringer's (Lr) 1,000 mls @ 80 mls/hr IVCONT .[id number] [facility] Last Admin: 05/24/24 06:26 Dose: 80 mls/hr Documented By: VIRAJ Insulin Human Lispro (Insulin Lispro 100 Unit/Ml 3 Ml Vial) 0 unit SUBCUT QIDACHS [facility]; Protocol Last Admin: 05/24/24 11:38 Dose: Not Given Documented By: JULIEN Non-Admin Reason: No Insulin Coverage Magnesium Hydroxide (Milk Of Magnesia 30 Ml Oral.Susp) 30 ml PO DAILY PRN PRN Reason: Constipation Melatonin (Melatonin 3 Mg Tablet) 6 mg PO BEDTIME PRN PRN Reason: Insomnia Morphine Sulfate (Morphine Sulfate 2 Mg/Ml Cartridge) 2 mg IVPUSH Q4H PRN; Protocol PRN Reason: Pain, Severe (Pain Scale 7-10) Last Admin: 05/24/24 04:45 Dose: 2 mg Documented By: VIRAJ Non-Formulary Medication (Fluticasone Propion-Salmeterol [Airduo Respiclick]) 1 inhalation INHALE BID [facility] Omeprazole (Omeprazole 40 Mg Capsule.) 40 mg PO BID@0630,1630 [facility] Last Admin: 05/24/24 06:25 Dose: 40 mg Documented By: VIRAJ Ondansetron HCl (Ondansetron Hcl 4 Mg/2 Ml Vial) 4 mg IVPUSH Q6H PRN PRN Reason: Nausea and Vomiting Last Admin: 05/23/24 18:21 Dose: 4 mg Documented By: DEB Oxycodone HCl (Oxycodone Hcl Immed Release 5 Mg Tablet) 10 mg PO Q4H [facility] Last Admin: 05/24/24 08:47 Dose: 10 mg Documented By: JULIEN Promethazine HCl (Promethazine Hcl 25 Mg Tablet) 25 mg PO Q8H PRN PRN Reason: Nausea and Vomiting Sodium Chloride (0.9 % Sodium Chloride Flush 3 Ml Syringe) 3 ml IVFLUSH QSHIFT [facility] Last Admin: 05/24/24 08:49 Dose: 3 ml Documented By: JULIEN Labs 05/24/24 07:05 05/23/24 05:00 Labs: Laboratory Results - last 24 hr 05/22/24 05/22/24 05/23/24 06:19 06:42 12:28 MCV MCH MCHC RDW Plt Count MPV Immature Gran % (Auto) Neut % (Auto) Lymph % (Auto) [place] % (Auto) Eos % (Auto) Baso % (Auto) Lymph # (Auto) [place] # (Auto) Eos # (Auto) Baso # (Auto) Abs Immat Gran (auto) Absolute Neuts (auto) Absolute Nucleated RBC Nucleated RBC % (auto) POC Glucose 115 162 H Blood Type A Positive Antibody Screen NEGATIVE Crossmatch See Detail 05/23/24 05/23/24 05/24/24 16:00 20:28 07:05 MCV 79.5 L MCH 25.8 L MCHC 32.4 RDW 18.3 H Plt Count 231 MPV 9.1 L Immature Gran % (Auto) 0.5 H Neut % (Auto) 70.5 Lymph % (Auto) 18.5 L [place] % (Auto) 9.3 Eos % (Auto) 1.0 Baso % (Auto) 0.2 Lymph # (Auto) 2.0 [place] # (Auto) 1.0 Eos # (Auto) 0.1 Baso # (Auto) 0.0 Abs Immat Gran (auto) 0.05 H Absolute Neuts (auto) 7.6 Absolute Nucleated RBC 0.000 Nucleated RBC % (auto) 0.0 POC Glucose 93 131 H Blood Type Antibody Screen Crossmatch 05/24/24 05/24/24 07:33 11:36 MCV MCH MCHC RDW Plt Count MPV Immature Gran % (Auto) Neut % (Auto) Lymph % (Auto) [place] % (Auto) Eos % (Auto) Baso % (Auto) Lymph # (Auto) [place] # (Auto) Eos # (Auto) Baso # (Auto) Abs Immat Gran (auto) Absolute Neuts (auto) Absolute Nucleated RBC Nucleated RBC % (auto) POC Glucose 122 H 112 Blood Type Antibody Screen Crossmatch Assessment and Plan (1) 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 1. Squamous cell carcinoma status post resection -as per thoracic surgery -will schedule oxycodone q.4 hours with Dilaudid for breakthrough... Good response 2. Diabetes type 2 -lispro correctional scale -continues to be well control off oral therapies -add back when clinically appropriate 3. COPD -DuoNebs q.4 hours as needed for shortness of breath -resume outpatient therapies when appropriate 4. GERD -continue PPI at outpatient dosing Full code Anticoagulation as per surgery Thank you for the consultation will follow along with you while inpatient Quality Stroke Does the patient have a stroke diagnosis?: No VTE Prior VTE?: No VTE Risk Level:: Surgical - low VTE Device Contraindication: N/A - Device Ordered VTE Drug Contraindication: Treatment Not Indicated
[2024-05-24 16:23] LABS: Glucose, Whole Blood 114 mg/dL (60-115)
--- NOTE | 2024-05-24 16:28 | MHC.CM.PN ---
PT REPORTS SHE LIVES WITH HER DAUGHTER MARILY, HOWEVER AT DC SHE WILL BE GOING TO HER DAUGHTERJUNG HOME PT HAS NO SERVICES IN THE HOME, SHE HAS OXYGEN FROM [facility] AND A WALKER SHE USES PRN SHE HAS A HCP ON FILE PCP: DMITRI [facility] DELIVERED DCP: PT WILL DC TO HER DAUGHTER, ANNE, HOUSE SHE REPORTS DONOVAN IS A NURSE, AND CONFIRMS SHE WILL HAVE A PORTABLE O2 TANK WITH HER TO TRANSPORT PT AT DC
[2024-05-24] MEDS: Atorvastatin Calcium 20 MG TABLET PO (20:14)
[2024-05-24 21:05] LABS: Glucose, Whole Blood 158 mg/dL (60-115)
[2024-05-24] MEDS: Insulin Lispro 100 UNIT/ML 3 ML VIAL SUBCUT (22:06)
[2024-05-25] VITALS (12 sets, daily range): BP systolic 90–154; BP diastolic 62–73; PULSE 88–110; RESP 17–20; TEMP 36–36.5; O2SAT 92–98
[2024-05-25] MEDS: Morphine Sulfate 2 MG/ML CARTRIDGE IVPUSH ×6 (00:17→19:55)
[2024-05-25] MEDS: 0.9 % Sodium Chloride Flush 3 ML SYRINGE IVFLUSH ×3 (00:25→19:55)
[2024-05-25] MEDS: oxyCODONE HCl Immed Release 5 MG TABLET 10 MG PO ×6 (02:08→22:29)
[2024-05-25] MEDS: Acetaminophen 1,000 MG/100 ML PIGGYBACK 400 MG IV ×2 (03:42→08:29)
[2024-05-25 06:32] LABS: MANUAL DIFF FLAG NO
[2024-05-25] MEDS: Omeprazole 40 MG CAPSULE.DR PO ×2 (06:32→15:24)
[2024-05-25 06:56] LABS: Basophils Percent Auto 0.1 % (0-2); Eosinophils Absolute Auto 0.2 X10*3/uL (0.0-0.4); Eosinophils Percent Auto 1.6 % (0-4); Hematocrit 30.5 % (37.0-47.0); Hemoglobin 9.7 g/dl (12.0-16.0); Imm Gran Abs Auto 0.03 X10*3/uL (0.00-0.03); Imm Gran Pct Auto 0.3 % (0.0-0.4); Lymphocytes Absolute Auto 1.3 X10*3/uL (1.2-4.9); Lymphocytes Percent Auto 13.8 % (20-40); Mean Corpuscular HGB Conc 31.8 g/dl (31.0-35.0); Mean Corpuscular Hemoglobin 25.2 pg (27.0-33.0); Mean Corpuscular Volume 79.2 fL (80.0-98.0); Mean Platelet Volume 8.6 fL (9.4-12.3); Monocytes Absolute Auto 0.7 X10*3/uL (0.1-1.2); Monocytes Percent Auto 7.2 % (2-11); Platelet Count 261 X10*3/uL (160-400); Red Blood Count 3.85 X10*6/uL (4.20-5.50); Red Cell Distribution Width 18.5 % (11.0-16.0); White Blood Count 9.1 X10*3/uL (4.8-10.8)
[2024-05-25] MEDS: Lactated Ringers 1,000 ML 80 ML IVCONT (07:07)
[2024-05-25 07:30] LABS: Glucose, Whole Blood 147 mg/dL (60-115)
[2024-05-25] MEDS: Albuterol/Iprat 2.5/0.5MG 3 ML AMPUL.NEB INHALE ×4 (07:38→19:22)
[2024-05-25] MEDS: Ferrous Sulfate 324 MG TABLET.DR PO (08:26)
--- NOTE | 2024-05-25 10:21 | P.PNGS_ITS ---
Subjective Subjective Date of Service: 05/25/24 Interval history: Patient continues to report swelling of her left breast. Continues to complain of left incisional pain. Chest tube in place with air leak noted. Physical Exam 2 Vital Signs: Vital Signs: Last Vital Signs Temp 97.7 F 05/25/24 07:09 Pulse 88 05/25/24 07:38 Resp 18 05/25/24 07:38 BP 90/62 05/25/24 07:09 Pulse Ox 95 05/25/24 07:09 O2 Del Method Nasal Cannula 05/25/24 07:09 O2 Flow Rate 3 05/25/24 07:09 Oxygen Flow Rate 3 05/24/24 11:00 BMI result Body Mass Index 23.8 Const: General: alert and awake Nutritional Appearance: well nourished O rientation/consciousness: patient oriented x3 Chest: Other: Incisions clean, dry and intact. Chest tube in place, small air leak noted. Possible subcu emphysema especially in breast. Good breath sounds. GI: Inspection: Yes normal to inspection Palpation (GI): Soft to palpation and nontender Neuro: General: patient oriented x3 Objective Data Active Medications Albuterol Sulfate (Albuterol Sulfate 90 Mcg 8 Gm Inhaler) 1 puff INHALE Q4H PRN PRN Reason: for wheezing Albuterol/Ipratropium (Albuterol/Iprat 2.5/0.5mg 3 Ml Ampul.Neb) 3 ml INHALE RQID [facility] Last Admin: 05/25/24 07:38 Dose: 3 ml Documented By: MARILYN Albuterol/Ipratropium (Albuterol/Iprat 2.5/0.5mg 3 Ml Ampul.Neb) 3 ml INHALE Q4H PRN PRN Reason: Wheezing Last Admin: 05/24/24 05:46 Dose: 3 ml Documented By: PALMIRA Atorvastatin Calcium (Atorvastatin Calcium 20 Mg Tablet) 20 mg PO BEDTIME [facility] Last Admin: 05/24/24 20:14 Dose: 20 mg Documented By: VIRAJ Calcium Carbonate (Calcium Carbonate 750 Mg Tab.Chew) 750 mg PO Q4H PRN PRN Reason: Heartburn Ferrous Sulfate (Ferrous Sulfate 324 Mg Tablet.) 324 mg PO DAILY [facility] Last Admin: 05/25/24 08:26 Dose: 324 mg Documented By: JULIEN Fluticasone Propionate (Fluticasone Propionate Nasal 16 Gm [place]) 1 spray NOSTRIL-B Q12H [facility] Last Admin: 05/25/24 09:26 Dose: Not Given Documented By: JULIEN Non-Admin Reason: Patient Refused Glucose (Glucose Gel 15 Gm Gel..Gram.) 15 gm PO Q15M PRN; Protocol PRN Reason: per Hypoglycemia Standing Ord. Acetaminophen (Ofirmev) 1,000 mg in 100 mls @ 400 mls/hr IV Q6H [facility] Last Infusion: 05/25/24 09:08 Dose: Infused Documented By: JULIEN Dextrose (D10) 250 mls @ 750 mls/hr IV Q15M PRN; Protocol PRN Reason: per Hypoglycemia Standing Ord. Lactated Ringer's (Lr) 1,000 mls @ 80 mls/hr IVCONT .[id number] [facility] Last Admin: 05/25/24 07:07 Dose: 80 mls/hr Documented By: JULIEN Insulin Human Lispro (Insulin Lispro 100 Unit/Ml 3 Ml Vial) 0 unit SUBCUT QIDACHS [facility]; Protocol Last Admin: 05/25/24 07:54 Dose: Not Given Documented By: JULIEN Non-Admin Reason: No Insulin Coverage Magnesium Hydroxide (Milk Of Magnesia 30 Ml Oral.Susp) 30 ml PO DAILY PRN PRN Reason: Constipation Melatonin (Melatonin 3 Mg Tablet) 6 mg PO BEDTIME PRN PRN Reason: Insomnia Morphine Sulfate (Morphine Sulfate 2 Mg/Ml Cartridge) 2 mg IVPUSH Q4H PRN; Protocol PRN Reason: Pain, Severe (Pain Scale 7-10) Last Admin: 05/25/24 08:26 Dose: 2 mg Documented By: JULIEN Non-Formulary Medication (Fluticasone Propion-Salmeterol [Airduo Respiclick]) 1 inhalation INHALE BID [facility] Omeprazole (Omeprazole 40 Mg Mic.) 40 mg PO BID@0630,1630 [facility] Last Admin: 05/25/24 06:32 Dose: 40 mg Documented By: VIRAJ Ondansetron HCl (Ondansetron Hcl 4 Mg/2 Ml Vial) 4 mg IVPUSH Q6H PRN PRN Reason: Nausea and Vomiting Last Admin: 05/23/24 18:21 Dose: 4 mg Documented By: DEB Oxycodone HCl (Oxycodone Hcl Immed Release 5 Mg Tablet) 10 mg PO Q4H [facility] Last Admin: 05/25/24 09:07 Dose: 10 mg Documented By: JULIEN Promethazine HCl (Promethazine Hcl 25 Mg Tablet) 25 mg PO Q8H PRN PRN Reason: Nausea and Vomiting Sodium Chloride (0.9 % Sodium Chloride Flush 3 Ml Syringe) 3 ml IVFLUSH QSHIFT [facility] Last Admin: 05/25/24 09:07 Dose: Not Given Documented By: JULIEN Non-Admin Reason: IV Running Labs 05/25/24 06:17 05/23/24 05:00 Labs: Laboratory Results - last 24 hr 05/22/24 05/24/24 05/24/24 06:19 11:36 16:15 MCV MCH MCHC RDW Plt Count MPV Immature Gran % (Auto) Neut % (Auto) Lymph % (Auto) [place] % (Auto) Eos % (Auto) Baso % (Auto) Lymph # (Auto) [place] # (Auto) Eos # (Auto) Baso # (Auto) Abs Immat Gran (auto) Absolute Neuts (auto) Absolute Nucleated RBC Nucleated RBC % (auto) POC Glucose 115 112 114 05/24/24 05/25/24 05/25/24 20:55 06:17 07:12 MCV 79.2 L MCH 25.2 L MCHC 31.8 RDW 18.5 H Plt Count 261 MPV 8.6 L Immature Gran % (Auto) 0.3 Neut % (Auto) 77.0 H Lymph % (Auto) 13.8 L [place] % (Auto) 7.2 Eos % (Auto) 1.6 Baso % (Auto) 0.1 Lymph # (Auto) 1.3 [place] # (Auto) 0.7 Eos # (Auto) 0.2 Baso # (Auto) 0.0 Abs Immat Gran (auto) 0.03 Absolute Neuts (auto) 7.0 Absolute Nucleated RBC 0.000 Nucleated RBC % (auto) 0.0 POC Glucose 158 H 147 H Procedures Date of Service Date of Service: 05/25/24 Progress Note: A&P Assessment and plan (1) S/P lobectomy of lung: Status: Acute Plan Pod 3 following left upper lobectomy. Subcu emphysema and incisional pain. Chest tube in place with small air leak. Chest x-ray yesterday shows good expansion of the lung and subcu air (x-ray not officially read at the time of this dictation). H&H continue to improve. Time Spent With Patient Time: Total time managing care of this patient today ____ minutes. Quality Stroke Does the patient have a stroke diagnosis?: No VTE Prior VTE?: No VTE Risk Level:: Surgical - low VTE Device Contraindication: N/A - Device Ordered VTE Drug Contraindication: Treatment Not Indicated
[2024-05-25 11:47] LABS: Glucose, Whole Blood 124 mg/dL (60-115)
--- NOTE | 2024-05-25 13:53 | P.PNIM_ITS ---
Subjective Subjective Date of Service: 05/25/24 Interval History: Continues to slowly improve. No acute events overnight Review of Systems Admits to chest pain related to surgery Admits to shortness of breath for the same Denies nausea vomiting diarrhea Denies fever chills Physical Exam 2 Vital Signs: Vital Signs: Last Vital Signs Temp 97.4 F 05/25/24 11:14 Pulse 93 05/25/24 11:37 Resp 18 05/25/24 11:37 BP 102/71 05/25/24 11:14 Pulse Ox 92 05/25/24 11:14 O2 Del Method Nasal Cannula 05/25/24 11:14 O2 Flow Rate 3 05/25/24 11:14 Oxygen Flow Rate 3 05/25/24 11:00 BMI result Body Mass Index 23.8 Const: Other: Awake alert speaking in full sentences this a.m. Chest: Other: Left breast enlarged/painful. Unable to ascertain crepitance secondary to pain Resp: Other: Diminished breath sounds on the left with coarse rhonchi throughout Cardio: Other: No S4; positive S1-S2; no S3 murmurs rubs or gallops GI: Other: Soft nontender nondistended normoactive bowel sounds Extrem: Other: No edema bilaterally Objective Data Active Medications Albuterol Sulfate (Albuterol Sulfate 90 Mcg 8 Gm Inhaler) 1 puff INHALE Q4H PRN PRN Reason: for wheezing Albuterol/Ipratropium (Albuterol/Iprat 2.5/0.5mg 3 Ml Ampul.Neb) 3 ml INHALE RQID [facility] Last Admin: 05/25/24 11:37 Dose: 3 ml Documented By: MARILYN Albuterol/Ipratropium (Albuterol/Iprat 2.5/0.5mg 3 Ml Ampul.Neb) 3 ml INHALE Q4H PRN PRN Reason: Wheezing Last Admin: 05/24/24 05:46 Dose: 3 ml Documented By: PALMIRA Atorvastatin Calcium (Atorvastatin Calcium 20 Mg Tablet) 20 mg PO BEDTIME [facility] Last Admin: 05/24/24 20:14 Dose: 20 mg Documented By: VIRAJ Calcium Carbonate (Calcium Carbonate 750 Mg Tab.Chew) 750 mg PO Q4H PRN PRN Reason: Heartburn Ferrous Sulfate (Ferrous Sulfate 324 Mg Tablet.) 324 mg PO DAILY [facility] Last Admin: 05/25/24 08:26 Dose: 324 mg Documented By: JULIEN Fluticasone Propionate (Fluticasone Propionate Nasal 16 Gm [place]) 1 spray NOSTRIL-B Q12H [facility] Last Admin: 05/25/24 09:26 Dose: Not Given Documented By: JULIEN Non-Admin Reason: Patient Refused Glucose (Glucose Gel 15 Gm Gel..Gram.) 15 gm PO Q15M PRN; Protocol PRN Reason: per Hypoglycemia Standing Ord. Acetaminophen (Ofirmev) 1,000 mg in 100 mls @ 400 mls/hr IV Q6H [facility] Last Infusion: 05/25/24 09:08 Dose: Infused Documented By: JULIEN Dextrose (D10) 250 mls @ 750 mls/hr IV Q15M PRN; Protocol PRN Reason: per Hypoglycemia Standing Ord. Insulin Human Lispro (Insulin Lispro 100 Unit/Ml 3 Ml Vial) 0 unit SUBCUT QIDACHS [facility]; Protocol Last Admin: 05/25/24 11:35 Dose: Not Given Documented By: JULIEN Non-Admin Reason: No Insulin Coverage Magnesium Hydroxide (Milk Of Magnesia 30 Ml Oral.Susp) 30 ml PO DAILY PRN PRN Reason: Constipation Melatonin (Melatonin 3 Mg Tablet) 6 mg PO BEDTIME PRN PRN Reason: Insomnia Morphine Sulfate (Morphine Sulfate 2 Mg/Ml Cartridge) 2 mg IVPUSH Q4H PRN; Protocol PRN Reason: Pain, Severe (Pain Scale 7-10) Last Admin: 05/25/24 11:27 Dose: 2 mg Documented By: JULIEN Non-Formulary Medication (Fluticasone Propion-Salmeterol [Airduo Respiclick]) 1 inhalation INHALE BID [facility] Omeprazole (Omeprazole 40 Mg Capsule.Dr) 40 mg PO BID@0630,1630 [facility] Last Admin: 05/25/24 06:32 Dose: 40 mg Documented By: VIRAJ Ondansetron HCl (Ondansetron Hcl 4 Mg/2 Ml Vial) 4 mg IVPUSH Q6H PRN PRN Reason: Nausea and Vomiting Last Admin: 05/23/24 18:21 Dose: 4 mg Documented By: DEB Oxycodone HCl (Oxycodone Hcl Immed Release 5 Mg Tablet) 10 mg PO Q4H [facility] Last Admin: 05/25/24 13:19 Dose: 10 mg Documented By: JULIEN Promethazine HCl (Promethazine Hcl 25 Mg Tablet) 25 mg PO Q8H PRN PRN Reason: Nausea and Vomiting Sodium Chloride (0.9 % Sodium Chloride Flush 3 Ml Syringe) 3 ml IVFLUSH QSHIFT [facility] Last Admin: 05/25/24 09:07 Dose: Not Given Documented By: JULIEN Non-Admin Reason: IV Running Labs 05/25/24 06:17 05/23/24 05:00 Labs: Laboratory Results - last 24 hr 05/24/24 05/24/24 05/25/24 16:15 20:55 06:17 MCV 79.2 L MCH 25.2 L MCHC 31.8 RDW 18.5 H Plt Count 261 MPV 8.6 L Immature Gran % (Auto) 0.3 Neut % (Auto) 77.0 H Lymph % (Auto) 13.8 L [place] % (Auto) 7.2 Eos % (Auto) 1.6 Baso % (Auto) 0.1 Lymph # (Auto) 1.3 [place] # (Auto) 0.7 Eos # (Auto) 0.2 Baso # (Auto) 0.0 Abs Immat Gran (auto) 0.03 Absolute Neuts (auto) 7.0 Absolute Nucleated RBC 0.000 Nucleated RBC % (auto) 0.0 POC Glucose 114 158 H 05/25/24 05/25/24 07:12 11:35 MCV MCH MCHC RDW Plt Count MPV Immature Gran % (Auto) Neut % (Auto) Lymph % (Auto) [place] % (Auto) Eos % (Auto) Baso % (Auto) Lymph # (Auto) [place] # (Auto) Eos # (Auto) Baso # (Auto) Abs Immat Gran (auto) Absolute Neuts (auto) Absolute Nucleated RBC Nucleated RBC % (auto) POC Glucose 147 H 124 H Assessment and Plan (1) S/P lobectomy of lung: Status: Acute (2) Type II diabetes mellitus, well controlled: Status: Chronic Plan 71-year-old female with a history of peripheral artery disease, diabetes COPD and history of nicotine dependence underwent bronchoscopy number lysis, vats bile lobectomy and mediastinal lymph node sampling today. 1. Squamous cell carcinoma status post resection... POD 3 -as per thoracic surgery -will schedule oxycodone q.4 hours with Dilaudid for breakthrough... Good response 2. Diabetes type 2 -lispro correctional scale -continues to be well control off oral therapies -add back when clinically appropriate 3. COPD -DuoNebs q.4 hours as needed for shortness of breath -resume outpatient therapies when appropriate 4. GERD -continue PPI at outpatient dosing Full code Anticoagulation as per surgery Thank you for the consultation will follow along with you while inpatient Quality Stroke Does the patient have a stroke diagnosis?: No VTE Prior VTE?: No VTE Risk Level:: Surgical - low VTE Device Contraindication: N/A - Device Ordered VTE Drug Contraindication: Treatment Not Indicated
[2024-05-25 16:26] LABS: Glucose, Whole Blood 135 mg/dL (60-115)
[2024-05-25] MEDS: Fluticasone Propionate Nasal 16 GM SPRAY 1 SPRAY NOSTRIL-B (19:54)
[2024-05-25] MEDS: Atorvastatin Calcium 20 MG TABLET PO (19:54)
[2024-05-25 20:19] LABS: Glucose, Whole Blood 117 mg/dL (60-115)
[2024-05-26] VITALS (11 sets, daily range): BP systolic 89–165; BP diastolic 53–82; PULSE 100–112; RESP 18–20; TEMP 36.1–36.9; O2SAT 92–97
[2024-05-26] MEDS: Morphine Sulfate 2 MG/ML CARTRIDGE IVPUSH ×4 (00:55→16:26)
[2024-05-26] MEDS: oxyCODONE HCl Immed Release 5 MG TABLET 10 MG PO ×6 (02:45→21:57)
[2024-05-26] MEDS: Omeprazole 40 MG CAPSULE.DR PO ×2 (06:05→16:26)
[2024-05-26 06:48] LABS: MANUAL DIFF FLAG NO
[2024-05-26 06:56] LABS: Basophils Percent Auto 0.2 % (0-2); Eosinophils Absolute Auto 0.2 X10*3/uL (0.0-0.4); Eosinophils Percent Auto 2.9 % (0-4); Hematocrit 29.1 % (37.0-47.0); Hemoglobin 9.3 g/dl (12.0-16.0); Imm Gran Abs Auto 0.03 X10*3/uL (0.00-0.03); Imm Gran Pct Auto 0.4 % (0.0-0.4); Lymphocytes Percent Auto 24.2 % (20-40); Mean Corpuscular Hemoglobin 25.5 pg (27.0-33.0); Mean Corpuscular Volume 79.9 fL (80.0-98.0); Mean Platelet Volume 8.9 fL (9.4-12.3); Monocytes Absolute Auto 0.9 X10*3/uL (0.1-1.2); Monocytes Percent Auto 10.5 % (2-11); Neutrophils Absolute Auto 5.2 x10*3/uL (2.0-8.3); Neutrophils Percent Auto 61.8 % (45-73); Platelet Count 264 X10*3/uL (160-400); Red Blood Count 3.64 X10*6/uL (4.20-5.50); Red Cell Distribution Width 18.5 % (11.0-16.0); White Blood Count 8.4 X10*3/uL (4.8-10.8)
[2024-05-26 07:10] LABS: Glucose, Whole Blood 116 mg/dL (60-115)
[2024-05-26 07:10] LABS: Alanine Aminotransferase 13 U/L (0-31); Albumin Level 3.2 g/dL (3.5-5.0); Alkaline Phosphatase 58 U/L (39-117); Anion Gap 12 (12-20); Aspartate Amino Transferase 11 U/L (5-31); Bilirubin Total 0.6 mg/dL (0.0-1.0); Blood Urea Nitrogen 9 mg/dL (9-16); Calcium 9.1 mg/dL (8.4-10.2); Carbon Dioxide 27 mmol/L (22-29); Chloride 103 mmol/L (96-108); Estimated Glomerular Filt Rate > 60; Glucose Fasting 119 mg/dL (60-99); Potassium 3.9 mmol/L (3.3-5.1); Sodium 138 mmol/L (135-145); Total Protein 5.5 g/dL (6.5-8.0)
[2024-05-26] MEDS: Ferrous Sulfate 324 MG TABLET.DR PO (07:20)
[2024-05-26] MEDS: Milk of Magnesia 30 ML ORAL.SUSP PO (07:20)
[2024-05-26] MEDS: 0.9 % Sodium Chloride Flush 3 ML SYRINGE IVFLUSH ×3 (07:21→22:03)
[2024-05-26] MEDS: Albuterol/Iprat 2.5/0.5MG 3 ML AMPUL.NEB INHALE ×3 (07:29→15:02)
--- NOTE | 2024-05-26 07:46 | PM.PNTS ---
Subjective Subjective Date of Service: 05/26/24 Interval history: I eventful evening. Incisional pain slowly improving. No new respiratory issues. Chest tube minimal output, air leak improving. Physical Exam Vital Signs: Vital Signs: Last Vital Signs Temp 98.4 F 05/26/24 03:47 Pulse 112 H 05/26/24 07:29 Resp 18 05/26/24 07:29 BP 108/66 05/26/24 03:47 Pulse Ox 94 05/26/24 03:47 O2 Del Method Nasal Cannula 05/26/24 03:47 O2 Flow Rate 3 05/26/24 03:47 Oxygen Flow Rate 3 05/25/24 11:00 BMI result Body Mass Index 23.8 Chest: Other: Incision clean dry and intact. Chest tube dressing change. Procedures Date of Service Date of Service: 05/26/24 Progress Note: A&P Assessment and plan (1) S/P lobectomy of lung: Status: Acute Plan Encourage out of bed, incentive spirometry, p.o. as tolerated, follow for BMs, a.m. chest x-ray. Pathology pending Time Spent With Patient Time: Total time managing care of this patient today ____ minutes. Quality Stroke Does the patient have a stroke diagnosis?: No VTE Prior VTE?: No VTE Risk Level:: Surgical - low VTE Device Contraindication: N/A - Device Ordered VTE Drug Contraindication: Treatment Not Indicated
--- NOTE | 2024-05-26 11:09 | HO.PM.IMPN ---
Subjective Subjective Date of Service: 05/26/24 Interval History: No acute issues overnight. Pain control adequate Review of Systems Admits to chest pain related to surgery Admits to shortness of breath for the same Denies nausea vomiting diarrhea Denies fever chills Physical Exam Vital Signs: Vital Signs: Last Vital Signs Temp 97.0 F 05/26/24 08:00 Pulse 105 H 05/26/24 08:00 Resp 20 05/26/24 08:00 BP 104/72 05/26/24 08:00 Pulse Ox 96 05/26/24 11:00 O2 Del Method Nasal Cannula 05/26/24 11:00 O2 Flow Rate 3 05/26/24 08:00 Oxygen Flow Rate 3 05/26/24 11:00 BMI result Body Mass Index 23.8 Const: Other: Awake alert speaking in full sentences this a.m. Chest: Other: Left breast enlarged/painful. Unable to ascertain crepitance secondary to pain Resp: Other: Diminished breath sounds on the left with coarse rhonchi throughout Cardio: Other: No S4; positive S1-S2; no S3 murmurs rubs or gallops GI: Other: Soft nontender nondistended normoactive bowel sounds Extrem: Other: No edema bilaterally Objective Data Active Medications Albuterol Sulfate (Albuterol Sulfate 90 Mcg 8 Gm Inhaler) 1 puff INHALE Q4H PRN PRN Reason: for wheezing Albuterol/Ipratropium (Albuterol/Iprat 2.5/0.5mg 3 Ml Ampul.Neb) 3 ml INHALE RQID [facility] Last Admin: 05/26/24 07:29 Dose: 3 ml Documented By: LENCHO Albuterol/Ipratropium (Albuterol/Iprat 2.5/0.5mg 3 Ml Ampul.Neb) 3 ml INHALE Q4H PRN PRN Reason: Wheezing Last Admin: 05/24/24 05:46 Dose: 3 ml Documented By: PALMIRA Atorvastatin Calcium (Atorvastatin Calcium 20 Mg Tablet) 20 mg PO BEDTIME [facility] Last Admin: 05/25/24 19:54 Dose: 20 mg Documented By: ENID Calcium Carbonate (Calcium Carbonate 750 Mg Tab.Chew) 750 mg PO Q4H PRN PRN Reason: Heartburn Ferrous Sulfate (Ferrous Sulfate 324 Mg Tablet.Dr) 324 mg PO DAILY [facility] Last Admin: 05/26/24 07:20 Dose: 324 mg Documented By: JULIEN Fluticasone Propionate (Fluticasone Propionate Nasal 16 Gm [place]) 1 spray NOSTRIL-B Q12H [facility] Last Admin: 05/26/24 07:20 Dose: Not Given Documented By: JULIEN Non-Admin Reason: Patient Refused Glucose (Glucose Gel 15 Gm Gel..Gram.) 15 gm PO Q15M PRN; Protocol PRN Reason: per Hypoglycemia Standing Ord. Dextrose (D10) 250 mls @ 750 mls/hr IV Q15M PRN; Protocol PRN Reason: per Hypoglycemia Standing Ord. Insulin Human Lispro (Insulin Lispro 100 Unit/Ml 3 Ml Vial) 0 unit SUBCUT QIDACHS [facility]; Protocol Last Admin: 05/26/24 07:34 Dose: Not Given Documented By: JULIEN Non-Admin Reason: No Insulin Coverage Magnesium Hydroxide (Milk Of Magnesia 30 Ml Oral.Susp) 30 ml PO DAILY PRN PRN Reason: Constipation Last Admin: 05/26/24 07:20 Dose: 30 ml Documented By: JULIEN Melatonin (Melatonin 3 Mg Tablet) 6 mg PO BEDTIME PRN PRN Reason: Insomnia Morphine Sulfate (Morphine Sulfate 2 Mg/Ml Cartridge) 2 mg IVPUSH Q4H PRN; Protocol PRN Reason: Pain, Severe (Pain Scale 7-10) Last Admin: 05/26/24 07:20 Dose: 2 mg Documented By: JULIEN Non-Formulary Medication (Fluticasone Propion-Salmeterol [Airduo Respiclick]) 1 inhalation INHALE BID [facility] Omeprazole (Omeprazole 40 Mg Capsule.Dr) 40 mg PO BID@0630,1630 [facility] Last Admin: 05/26/24 06:05 Dose: 40 mg Documented By: ENID Ondansetron HCl (Ondansetron Hcl 4 Mg/2 Ml Vial) 4 mg IVPUSH Q6H PRN PRN Reason: Nausea and Vomiting Last Admin: 05/23/24 18:21 Dose: 4 mg Documented By: MARTINDOClark Oxycodone HCl (Oxycodone Hcl Immed Release 5 Mg Tablet) 10 mg PO Q4H [facility] Last Admin: 05/26/24 09:52 Dose: 10 mg Documented By: JULIEN Promethazine HCl (Promethazine Hcl 25 Mg Tablet) 25 mg PO Q8H PRN PRN Reason: Nausea and Vomiting Sodium Chloride (0.9 % Sodium Chloride Flush 3 Ml Syringe) 3 ml IVFLUSH QSHIFT [facility] Last Admin: 05/26/24 07:21 Dose: 3 ml Documented By: JULIEN Labs 05/26/24 06:19 05/26/24 06:19 Labs: Laboratory Results - last 24 hr 05/25/24 05/25/24 05/25/24 11:35 16:12 19:53 MCV MCH MCHC RDW Plt Count MPV Immature Gran % (Auto) Neut % (Auto) Lymph % (Auto) [place] % (Auto) Eos % (Auto) Baso % (Auto) Lymph # (Auto) [place] # (Auto) Eos # (Auto) Baso # (Auto) Abs Immat Gran (auto) Absolute Neuts (auto) Absolute Nucleated RBC Nucleated RBC % (auto) Anion Gap Estim Creat Clear Calc Estimated GFR POC Glucose 124 H 135 H 117 H Fasting Glucose Calcium Total Bilirubin AST ALT Alkaline Phosphatase Total Protein Albumin 05/26/24 05/26/24 06:19 07:00 MCV 79.9 L MCH 25.5 L MCHC 32.0 RDW 18.5 H Plt Count 264 MPV 8.9 L Immature Gran % (Auto) 0.4 Neut % (Auto) 61.8 Lymph % (Auto) 24.2 [place] % (Auto) 10.5 Eos % (Auto) 2.9 Baso % (Auto) 0.2 Lymph # (Auto) 2.0 [place] # (Auto) 0.9 Eos # (Auto) 0.2 Baso # (Auto) 0.0 Abs Immat Gran (auto) 0.03 Absolute Neuts (auto) 5.2 Absolute Nucleated RBC 0.000 Nucleated RBC % (auto) 0.0 Anion Gap 12 Estim Creat Clear Calc 60.0 Estimated GFR > 60 POC Glucose 116 H Fasting Glucose 119 H Calcium 9.1 D Total Bilirubin 0.6 AST 11 ALT 13 Alkaline Phosphatase 58 Total Protein 5.5 L Albumin 3.2 L Assessment and Plan (1) 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 1. Squamous cell carcinoma status post resection... POD 4 -as per thoracic surgery -will schedule oxycodone q.4 hours with Dilaudid for breakthrough... Good response 2. Diabetes type 2 -lispro correctional scale -continues to be well control off oral therapies -add back when clinically appropriate 3. COPD -DuoNebs q.4 hours as needed for shortness of breath -resume outpatient therapies when appropriate 4. GERD -continue PPI at outpatient dosing Full code Anticoagulation as per surgery Thank you for the consultation will follow along with you while inpatient Quality Stroke Does the patient have a stroke diagnosis?: No VTE Prior VTE?: No VTE Risk Level:: Surgical - low VTE Device Contraindication: N/A - Device Ordered VTE Drug Contraindication: Treatment Not Indicated
[2024-05-26 11:51] LABS: Glucose, Whole Blood 158 mg/dL (60-115)
[2024-05-26] MEDS: Insulin Lispro 100 UNIT/ML 3 ML VIAL SUBCUT (12:23)
--- NOTE | 2024-05-26 14:23 | MHC.CM.PN ---
EMR reviewed and per MD rounds, pt is not medically cleared for discharge due to ongoing management of post-op care.
[2024-05-26 16:33] LABS: Glucose, Whole Blood 110 mg/dL (60-115)
[2024-05-26 19:48] LABS: Glucose, Whole Blood 142 mg/dL (60-115)
[2024-05-26] MEDS: Atorvastatin Calcium 20 MG TABLET PO (20:45)
[2024-05-26] MEDS: Fluticasone Propionate Nasal 16 GM SPRAY 1 SPRAY NOSTRIL-B (20:45)
[2024-05-27] VITALS (15 sets, daily range): BP systolic 82–175; BP diastolic 55–88; PULSE 102–120; RESP 15–20; TEMP 36.3–37.3; O2SAT 87–96
[2024-05-27] MEDS: Morphine Sulfate 2 MG/ML CARTRIDGE IVPUSH ×4 (01:31→13:57)
[2024-05-27] MEDS: oxyCODONE HCl Immed Release 5 MG TABLET 10 MG PO ×5 (04:10→21:34)
[2024-05-27] MEDS: Omeprazole 40 MG CAPSULE.DR PO ×2 (06:16→17:07)
[2024-05-27 07:15] LABS: Glucose, Whole Blood 136 mg/dL (60-115)
--- NOTE | 2024-05-27 07:27 | P.PNGS_ITS ---
Subjective Subjective Date of Service: 05/27/24 Interval history: Nursing reports transiently hypotensive overnight (84/60), and held morphine. Able to obtain consistent BP from left leg (131/80). Reports incisional pain and left breast swelling w/ pain especially with coughing. Cough productive and dark sputum. Small air leak noted on chest tube with coughing. Chest tube w/ serosanguinous output of 150mL over 12 hours. OOB and ambulating to bathroom w/ some dizziness. Urine dark yellow. Reports some vomiting, nausea managed w/ Zofran. Flatus, no BM. Physical Exam 2 Vital Signs: Vital Signs: Last Vital Signs Temp 97.4 F 05/27/24 06:13 Pulse 111 H 05/27/24 06:13 Resp 16 05/27/24 06:13 BP 122/68 05/27/24 06:13 Pulse Ox 94 05/27/24 06:13 O2 Del Method Nasal Cannula 05/27/24 06:13 O2 Flow Rate 3 05/27/24 06:13 Oxygen Flow Rate 3 05/26/24 11:00 BMI result Body Mass Index 23.8 Const: General: cooperative, comfortable and no acute distress O rientation/consciousness: patient oriented x3 Chest: Other: Dressings intact. Incision covered w/ steri-strips w/ some dry blood. Chest tube dressing is clean and dry. Some crepitus over incision. Mild breast tenderness. Chest palpation & inspection: crepitus Resp: Effort & Inspection: able to speak in complete sentences and labored Neuro: General: patient oriented x3 Objective Data Active Medications Albuterol Sulfate (Albuterol Sulfate 90 Mcg 8 Gm Inhaler) 1 puff INHALE Q4H PRN PRN Reason: for wheezing Albuterol/Ipratropium (Albuterol/Iprat 2.5/0.5mg 3 Ml Ampul.Neb) 3 ml INHALE RQID [facility] Last Admin: 05/26/24 18:45 Dose: Not Given Documented By: REGINA Non-Admin Reason: Patient Refused Albuterol/Ipratropium (Albuterol/Iprat 2.5/0.5mg 3 Ml Ampul.Neb) 3 ml INHALE Q4H PRN PRN Reason: Wheezing Last Admin: 05/24/24 05:46 Dose: 3 ml Documented By: PALMIRA Atorvastatin Calcium (Atorvastatin Calcium 20 Mg Tablet) 20 mg PO BEDTIME [facility] Last Admin: 05/26/24 20:45 Dose: 20 mg Documented By: ENID Calcium Carbonate (Calcium Carbonate 750 Mg Tab.Chew) 750 mg PO Q4H PRN PRN Reason: Heartburn Ferrous Sulfate (Ferrous Sulfate 324 Mg Tablet.) 324 mg PO DAILY [facility] Last Admin: 05/26/24 07:20 Dose: 324 mg Documented By: JULIEN Fluticasone Propionate (Fluticasone Propionate Nasal 16 Gm [place]) 1 spray NOSTRIL-B Q12H [facility] Last Admin: 05/26/24 20:45 Dose: 1 spray Documented By: ENID Glucose (Glucose Gel 15 Gm Gel..Gram.) 15 gm PO Q15M PRN; Protocol PRN Reason: per Hypoglycemia Standing Ord. Dextrose (D10) 250 mls @ 750 mls/hr IV Q15M PRN; Protocol PRN Reason: per Hypoglycemia Standing Ord. Insulin Human Lispro (Insulin Lispro 100 Unit/Ml 3 Ml Vial) 0 unit SUBCUT QIDACHS [facility]; Protocol Last Admin: 05/26/24 22:03 Dose: Not Given Documented By: EIND Non-Admin Reason: poc 142 Magnesium Hydroxide (Milk Of Magnesia 30 Ml Oral.Susp) 30 ml PO DAILY PRN PRN Reason: Constipation Last Admin: 05/26/24 07:20 Dose: 30 ml Documented By: JULIEN Melatonin (Melatonin 3 Mg Tablet) 6 mg PO BEDTIME PRN PRN Reason: Insomnia Morphine Sulfate (Morphine Sulfate 2 Mg/Ml Cartridge) 2 mg IVPUSH Q4H PRN; Protocol PRN Reason: Pain, Severe (Pain Scale 7-10) Last Admin: 05/27/24 06:18 Dose: 2 mg Documented By: ENID Non-Formulary Medication (Fluticasone Propion-Salmeterol [Airduo Respiclick]) 1 inhalation INHALE BID [facility] Omeprazole (Omeprazole 40 Mg Capsule.) 40 mg PO BID@0630,1630 [facility] Last Admin: 05/27/24 06:16 Dose: 40 mg Documented By: ENID Ondansetron HCl (Ondansetron Hcl 4 Mg/2 Ml Vial) 4 mg IVPUSH Q6H PRN PRN Reason: Nausea and Vomiting Last Admin: 05/23/24 18:21 Dose: 4 mg Documented By: DEB Oxycodone HCl (Oxycodone Hcl Immed Release 5 Mg Tablet) 10 mg PO Q4H [facility] Promethazine HCl (Promethazine Hcl 25 Mg Tablet) 25 mg PO Q8H PRN PRN Reason: Nausea and Vomiting Sodium Chloride (0.9 % Sodium Chloride Flush 3 Ml Syringe) 3 ml IVFLUSH QSHIFT [facility] Last Admin: 05/26/24 22:03 Dose: 3 ml Documented By: MICHELLESU Labs 05/26/24 06:19 05/26/24 06:19 Labs: Laboratory Results - last 24 hr 05/26/24 05/26/24 05/26/24 11:39 16:25 19:43 POC Glucose 158 H 110 142 H 05/27/24 07:09 POC Glucose 136 H Procedures Date of Service Date of Service: 05/27/24 Progress Note: A&P Assessment and plan Plan Pod 5 following left upper lobectomy.? Patient appears to have good pain control with current medications. Has passed flatus, no BM. Chest tube in place, resolving small air leak, and 150mL of output through the night. No respiratory distress, subq crepitus.? H/H stable. VS-tachycardiac, higher baseline and possibly due to pain. Vitals otherwise stable. Continue chest tube for now and pain regimen. Encourage IS and OOB/ambulation. Andrew Pelayo M3 Time Spent With Patient Time: Total time managing care of this patient today ____ minutes. Quality Stroke Does the patient have a stroke diagnosis?: No VTE Prior VTE?: No VTE Risk Level:: Surgical - low VTE Device Contraindication: N/A - Device Ordered VTE Drug Contraindication: Treatment Not Indicated
[2024-05-27] MEDS: Ferrous Sulfate 324 MG TABLET.DR PO (08:37)
[2024-05-27] MEDS: 0.9 % Sodium Chloride Flush 3 ML SYRINGE IVFLUSH ×2 (08:38→17:08)
[2024-05-27] MEDS: Fluticasone Propionate Nasal 16 GM SPRAY 1 SPRAY NOSTRIL-B (08:43)
--- NOTE | 2024-05-27 09:41 | PM.PNTS ---
Subjective Subjective Date of Service: 05/27/24 Interval history: Incisional pain improving. Tolerating diet. Still working on having steady bowel habits. No acute respiratory issues. Chest x-ray reviewed. Subcu emphysema status quo, very small apical pneumothorax. Physical Exam Vital Signs: Vital Signs: Last Vital Signs Temp 97.4 F 05/27/24 08:00 Pulse 102 H 05/27/24 08:00 Resp 20 05/27/24 08:00 BP 173/80 H 05/27/24 08:00 Pulse Ox 94 05/27/24 08:00 O2 Del Method Room Air 05/27/24 08:00 O2 Flow Rate 3 05/27/24 06:13 Oxygen Flow Rate 3 05/26/24 11:00 BMI result Body Mass Index 23.8 Chest: Other: Chest tube demonstrates improving air leak. Pleur-evac needs to be changed. Serosanguineous output. Incision clean dry and intact. Procedures Date of Service Date of Service: 05/27/24 Progress Note: A&P Assessment and plan (1) S/P lobectomy of lung: Status: Acute Plan Chest tube to water seal, ambulate as tolerated, encourage incentive spirometry, diet as tolerated, purgatives as needed Time Spent With Patient Time: Total time managing care of this patient today ____ minutes. Quality Stroke Does the patient have a stroke diagnosis?: No VTE Prior VTE?: No VTE Risk Level:: Surgical - low VTE Device Contraindication: N/A - Device Ordered VTE Drug Contraindication: Treatment Not Indicated
[2024-05-27] MEDS: Albuterol/Iprat 2.5/0.5MG 3 ML AMPUL.NEB INHALE ×3 (11:13→20:09)
[2024-05-27 11:20] LABS: Glucose, Whole Blood 128 mg/dL (60-115)
--- NOTE | 2024-05-27 13:50 | HO.PM.IMPN ---
Subjective Subjective Date of Service: 05/27/24 Interval History: Continues to improve. No acute events overnight Review of Systems Admits to chest pain related to surgery Admits to shortness of breath for the same Denies nausea vomiting diarrhea Denies fever chills Physical Exam Vital Signs: Vital Signs: Last Vital Signs Temp 99.1 F 05/27/24 12:00 Pulse 110 H 05/27/24 12:00 Resp 20 05/27/24 12:00 BP 140/76 H 05/27/24 12:00 Pulse Ox 91 L 05/27/24 12:00 O2 Del Method Room Air 05/27/24 12:00 O2 Flow Rate 3 05/27/24 06:13 Oxygen Flow Rate 3 05/27/24 11:00 BMI result Body Mass Index 23.8 Const: Other: Awake alert speaking in full sentences this a.m. Chest: Other: Left breast enlarged/painful. Unable to ascertain crepitance secondary to pain Resp: Other: Diminished breath sounds on the left with coarse rhonchi throughout Cardio: Other: No S4; positive S1-S2; no S3 murmurs rubs or gallops GI: Other: Soft nontender nondistended normoactive bowel sounds Extrem: Other: No edema bilaterally Objective Data Active Medications Albuterol Sulfate (Albuterol Sulfate 90 Mcg 8 Gm Inhaler) 1 puff INHALE Q4H PRN PRN Reason: for wheezing Albuterol/Ipratropium (Albuterol/Iprat 2.5/0.5mg 3 Ml Ampul.Neb) 3 ml INHALE RQID [facility] Last Admin: 05/27/24 11:13 Dose: 3 ml Documented By: LENCHO Albuterol/Ipratropium (Albuterol/Iprat 2.5/0.5mg 3 Ml Ampul.Neb) 3 ml INHALE Q4H PRN PRN Reason: Wheezing Last Admin: 05/24/24 05:46 Dose: 3 ml Documented By: PALMIRA Atorvastatin Calcium (Atorvastatin Calcium 20 Mg Tablet) 20 mg PO BEDTIME [facility] Last Admin: 05/26/24 20:45 Dose: 20 mg Documented By: ENID Calcium Carbonate (Calcium Carbonate 750 Mg Tab.Chew) 750 mg PO Q4H PRN PRN Reason: Heartburn Ferrous Sulfate (Ferrous Sulfate 324 Mg Tablet.Dr) 324 mg PO DAILY [facility] Last Admin: 05/27/24 08:37 Dose: 324 mg Documented By: RUDY Fluticasone Propionate (Fluticasone Propionate Nasal 16 Gm [place]) 1 spray NOSTRIL-B Q12H [facility] Last Admin: 05/27/24 08:43 Dose: 1 spray Documented By: RUDY Glucose (Glucose Gel 15 Gm Gel..Gram.) 15 gm PO Q15M PRN; Protocol PRN Reason: per Hypoglycemia Standing Ord. Dextrose (D10) 250 mls @ 750 mls/hr IV Q15M PRN; Protocol PRN Reason: per Hypoglycemia Standing Ord. Insulin Human Lispro (Insulin Lispro 100 Unit/Ml 3 Ml Vial) 0 unit SUBCUT QIDACHS [facility]; Protocol Last Admin: 05/27/24 11:21 Dose: Not Given Documented By: RUDY Non-Admin Reason: No Insulin Coverage Magnesium Hydroxide (Milk Of Magnesia 30 Ml Oral.Susp) 30 ml PO DAILY PRN PRN Reason: Constipation Last Admin: 05/26/24 07:20 Dose: 30 ml Documented By: JULIEN Melatonin (Melatonin 3 Mg Tablet) 6 mg PO BEDTIME PRN PRN Reason: Insomnia Morphine Sulfate (Morphine Sulfate 2 Mg/Ml Cartridge) 2 mg IVPUSH Q4H PRN; Protocol PRN Reason: Pain, Severe (Pain Scale 7-10) Last Admin: 05/27/24 10:18 Dose: 2 mg Documented By: RUDY Non-Formulary Medication (Fluticasone Propion-Salmeterol [Airduo Respiclick]) 1 inhalation INHALE BID [facility] Omeprazole (Omeprazole 40 Mg Mic.) 40 mg PO BID@0630,1630 [facility] Last Admin: 05/27/24 06:16 Dose: 40 mg Documented By: ENID Ondansetron HCl (Ondansetron Hcl 4 Mg/2 Ml Vial) 4 mg IVPUSH Q6H PRN PRN Reason: Nausea and Vomiting Last Admin: 05/23/24 18:21 Dose: 4 mg Documented By: DEB Oxycodone HCl (Oxycodone Hcl Immed Release 5 Mg Tablet) 10 mg PO Q4H [facility] Last Admin: 05/27/24 11:42 Dose: 10 mg Documented By: RUDY Promethazine HCl (Promethazine Hcl 25 Mg Tablet) 25 mg PO Q8H PRN PRN Reason: Nausea and Vomiting Sodium Chloride (0.9 % Sodium Chloride Flush 3 Ml Syringe) 3 ml IVFLUSH QSHIFT [facility] Last Admin: 05/27/24 08:38 Dose: 3 ml Documented By: RUDY Labs 05/26/24 06:19 05/26/24 06:19 Labs: Laboratory Results - last 24 hr 05/26/24 05/26/24 05/27/24 16:25 19:43 07:09 POC Glucose 110 142 H 136 H 05/27/24 11:03 POC Glucose 128 H Assessment and Plan (1) S/P lobectomy of lung: Status: Acute Plan 71-year-old female with a history of peripheral artery disease, diabetes COPD and history of nicotine dependence underwent bronchoscopy number lysis, vats bile lobectomy and mediastinal lymph node sampling today. 1. Squamous cell carcinoma status post resection... POD 5 -as per thoracic surgery -will schedule oxycodone q.4 hours with Dilaudid for breakthrough... Good response 2. Diabetes type 2 -lispro correctional scale -continues to be well control off oral therapies -add back when clinically appropriate 3. COPD -DuoNebs q.4 hours as needed for shortness of breath -resume outpatient therapies when appropriate 4. GERD -continue PPI at outpatient dosing Full code Thank you for the consultation will follow along with you while inpatient Quality Stroke Does the patient have a stroke diagnosis?: No VTE Prior VTE?: No VTE Risk Level:: Surgical - low VTE Device Contraindication: N/A - Device Ordered VTE Drug Contraindication: Treatment Not Indicated
[2024-05-27 15:51] LABS: Glucose, Whole Blood 193 mg/dL (60-115)
[2024-05-27] MEDS: Enoxaparin Sodium 40 MG/0.4 ML SYRINGE SUBCUT (17:08)
[2024-05-27] MEDS: Insulin Lispro 100 UNIT/ML 3 ML VIAL SUBCUT (17:09)
[2024-05-27 20:56] LABS: Glucose, Whole Blood 136 mg/dL (60-115)
[2024-05-27] MEDS: Atorvastatin Calcium 20 MG TABLET PO (21:34)
[2024-05-28] VITALS (9 sets, daily range): BP systolic 122–142; BP diastolic 58–81; PULSE 88–123; RESP 16–24; TEMP 36.1–37.3; O2SAT 90–99
[2024-05-28] MEDS: 0.9 % Sodium Chloride Flush 3 ML SYRINGE IVFLUSH ×4 (00:05→21:07)
[2024-05-28] MEDS: oxyCODONE HCl Immed Release 5 MG TABLET 10 MG PO ×6 (00:05→21:06)
[2024-05-28] MEDS: Morphine Sulfate 2 MG/ML CARTRIDGE IVPUSH ×3 (04:10→23:32)
[2024-05-28] MEDS: Omeprazole 40 MG CAPSULE.DR PO ×2 (05:44→17:08)
--- NOTE | 2024-05-28 07:40 | P.PNGS_ITS ---
Subjective Subjective Date of Service: 05/28/24 <Andrew Pelayo - Last Filed: 05/28/24 08:01> 05/28/24 <Andre Vasquez MD - Last Filed: 05/28/24 17:34> Interval history: Nursing reports desats overnight to 87 and she was placed back on 3L nasal cannula. Eryn reports that she has sleep apnea. Reports severe pain, 15/10, out of proportion with appearance. Also reports left breast swelling w/ pain. Cough productive and dark sputum. Small air leak noted on coughing. Chest tube w/ serosanguinous output of 160mL overnight. OOB and ambulating to bathroom w/o symptoms. Reports some dry heaves, nausea managed w/ Zofran. Flatus, no BM. Urine dark yellow, reports some dysuria, no increased urgency. Andrew Pelayo M3 <Andrew Pelayo - Last Filed: 05/28/24 08:01> Physical Exam 2 Vital Signs: Vital Signs: Last Vital Signs Temp 97.0 F 05/28/24 07:14 Pulse 115 H 05/28/24 07:14 Resp 17 05/28/24 07:14 BP 141/63 H 05/28/24 07:14 Pulse Ox 92 05/28/24 07:14 O2 Del Method Nasal Cannula 05/28/24 07:14 O2 Flow Rate 3 05/28/24 07:14 Oxygen Flow Rate 3 05/27/24 11:00 BMI result Body Mass Index 23.8 <Andrew Pelayo - Last Filed: 05/28/24 08:01> Const: General: cooperative and no acute distress <Andrew Pelayo - Last Filed: 05/28/24 08:01> Orientation/consciousness: patient oriented x3 <Andrew Pelayo Last Filed: 05/28/24 08:01> Chest: Other: Dressings intact. Incision covered w/ steri-strips w/ some dry blood. Chest tube dressing w/ some bloody discharge. Some crepitus over incision. Mild breast tenderness. <Andrew Pelayo - Last Filed: 05/28/24 08:01> Resp: Effort & Inspection: able to speak in complete sentences, Actively coughing and labored <Andrew Pelayo - Last Filed: 05/28/24 08:01> Neuro: General: patient oriented x3 <Andrew Pelayo - Last Filed: 05/28/24 08:01> Objective Data Active Medications Albuterol Sulfate (Albuterol Sulfate 90 Mcg 8 Gm Inhaler) 1 puff INHALE Q4H PRN PRN Reason: for wheezing Albuterol/Ipratropium (Albuterol/Iprat 2.5/0.5mg 3 Ml Ampul.Neb) 3 ml INHALE RQID [facility] Last Admin: 05/27/24 20:09 Dose: 3 ml Documented By: TARA Albuterol/Ipratropium (Albuterol/Iprat 2.5/0.5mg 3 Ml Ampul.Neb) 3 ml INHALE Q4H PRN PRN Reason: Wheezing Last Admin: 05/24/24 05:46 Dose: 3 ml Documented By: PALMIRA Atorvastatin Calcium (Atorvastatin Calcium 20 Mg Tablet) 20 mg PO BEDTIME [facility] Last Admin: 05/27/24 21:34 Dose: 20 mg Documented By: CHANCE Calcium Carbonate (Calcium Carbonate 750 Mg Tab.Chew) 750 mg PO Q4H PRN PRN Reason: Heartburn Enoxaparin Sodium (Enoxaparin Sodium 40 Mg/0.4 Ml Syringe) 40 mg SUBCUT Q24H [facility] Last Admin: 05/27/24 17:08 Dose: 40 mg Documented By: RUDY Ferrous Sulfate (Ferrous Sulfate 324 Mg Tablet.Dr) 324 mg PO DAILY [facility] Last Admin: 05/27/24 08:37 Dose: 324 mg Documented By: RUDY Fluticasone Propionate (Fluticasone Propionate Nasal 16 Gm [place]) 1 spray NOSTRIL-B Q12H [facility] Last Admin: 05/27/24 21:42 Dose: Not Given Documented By: CHANCE Non-Admin Reason: Patient Refused Glucose (Glucose Gel 15 Gm Gel..Gram.) 15 gm PO Q15M PRN; Protocol PRN Reason: per Hypoglycemia Standing Ord. Dextrose (D10) 250 mls @ 750 mls/hr IV Q15M PRN; Protocol PRN Reason: per Hypoglycemia Standing Ord. Insulin Human Lispro (Insulin Lispro 100 Unit/Ml 3 Ml Vial) 0 unit SUBCUT QIDACHS [facility]; Protocol Last Admin: 05/27/24 21:43 Dose: Not Given Documented By: CHANCE Non-Admin Reason: No Insulin Coverage Magnesium Hydroxide (Milk Of Magnesia 30 Ml Oral.Susp) 30 ml PO DAILY PRN PRN Reason: Constipation Last Admin: 05/26/24 07:20 Dose: 30 ml Documented By: JULIEN Melatonin (Melatonin 3 Mg Tablet) 6 mg PO BEDTIME PRN PRN Reason: Insomnia Morphine Sulfate (Morphine Sulfate 2 Mg/Ml Cartridge) 2 mg IVPUSH Q4H PRN; Protocol PRN Reason: Pain, Severe (Pain Scale 7-10) Last Admin: 05/28/24 04:10 Dose: 2 mg Documented By: CHANCE Non-Formulary Medication (Fluticasone Propion-Salmeterol [Airduo Respiclick]) 1 inhalation INHALE BID [facility] Omeprazole (Omeprazole 40 Mg Capsule.Dr) 40 mg PO BID@0630,1630 [facility] Last Admin: 05/28/24 05:44 Dose: 40 mg Documented By: DG Ondansetron HCl (Ondansetron Hcl 4 Mg/2 Ml Vial) 4 mg IVPUSH Q6H PRN PRN Reason: Nausea and Vomiting Last Admin: 05/23/24 18:21 Dose: 4 mg Documented By: MALDOClark Oxycodone HCl (Oxycodone Hcl Immed Release 5 Mg Tablet) 10 mg PO Q4H [facility] Last Admin: 05/28/24 03:20 Dose: 10 mg Documented By: CHANCE Promethazine HCl (Promethazine Hcl 25 Mg Tablet) 25 mg PO Q8H PRN PRN Reason: Nausea and Vomiting Sodium Chloride (0.9 % Sodium Chloride Flush 3 Ml Syringe) 3 ml IVFLUSH QSHIFT [facility] Last Admin: 05/28/24 00:05 Dose: 3 ml Documented By: CHANCE <Andrew Pelayo - Last Filed: 05/28/24 08:01> Labs CBC & Chem 7: 05/26/24 06:19 05/26/24 06:19 <Andrew Pelyao - Last Filed: 05/28/24 08:01> Labs: Laboratory Results - last 24 hr 05/27/24 05/27/24 05/27/24 11:03 15:33 20:20 POC Glucose 128 H 193 H 136 H <Andrew Pelayo - Last Filed: 05/28/24 08:01> Procedures Date of Service Date of Service: 05/28/24 <Andrew Pelayo - Last Filed: 05/28/24 08:01> 05/28/24 <Andre Vasquez MD - Last Filed: 05/28/24 17:34> Progress Note: A&P Assessment and plan (1) S/P lobectomy of lung: Status: Acute <Andrew Pelayo - Last Filed: 05/28/24 08:01> Assessment and Plan: POD6 s/p left upper lobectomy. Overnight desats. likely related to sleep apnea. Labored breathing, SOB. CXR revealed small pneumothorax. Resolving air leak, and consistent serosanguinous output over the past few days; ~160mL over 12 hour period. Continue chest tube. Reassess w/ repeat CXR. H/H stable. VS-tachycardiac, higher baseline and possibly due to pain. Vitals otherwise stable. Incisions dry and intact, some pain and crepitus around incision. Appears to have good pain control on current analgesics. Continue current pain regimen. Encourage IS and OOB/ambulation. Andrew Pelayo M3 <Andrew Pelayo - Last Filed: 05/28/24 08:01> Time Spent With Patient Time: Total time managing care of this patient today ____ minutes. <Andrew Roche Filed: 05/28/24 08:01> Quality Stroke Does the patient have a stroke diagnosis?: No <Andrew Ocampo Last Filed: 05/28/24 08:01> VTE Prior VTE?: No <Andrew Roche Filed: 05/28/24 08:01> VTE Risk Level:: Surgical - low <Andrew Ocampo Last Filed: 05/28/24 08:01> VTE Device Contraindication: N/A - Device Ordered <Andrew Ocampo Last Filed: 05/28/24 08:01> VTE Drug Contraindication: Treatment Not Indicated <Andrew Roche Filed: 05/28/24 08:01>
[2024-05-28 07:43] LABS: Glucose, Whole Blood 139 mg/dL (60-115)
[2024-05-28] MEDS: Ferrous Sulfate 324 MG TABLET.DR PO (07:50)
[2024-05-28] MEDS: Milk of Magnesia 30 ML ORAL.SUSP PO (07:51)
[2024-05-28] MEDS: Albuterol/Iprat 2.5/0.5MG 3 ML AMPUL.NEB INHALE ×4 (07:57→19:22)
[2024-05-28 11:46] LABS: Glucose, Whole Blood 160 mg/dL (60-115)
[2024-05-28] MEDS: Insulin Lispro 100 UNIT/ML 3 ML VIAL SUBCUT (12:14)
--- NOTE | 2024-05-28 14:20 | MHC.CM.PN ---
EMR reviewed and per MD rounds, pt is not medically cleared for discharge due to ongoing management of post-op care with chest tube in place.
--- NOTE | 2024-05-28 14:28 | HO.PM.IMPN ---
Subjective Subjective Date of Service: 05/28/24 Interval History: Status post left upper lobe resection. Good pain control complaining of decreased appetite, no nausea, no vomiting, no fevers, intermittent shortness of breath, denies chest pain, no palpitations, noted to have hypoxia finger oximetry 87 overnight, no other acute events overnight. Review of Systems All other system reviewed and are negative Physical Exam Vital Signs: Vital Signs: Last Vital Signs Temp 96.9 F 05/28/24 11:13 Pulse 100 05/28/24 11:22 Resp 24 H 05/28/24 11:22 BP 134/62 05/28/24 11:13 Pulse Ox 96 05/28/24 11:13 O2 Del Method Nasal Cannula 05/28/24 11:13 O2 Flow Rate 3 05/28/24 11:13 Oxygen Flow Rate 3 05/28/24 11:00 BMI result Body Mass Index 23.8 Const: Other: General awake alert x3, in no acute distress. Neck no JVD. CVS regular rate rhythm, Respiratory diminished breath sound left, no respiratory distress, left breast mild swelling no pain/+ crepitus , chest tube in place Gastrointestinal abdomen soft, non tender, bowel sounds audible Extremities mild edema. Neuro non focal Psych appropriate affect. Objective Data Active Medications Albuterol Sulfate (Albuterol Sulfate 90 Mcg 8 Gm Inhaler) 1 puff INHALE Q4H PRN PRN Reason: for wheezing Albuterol/Ipratropium (Albuterol/Iprat 2.5/0.5mg 3 Ml Ampul.Neb) 3 ml INHALE RQID [facility] Last Admin: 05/28/24 11:22 Dose: 3 ml Documented By: TYRESE Albuterol/Ipratropium (Albuterol/Iprat 2.5/0.5mg 3 Ml Ampul.Neb) 3 ml INHALE Q4H PRN PRN Reason: Wheezing Last Admin: 05/24/24 05:46 Dose: 3 ml Documented By: PALMIRA Atorvastatin Calcium (Atorvastatin Calcium 20 Mg Tablet) 20 mg PO BEDTIME [facility] Last Admin: 05/27/24 21:34 Dose: 20 mg Documented By: CHANCE Calcium Carbonate (Calcium Carbonate 750 Mg Tab.Chew) 750 mg PO Q4H PRN PRN Reason: Heartburn Enoxaparin Sodium (Enoxaparin Sodium 40 Mg/0.4 Ml Syringe) 40 mg SUBCUT Q24H [facility] Last Admin: 05/27/24 17:08 Dose: 40 mg Documented By: RUDY Ferrous Sulfate (Ferrous Sulfate 324 Mg Tablet.) 324 mg PO DAILY [facility] Last Admin: 05/28/24 07:50 Dose: 324 mg Documented By: BOB Fluticasone Propionate (Fluticasone Propionate Nasal 16 Gm [place]) 1 spray NOSTRIL-B Q12H [facility] Last Admin: 05/28/24 11:30 Dose: Not Given Documented By: BOB Non-Admin Reason: Patient Refused Glucose (Glucose Gel 15 Gm Gel..Gram.) 15 gm PO Q15M PRN; Protocol PRN Reason: per Hypoglycemia Standing Ord. Dextrose (D10) 250 mls @ 750 mls/hr IV Q15M PRN; Protocol PRN Reason: per Hypoglycemia Standing Ord. Insulin Human Lispro (Insulin Lispro 100 Unit/Ml 3 Ml Vial) 0 unit SUBCUT QIDACHS [facility]; Protocol Last Admin: 05/28/24 12:14 Dose: 2 unit Documented By: BOB Magnesium Hydroxide (Milk Of Magnesia 30 Ml Oral.Susp) 30 ml PO DAILY PRN PRN Reason: Constipation Last Admin: 05/28/24 07:51 Dose: 30 ml Documented By: BOB Melatonin (Melatonin 3 Mg Tablet) 6 mg PO BEDTIME PRN PRN Reason: Insomnia Morphine Sulfate (Morphine Sulfate 2 Mg/Ml Cartridge) 2 mg IVPUSH Q4H PRN; Protocol PRN Reason: Pain, Severe (Pain Scale 7-10) Last Admin: 05/28/24 09:27 Dose: 2 mg Documented By: BOB Non-Formulary Medication (Fluticasone Propion-Salmeterol [Airduo Respiclick]) 1 inhalation INHALE BID [facility] Omeprazole (Omeprazole 40 Mg Capsule.) 40 mg PO BID@0630,1630 [facility] Last Admin: 05/28/24 05:44 Dose: 40 mg Documented By: DG Ondansetron HCl (Ondansetron Hcl 4 Mg/2 Ml Vial) 4 mg IVPUSH Q6H PRN PRN Reason: Nausea and Vomiting Last Admin: 05/23/24 18:21 Dose: 4 mg Documented By: DEB Oxycodone HCl (Oxycodone Hcl Immed Release 5 Mg Tablet) 10 mg PO Q4H [facility] Last Admin: 05/28/24 12:14 Dose: 10 mg Documented By: BOB Promethazine HCl (Promethazine Hcl 25 Mg Tablet) 25 mg PO Q8H PRN PRN Reason: Nausea and Vomiting Sodium Chloride (0.9 % Sodium Chloride Flush 3 Ml Syringe) 3 ml IVFLUSH QSHIFT [facility] Last Admin: 05/28/24 07:53 Dose: 3 ml Documented By: BOB Labs 05/26/24 06:19 05/26/24 06:19 Labs: Laboratory Results - last 24 hr 05/27/24 05/27/24 05/28/24 15:33 20:20 07:37 POC Glucose 193 H 136 H 139 H 05/28/24 11:31 POC Glucose 160 H Assessment and Plan (1) S/P lobectomy of lung: Status: Acute Plan 71-year-old female with a history of peripheral artery disease, diabetes COPD and history of nicotine dependence underwent bronchoscopy bronchoscopy,pneumonolysis, vats bilobectomy (left upper lobe/lingula), mediastinal lymph node sampling 1. Squamous cell carcinoma status post left upper lobectomy POD 6 -good pain control continue oxycodone q.4 hours with Dilaudid for breakthrough -decreased by mouth intake will add supplements -postoperative care as per thoracic surgery, chest x-ray 05/27 showed tiny left apical pneumothorax, extensive bilateral subcutaneous emphysema left greater than right. -left breast swelling likely due to subcutaneous emphysema, will follow. 2. Diabetes type 2 -stable blood sugars continue lispro correctional scale, decreased by mouth intake, hold home medications. 3. COPD -no acute exacerbation, continue DuoNebs q.4 hours as needed for shortness of breath 4. GERD -continue PPI 5. Mild sinus tachycardia, denies palpitation question related to anxiety, pain and DuoNeb use will follow on telemetry 6. Severe obstructive sleep apnea noted to have episodes of hypoxia overnight, on 2 L of nocturnal oxygen /intermittent hypoxia due to CINDY. Full code Thank you for the consultation will follow along with you while inpatient Quality Stroke Does the patient have a stroke diagnosis?: No VTE Prior VTE?: No VTE Risk Level:: Surgical - low VTE Device Contraindication: N/A - Device Ordered VTE Drug Contraindication: Treatment Not Indicated
[2024-05-28 16:23] LABS: Glucose, Whole Blood 135 mg/dL (60-115)
[2024-05-28] MEDS: Enoxaparin Sodium 40 MG/0.4 ML SYRINGE SUBCUT (17:08)
[2024-05-28 20:33] LABS: Glucose, Whole Blood 145 mg/dL (60-115)
[2024-05-28] MEDS: Atorvastatin Calcium 20 MG TABLET PO (21:06)
[2024-05-28] MEDS: Fluticasone Propionate Nasal 16 GM SPRAY 1 SPRAY NOSTRIL-B (21:11)
[2024-05-29] VITALS (14 sets, daily range): BP systolic 118–179; BP diastolic 59–91; PULSE 60–122; RESP 12–22; TEMP 36.1–37.1; O2SAT 88–96
[2024-05-29] MEDS: oxyCODONE HCl Immed Release 5 MG TABLET 10 MG PO ×6 (00:32→20:52)
[2024-05-29] MEDS: Omeprazole 40 MG CAPSULE.DR PO ×2 (06:23→15:16)
[2024-05-29] MEDS: Morphine Sulfate 2 MG/ML CARTRIDGE IVPUSH ×2 (06:23→22:21)
--- NOTE | 2024-05-29 07:06 | PM.PNTS ---
Subjective Subjective Date of Service: 05/29/24 <Andrew Pelayo - Last Filed: 05/29/24 07:25> 05/29/24 <Andre Vasquez MD - Last Filed: 05/29/24 07:48> Interval history: Continues on 3L nasal cannula due to CINDY-related desats. Reports improved pain control w/ PO oxycodone and dilaudid for breakthrough. Reports improved breathing, continued cough productive of dark sputum. Reports continued left breast swelling w/ pain. Small air leak noted on coughing. Nursing unclear when pleur-evac was changed and no markings. Chest tube w/ unknown serosanguinous output overnight. OOB and ambulating to bathroom w/o symptoms. Nausea managed w/ Zofran. Flatus, no BM. Urine dark yellow. Andrew Pelayo M3 <Andrew Pelayo - Last Filed: 05/29/24 07:25> Physical Exam Vital Signs: Vital Signs: Last Vital Signs Temp 98.5 F 05/29/24 04:00 Pulse 117 H 05/29/24 04:00 Resp 22 H 05/29/24 06:23 BP 175/76 H 05/29/24 06:30 Pulse Ox 90 L 05/29/24 06:30 O2 Del Method Nasal Cannula 05/29/24 06:30 O2 Flow Rate 2 05/29/24 06:30 Oxygen Flow Rate 3 05/28/24 11:00 BMI result Body Mass Index 23.8 <Andrew Pelayo - Last Filed: 05/29/24 07:25> Chest: Other: Chest tube dressings dry and intact w/ some serosang discharge. Steri-strips covering incision w/ some dry blood. Crepitus noted around incision. L breast tenderness and swelling in relation to R breast. 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 Desats related to CINDY. BP elevated possibly related to hypoxia. Breathing has improved since yesterday, though continues to be labored. Chest tube w/ unclear amount of serosanguinous output, resolving air leak. Repeat CXR. Consider d/c chest tube. Pain well managed on current regimen. Andrew Pelayo M3 <Andrew Pelayo - Last Filed: 05/29/24 07:25> Breast swelling and tenderness likely due to subq emphysema. Desats related to CINDY. BP elevated possibly related to hypoxia. Breathing has improved since yesterday, though continues to be labored. Chest tube w/ unclear amount of serosanguinous output, resolving air leak. Repeat CXR. Consider d/c chest tube. Pain well managed on current regimen.. Andrew Pelayo M3. As noted above. Tentatively for chest tube DC tomorrow. VNA services. <Andre Vasquez MD - Last Filed: 05/29/24 07:48> Time Spent With Patient Time: Total time managing care of this patient today ____ minutes. <Andrew Pelayo - Last Filed: 05/29/24 07:25> Quality Stroke Does the patient have a stroke diagnosis?: No <Andrew Pelayo - Last Filed: 05/29/24 07:25> VTE Prior VTE?: No <Andrew Pelayo - Last Filed: 05/29/24 07:25> VTE Risk Level:: Surgical - low <Andrew Pelayo - Last Filed: 05/29/24 07:25> VTE Device Contraindication: N/A - Device Ordered <Andrew Pelayo - Last Filed: 05/29/24 07:25> VTE Drug Contraindication: Treatment Not Indicated <Andrew Pelayo - Last Filed: 05/29/24 07:25>
[2024-05-29] MEDS: Albuterol/Iprat 2.5/0.5MG 3 ML AMPUL.NEB INHALE ×3 (07:50→15:13)
[2024-05-29 08:39] LABS: Glucose, Whole Blood 179 mg/dL (60-115)
[2024-05-29] MEDS: Ferrous Sulfate 324 MG TABLET.DR PO (08:45)
[2024-05-29] MEDS: Fluticasone Propionate Nasal 16 GM SPRAY 1 SPRAY NOSTRIL-B (08:45)
[2024-05-29] MEDS: 0.9 % Sodium Chloride Flush 3 ML SYRINGE IVFLUSH ×3 (08:46→20:53)
[2024-05-29] MEDS: ondansetron HCL 4 MG/2 ML VIAL IVPUSH (08:53)
[2024-05-29] MEDS: Milk of Magnesia 30 ML ORAL.SUSP PO (08:53)
[2024-05-29 11:41] LABS: Glucose, Whole Blood 159 mg/dL (60-115)
[2024-05-29] MEDS: Insulin Lispro 100 UNIT/ML 3 ML VIAL SUBCUT ×3 (11:43→20:59)
[2024-05-29] MEDS: Lactulose 20 GM/30 ML SOLUTION PO (11:49)
[2024-05-29] MEDS: polyethylene glycoL 3350 17 GM POWD.PACK PO (11:50)
[2024-05-29] MEDS: Enoxaparin Sodium 40 MG/0.4 ML SYRINGE SUBCUT (13:44)
--- NOTE | 2024-05-29 14:36 | P.PNIM_ITS ---
Subjective Subjective Date of Service: 05/29/24 Interval History: Status post left upper lobe resection Feeling better this morning, appetite has improved denies nausea vomiting, complaining of constipation of several days duration, complaining of left upper back pain at site of chest tube placement, persistent left breast swelling, denies chest pain, no palpitation, oxygenation 90 91% at nighttime with history of chronic obstructive sleep apnea on nocturnal oxygen 2 L. Review of Systems All other system reviewed and are negative. Physical Exam 2 Vital Signs: Vital Signs: Last Vital Signs Temp 97.1 F 05/29/24 11:54 Pulse 103 H 05/29/24 11:54 Resp 20 05/29/24 11:54 BP 133/65 05/29/24 11:54 Pulse Ox 93 05/29/24 11:54 O2 Del Method Nasal Cannula 05/29/24 11:54 O2 Flow Rate 2 05/29/24 11:54 Oxygen Flow Rate 3 05/29/24 11:00 BMI result Body Mass Index 23.8 Const: Other: General awake alert x3, in no acute distress. Neck no JVD. CVS regular rate rhythm, Respiratory diminished breath sound left, no respiratory distress, left breast mild swelling no pain/+ crepitus , likely due to subcutaneous emphysema, chest tube in place Gastrointestinal abdomen soft, non tender, bowel sounds audible Extremities mild edema. Neuro non focal Psych appropriate affect. Objective Data Active Medications Albuterol Sulfate (Albuterol Sulfate 90 Mcg 8 Gm Inhaler) 1 puff INHALE Q4H PRN PRN Reason: for wheezing Albuterol/Ipratropium (Albuterol/Iprat 2.5/0.5mg 3 Ml Ampul.Neb) 3 ml INHALE RQID [facility] [place] Last Admin: 05/29/24 11:16 Dose: 3 ml Documented By: TYRESE Albuterol/Ipratropium (Albuterol/Iprat 2.5/0.5mg 3 Ml Ampul.Neb) 3 ml INHALE Q4H PRN PRN Reason: Wheezing Last Admin: 05/24/24 05:46 Dose: 3 ml Documented By: PALMIRA Atorvastatin Calcium (Atorvastatin Calcium 20 Mg Tablet) 20 mg PO BEDTIME [facility] [place] Last Admin: 05/28/24 21:06 Dose: 20 mg Documented By: ANTHONY Calcium Carbonate (Calcium Carbonate 750 Mg Tab.Chew) 750 mg PO Q4H PRN PRN Reason: Heartburn Enoxaparin Sodium (Enoxaparin Sodium 40 Mg/0.4 Ml Syringe) 40 mg SUBCUT Q24H [facility] [place] Last Admin: 05/29/24 13:44 Dose: 40 mg Documented By: DIAMANTE Ferrous Sulfate (Ferrous Sulfate 324 Mg Tablet.) 324 mg PO DAILY [facility] [place] Last Admin: 05/29/24 08:45 Dose: 324 mg Documented By: DIAMANTE Fluticasone Propionate (Fluticasone Propionate Nasal 16 Gm [place]) 1 spray NOSTRIL-B Q12H [facility] [place] Last Admin: 05/29/24 08:45 Dose: 1 spray Documented By: DIAMANTE Glucose (Glucose Gel 15 Gm Gel..Gram.) 15 gm PO Q15M PRN; Protocol PRN Reason: per Hypoglycemia Standing Ord. Dextrose (D10) 250 mls @ 750 mls/hr IV Q15M PRN; Protocol PRN Reason: per Hypoglycemia Standing Ord. Insulin Human Lispro (Insulin Lispro 100 Unit/Ml 3 Ml Vial) 0 unit SUBCUT QIDACHS [facility] [place]; Protocol Last Admin: 05/29/24 11:43 Dose: 2 unit Documented By: DIAMANTE Magnesium Hydroxide (Milk Of Magnesia 30 Ml Oral.Susp) 30 ml PO DAILY PRN PRN Reason: Constipation Last Admin: 05/29/24 08:53 Dose: 30 ml Documented By: DIAMANTE Melatonin (Melatonin 3 Mg Tablet) 6 mg PO BEDTIME PRN PRN Reason: Insomnia Morphine Sulfate (Morphine Sulfate 2 Mg/Ml Cartridge) 2 mg IVPUSH Q4H PRN; Protocol PRN Reason: Pain, Severe (Pain Scale 7-10) Last Admin: 05/29/24 06:23 Dose: 2 mg Documented By: ANTHONY Omeprazole (Omeprazole 40 Mg Capsule.) 40 mg PO BID@0630,1630 [facility] [place] Last Admin: 05/29/24 06:23 Dose: 40 mg Documented By: ANTHONY Ondansetron HCl (Ondansetron Hcl 4 Mg/2 Ml Vial) 4 mg IVPUSH Q6H PRN PRN Reason: Nausea and Vomiting Last Admin: 05/29/24 08:53 Dose: 4 mg Documented By: DIAMANTE Oxycodone HCl (Oxycodone Hcl Immed Release 5 Mg Tablet) 10 mg PO Q4H [facility] [place] Last Admin: 05/29/24 11:43 Dose: 10 mg Documented By: DIAMANTE Polyethylene Glycol (Polyethylene Glycol 3350 17 Gm Powd.Pack) 17 gm PO DAILY [facility] [place] Last Admin: 05/29/24 11:50 Dose: 17 gm Documented By: DIAMANTE Promethazine HCl (Promethazine Hcl 25 Mg Tablet) 25 mg PO Q8H PRN PRN Reason: Nausea and Vomiting Sodium Chloride (0.9 % Sodium Chloride Flush 3 Ml Syringe) 3 ml IVFLUSH QSHIFT [facility] [place] Last Admin: 05/29/24 08:46 Dose: 3 ml Documented By: DIAMANTE Labs 05/26/24 06:19 05/26/24 06:19 Labs: Laboratory Results - last 24 hr 05/28/24 05/28/24 05/29/24 16:13 20:27 08:35 POC Glucose 135 H 145 H 179 H 05/29/24 11:35 POC Glucose 159 H Assessment and Plan (1) S/P lobectomy of lung: Status: Acute Plan 71-year-old female with a history of peripheral artery disease, diabetes COPD and history of nicotine dependence underwent bronchoscopy bronchoscopy,pneumonolysis, vats bilobectomy (left upper lobe/lingula), mediastinal lymph node sampling 1. 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 -left breast swelling due to subcutaneous emphysema stable. -CBC BMP stable on 05/26 2. Diabetes type 2 -stable blood sugars ,continue lispro correctional scale, hold home medications. 3. COPD -no acute exacerbation, continue DuoNebs q.4 hours as needed for shortness of breath. 4. GERD -continue PPI 5. Mild sinus tachycardia, denies palpitation question related to anxiety, pain and DuoNeb use will follow on telemetry. 6. Severe obstructive sleep apnea noted to have episodes of hypoxia overnight, on 2 L of nocturnal oxygen /intermittent hypoxia due to CINDY. 7. Constipation likely due to narcotics will add MiraLax, Colace and give 1 dose of lactulose. Full code Thank you for the consultation will follow along with you while inpatient. Quality Stroke Does the patient have a stroke diagnosis?: No VTE Prior VTE?: No VTE Risk Level:: Surgical - low VTE Device Contraindication: N/A - Device Ordered VTE Drug Contraindication: Treatment Not Indicated
[2024-05-29] MEDS: Docusate Sodium 100 MG CAPSULE PO ×2 (15:16→20:52)
[2024-05-29 16:07] LABS: Glucose, Whole Blood 158 mg/dL (60-115)
[2024-05-29 20:44] LABS: Glucose, Whole Blood 220 mg/dL (60-115)
[2024-05-29] MEDS: Atorvastatin Calcium 20 MG TABLET PO (20:52)
[2024-05-29] MEDS: Melatonin 3 MG TABLET 6 MG PO (21:47)
[2024-05-30] VITALS (7 sets, daily range): BP systolic 114–144; BP diastolic 57–78; PULSE 60–120; RESP 14–22; TEMP 36.1–37; O2SAT 92–99
[2024-05-30] MEDS: oxyCODONE HCl Immed Release 5 MG TABLET 10 MG PO ×4 (01:19→13:02)
[2024-05-30] MEDS: Morphine Sulfate 2 MG/ML CARTRIDGE IVPUSH ×4 (03:32→21:46)
[2024-05-30] MEDS: Omeprazole 40 MG CAPSULE.DR PO ×2 (05:03→16:51)
[2024-05-30] MEDS: ondansetron HCL 4 MG/2 ML VIAL IVPUSH ×2 (05:09→10:25)
[2024-05-30] MEDS: Milk of Magnesia 30 ML ORAL.SUSP PO (05:21)
--- NOTE | 2024-05-30 06:43 | PC.NURSE ---
notified of ventricular bigeminy rhythm. no new orders.
--- NOTE | 2024-05-30 07:26 | P.PNGS_ITS ---
Subjective Subjective Date of Service: 05/30/24 <Andrew Pelayo - Last Filed: 05/30/24 11:05> 05/30/24 <Andre Vasquez MD - Last Filed: 05/30/24 13:23> Interval history: Pleur-evac w/ 50mL of serosanguinous output overnight. Continues on 3L nasal cannula due to CINDY-related desats. Reports improved pain control w/ PO oxycodone and dilaudid for breakthrough. Reports improved breathing, continued cough productive of dark sputum. Reports continued left breast swelling w/ pain. Non-significant air leak noted on coughing. OOB and ambulating to bathroom w/o symptoms. Reports emesis, nausea managed w/ Zofran. Flatus, still no BM. Urine dark yellow. Reports using IS. Andrew Pelayo M3 <Andrew Pelayo - Last Filed: 05/30/24 11:05> Physical Exam 2 Vital Signs: Vital Signs: Last Vital Signs Temp 96.9 F 05/30/24 03:17 Pulse 107 H 05/30/24 03:17 Resp 20 05/30/24 03:17 BP 131/57 L 05/30/24 03:17 Pulse Ox 93 05/30/24 03:17 O2 Del Method Nasal Cannula 05/30/24 03:17 O2 Flow Rate 3 05/30/24 03:17 Oxygen Flow Rate 3 05/29/24 11:00 BMI result Body Mass Index 23.8 <Andrew Pelayo - Last Filed: 05/30/24 11:05> Const: General: healthy appearing, comfortable and no acute distress < Andrew Pelayo - Last Filed: 05/30/24 11:05> Orientation/consciousness: patient oriented x3 <Andrew Pelayo - Last Filed: 05/30/24 11:05> Chest: Other: steri-strips with some dry blood, chest tube dressing w/ some serosanguinous discharge. crepitus noted on palpation. appropriate incisional tenderness. breast tenderness. <Andrew Pelayo - Last Filed: 05/30/24 11:05> Resp: Effort & Inspection: able to speak in complete sentences and labored (improving) <Andrew Pelayo - Last Filed: 05/30/24 11:05> Neuro: General: patient oriented x3 <Andrew Pelayo - Last Filed: 05/30/24 11:05> Objective Data Active Medications Albuterol Sulfate (Albuterol Sulfate 90 Mcg 8 Gm Inhaler) 1 puff INHALE Q4H PRN PRN Reason: for wheezing Albuterol/Ipratropium (Albuterol/Iprat 2.5/0.5mg 3 Ml Ampul.Neb) 3 ml INHALE Q4H PRN PRN Reason: Wheezing Last Admin: 05/24/24 05:46 Dose: 3 ml Documented By: PALMIRA Atorvastatin Calcium (Atorvastatin Calcium 20 Mg Tablet) 20 mg PO BEDTIME [facility] Last Admin: 05/29/24 20:52 Dose: 20 mg Documented By: VIRAJ Calcium Carbonate (Calcium Carbonate 750 Mg Tab.Chew) 750 mg PO Q4H PRN PRN Reason: Heartburn Docusate Sodium (Docusate Sodium 100 Mg Capsule) 100 mg PO BID [facility] Last Admin: 05/29/24 20:52 Dose: 100 mg Documented By: VIRAJ Enoxaparin Sodium (Enoxaparin Sodium 40 Mg/0.4 Ml Syringe) 40 mg SUBCUT Q24H [facility] Last Admin: 05/29/24 13:44 Dose: 40 mg Documented By: DIAMANTE Ferrous Sulfate (Ferrous Sulfate 324 Mg Tablet.Dr) 324 mg PO DAILY [facility] Last Admin: 05/29/24 08:45 Dose: 324 mg Documented By: DIAMANTE Fluticasone Propionate (Fluticasone Propionate Nasal 16 Gm [place]) 1 spray NOSTRIL-B Q12H [facility] Last Admin: 05/29/24 22:24 Dose: Not Given Documented By: VIRAJ Non-Admin Reason: Patient Refused Glucose (Glucose Gel 15 Gm Gel..Gram.) 15 gm PO Q15M PRN; Protocol PRN Reason: per Hypoglycemia Standing Ord. Dextrose (D10) 250 mls @ 750 mls/hr IV Q15M PRN; Protocol PRN Reason: per Hypoglycemia Standing Ord. Insulin Human Lispro (Insulin Lispro 100 Unit/Ml 3 Ml Vial) 0 unit SUBCUT QIDACHS [facility]; Protocol Last Admin: 05/29/24 20:59 Dose: 4 unit Documented By: VIRAJ Magnesium Hydroxide (Milk Of Magnesia 30 Ml Oral.Susp) 30 ml PO DAILY PRN PRN Reason: Constipation Last Admin: 05/30/24 05:21 Dose: 30 ml Documented By: VIRAJ Melatonin (Melatonin 3 Mg Tablet) 6 mg PO BEDTIME PRN PRN Reason: Insomnia Last Admin: 05/29/24 21:47 Dose: 6 mg Documented By: VIRAJ Morphine Sulfate (Morphine Sulfate 2 Mg/Ml Cartridge) 2 mg IVPUSH Q4H PRN; Protocol PRN Reason: Pain, Severe (Pain Scale 7-10) Last Admin: 05/30/24 03:32 Dose: 2 mg Documented By: VIRAJ Omeprazole (Omeprazole 40 Mg Capsule.Dr) 40 mg PO BID@0630,1630 [facility] Last Admin: 05/30/24 05:03 Dose: 40 mg Documented By: VIRAJ Ondansetron HCl (Ondansetron Hcl 4 Mg/2 Ml Vial) 4 mg IVPUSH Q6H PRN PRN Reason: Nausea and Vomiting Last Admin: 05/30/24 05:09 Dose: 4 mg Documented By: VIRAJ Oxycodone HCl (Oxycodone Hcl Immed Release 5 Mg Tablet) 10 mg PO Q4H [facility] Last Admin: 05/30/24 05:03 Dose: 10 mg Documented By: VIRAJ Polyethylene Glycol (Polyethylene Glycol 3350 17 Gm Powd.Pack) 17 gm PO DAILY [facility] Last Admin: 05/29/24 11:50 Dose: 17 gm Documented By: DIAMANTE Promethazine HCl (Promethazine Hcl 25 Mg Tablet) 25 mg PO Q8H PRN PRN Reason: Nausea and Vomiting Sodium Chloride (0.9 % Sodium Chloride Flush 3 Ml Syringe) 3 ml IVFLUSH QSHIFT [facility] Last Admin: 05/29/24 20:53 Dose: 3 ml Documented By: VIRAJ <Andrew Pelayo - Last Filed: 05/30/24 11:05> Labs CBC & Chem 7: 05/26/24 06:19 05/26/24 06:19 <Andrew Pelayo - Last Filed: 05/30/24 11:05> Labs: Laboratory Results - last 24 hr 05/29/24 05/29/24 05/29/24 08:35 11:35 16:04 POC Glucose 179 H 159 H 158 H 05/29/24 20:26 POC Glucose 220 H <Andrew Pelayo - Last Filed: 05/30/24 11:05> Procedures Date of Service Date of Service: 05/30/24 <Andrew Pelayo - Last Filed: 05/30/24 11:05> 05/30/24 <Andre Vasquez MD - Last Filed: 05/30/24 13:23> Progress Note: A&P Assessment and plan (1) S/P lobectomy of lung: Status: Acute <Andrew Pelayo - Last Filed: 05/30/24 11:05> (2) 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 Minimal chest tube output, serosanguinous. CXR no pneumothorax. Plan for d/c chest tube. H/H stable. VS- persistently mildly hypertensive, otherwise stable and within normal limits. Pain well managed on current regimen. Continue nasal cannula as needed. Encouraged continued OOB and IS. Andrew Pelayo M3 <Andrew Pelayo - Last Filed: 05/30/24 11:05> Pod 8 following left upper lobectomy. Minimal chest tube output, serosanguinous. CXR no pneumothorax. Plan for d/c chest tube. H/H stable. VS- persistently mildly hypertensive, otherwise stable and within normal limits. Pain well managed on current regimen. Continue nasal cannula as needed. Encouraged continued OOB and IS. Andrew Pelayo M3 Status post left chest tube removal. Well tolerated. Postprocedure chest x-ray pending <Andre Vasquez MD - Last Filed: 05/30/24 13:23> Time Spent With Patient Time: Total time managing care of this patient today ____ minutes. <Andrew Pelayo - Last Filed: 05/30/24 11:05> Quality Stroke Does the patient have a stroke diagnosis?: No <Andrew Ocampo Last Filed: 05/30/24 11:05> VTE Prior VTE?: No <Andrew Ocampo Last Filed: 05/30/24 11:05> VTE Risk Level:: Surgical - low <Andrew Ocampo Last Filed: 05/30/24 11:05> VTE Device Contraindication: N/A - Device Ordered <Andrew Ocampo Last Filed: 05/30/24 11:05> VTE Drug Contraindication: Treatment Not Indicated <Andrew Pelayo - Last Filed: 05/30/24 11:05>
[2024-05-30] MEDS: Docusate Sodium 100 MG CAPSULE PO ×2 (07:43→21:45)
[2024-05-30] MEDS: Ferrous Sulfate 324 MG TABLET.DR PO (07:45)
[2024-05-30] MEDS: Fluticasone Propionate Nasal 16 GM SPRAY 1 SPRAY NOSTRIL-B ×2 (07:45→21:50)
[2024-05-30] MEDS: polyethylene glycoL 3350 17 GM POWD.PACK PO (07:46)
[2024-05-30] MEDS: 0.9 % Sodium Chloride Flush 3 ML SYRINGE IVFLUSH ×3 (07:49→21:46)
[2024-05-30] MEDS: Insulin Lispro 100 UNIT/ML 3 ML VIAL SUBCUT (08:07)
[2024-05-30 08:13] LABS: Glucose, Whole Blood 182 mg/dL (60-115)
[2024-05-30] MEDS: Promethazine HCL 25 MG TABLET PO (11:38)
[2024-05-30 11:42] LABS: Glucose, Whole Blood 119 mg/dL (60-115)
[2024-05-30] MEDS: Enoxaparin Sodium 40 MG/0.4 ML SYRINGE SUBCUT (13:07)
--- NOTE | 2024-05-30 14:11 | MHC.CM.PN ---
EMR REVIEWED, PER SURGICAL NOTES PT IMPROVING AND PLAN TO REMOVE CHEST TUBE TODAY, PT CURRENTLY ON 3L O2 NC, PT AWAITING RETURN OF BOWEL FX, PER SURGEON CM WILL SET UP VNA FOR PT AND CONT TO FOLLOW DC NEEDS.
--- NOTE | 2024-05-30 16:11 | P.PNIM_ITS ---
Subjective Subjective Date of Service: 05/30/24 Interval History: Feeling better this morning offers no acute complaints, less shortness of breath and left breast swelling, no bowel movement in last several days, no nausea, no vomiting, no fever no chills. Review of Systems All other system reviewed and are negative. Physical Exam 2 Vital Signs: Vital Signs: Last Vital Signs Temp 97.2 F 05/30/24 11:32 Pulse 120 H 05/30/24 11:32 Resp 19 05/30/24 11:32 BP 137/78 05/30/24 11:32 Pulse Ox 92 05/30/24 11:32 O2 Del Method Nasal Cannula 05/30/24 11:32 O2 Flow Rate 3 05/30/24 11:32 Oxygen Flow Rate 3 05/29/24 11:00 BMI result Body Mass Index 23.8 Const: Other: General awake alert x3, in no acute distress. Neck no JVD. CVS regular rate rhythm, Respiratory diminished breath sound left, no respiratory distress, left breast mild swelling no pain/+ crepitus , likely due to subcutaneous emphysema, chest tube in place Gastrointestinal abdomen soft, non tender, bowel sounds audible Extremities mild edema. Neuro non focal Psych appropriate affect. Objective Data Active Medications Albuterol Sulfate (Albuterol Sulfate 90 Mcg 8 Gm Inhaler) 1 puff INHALE Q4H PRN PRN Reason: for wheezing Albuterol/Ipratropium (Albuterol/Iprat 2.5/0.5mg 3 Ml Ampul.Neb) 3 ml INHALE Q4H PRN PRN Reason: Wheezing Last Admin: 05/24/24 05:46 Dose: 3 ml Documented By: PALMIRA Atorvastatin Calcium (Atorvastatin Calcium 20 Mg Tablet) 20 mg PO BEDTIME [facility] Last Admin: 05/29/24 20:52 Dose: 20 mg Documented By: VIRAJ Calcium Carbonate (Calcium Carbonate 750 Mg Tab.Chew) 750 mg PO Q4H PRN PRN Reason: Heartburn Docusate Sodium (Docusate Sodium 100 Mg Capsule) 100 mg PO BID [facility] Last Admin: 05/30/24 07:43 Dose: 100 mg Documented By: YESSICA Enoxaparin Sodium (Enoxaparin Sodium 40 Mg/0.4 Ml Syringe) 40 mg SUBCUT Q24H [facility] Last Admin: 05/30/24 13:07 Dose: 40 mg Documented By: YESSICA Ferrous Sulfate (Ferrous Sulfate 324 Mg Tablet.) 324 mg PO DAILY [facility] Last Admin: 05/30/24 07:45 Dose: 324 mg Documented By: YESSICA Fluticasone Propionate (Fluticasone Propionate Nasal 16 Gm [place]) 1 spray NOSTRIL-B Q12H [facility] Last Admin: 05/30/24 07:45 Dose: 1 spray Documented By: YESSICA Glucose (Glucose Gel 15 Gm Gel..Gram.) 15 gm PO Q15M PRN; Protocol PRN Reason: per Hypoglycemia Standing Ord. Dextrose (D10) 250 mls @ 750 mls/hr IV Q15M PRN; Protocol PRN Reason: per Hypoglycemia Standing Ord. Insulin Human Lispro (Insulin Lispro 100 Unit/Ml 3 Ml Vial) 0 unit SUBCUT QIDACHS [facility]; Protocol Last Admin: 05/30/24 12:23 Dose: Not Given Documented By: YESSICA Non-Admin Reason: No Insulin Coverage Magnesium Hydroxide (Milk Of Magnesia 30 Ml Oral.Susp) 30 ml PO DAILY PRN PRN Reason: Constipation Last Admin: 05/30/24 05:21 Dose: 30 ml Documented By: VIRAJ Melatonin (Melatonin 3 Mg Tablet) 6 mg PO BEDTIME PRN PRN Reason: Insomnia Last Admin: 05/29/24 21:47 Dose: 6 mg Documented By: VIRAJ Morphine Sulfate (Morphine Sulfate 2 Mg/Ml Cartridge) 2 mg IVPUSH Q4H PRN; Protocol PRN Reason: Pain, Severe (Pain Scale 7-10) Last Admin: 05/30/24 11:42 Dose: 2 mg Documented By: YESSICA Omeprazole (Omeprazole 40 Mg Capsule.) 40 mg PO BID@0630,1630 [facility] Last Admin: 05/30/24 05:03 Dose: 40 mg Documented By: VIRAJ Ondansetron HCl (Ondansetron Hcl 4 Mg/2 Ml Vial) 4 mg IVPUSH Q6H PRN PRN Reason: Nausea and Vomiting Last Admin: 05/30/24 10:25 Dose: 4 mg Documented By: JULIEN Oxycodone HCl (Oxycodone Hcl Immed Release 5 Mg Tablet) 10 mg PO Q4H [facility] Last Admin: 05/30/24 13:02 Dose: 10 mg Documented By: YESSICA Polyethylene Glycol (Polyethylene Glycol 3350 17 Gm Powd.Pack) 17 gm PO DAILY [facility] Last Admin: 05/30/24 07:46 Dose: 17 gm Documented By: YESSICA Promethazine HCl (Promethazine Hcl 25 Mg Tablet) 25 mg PO Q8H PRN PRN Reason: Nausea and Vomiting Last Admin: 05/30/24 11:38 Dose: 25 mg Documented By: YESSICA Sodium Chloride (0.9 % Sodium Chloride Flush 3 Ml Syringe) 3 ml IVFLUSH QSHIFT [facility] Last Admin: 05/30/24 07:49 Dose: 3 ml Documented By: YESSICA Labs 05/26/24 06:19 05/26/24 06:19 Labs: Laboratory Results - last 24 hr 05/29/24 05/30/24 05/30/24 20:26 08:03 11:29 POC Glucose 220 H 182 H 119 H Assessment and Plan (1) S/P lobectomy of lung: Status: Acute Plan 71-year-old female with a history of peripheral artery disease, diabetes COPD and history of nicotine dependence underwent bronchoscopy bronchoscopy,pneumonolysis, vats bilobectomy (left upper lobe/lingula), mediastinal lymph node sampling 1. Squamous cell carcinoma status post left upper lobectomy POD 8 -good pain control will change oxycodone to 5mg as needed and continue iv morphine for breakthrough -postoperative care as per thoracic surgery, chest x-ray 05/30 showed no apical pneumothorax -left breast swelling due to subcutaneous emphysema improving. -CBC BMP stable on 05/26 2. Diabetes type 2 -stable blood sugars ,continue lispro correctional scale, hold home medications. 3. COPD -no acute exacerbation, continue DuoNebs q.4 hours as needed for shortness of breath. 4. GERD -continue PPI 5. Mild sinus tachycardia, denies palpitation question related to anxiety, pain and DuoNeb use will follow on telemetry. 6. Severe obstructive sleep apnea noted to have episodes of hypoxia overnight, on 2 L of nocturnal oxygen /intermittent hypoxia due to CINDY. 7. Constipation likely due to narcotics continue MiraLax, Colace , will repeat dose of lactulose, will add senna and as needed enema . Full code Thank you for the consultation will follow along with you while inpatient. Quality Stroke Does the patient have a stroke diagnosis?: No VTE Prior VTE?: No VTE Risk Level:: Surgical - low VTE Device Contraindication: N/A - Device Ordered VTE Drug Contraindication: Treatment Not Indicated
[2024-05-30] MEDS: Lactulose 20 GM/30 ML SOLUTION PO (16:51)
[2024-05-30 16:56] LABS: Glucose, Whole Blood 133 mg/dL (60-115)
[2024-05-30 20:43] LABS: Glucose, Whole Blood 142 mg/dL (60-115)
[2024-05-30] MEDS: Sennosides/Docusate Sodium TABLET 1 TAB PO (21:45)
[2024-05-30] MEDS: Atorvastatin Calcium 20 MG TABLET PO (21:45)
[2024-05-30] MEDS: Melatonin 3 MG TABLET 6 MG PO (21:45)
[2024-05-31] VITALS (12 sets, daily range): BP systolic 130–152; BP diastolic 46–82; PULSE 108–126; RESP 16–24; TEMP 36.2–37.1; O2SAT 90–98
[2024-05-31] MEDS: oxyCODONE HCl Immed Release 5 MG TABLET PO ×3 (00:50→13:51)
[2024-05-31] MEDS: Morphine Sulfate 2 MG/ML CARTRIDGE IVPUSH ×4 (03:02→16:49)
[2024-05-31] MEDS: Omeprazole 40 MG CAPSULE.DR PO ×2 (05:59→16:42)
[2024-05-31] MEDS: Docusate Sodium 100 MG CAPSULE PO (07:40)
[2024-05-31] MEDS: Ferrous Sulfate 324 MG TABLET.DR PO (07:40)
[2024-05-31] MEDS: polyethylene glycoL 3350 17 GM POWD.PACK PO ×2 (07:40→16:42)
[2024-05-31] MEDS: 0.9 % Sodium Chloride Flush 3 ML SYRINGE IVFLUSH ×3 (07:41→21:00)
[2024-05-31 07:45] LABS: Glucose, Whole Blood 179 mg/dL (60-115)
[2024-05-31] MEDS: Insulin Lispro 100 UNIT/ML 3 ML VIAL SUBCUT ×3 (07:48→21:00)
[2024-05-31] MEDS: Albuterol/Iprat 2.5/0.5MG 3 ML AMPUL.NEB INHALE ×4 (07:50→19:46)
[2024-05-31 08:37] LABS: Hematocrit 28.2 % (37.0-47.0); Hemoglobin 9.2 g/dl (12.0-16.0); Mean Corpuscular HGB Conc 32.6 g/dl (31.0-35.0); Mean Corpuscular Hemoglobin 25.8 pg (27.0-33.0); Mean Platelet Volume 8.8 fL (9.4-12.3); Platelet Count 435 X10*3/uL (160-400); Red Blood Count 3.57 X10*6/uL (4.20-5.50); Red Cell Distribution Width 18.6 % (11.0-16.0); White Blood Count 22.1 X10*3/uL (4.8-10.8)
[2024-05-31 08:58] LABS: Anion Gap 13 (12-20); Blood Urea Nitrogen 18 mg/dL (9-16); Calcium 9.1 mg/dL (8.4-10.2); Carbon Dioxide 27 mmol/L (22-29); Chloride 97 mmol/L (96-108); Creatinine Clr Calc Pharmacy 57.1; Estimated Glomerular Filt Rate > 60; Glucose Random 166 mg/dL (60-115); Sodium 133 mmol/L (135-145)
[2024-05-31 09:07] LABS: ABG Base Excess 6.5 mmol/L; ABG HCO3 29 mmol/L (22-26); ABG pCO2 37 mmHg (32-45); ABG pH 7.51 (7.35-7.45); ABG pO2 69 mmHg (83-108)
[2024-05-31] MEDS: Piperacillin Sodium/Tazobactam 4.5 GM in 0.9 % Sodium Chloride 100 ML IV ×3 (09:48→22:40)
[2024-05-31 11:45] LABS: Glucose, Whole Blood 145 mg/dL (60-115)
--- NOTE | 2024-05-31 12:14 | P.PNGS_ITS ---
Subjective Subjective Date of Service: 06/05/24 Interval history: Chest tube removed yesterday Main complaint is constipation Says she has been ambulating No nausea or vomiting Passing flatus Mentions swelling on breast, improving Physical Exam 2 Vital Signs: Vital Signs: Last Vital Signs Temp 97.6 F 05/31/24 11:36 Pulse 124 H 05/31/24 11:36 Resp 20 05/31/24 11:36 BP 130/82 05/31/24 11:36 Pulse Ox 94 05/31/24 11:36 O2 Del Method Nasal Cannula 05/31/24 11:36 O2 Flow Rate 3 05/31/24 11:36 Oxygen Flow Rate 3 05/31/24 11:00 BMI result Body Mass Index 23.8 Const: General: comfortable and no acute distress Resp: Effort & Inspection: normal respiratory effort Cardio: Rate: tachycardic GI: Palpation (GI): Soft to palpation, not firm, nontender and no guarding Objective Data Active Medications Albuterol Sulfate (Albuterol Sulfate 90 Mcg 8 Gm Inhaler) 1 puff INHALE Q4H PRN PRN Reason: for wheezing Albuterol/Ipratropium (Albuterol/Iprat 2.5/0.5mg 3 Ml Ampul.Neb) 3 ml INHALE Q4H PRN PRN Reason: Wheezing Last Admin: 05/31/24 07:50 Dose: 3 ml Documented By: GRACE Albuterol/Ipratropium (Albuterol/Iprat 2.5/0.5mg 3 Ml Ampul.Neb) 3 ml INHALE QID [facility] Last Admin: 05/31/24 11:13 Dose: 3 ml Documented By: GRACE Atorvastatin Calcium (Atorvastatin Calcium 20 Mg Tablet) 20 mg PO BEDTIME [facility] Last Admin: 05/30/24 21:45 Dose: 20 mg Documented By: ANTHONY Calcium Carbonate (Calcium Carbonate 750 Mg Tab.Chew) 750 mg PO Q4H PRN PRN Reason: Heartburn Docusate Sodium (Docusate Sodium 100 Mg Capsule) 100 mg PO BID [facility] Last Admin: 05/31/24 07:40 Dose: 100 mg Documented By: ARLEEN Enoxaparin Sodium (Enoxaparin Sodium 40 Mg/0.4 Ml Syringe) 40 mg SUBCUT Q24H [facility] Last Admin: 05/30/24 13:07 Dose: 40 mg Documented By: YESSICA Ferrous Sulfate (Ferrous Sulfate 324 Mg Tablet.) 324 mg PO DAILY [facility] Last Admin: 05/31/24 07:40 Dose: 324 mg Documented By: ARLEEN Fluticasone Propionate (Fluticasone Propionate Nasal 16 Gm [place]) 1 spray NOSTRIL-B Q12H [facility] Last Admin: 05/31/24 08:49 Dose: Not Given Documented By: ARLEEN Non-Admin Reason: Patient Refused Glucose (Glucose Gel 15 Gm Gel..Gram.) 15 gm PO Q15M PRN; Protocol PRN Reason: per Hypoglycemia Standing Ord. Dextrose (D10) 250 mls @ 750 mls/hr IV Q15M PRN; Protocol PRN Reason: per Hypoglycemia Standing Ord. Piperacillin Sod/Tazobactam (Sod 4.5 gm/ Sodium Chloride) 100 mls @ 200 mls/hr IV Q6H [facility] Last Infusion: 05/31/24 10:29 Dose: Infused Documented By: ARLEEN Insulin Human Lispro (Insulin Lispro 100 Unit/Ml 3 Ml Vial) 0 unit SUBCUT QIDACHS [facility]; Protocol Last Admin: 05/31/24 11:46 Dose: Not Given Documented By: KRISHNA Non-Admin Reason: No Insulin Coverage Magnesium Hydroxide (Milk Of Magnesia 30 Ml Oral.Susp) 30 ml PO DAILY PRN PRN Reason: Constipation Last Admin: 05/30/24 05:21 Dose: 30 ml Documented By: VIARJ Melatonin (Melatonin 3 Mg Tablet) 6 mg PO BEDTIME PRN PRN Reason: Insomnia Last Admin: 05/30/24 21:45 Dose: 6 mg Documented By: ANTHONY Morphine Sulfate (Morphine Sulfate 2 Mg/Ml Cartridge) 2 mg IVPUSH Q4H PRN; Protocol PRN Reason: Pain, Severe (Pain Scale 7-10) Last Admin: 05/31/24 07:41 Dose: 2 mg Documented By: ARLEEN Omeprazole (Omeprazole 40 Mg Capsule.) 40 mg PO BID@0630,1630 [facility] Last Admin: 05/31/24 05:59 Dose: 40 mg Documented By: ANTHONY Ondansetron HCl (Ondansetron Hcl 4 Mg/2 Ml Vial) 4 mg IVPUSH Q6H PRN PRN Reason: Nausea and Vomiting Last Admin: 05/30/24 10:25 Dose: 4 mg Documented By: PHANLYM Oxycodone HCl (Oxycodone Hcl Immed Release 5 Mg Tablet) 5 mg PO Q4H PRN PRN Reason: pain moderate Last Admin: 05/31/24 05:59 Dose: 5 mg Documented By: ANTHONY Polyethylene Glycol (Polyethylene Glycol 3350 17 Gm Powd.Pack) 17 gm PO DAILY [facility] Last Admin: 05/31/24 07:40 Dose: 17 gm Documented By: ARLEEN Promethazine HCl (Promethazine Hcl 25 Mg Tablet) 25 mg PO Q8H PRN PRN Reason: Nausea and Vomiting Last Admin: 05/30/24 11:38 Dose: 25 mg Documented By: YESSICA Senna/Docusate Sodium (Sennosides/Docusate Sodium Tablet) 1 tab PO BEDTIME [facility] Last Admin: 05/30/24 21:45 Dose: 1 tab Documented By: ANTHONY Sodium Biphosphate/Sodium Phosphate (Sodium Phosphate,[place]-Dibasic 133 Ml [place]) 133 ml [place] ONCE PRN PRN Reason: constipation Sodium Chloride (0.9 % Sodium Chloride Flush 3 Ml Syringe) 3 ml IVFLUSH QSHIFT [facility] Last Admin: 05/31/24 07:41 Dose: 3 ml Documented By: ARLEEN Labs 06/03/24 10:54 06/03/24 06:19 Labs: Laboratory Results - last 24 hr 05/30/24 05/30/24 05/31/24 16:49 20:32 07:41 MCV MCH MCHC RDW Plt Count MPV Absolute Nucleated RBC Nucleated RBC % (auto) O2 Saturation ABG pH at Pt Temp ABG pCO2 at Pt Temp ABG pO2 at Pt Temp ABG HCO3 ABG Base Excess (Actual) Anion Gap Estim Creat Clear Calc Estimated GFR POC Glucose 133 H 142 H 179 H Random Glucose Calcium 05/31/24 05/31/24 05/31/24 08:27 08:58 11:41 MCV 79.0 L MCH 25.8 L MCHC 32.6 RDW 18.6 H Plt Count 435 H D MPV 8.8 L Absolute Nucleated RBC 0.000 Nucleated RBC % (auto) 0.0 O2 Saturation 94.0 ABG pH at Pt Temp 7.51 H ABG pCO2 at Pt Temp 37 ABG pO2 at Pt Temp 69 L ABG HCO3 29 H ABG Base Excess (Actual) 6.5 Anion Gap 13 Estim Creat Clear Calc 57.1 Estimated GFR > 60 POC Glucose 145 H Random Glucose 166 H Calcium 9.1 Procedures Date of Service Date of Service: 06/05/24 Progress Note: A&P Assessment and plan (1) S/P lobectomy of lung: Status: Acute Assessment and Plan: Looks well Chest tube removed yesterday Still constipated We will give MiraLax Continue stool softeners WBC elevated - no fever Etiology of leukocytosis uncertain, we will re-evaluate tomorrow Time Spent With Patient Time: Total time managing care of this patient today ____ minutes. Quality Stroke Does the patient have a stroke diagnosis?: No VTE Prior VTE?: No VTE Risk Level:: Surgical - low VTE Device Contraindication: N/A - Device Ordered VTE Drug Contraindication: Treatment Not Indicated
[2024-05-31] MEDS: Milk of Magnesia 30 ML ORAL.SUSP PO (12:35)
[2024-05-31 12:54] LABS: ABG Refer to POC result
--- NOTE | 2024-05-31 13:40 | HO.PM.IMPN ---
Subjective Subjective Date of Service: 05/31/24 Interval History: Patient complaining of left sided upper back pain, shortness of breath, cough productive of yellowish-white phlegm, denies fever, no chills. Events from this morning noted patient was tachypneic, tachycardic, no fevers , stable BP. Review of Systems All other systems are reviewed and are negative Physical Exam Vital Signs: Vital Signs: Last Vital Signs Temp 97.6 F 05/31/24 11:36 Pulse 124 H 05/31/24 11:36 Resp 20 05/31/24 11:36 BP 130/82 05/31/24 11:36 Pulse Ox 94 05/31/24 11:36 O2 Del Method Nasal Cannula 05/31/24 11:36 O2 Flow Rate 3 05/31/24 11:36 Oxygen Flow Rate 3 05/31/24 11:00 BMI result Body Mass Index 23.8 Const: Other: General awake alert x3, in no acute distress. Neck no JVD. CVS regular rate rhythm, Respiratory diminished breath sound left, coarse breath sound, no wheeze, no crackles, left breast and back + crepitus , likely due to subcutaneous emphysema, no dryness from chest tube site removal. Gastrointestinal abdomen soft, non tender, bowel sounds audible Extremities mild edema. Upper back tenderness to palpation left side. Neuro non focal Psych appropriate affect. Objective Data Active Medications Albuterol Sulfate (Albuterol Sulfate 90 Mcg 8 Gm Inhaler) 1 puff INHALE Q4H PRN PRN Reason: for wheezing Albuterol/Ipratropium (Albuterol/Iprat 2.5/0.5mg 3 Ml Ampul.Neb) 3 ml INHALE Q4H PRN PRN Reason: Wheezing Last Admin: 05/31/24 07:50 Dose: 3 ml Documented By: GRACE Albuterol/Ipratropium (Albuterol/Iprat 2.5/0.5mg 3 Ml Ampul.Neb) 3 ml INHALE QID [facility] Last Admin: 05/31/24 11:13 Dose: 3 ml Documented By: GRACE Atorvastatin Calcium (Atorvastatin Calcium 20 Mg Tablet) 20 mg PO BEDTIME [facility] Last Admin: 05/30/24 21:45 Dose: 20 mg Documented By: ANTHONY Calcium Carbonate (Calcium Carbonate 750 Mg Tab.Chew) 750 mg PO Q4H PRN PRN Reason: Heartburn Docusate Sodium (Docusate Sodium 100 Mg Capsule) 100 mg PO BID [facility] Last Admin: 05/31/24 07:40 Dose: 100 mg Documented By: ARLEEN Enoxaparin Sodium (Enoxaparin Sodium 40 Mg/0.4 Ml Syringe) 40 mg SUBCUT Q24H [facility] Last Admin: 05/30/24 13:07 Dose: 40 mg Documented By: YESSICA Ferrous Sulfate (Ferrous Sulfate 324 Mg Tablet.Dr) 324 mg PO DAILY [facility] Last Admin: 05/31/24 07:40 Dose: 324 mg Documented By: ARLEEN Fluticasone Propionate (Fluticasone Propionate Nasal 16 Gm [place]) 1 spray NOSTRIL-B Q12H [facility] Last Admin: 05/31/24 08:49 Dose: Not Given Documented By: ARLEEN Non-Admin Reason: Patient Refused Glucose (Glucose Gel 15 Gm Gel..Gram.) 15 gm PO Q15M PRN; Protocol PRN Reason: per Hypoglycemia Standing Ord. Dextrose (D10) 250 mls @ 750 mls/hr IV Q15M PRN; Protocol PRN Reason: per Hypoglycemia Standing Ord. Piperacillin Sod/Tazobactam (Sod 4.5 gm/ Sodium Chloride) 100 mls @ 200 mls/hr IV Q6H [facility] Last Infusion: 05/31/24 10:29 Dose: Infused Documented By: ARLEEN Insulin Human Lispro (Insulin Lispro 100 Unit/Ml 3 Ml Vial) 0 unit SUBCUT QIDACHS [facility]; Protocol Last Admin: 05/31/24 11:46 Dose: Not Given Documented By: KRISHNA Non-Admin Reason: No Insulin Coverage Magnesium Hydroxide (Milk Of Magnesia 30 Ml Oral.Susp) 30 ml PO DAILY PRN PRN Reason: Constipation Last Admin: 05/31/24 12:35 Dose: 30 ml Documented By: KRISHNA Melatonin (Melatonin 3 Mg Tablet) 6 mg PO BEDTIME PRN PRN Reason: Insomnia Last Admin: 05/30/24 21:45 Dose: 6 mg Documented By: ANTHONY Morphine Sulfate (Morphine Sulfate 2 Mg/Ml Cartridge) 2 mg IVPUSH Q4H PRN; Protocol PRN Reason: Pain, Severe (Pain Scale 7-10) Last Admin: 05/31/24 12:35 Dose: 2 mg Documented By: KRISHNA Omeprazole (Omeprazole 40 Mg Capsule.Dr) 40 mg PO BID@0630,1630 [facility] Last Admin: 05/31/24 05:59 Dose: 40 mg Documented By: ANTHONY Ondansetron HCl (Ondansetron Hcl 4 Mg/2 Ml Vial) 4 mg IVPUSH Q6H PRN PRN Reason: Nausea and Vomiting Last Admin: 05/30/24 10:25 Dose: 4 mg Documented By: PHAERIKA Oxycodone HCl (Oxycodone Hcl Immed Release 5 Mg Tablet) 5 mg PO Q4H PRN PRN Reason: pain moderate Last Admin: 05/31/24 05:59 Dose: 5 mg Documented By: ANTHONY Polyethylene Glycol (Polyethylene Glycol 3350 17 Gm Powd.Pack) 17 gm PO DAILY [facility] Last Admin: 05/31/24 07:40 Dose: 17 gm Documented By: ARLEEN Polyethylene Glycol (Polyethylene Glycol 3350 17 Gm Powd.Pack) 17 gm PO DAILY PRN PRN Reason: Constipation Promethazine HCl (Promethazine Hcl 25 Mg Tablet) 25 mg PO Q8H PRN PRN Reason: Nausea and Vomiting Last Admin: 05/30/24 11:38 Dose: 25 mg Documented By: YESSICA Senna/Docusate Sodium (Sennosides/Docusate Sodium Tablet) 1 tab PO BEDTIME [facility] Last Admin: 05/30/24 21:45 Dose: 1 tab Documented By: ANTHONY Sodium Biphosphate/Sodium Phosphate (Sodium Phosphate,[place]-Dibasic 133 Ml [place]) 133 ml [place] ONCE PRN PRN Reason: constipation Sodium Chloride (0.9 % Sodium Chloride Flush 3 Ml Syringe) 3 ml IVFLUSH QSHIFT [facility] Last Admin: 05/31/24 07:41 Dose: 3 ml Documented By: ARLEEN Labs 05/31/24 08:27 05/31/24 08:27 Labs: Laboratory Results - last 24 hr 05/30/24 05/30/24 05/31/24 16:49 20:32 07:41 MCV MCH MCHC RDW Plt Count MPV Absolute Nucleated RBC Nucleated RBC % (auto) O2 Saturation ABG pH at Pt Temp ABG pCO2 at Pt Temp ABG pO2 at Pt Temp ABG HCO3 ABG Base Excess (Actual) Anion Gap Estim Creat Clear Calc Estimated GFR POC Glucose 133 H 142 H 179 H Random Glucose Calcium 05/31/24 05/31/24 05/31/24 08:27 08:58 11:41 MCV 79.0 L MCH 25.8 L MCHC 32.6 RDW 18.6 H Plt Count 435 H D MPV 8.8 L Absolute Nucleated RBC 0.000 Nucleated RBC % (auto) 0.0 O2 Saturation 94.0 ABG pH at Pt Temp 7.51 H ABG pCO2 at Pt Temp 37 ABG pO2 at Pt Temp 69 L ABG HCO3 29 H ABG Base Excess (Actual) 6.5 Anion Gap 13 Estim Creat Clear Calc 57.1 Estimated GFR > 60 POC Glucose 145 H Random Glucose 166 H Calcium 9.1 Assessment and Plan (1) S/P lobectomy of lung: Status: Acute Plan 71-year-old female with a history of peripheral artery disease, diabetes COPD and history of nicotine dependence underwent bronchoscopy bronchoscopy,pneumonolysis, vats bilobectomy (left upper lobe/lingula), mediastinal lymph node sampling 1. Squamous cell carcinoma status post left upper lobectomy POD 9 Chest tube removed 05/30 -left upper back pain, continue oxycodone 5mg and iv morphine for breakthrough -postoperative care as per thoracic surgery, chest x-ray 05/30 showed no apical pneumothorax -left breast and upper back swelling due to subcutaneous emphysema improving. 2. Diabetes type 2 -stable blood sugars ,continue lispro correctional scale, hold home medications. 3. COPD -no acute exacerbation, continue DuoNebs q.6 hours as needed for shortness of breath. 4. GERD -continue PPI 5. Tachypnea/sinus tachycardia, noted this a.m. likely due to anxiety and pain Chest x-ray unchanged from yesterday, volume loss left hemithorax, leukocytosis likely reactive, no sepsis ABG showed alkalosis likely due to hyperventilation Continue O2 support, treat pain and constipation empiric antibiotic follow clinical course 6. Severe obstructive sleep apnea on 2 L of nocturnal oxygen /intermittent hypoxia due to CINDY. 7. Constipation likely due to narcotics continue MiraLax increase dose to b.i.d. continue Senokot,, Colace , repeat dose of lactulose, and as needed enema . Full code will follow along with you while inpatient. Quality Stroke Does the patient have a stroke diagnosis?: No VTE Prior VTE?: No VTE Risk Level:: Surgical - low VTE Device Contraindication: N/A - Device Ordered VTE Drug Contraindication: Treatment Not Indicated
[2024-05-31] MEDS: Enoxaparin Sodium 40 MG/0.4 ML SYRINGE SUBCUT (13:52)
[2024-05-31] MEDS: Lactulose 20 GM/30 ML SOLUTION 30 GM PO (13:52)
[2024-05-31 16:16] LABS: Glucose, Whole Blood 270 mg/dL (60-115)
[2024-05-31 18:13] LABS: Appearance Urine Clear; Color Urine Dark Yellow; Glucose Urine UA Negative (Negative); Leukocyte Esterase Urine Trace (Negative); Nitrite Urine Negative (Negative); PH 6.5 (5.0-9.0); Specific Gravity - Urine 1.025 (1.005-1.025); UMIC TRIGGER UACC YES; Urine Blood Negative (Negative); Urine Ketones Trace mg/dL (Negative); Urine Protein 30 (1+) mg/dL (Neg-Trace)
[2024-05-31 18:54] LABS: Bacteria Urine None Seen (None Seen); Hyaline Casts Urine 0-2 /LPF (0-2); Squamous Epithelial Cell Urine 0-2 /HPF (0-2); WBC Urine 0-5 /HPF (0-5)
[2024-05-31 18:55] LABS: RBC Urine 0-2 /HPF (0-2)
[2024-05-31 20:05] LABS: Glucose, Whole Blood 156 mg/dL (60-115)
[2024-05-31] MEDS: Fluticasone Propionate Nasal 16 GM SPRAY 1 SPRAY NOSTRIL-B (21:01)
[2024-05-31] MEDS: ondansetron HCL 4 MG/2 ML VIAL IVPUSH (21:15)
--- NOTE | 2024-05-31 21:39 | PM.EVENT ---
Event Note Date of Service: 05/31/24 Event Note: Pt with abd pain, generalized across abdomen. No BM since 05/19. Nurse reported temp 100.6. Also noted increase in WBC count in am. Will order ceftriaxone x1. Also ordering fluids, lactic acid and blood culture. Time Spent With Patient Time: Total time managing care of this patient today ____ minutes.
[2024-05-31 22:40] LABS: Lactic Acid 2.4 mmol/L (0.5-2.0)
[2024-05-31] MEDS: cefTRIAXone sodium 1 GM in 0.9 % Sodium Chloride 50 ML IV (22:45)
[2024-05-31] MEDS: Albumin Human 25 % 100 ML 133.33 ML IV ×2 (22:58→23:10)
[2024-06-01] VITALS (13 sets, daily range): BP systolic 106–148; BP diastolic 47–66; PULSE 81–115; RESP 16–20; TEMP 36.1–36.9; O2SAT 88–99
[2024-06-01 00:15] LABS: Reflex Lactate? Lactic Acid Added
[2024-06-01] MEDS: Morphine Sulfate 2 MG/ML CARTRIDGE IVPUSH ×2 (00:48→06:09)
[2024-06-01 01:37] LABS: ~Lactic Acid-LAB USE ONLY 1.2 mmol/L (0.5-2.0)
[2024-06-01] MEDS: Omeprazole 40 MG CAPSULE.DR PO ×2 (06:08→16:17)
[2024-06-01] MEDS: Piperacillin Sodium/Tazobactam 4.5 GM in 0.9 % Sodium Chloride 100 ML IV ×4 (06:08→22:12)
[2024-06-01 06:40] LABS: Hematocrit 26.1 % (37.0-47.0); Hemoglobin 8.3 g/dl (12.0-16.0); Mean Corpuscular HGB Conc 31.8 g/dl (31.0-35.0); Mean Corpuscular Hemoglobin 25.4 pg (27.0-33.0); Mean Corpuscular Volume 79.8 fL (80.0-98.0); Platelet Count 390 X10*3/uL (160-400); Red Blood Count 3.27 X10*6/uL (4.20-5.50); Red Cell Distribution Width 19.2 % (11.0-16.0); White Blood Count 23.5 X10*3/uL (4.8-10.8)
[2024-06-01 06:57] LABS: Anion Gap 15 (12-20); Blood Urea Nitrogen 16 mg/dL (9-16); Calcium 8.9 mg/dL (8.4-10.2); Carbon Dioxide 24 mmol/L (22-29); Chloride 99 mmol/L (96-108); Creatinine Clr Calc Pharmacy 56.3; Estimated Glomerular Filt Rate > 60; Glucose Random 138 mg/dL (60-115); Potassium 3.7 mmol/L (3.3-5.1); Sodium 134 mmol/L (135-145)
[2024-06-01 07:20] LABS: Glucose, Whole Blood 129 mg/dL (60-115)
[2024-06-01] MEDS: Albuterol/Iprat 2.5/0.5MG 3 ML AMPUL.NEB INHALE ×3 (07:29→15:30)
[2024-06-01] MEDS: polyethylene glycoL 3350 17 GM POWD.PACK PO (08:18)
[2024-06-01] MEDS: Docusate Sodium 100 MG CAPSULE PO ×2 (08:18→20:27)
[2024-06-01] MEDS: Lactulose 20 GM/30 ML SOLUTION 30 GM PO (08:18)
[2024-06-01] MEDS: Ferrous Sulfate 324 MG TABLET.DR PO (08:18)
[2024-06-01] MEDS: 0.9 % Sodium Chloride Flush 3 ML SYRINGE IVFLUSH ×2 (08:19→16:16)
--- NOTE | 2024-06-01 10:06 | PM.PNGS ---
Subjective Subjective Date of Service: 06/01/24 Interval history: Says she is still constipated She stated that she feels she has been constipated since before her surgery No vomiting Has flatus Some abdominal discomfort Says she gets short of breath as well with movement Physical Exam Vital Signs: Vital Signs: Last Vital Signs Temp 97.1 F 06/01/24 07:34 Pulse 96 06/01/24 07:34 Resp 20 06/01/24 07:34 BP 112/66 06/01/24 07:34 Pulse Ox 88 L 06/01/24 08:44 O2 Del Method Nasal Cannula 06/01/24 08:44 O2 Flow Rate 3 06/01/24 07:34 Oxygen Flow Rate 2 06/01/24 08:44 BMI result Body Mass Index 23.8 Const: General: no acute distress Resp: Other: Has some shortness of breath Cardio: Rate: regular rate GI: Palpation (GI): Soft to palpation, not firm, no guarding and not rigid Objective Data Active Medications Albuterol Sulfate (Albuterol Sulfate 90 Mcg 8 Gm Inhaler) 1 puff INHALE Q4H PRN PRN Reason: for wheezing Albuterol/Ipratropium (Albuterol/Iprat 2.5/0.5mg 3 Ml Ampul.Neb) 3 ml INHALE Q4H PRN PRN Reason: Wheezing Last Admin: 05/31/24 07:50 Dose: 3 ml Documented By: GRACE Albuterol/Ipratropium (Albuterol/Iprat 2.5/0.5mg 3 Ml Ampul.Neb) 3 ml INHALE QID [facility] Last Admin: 06/01/24 07:29 Dose: 3 ml Documented By: GRACE Atorvastatin Calcium (Atorvastatin Calcium 20 Mg Tablet) 20 mg PO BEDTIME [facility] Last Admin: 05/31/24 23:05 Dose: Not Given Documented By: SILVANA Non-Admin Reason: Nausea Calcium Carbonate (Calcium Carbonate 750 Mg Tab.Chew) 750 mg PO Q4H PRN PRN Reason: Heartburn Docusate Sodium (Docusate Sodium 100 Mg Capsule) 100 mg PO BID [facility] Last Admin: 06/01/24 08:18 Dose: 100 mg Documented By: KRISHNA Enoxaparin Sodium (Enoxaparin Sodium 40 Mg/0.4 Ml Syringe) 40 mg SUBCUT Q24H [facility] Last Admin: 05/31/24 13:52 Dose: 40 mg Documented By: KRISHNA Ferrous Sulfate (Ferrous Sulfate 324 Mg Tablet.Dr) 324 mg PO DAILY [facility] Last Admin: 06/01/24 08:18 Dose: 324 mg Documented By: KRISHNA Fluticasone Propionate (Fluticasone Propionate Nasal 16 Gm [place]) 1 spray NOSTRIL-B Q12H [facility] Last Admin: 06/01/24 08:19 Dose: Not Given Documented By: KRISHNA Non-Admin Reason: Patient Refused Glucose (Glucose Gel 15 Gm Gel..Gram.) 15 gm PO Q15M PRN; Protocol PRN Reason: per Hypoglycemia Standing Ord. Dextrose (D10) 250 mls @ 750 mls/hr IV Q15M PRN; Protocol PRN Reason: per Hypoglycemia Standing Ord. Piperacillin Sod/Tazobactam (Sod 4.5 gm/ Sodium Chloride) 100 mls @ 200 mls/hr IV Q6H [facility] Last Infusion: 06/01/24 06:38 Dose: Infused Documented By: SILVANA Insulin Human Lispro (Insulin Lispro 100 Unit/Ml 3 Ml Vial) 0 unit SUBCUT QIDACHS [facility]; Protocol Last Admin: 06/01/24 07:39 Dose: Not Given Documented By: KRISHNA Non-Admin Reason: No Insulin Coverage Ketorolac Tromethamine (Ketorolac Tromethamine 15 Mg/Ml Vial) 15 mg IVPUSH Q6H PRN PRN Reason: Pain, Moderate(Pain Scale 4-6) Stop: 06/03/24 09:44 Lactulose (Lactulose 20 Gm/30 Ml Solution) 30 gm PO DAILY [facility] Last Admin: 06/01/24 08:18 Dose: 30 gm Documented By: KRISHNA Magnesium Hydroxide (Milk Of Magnesia 30 Ml Oral.Susp) 30 ml PO DAILY PRN PRN Reason: Constipation Last Admin: 05/31/24 12:35 Dose: 30 ml Documented By: KRISHNA Melatonin (Melatonin 3 Mg Tablet) 6 mg PO BEDTIME PRN PRN Reason: Insomnia Last Admin: 05/30/24 21:45 Dose: 6 mg Documented By: ANTHONY Morphine Sulfate (Morphine Sulfate 2 Mg/Ml Cartridge) 2 mg IVPUSH Q4H PRN; Protocol PRN Reason: Pain, Severe (Pain Scale 7-10) Last Admin: 06/01/24 06:09 Dose: 2 mg Documented By: SILVANA Omeprazole (Omeprazole 40 Mg Capsule.Dr) 40 mg PO BID@0630,1630 [facility] Last Admin: 06/01/24 06:08 Dose: 40 mg Documented By: SILVANA Ondansetron HCl (Ondansetron Hcl 4 Mg/2 Ml Vial) 4 mg IVPUSH Q6H PRN PRN Reason: Nausea and Vomiting Last Admin: 05/31/24 21:15 Dose: 4 mg Documented By: SILVANA Oxycodone HCl (Oxycodone Hcl Immed Release 5 Mg Tablet) 5 mg PO Q4H PRN PRN Reason: pain moderate Last Admin: 05/31/24 13:51 Dose: 5 mg Polyethylene Glycol (Polyethylene Glycol 3350 17 Gm Powd.Pack) 17 gm PO DAILY PRN PRN Reason: Constipation Polyethylene Glycol (Polyethylene Glycol 3350 17 Gm Powd.Pack) 17 gm PO BIDWM [facility] Last Admin: 06/01/24 08:18 Dose: 17 gm Documented By: KRISHNA Promethazine HCl (Promethazine Hcl 25 Mg Tablet) 25 mg PO Q8H PRN PRN Reason: Nausea and Vomiting Last Admin: 05/30/24 11:38 Dose: 25 mg Documented By: YESSICA Senna/Docusate Sodium (Sennosides/Docusate Sodium Tablet) 1 tab PO BEDTIME [facility] Last Admin: 05/31/24 23:05 Dose: Not Given Documented By: SILVANA Non-Admin Reason: Nausea Sodium Biphosphate/Sodium Phosphate (Sodium Phosphate,[place]-Dibasic 133 Ml Enema) 133 ml [place] ONCE PRN PRN Reason: constipation Sodium Chloride (0.9 % Sodium Chloride Flush 3 Ml Syringe) 3 ml IVFLUSH QSHIFT [facility] Last Admin: 06/01/24 08:19 Dose: 3 ml Documented By: KRISHNA Labs 06/01/24 06:23 06/01/24 06:23 Labs: Laboratory Results - last 24 hr 05/31/24 05/31/24 05/31/24 11:41 16:01 17:00 MCV MCH MCHC RDW Plt Count MPV Absolute Nucleated RBC Nucleated RBC % (auto) Hold Purple Top Anion Gap Estim Creat Clear Calc Estimated GFR POC Glucose 145 H 270 H Random Glucose Lactic Acid Lactic Acid F/U @ 2Hr Calcium Urine Color Dark Yellow Urine Appearance Clear Urine pH 6.5 Ur Specific [place] 1.025 Urine Protein 30 (1+) H Urine Glucose (UA) Negative Urine Ketones Trace Urine Blood Negative Urine Nitrite Negative Ur Leukocyte Esterase Trace H Urine RBC 0-2 Urine WBC 0-5 Ur Squamous Epith Cells 0-2 Urine Bacteria None Seen Hyaline Casts 0-2 05/31/24 05/31/24 06/01/24 20:02 22:09 01:11 MCV MCH MCHC RDW Plt Count MPV Absolute Nucleated RBC Nucleated RBC % (auto) Hold Purple Top SEE NOTE Anion Gap Estim Creat Clear Calc Estimated GFR POC Glucose 156 H Random Glucose Lactic Acid 2.4 H* Lactic Acid F/U @ 2Hr 1.2 Calcium Urine Color Urine Appearance Urine pH Ur Specific [place] Urine Protein Urine Glucose (UA) Urine Ketones Urine Blood Urine Nitrite Ur Leukocyte Esterase Urine RBC Urine WBC Ur Squamous Epith Cells Urine Bacteria Hyaline Casts 06/01/24 06/01/24 06:23 07:16 MCV 79.8 L MCH 25.4 L MCHC 31.8 RDW 19.2 H Plt Count 390 MPV 9.0 L Absolute Nucleated RBC 0.000 Nucleated RBC % (auto) 0.0 Hold Purple Top Anion Gap 15 Estim Creat Clear Calc 56.3 Estimated GFR > 60 POC Glucose 129 H Random Glucose 138 H Lactic Acid Lactic Acid F/U @ 2Hr Calcium 8.9 Urine Color Urine Appearance Urine pH Ur Specific [place] Urine Protein Urine Glucose (UA) Urine Ketones Urine Blood Urine Nitrite Ur Leukocyte Esterase Urine RBC Urine WBC Ur Squamous Epith Cells Urine Bacteria Hyaline Casts Procedures Date of Service Date of Service: 06/01/24 Progress Note: A&P Assessment and plan (1) S/P lobectomy of lung: Status: Acute Assessment and Plan: Now with constipation I did digital rectal exam There was note of a small pellets in the rectal vault, large amounts of air evacuated; no mass in rectal vault Encouraged the patient to get out of bed and ambulate Try GoLYTELY today Abdomen soft and benign otherwise Minimize narcotics Discussed with hospitalist service as well Time Spent With Patient Time: Total time managing care of this patient today ____ minutes. Quality Stroke Does the patient have a stroke diagnosis?: No VTE Prior VTE?: No VTE Risk Level:: Surgical - low VTE Device Contraindication: N/A - Device Ordered VTE Drug Contraindication: Treatment Not Indicated
[2024-06-01 11:03] LABS: Glucose, Whole Blood 212 mg/dL (60-115)
[2024-06-01] MEDS: PEG 3350/Na Sulf,Bicarb,Cl/KCL 4,000 ML SOLN.RECON 4000 ML PO (11:29)
[2024-06-01] MEDS: Insulin Lispro 100 UNIT/ML 3 ML VIAL SUBCUT (11:29)
[2024-06-01] MEDS: Ketorolac Tromethamine 15 MG/ML VIAL IVPUSH ×2 (11:35→17:25)
--- NOTE | 2024-06-01 11:52 | P.PNIM_ITS ---
Subjective Subjective Date of Service: 06/01/24 Interval History: Events from last night noted patient complained of abdominal pain, with no bowel movement since 05/19 This morning patient complaining of persistent lower abdominal discomfort and left upper back discomfort, denies fever, no chills, has intermittent cough with yellowish white phlegm, no worsening shortness of breath, tolerating diet with no nausea, no vomiting. Review of Systems All other systems are reviewed and are negative. Physical Exam 2 Vital Signs: Vital Signs: Last Vital Signs Temp 98.1 F 06/01/24 10:50 Pulse 101 H 06/01/24 10:50 Resp 20 06/01/24 10:50 BP 136/57 L 06/01/24 10:50 Pulse Ox 93 06/01/24 10:50 O2 Del Method Nasal Cannula 06/01/24 10:50 O2 Flow Rate 4 06/01/24 10:50 Oxygen Flow Rate 2 06/01/24 08:44 BMI result Body Mass Index 23.8 Const: Other: General awake alert x3, in no acute distress. Neck no JVD. CVS regular rate rhythm, Respiratory left coarse breath sound, no wheeze, no crackles, left breast and back + crepitus , likely due to subcutaneous emphysema Gastrointestinal abdomen soft, mild diffuse tenderness, bowel sounds audible Extremities mild edema. Upper back tenderness to palpation left side. Neuro non focal Psych appropriate affect. Objective Data Active Medications Albuterol Sulfate (Albuterol Sulfate 90 Mcg 8 Gm Inhaler) 1 puff INHALE Q4H PRN PRN Reason: for wheezing Albuterol/Ipratropium (Albuterol/Iprat 2.5/0.5mg 3 Ml Ampul.Neb) 3 ml INHALE Q4H PRN PRN Reason: Wheezing Last Admin: 05/31/24 07:50 Dose: 3 ml Documented By: GRACE Albuterol/Ipratropium (Albuterol/Iprat 2.5/0.5mg 3 Ml Ampul.Neb) 3 ml INHALE QID [facility] Last Admin: 06/01/24 11:51 Dose: 3 ml Documented By: ALEKS Atorvastatin Calcium (Atorvastatin Calcium 20 Mg Tablet) 20 mg PO BEDTIME [facility] Last Admin: 05/31/24 23:05 Dose: Not Given Documented By: SILVANA Non-Admin Reason: Nausea Calcium Carbonate (Calcium Carbonate 750 Mg Tab.Chew) 750 mg PO Q4H PRN PRN Reason: Heartburn Docusate Sodium (Docusate Sodium 100 Mg Capsule) 100 mg PO BID [facility] Last Admin: 06/01/24 08:18 Dose: 100 mg Documented By: KRISHNA Enoxaparin Sodium (Enoxaparin Sodium 40 Mg/0.4 Ml Syringe) 40 mg SUBCUT Q24H [facility] Last Admin: 05/31/24 13:52 Dose: 40 mg Documented By: KRISHNA Ferrous Sulfate (Ferrous Sulfate 324 Mg Tablet.Dr) 324 mg PO DAILY [facility] Last Admin: 06/01/24 08:18 Dose: 324 mg Documented By: KRISHNA Fluticasone Propionate (Fluticasone Propionate Nasal 16 Gm [place]) 1 spray NOSTRIL-B Q12H [facility] Last Admin: 06/01/24 08:19 Dose: Not Given Documented By: KRISHNA Non-Admin Reason: Patient Refused Glucose (Glucose Gel 15 Gm Gel..Gram.) 15 gm PO Q15M PRN; Protocol PRN Reason: per Hypoglycemia Standing Ord. Dextrose (D10) 250 mls @ 750 mls/hr IV Q15M PRN; Protocol PRN Reason: per Hypoglycemia Standing Ord. Piperacillin Sod/Tazobactam (Sod 4.5 gm/ Sodium Chloride) 100 mls @ 200 mls/hr IV Q6H [facility] Last Infusion: 06/01/24 10:58 Dose: Infused Documented By: KRISHNA Insulin Human Lispro (Insulin Lispro 100 Unit/Ml 3 Ml Vial) 0 unit SUBCUT QIDACHS [facility]; Protocol Last Admin: 06/01/24 11:29 Dose: 4 unit Documented By: KRISHNA Ketorolac Tromethamine (Ketorolac Tromethamine 15 Mg/Ml Vial) 15 mg IVPUSH Q6H PRN PRN Reason: Pain, Moderate(Pain Scale 4-6) Stop: 06/03/24 09:44 Last Admin: 06/01/24 11:35 Dose: 15 mg Documented By: KRISHNA Lactulose (Lactulose 20 Gm/30 Ml Solution) 30 gm PO DAILY [facility] Last Admin: 06/01/24 08:18 Dose: 30 gm Documented By: KRISHNA Magnesium Hydroxide (Milk Of Magnesia 30 Ml Oral.Susp) 30 ml PO DAILY PRN PRN Reason: Constipation Last Admin: 05/31/24 12:35 Dose: 30 ml Documented By: KRISHNA Melatonin (Melatonin 3 Mg Tablet) 6 mg PO BEDTIME PRN PRN Reason: Insomnia Last Admin: 05/30/24 21:45 Dose: 6 mg Documented By: ANTHONY Morphine Sulfate (Morphine Sulfate 2 Mg/Ml Cartridge) 2 mg IVPUSH Q4H PRN; Protocol PRN Reason: Pain, Severe (Pain Scale 7-10) Last Admin: 06/01/24 06:09 Dose: 2 mg Documented By: SILVANA Omeprazole (Omeprazole 40 Mg Capsule.Dr) 40 mg PO BID@0630,1630 [facility] Last Admin: 06/01/24 06:08 Dose: 40 mg Documented By: SILVANA Ondansetron HCl (Ondansetron Hcl 4 Mg/2 Ml Vial) 4 mg IVPUSH Q6H PRN PRN Reason: Nausea and Vomiting Last Admin: 05/31/24 21:15 Dose: 4 mg Documented By: SILVANA Oxycodone HCl (Oxycodone Hcl Immed Release 5 Mg Tablet) 5 mg PO Q4H PRN PRN Reason: pain moderate Last Admin: 05/31/24 13:51 Dose: 5 mg Polyethylene Glycol (Polyethylene Glycol 3350 17 Gm Powd.Pack) 17 gm PO DAILY PRN PRN Reason: Constipation Polyethylene Glycol (Polyethylene Glycol 3350 17 Gm Powd.Pack) 17 gm PO BIDWM [facility] Last Admin: 06/01/24 08:18 Dose: 17 gm Documented By: KRISHNA Promethazine HCl (Promethazine Hcl 25 Mg Tablet) 25 mg PO Q8H PRN PRN Reason: Nausea and Vomiting Last Admin: 05/30/24 11:38 Dose: 25 mg Documented By: YESSICA Senna/Docusate Sodium (Sennosides/Docusate Sodium Tablet) 1 tab PO BEDTIME [facility] Last Admin: 05/31/24 23:05 Dose: Not Given Documented By: SILVANA Non-Admin Reason: Nausea Sodium Biphosphate/Sodium Phosphate (Sodium Phosphate,[place]-Dibasic 133 Ml Enema) 133 ml [place] ONCE PRN PRN Reason: constipation Sodium Chloride (0.9 % Sodium Chloride Flush 3 Ml Syringe) 3 ml IVFLUSH QSHIFT [facility] Last Admin: 06/01/24 08:19 Dose: 3 ml Documented By: KRISHNA Labs 06/01/24 06:23 06/01/24 06:23 Labs: Laboratory Results - last 24 hr 05/31/24 05/31/24 05/31/24 16:01 17:00 20:02 MCV MCH MCHC RDW Plt Count MPV Absolute Nucleated RBC Nucleated RBC % (auto) Hold Purple Top Anion Gap Estim Creat Clear Calc Estimated GFR POC Glucose 270 H 156 H Random Glucose Lactic Acid Lactic Acid F/U @ 2Hr Calcium Urine Color Dark Yellow Urine Appearance Clear Urine pH 6.5 Ur Specific [place] 1.025 Urine Protein 30 (1+) H Urine Glucose (UA) Negative Urine Ketones Trace Urine Blood Negative Urine Nitrite Negative Ur Leukocyte Esterase Trace H Urine RBC 0-2 Urine WBC 0-5 Ur Squamous Epith Cells 0-2 Urine Bacteria None Seen Hyaline Casts 0-2 05/31/24 06/01/24 06/01/24 22:09 01:11 06:23 MCV 79.8 L MCH 25.4 L MCHC 31.8 RDW 19.2 H Plt Count 390 MPV 9.0 L Absolute Nucleated RBC 0.000 Nucleated RBC % (auto) 0.0 Hold Purple Top SEE NOTE Anion Gap 15 Estim Creat Clear Calc 56.3 Estimated GFR > 60 POC Glucose Random Glucose 138 H Lactic Acid 2.4 H* Lactic Acid F/U @ 2Hr 1.2 Calcium 8.9 Urine Color Urine Appearance Urine pH Ur Specific [place] Urine Protein Urine Glucose (UA) Urine Ketones Urine Blood Urine Nitrite Ur Leukocyte Esterase Urine RBC Urine WBC Ur Squamous Epith Cells Urine Bacteria Hyaline Casts 06/01/24 06/01/24 07:16 10:49 MCV MCH MCHC RDW Plt Count MPV Absolute Nucleated RBC Nucleated RBC % (auto) Hold Purple Top Anion Gap Estim Creat Clear Calc Estimated GFR POC Glucose 129 H 212 H Random Glucose Lactic Acid Lactic Acid F/U @ 2Hr Calcium Urine Color Urine Appearance Urine pH Ur Specific [place] Urine Protein Urine Glucose (UA) Urine Ketones Urine Blood Urine Nitrite Ur Leukocyte Esterase Urine RBC Urine WBC Ur Squamous Epith Cells Urine Bacteria Hyaline Casts Assessment and Plan (1) S/P lobectomy of lung: Status: Acute (2) Iron deficiency anemia: Status: Acute (3) 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 Squamous cell carcinoma status post left upper lobectomy POD 10 Chest tube removed 05/30 -left upper back pain, likely due to subcutaneous emphysema will minimize narcotics on oxycodone 5mg and iv morphine ,add iv Toradol 15 mg q.6 hours x2 days -postoperative care as per thoracic surgery, chest x-ray showed volume loss left hemithorax, no apical pneumothorax -intermittent sinus tachycardia tachypnea due to pain and anxiety, ABG showed low CO2/alkalosis likely due to hyperventilation -left breast and upper back swelling due to subcutaneous emphysema 2. Leukocytosis question due to pneumonia/reactive Continue IV Zosyn started 05/31 Follow CBC and clinical course closely 3. COPD -no acute exacerbation, continue DuoNebs q.6 hours as needed for shortness of breath. 4. GERD -continue PPI 5. Constipation/abdominal pain/back pain No bowel movement in several days likely due to narcotics, CT abdomen showed thickening of distal sigmoid colon nonspecific, loculated left pleural effusion with intra lobular septal thickening and subpleural ground-glass opacities as well as left lower lobe consolidation in the left lung base, extensive left chest wall and anterior abdominal and posterior abdominal wall subcutaneous emphysema On multiple stool softeners and laxatives with no response case discussed with general surgery they did rectal exam no stool was found large amount of air was evacuated place on Colyte 6. Severe obstructive sleep apnea on 2 L of nocturnal oxygen /intermittent nocturnal hypoxia due to CINDY. 7. Diabetes type 2 -stable blood sugars ,continue lispro correctional scale, hold home medications. Full code will follow along with surgery. Quality Stroke Does the patient have a stroke diagnosis?: No VTE Prior VTE?: No VTE Risk Level:: Surgical - low VTE Device Contraindication: N/A - Device Ordered VTE Drug Contraindication: Treatment Not Indicated
[2024-06-01] MEDS: Enoxaparin Sodium 40 MG/0.4 ML SYRINGE SUBCUT (12:59)
[2024-06-01 15:33] LABS: Glucose, Whole Blood 129 mg/dL (60-115)
[2024-06-01 19:48] LABS: Glucose, Whole Blood 132 mg/dL (60-115)
[2024-06-01] MEDS: Atorvastatin Calcium 20 MG TABLET PO (20:28)
[2024-06-01] MEDS: Melatonin 3 MG TABLET 6 MG PO (20:28)
[2024-06-01] MEDS: Sennosides/Docusate Sodium TABLET 1 TAB PO (20:29)
[2024-06-01] MEDS: oxyCODONE HCl Immed Release 5 MG TABLET PO (22:20)
[2024-06-01] MEDS: Fluticasone Propionate Nasal 16 GM SPRAY 1 SPRAY NOSTRIL-B (22:24)
--- NOTE | 2024-06-01 23:08 | PM.EVENT ---
Event Note Date of Service: 06/01/24 Event Note: 1/2 gram positive cocci in clusters, WBC is high--adding Vanco, stop if coag neg staph Time Spent With Patient Time: Total time managing care of this patient today ____ minutes.
[2024-06-02] VITALS (15 sets, daily range): BP systolic 118–170; BP diastolic 63–90; PULSE 91–113; RESP 18–24; TEMP 36.2–36.7; O2SAT 90–98
[2024-06-02] MEDS: 0.9 % Sodium Chloride Flush 3 ML SYRINGE IVFLUSH ×4 (03:17→21:31)
[2024-06-02] MEDS: vancomycin HCL 1,250 MG in 0.9 % Sodium Chloride 250 ML 166.67 MG IV (03:17)
[2024-06-02] MEDS: Ketorolac Tromethamine 15 MG/ML VIAL IVPUSH (03:31)
[2024-06-02] MEDS: Omeprazole 40 MG CAPSULE.DR PO ×2 (06:15→17:20)
[2024-06-02] MEDS: Piperacillin Sodium/Tazobactam 4.5 GM in 0.9 % Sodium Chloride 100 ML IV ×4 (06:15→21:31)
[2024-06-02] MEDS: Albuterol/Iprat 2.5/0.5MG 3 ML AMPUL.NEB INHALE ×5 (08:03→23:48)
[2024-06-02 08:26] LABS: Glucose, Whole Blood 119 mg/dL (60-115)
--- NOTE | 2024-06-02 08:46 | PM.PNTS ---
Subjective Subjective Date of Service: 06/02/24 Interval history: Started on golytely yesterday. Passed large, hard stool ball yesterday followed by large amount of liquid stool. Overall abd pain feels better. She feels breathing is at baseline. Has not been OOB other than to the commode in a few days. C/o mostly back pain at this point. Physical Exam Vital Signs: Vital Signs: Last Vital Signs Temp 97.4 F 06/02/24 07:38 Pulse 92 06/02/24 08:05 Resp 18 06/02/24 08:05 BP 130/75 06/02/24 07:38 Pulse Ox 94 06/02/24 07:38 O2 Del Method Nasal Cannula 06/02/24 07:38 O2 Flow Rate 3 06/02/24 07:38 Oxygen Flow Rate 2 06/01/24 08:44 BMI result Body Mass Index 23.8 Const: General: comfortable, no acute distress and alert Orientation/consciousness: patient oriented x3 Chest: Other: left VATs incisions clean, chest tube site dressing clean Resp: Effort & Inspection: normal respiratory effort and no respiratory distress GI: Inspection: Yes distended (mild ) Palpation (GI): Soft to palpation, Tenderness to palpation present (GI) (diffuse, more increased at lower abd) and no guarding Skin: General skin exam: no rashes or lesions noted Neuro: General: patient oriented x3 and moves all extremities Procedures Date of Service Date of Service: 06/02/24 Progress Note: A&P Assessment and plan (1) S/P lobectomy of lung: Status: Acute Plan Improved today. Has had evacuation of hard and now liquid stools. Continue bowel regimen. Will add supplements as report PO intake and appetite is diminished. Encouraged OOB/increasing activity. Will consult PT. Started on zosyn empirically. AM CBC pending. Time Spent With Patient Time: Total time managing care of this patient today ____ minutes. Quality Stroke Does the patient have a stroke diagnosis?: No VTE Prior VTE?: No VTE Risk Level:: Surgical - low VTE Device Contraindication: N/A - Device Ordered VTE Drug Contraindication: Treatment Not Indicated
[2024-06-02] MEDS: polyethylene glycoL 3350 17 GM POWD.PACK PO ×2 (08:47→17:19)
[2024-06-02] MEDS: Ferrous Sulfate 324 MG TABLET.DR PO (08:47)
[2024-06-02] MEDS: Docusate Sodium 100 MG CAPSULE PO ×2 (08:47→20:18)
[2024-06-02] MEDS: Milk of Magnesia 30 ML ORAL.SUSP PO (08:49)
[2024-06-02] MEDS: Fluticasone Propionate Nasal 16 GM SPRAY 1 SPRAY NOSTRIL-B ×2 (08:49→20:19)
[2024-06-02] MEDS: oxyCODONE HCl Immed Release 5 MG TABLET PO ×4 (08:52→23:39)
--- NOTE | 2024-06-02 09:26 | HO.PM.IMPN ---
Subjective Subjective Date of Service: 06/02/24 Interval History: Status post left lobectomy/chest tube removed 05/30 Complaining left upper back pain, abdominal pain resolved had large bowel movement yesterday after Colyte, no nausea no vomiting tolerating diet, decreased by mouth intake refusing Ensure, Persistent shortness of breath, 1/2 blood culture positive for Gram-positive cocci, no fevers, stable oxygenation Review of Systems All other system reviewed and are negative. Physical Exam Vital Signs: Vital Signs: Last Vital Signs Temp 97.4 F 06/02/24 07:38 Pulse 92 06/02/24 08:05 Resp 18 06/02/24 08:05 BP 130/75 06/02/24 07:38 Pulse Ox 94 06/02/24 07:38 O2 Del Method Nasal Cannula 06/02/24 07:38 O2 Flow Rate 3 06/02/24 07:38 Oxygen Flow Rate 2 06/01/24 08:44 BMI result Body Mass Index 23.8 Const: Other: General awake alert x3, in no acute distress. Neck no JVD. CVS regular rate rhythm, Respiratory coarse breath sound, diminished left base, no wheeze, no crackles, left breast and back + crepitus , likely due to subcutaneous emphysema, dressings in place Gastrointestinal abdomen soft, mild diffuse tenderness, bowel sounds audible Extremities mild edema. Upper back tenderness to palpation left side. Neuro non focal Psych appropriate affect. Objective Data Active Medications Albuterol Sulfate (Albuterol Sulfate 90 Mcg 8 Gm Inhaler) 1 puff INHALE Q4H PRN PRN Reason: for wheezing Albuterol/Ipratropium (Albuterol/Iprat 2.5/0.5mg 3 Ml Ampul.Neb) 3 ml INHALE Q4H PRN PRN Reason: Wheezing Last Admin: 05/31/24 07:50 Dose: 3 ml Documented By: GRACE Albuterol/Ipratropium (Albuterol/Iprat 2.5/0.5mg 3 Ml Ampul.Neb) 3 ml INHALE QID [facility] Last Admin: 06/02/24 08:03 Dose: 3 ml Documented By: SAIDA Atorvastatin Calcium (Atorvastatin Calcium 20 Mg Tablet) 20 mg PO BEDTIME [facility] Last Admin: 06/01/24 20:28 Dose: 20 mg Documented By: DG Calcium Carbonate (Calcium Carbonate 750 Mg Tab.Chew) 750 mg PO Q4H PRN PRN Reason: Heartburn Docusate Sodium (Docusate Sodium 100 Mg Capsule) 100 mg PO BID [facility] Last Admin: 06/02/24 08:47 Dose: 100 mg Documented By: YURIDIA Enoxaparin Sodium (Enoxaparin Sodium 40 Mg/0.4 Ml Syringe) 40 mg SUBCUT Q24H [facility] Last Admin: 06/01/24 12:59 Dose: 40 mg Documented By: KRISHNA Ferrous Sulfate (Ferrous Sulfate 324 Mg Tablet.Dr) 324 mg PO DAILY [facility] Last Admin: 06/02/24 08:47 Dose: 324 mg Documented By: YURIDIA Fluticasone Propionate (Fluticasone Propionate Nasal 16 Gm [place]) 1 spray NOSTRIL-B Q12H [facility] Last Admin: 06/02/24 08:49 Dose: 1 spray Documented By: YURIDIA Glucose (Glucose Gel 15 Gm Gel..Gram.) 15 gm PO Q15M PRN; Protocol PRN Reason: per Hypoglycemia Standing Ord. Dextrose (D10) 250 mls @ 750 mls/hr IV Q15M PRN; Protocol PRN Reason: per Hypoglycemia Standing Ord. Piperacillin Sod/Tazobactam (Sod 4.5 gm/ Sodium Chloride) 100 mls @ 200 mls/hr IV Q6H [facility] Last Infusion: 06/02/24 06:46 Dose: Infused Documented By: DG Insulin Human Lispro (Insulin Lispro 100 Unit/Ml 3 Ml Vial) 0 unit SUBCUT QIDACHS [facility]; Protocol Last Admin: 06/02/24 08:45 Dose: Not Given Documented By: YURIDIA Non-Admin Reason: No Insulin Coverage Ketorolac Tromethamine (Ketorolac Tromethamine 15 Mg/Ml Vial) 15 mg IVPUSH Q6H PRN PRN Reason: Pain, Moderate(Pain Scale 4-6) Stop: 06/03/24 09:44 Last Admin: 06/02/24 03:31 Dose: 15 mg Documented By: DG Lactulose (Lactulose 20 Gm/30 Ml Solution) 30 gm PO DAILY [facility] Last Admin: 06/02/24 08:50 Dose: Not Given Documented By: YURIDIA Non-Admin Reason: Patient Refused Magnesium Hydroxide (Milk Of Magnesia 30 Ml Oral.Susp) 30 ml PO DAILY PRN PRN Reason: Constipation Last Admin: 06/02/24 08:49 Dose: 30 ml Documented By: YURIDIA Melatonin (Melatonin 3 Mg Tablet) 6 mg PO BEDTIME PRN PRN Reason: Insomnia Last Admin: 06/01/24 20:28 Dose: 6 mg Documented By: DG Omeprazole (Omeprazole 40 Mg Capsule.Dr) 40 mg PO BID@0630,1630 [facility] Last Admin: 06/02/24 06:15 Dose: 40 mg Documented By: GD Ondansetron HCl (Ondansetron Hcl 4 Mg/2 Ml Vial) 4 mg IVPUSH Q6H PRN PRN Reason: Nausea and Vomiting Last Admin: 05/31/24 21:15 Dose: 4 mg Documented By: SILVANA Oxycodone HCl (Oxycodone Hcl Immed Release 5 Mg Tablet) 5 mg PO Q4H PRN PRN Reason: pain moderate Last Admin: 06/02/24 08:52 Dose: 5 mg Documented By: YURIDIA Pharmacy Consult (Consult Rx Vancomycin Dosing) 1 each MISCELLANE DAILY PRN PRN Reason: Consult order Polyethylene Glycol (Polyethylene Glycol 3350 17 Gm Powd.Pack) 17 gm PO DAILY PRN PRN Reason: Constipation Polyethylene Glycol (Polyethylene Glycol 3350 17 Gm Powd.Pack) 17 gm PO BIDWM [facility] Last Admin: 06/02/24 08:47 Dose: 17 gm Documented By: YURIDIA Promethazine HCl (Promethazine Hcl 25 Mg Tablet) 25 mg PO Q8H PRN PRN Reason: Nausea and Vomiting Last Admin: 05/30/24 11:38 Dose: 25 mg Documented By: YESSICA Senna/Docusate Sodium (Sennosides/Docusate Sodium Tablet) 1 tab PO BEDTIME [facility] Last Admin: 06/01/24 20:29 Dose: 1 tab Documented By: DG Sodium Biphosphate/Sodium Phosphate (Sodium Phosphate,[place]-Dibasic 133 Ml Enema) 133 ml HI ONCE PRN PRN Reason: constipation Sodium Chloride (0.9 % Sodium Chloride Flush 3 Ml Syringe) [address] [facility] Last Admin: 08/12/24 08:48 Dose: 3 ml Documented By: YURIDIA Labs 06/01/24 06:23 06/01/24 06:23 Labs: Laboratory Results - last 24 hr 06/01/24 06/01/24 06/01/24 10:49 15:24 19:43 POC Glucose 212 H 129 H 132 H 06/02/24 08:21 POC Glucose 119 H Microbiology Microbiology Results: Microbiology 05/31/24 22:09 Blood Culture - Preliminary Blood - Venous No growth after 24 hours. 05/31/24 22:09 Blood Culture - Preliminary Blood - Venous Prelim: GPC Gram Stain only Assessment and Plan (1) S/P lobectomy of lung: Status: Acute (2) Iron deficiency anemia: Status: Acute Plan 71-year-old female with a history of peripheral artery disease, diabetes COPD and history of nicotine dependence underwent bronchoscopy bronchoscopy,pneumonolysis, vats bilobectomy (left upper lobe/lingula), mediastinal lymph node sampling 1. Squamous cell carcinoma status post left upper lobectomy POD 11 Chest tube removed 05/30 -left upper back pain, likely due to subcutaneous emphysema will minimize narcotics on oxycodone 5mg and iv Toradol 15 mg q.6 hours x2 days prn -postoperative care as per thoracic surgery, chest x-ray showed volume loss left hemithorax, no apical pneumothorax -intermittent sinus tachycardia tachypnea due to pain and anxiety, ABG showed low CO2/alkalosis likely due to hyperventilation -left breast and upper back swelling due to subcutaneous emphysema -decreased by mouth intake ( refusing supplements) -encourage ambulation/ PT consult 2. Leukocytosis question due to pneumonia/reactive WBC 23.5 repeat labs pending Blood cultures 1/2 positive for Gram-positive cocci on IV Zosyn started 05/31 , IV vancomycin started 06/02 Follow CBC and clinical course closely 3. COPD -no acute exacerbation, continue DuoNebs q.6 hours as needed for shortness of breath. 4. GERD -continue PPI 5. Constipation/abdominal pain/back pain Constipation resolved after use of Colyte, abdominal pain resolved CT abdomen showed thickening of distal sigmoid colon nonspecific, loculated left pleural effusion with intra lobular septal thickening and subpleural ground-glass opacities as well as left lower lobe consolidation in the left lung base, extensive left chest wall and anterior abdominal and posterior abdominal wall subcutaneous emphysema Continue stool softeners and laxatives /minimize narcotics 6. Severe obstructive sleep apnea on 2 L of nocturnal oxygen /intermittent nocturnal hypoxia due to CINDY. 7. Diabetes type 2 -stable blood sugars ,continue lispro correctional scale, hold home medications. 8. Iron deficiency anemia on iron supplements Full code will follow along with surgery. Disposition as per General surgery Quality Stroke Does the patient have a stroke diagnosis?: No VTE Prior VTE?: No VTE Risk Level:: Surgical - low VTE Device Contraindication: N/A - Device Ordered VTE Drug Contraindication: Treatment Not Indicated
[2024-06-02 10:10] LABS: Hemoglobin 8.8 g/dl (12.0-16.0); Mean Corpuscular HGB Conc 32.6 g/dl (31.0-35.0); Mean Corpuscular Hemoglobin 25.6 pg (27.0-33.0); Mean Corpuscular Volume 78.5 fL (80.0-98.0); Mean Platelet Volume 9.1 fL (9.4-12.3); Platelet Count 550 X10*3/uL (160-400); Red Blood Count 3.44 X10*6/uL (4.20-5.50); Red Cell Distribution Width 19.8 % (11.0-16.0); White Blood Count 23.3 X10*3/uL (4.8-10.8)
[2024-06-02 10:31] LABS: Anion Gap 14 (12-20); Blood Urea Nitrogen 19 mg/dL (9-16); Carbon Dioxide 27 mmol/L (22-29); Chloride 100 mmol/L (96-108); Creatinine Clr Calc Pharmacy 55.4; Estimated Glomerular Filt Rate > 60; Glucose Random 181 mg/dL (60-115); Potassium 3.3 mmol/L (3.3-5.1); Sodium 138 mmol/L (135-145)
--- NOTE | 2024-06-02 11:14 | MHC.CM.PN ---
EMR REVIEWED, PER SURGICAL NOTE ANTIC PT WILL BE MEDICALLY CLEARED FOR DC TOMORROW 06/03 W/NEW [facility] FOR [facility] PT AND SCRIPT FOR TRAVEL CHAIR, CM WILL CONT TO FOLLOW DC NEEDS.
--- NOTE | 2024-06-02 11:39 | PHA.PROG ---
Admission Date/Time: May 22, 2024 06:58 Indication: BACTEREMIA Weight in k.431 kg Adjusted body weight in Kg: Hayden body weight in Kg: Obesity Dosing Indication % IBW: Serum Creatinine - Last 168 Hours 05/31/24 06/01/24 06/02/24 08: 06:23 10:00 Creatinine 0.63 0.64 0.65 Estimated CrCl and GFR - Last 168 Hours 05/31/24 06/01/24 06/02/24 08: 06:23 10:00 Estim Creat Clear Calc 57.1 56.3 55.4 Estimated GFR > 60 > 60 > 60 Vancomycin Loading Dose: 1250 MG Current Vancomycin Dosing Regimen: 750 MG Q12H Vancomycin Monitoring using AUC goal of 400 - 600 range with trough as surrogate marker: CMP=297 TROUGH=17.6 Date and Time for next Vancomycin Level to be drawn: 06/03/2024 @1300 Pharmacist Comments on Vancomycin Plan: Vancomycin dosing will take advantage of [employer] as a clinical decision support tool that uses Bayesian modeling to calculate individual patient's pharmacokinetic parameters and forecast the patient's drug concentration time course with the target goal AUC 24 range of 400 - 600 mg/L/hr.
[2024-06-02 12:01] LABS: Glucose, Whole Blood 206 mg/dL (60-115)
[2024-06-02] MEDS: Insulin Lispro 100 UNIT/ML 3 ML VIAL SUBCUT ×2 (12:09→20:21)
[2024-06-02] MEDS: Enoxaparin Sodium 40 MG/0.4 ML SYRINGE SUBCUT (14:23)
[2024-06-02] MEDS: vancomycin HCL 750 MG in 0.9 % Sodium Chloride 250 ML 265 MG IV (14:24)
[2024-06-02 17:02] LABS: Glucose, Whole Blood 136 mg/dL (60-115)
[2024-06-02] MEDS: Atorvastatin Calcium 20 MG TABLET PO (20:18)
[2024-06-02] MEDS: Sennosides/Docusate Sodium TABLET 1 TAB PO (20:18)
[2024-06-02 20:54] LABS: Glucose, Whole Blood 155 mg/dL (60-115)
[2024-06-03] MEDS: vancomycin HCL 750 MG in 0.9 % Sodium Chloride 250 ML 265 MG IV (02:52)
[2024-06-03 04:00] VITALS: BP 131/61; PULSE 97; RESP 20; TEMP 36.2; O2SAT 95
[2024-06-03] MEDS: Piperacillin Sodium/Tazobactam 4.5 GM in 0.9 % Sodium Chloride 100 ML IV ×2 (04:04→11:36)
[2024-06-03] MEDS: Omeprazole 40 MG CAPSULE.DR PO (05:33)
[2024-06-03] MEDS: oxyCODONE HCl Immed Release 5 MG TABLET PO ×3 (05:35→14:38)
[2024-06-03 07:09] LABS: Creatinine Clr Calc Pharmacy 64.3; Estimated Glomerular Filt Rate > 60
[2024-06-03 07:54] LABS: Glucose, Whole Blood 114 mg/dL (60-115)
[2024-06-03] MEDS: Albuterol/Iprat 2.5/0.5MG 3 ML AMPUL.NEB INHALE ×2 (07:54→11:26)
[2024-06-03 07:59] VITALS: PULSE 101; RESP 20; O2SAT 93
[2024-06-03 08:00] VITALS: BP 135/80; BP 88/64; PULSE 98; RESP 20; TEMP 36.1; O2SAT 98
[2024-06-03] MEDS: Fluticasone Propionate Nasal 16 GM SPRAY 1 SPRAY NOSTRIL-B (08:21)
[2024-06-03] MEDS: Ferrous Sulfate 324 MG TABLET.DR PO (08:22)
[2024-06-03] MEDS: 0.9 % Sodium Chloride Flush 3 ML SYRINGE IVFLUSH (08:22)
[2024-06-03] MEDS: Docusate Sodium 100 MG CAPSULE PO (08:22)
[2024-06-03] MEDS: polyethylene glycoL 3350 17 GM POWD.PACK PO (08:22)
[2024-06-03] MEDS: Ketorolac Tromethamine 15 MG/ML VIAL IVPUSH (08:24)
[2024-06-03 10:56] LABS: MANUAL DIFF FLAG NO
[2024-06-03 11:00] VITALS: O2SAT 93
[2024-06-03 11:02] LABS: Basophils Absolute Auto 0.1 X10*3/uL (0.0-0.2); Basophils Percent Auto 0.3 % (0-2); Eosinophils Absolute Auto 0.9 X10*3/uL (0.0-0.4); Eosinophils Percent Auto 5.4 % (0-4); Hemoglobin 7.7 g/dl (12.0-16.0); Imm Gran Abs Auto 0.31 X10*3/uL (0.00-0.03); Imm Gran Pct Auto 1.9 % (0.0-0.4); Lymphocytes Percent Auto 6.2 % (20-40); Mean Corpuscular HGB Conc 32.1 g/dl (31.0-35.0); Mean Corpuscular Hemoglobin 24.6 pg (27.0-33.0); Mean Corpuscular Volume 76.7 fL (80.0-98.0); Mean Platelet Volume 9.1 fL (9.4-12.3); Monocytes Absolute Auto 1.5 X10*3/uL (0.1-1.2); Monocytes Percent Auto 8.9 % (2-11); Neutrophils Absolute Auto 12.7 x10*3/uL (2.0-8.3); Neutrophils Percent Auto 77.3 % (45-73); Platelet Count 625 X10*3/uL (160-400); Red Blood Count 3.13 X10*6/uL (4.20-5.50); Red Cell Distribution Width 19.9 % (11.0-16.0); White Blood Count 16.4 X10*3/uL (4.8-10.8)
[2024-06-03 11:17] VITALS: BP 116/61; PULSE 98; RESP 16; TEMP 36.1; O2SAT 95
[2024-06-03 11:28] VITALS: PULSE 93; RESP 20; O2SAT 95
--- NOTE | 2024-06-03 11:47 | PM.PNTS ---
Subjective Subjective Date of Service: 06/03/24 Interval history: Feels well this morning. Denies shortness of breath, abdominal pain. OOB and ambulated with physical therapy yesterday. Feels as if she can go home. Physical Exam Vital Signs: Vital Signs: Last Vital Signs Temp 96.9 F 06/03/24 11:17 Pulse 93 06/03/24 11:28 Resp 20 06/03/24 11:28 BP 116/61 06/03/24 11:17 Pulse Ox 95 06/03/24 11:17 O2 Del Method Nasal Cannula 06/03/24 11:17 O2 Flow Rate 3 06/03/24 11:17 Oxygen Flow Rate 4 06/03/24 11:00 BMI result Body Mass Index 23.8 Const: General: comfortable, no acute distress and alert Chest: Other: left VATS incisions clean, chest tube dressing site intact Resp: Effort & Inspection: normal respiratory effort and no respiratory distress GI: Inspection: No distended Palpation (GI): Soft to palpation Skin: General skin exam: no rashes or lesions noted Procedures Date of Service Date of Service: 06/03/24 Progress Note: A&P Assessment and plan (1) S/P lobectomy of lung: Status: Acute Plan Improved today. WBC now downtrending. ?DC vanco as positive BC coag neg staph. Encouraged OOB/increasing activity. Plan home tomorrow with PT / VNA services. Patient comfortable with plan. Time Spent With Patient Time: Total time managing care of this patient today ____ minutes. Quality Stroke Does the patient have a stroke diagnosis?: No VTE Prior VTE?: No VTE Risk Level:: Surgical - low VTE Device Contraindication: N/A - Device Ordered VTE Drug Contraindication: Treatment Not Indicated
[2024-06-03 12:02] LABS: Glucose, Whole Blood 146 mg/dL (60-115)
--- NOTE | 2024-06-03 13:20 | P.DS_ITS ---
DS: Providers Provider Date of Service: 06/03/24 Date of admission: 05/22/24 06:58 Date of discharge: 06/03/24 Primary care physician: Yoseph Mccarthy MD Attending physician on admission: Andre Vasquez Consults: 05/22/24 14:06 Consult to Hospitalist Routine Comment: Consulting Provider: Hospitalist Reason For Exam: s/p VATS left upper lobectomy, COPD, DM Attending physician on discharge: Andre Vasquez DS: Diagnosis Discharge Diagnosis (1) S/P lobectomy of lung: Status: Acute DS: Summary Hospital Course Hospital Course: HPI AT ADMISSION: Patient presents with the daughter. Status post left upper lobe lung biopsy of a suspicious lesion which proved to be a bronchogenic carcinoma/squamous cell carcinoma. This was discussed with the patient and her daughter. I cared for in the hospital last week status post iatrogenic pneumothorax following biopsy. Patient was seen in the office approximately 2 weeks ago. Patient has no sequelae status post postprocedure pneumothorax. She is on home oxygen p.r.n. I reviewed with them that her case was presented at the recent lung cancer screening thoracic conference. Her PET scan demonstrated isolated disease and left upper lobe and other mediastinal or suspicious lesions. Her PFTs were reviewed by Dr. Boles as well and the consensus of opinion is that surgical intervention would be the most appropriate for this early stage lung cancer. Patient's PFTs are considered acceptable for lobectomy of left upper lobe. A very lengthy discussion was had with the patient and her daughter regarding the risks, benefits, alternatives of VATS possible open left upper lobectomy which included bleeding, infection, recurrence of cancer, numbness, pain, scarring, vent dependent, oxygen dependent, cardiovascular event, and even . The patient is adamant that she does not wished to have any radiation therapy or chemotherapy as her primary management of early stage lung cancer and would prefer to undergo surgical excision. She understood the above-mentioned risks, benefits, and alternatives which again were extensively reviewed and the patient wishes to proceed. She now presents for planned procedure. HOSPITAL COURSE: On 05/22/24, bronchoscopy,pneumonolysis, vats bilobectomy (left upper lobe/lingula), mediastinal lymph node sampling was performed by Dr. Vasquez without immediate complication. She had a slow recovery course due to pain and returning back to her. Hospitalist consult was obtained for management of her medical comorbidities. She required transfusion of 2U PRBC on POD #1 with appropriate rise in H/H. Her respiratory status slowly improved to her baseline and to her home O2 requirements of 3L NC. She had a small air leak and this resolved over time. Her chest tube was removed on POD #8. She developed acute onset of abdominal pain and CT scan was consistent with stercoral colitis. She was started on golytely and had evacuation of large amount of stool. Bowel regimen was continued. She had a lactic acidosis at that time which improved. She was initially started on empiric IV abx of 1 dose ceftriaxone then IV zosyn however it was felt the leukocytosis was more so reactive and began to downtrend and abx were discontinued. Her activity was slowly increased during her stay. PT was consulted who recommended home PT. On the day of discharge, she had no shortness of breath and felt at her baseline, her pain was controlled on PO analgesics. She was tolerating a solid diet with increasing PO intake, had good GI function, was out of bed and ambulating. She was hemodynamically stable. Her left VATS incisions were clean and chest tube site dressing clean and intact. She felt ready for discharge. She was discharged to home on 06/03/24 in stable condition with PT/VNA services. She is to have chest tube site daily dressing changes with xeroform, 4x4 and tape. She is to follow up in the office in 1 week. Status at Discharge Overall status at discharge: patient is progressing back to baseline Time Attestation Discharge Coordination Time (in mins): 60 Quality: Safe Use of Opioids Does Pt have an Active Cancer Diagnosis on the Problem List?: Yes Opioid Measure Date for [facility] Report: 05/05/24 Opioid Measure Time for [facility] Report: 14:32 Quality: Stroke Does the patient have a stroke diagnosis?: No Physical Exam Vital Signs: Vital Signs: Last Vital Signs Temp 96.9 F 06/03/24 11:17 Pulse 93 06/03/24 11:28 Resp 20 06/03/24 11:28 BP 116/61 06/03/24 11:17 Pulse Ox 95 06/03/24 11:17 O2 Del Method Nasal Cannula 06/03/24 11:17 O2 Flow Rate 3 06/03/24 11:17 Oxygen Flow Rate 4 06/03/24 11:00 BMI result Body Mass Index 23.8 Const: General: comfortable, no acute distress and alert Orientation/consciousness: patient oriented x3 Chest: Other: left VATS incision sites clean, some mild crepitus extending into left breast chest tube dressing site clean Resp: Effort & Inspection: normal respiratory effort, no respiratory distress, not tachypneic and no use of accessory muscles Skin: General skin exam: no rashes or lesions noted Neuro: General: patient oriented x3 DS: Data Data Completed and Pending Completed studies during hospitalization [Text1]: 05/22/24 11:04 Surgical [PTH] Routine A. Lymph node, 10 L, excision: Two lymph nodes negative for metastatic carcinoma. B. Lymph node, 11 L, excision: Three lymph nodes negative for metastatic carcinoma. C. Lymph node, 9 L, excision: One lymph node negative for metastatic carcinoma. D. Lymph node, station 6, excision: One lymph node negative for metastatic carcinoma. E. Lymph node, station 8, excision: Two lymph nodes negative for metastatic carcinoma. F. Lung, left upper lobe, lobectomy: - Invasive squamous cell carcinoma, moderately differentiated; 0.8 cm in size; limited to the lung; negative margins - Background organizing pneumonia. - pT1a N0 (AJCC Stage 8th ed.) Procedures Drainage of Left Pleural Cavity with Drainage Device, Percutaneous Approach (04/01/24) Excision of Left Upper Lung Lobe, Percutaneous Approach, Diagnostic (04/01/24) Labs on day of discharge: Laboratory Results - last 24 hr 06/03/24 13:53 Random Vancomycin 9.2 L Preliminary micro results at discharge 05/31/24 22:09 Blood Culture - Preliminary Blood - Venous No growth after 48 hours. Discharge Plan Discharge Anticipated Discharge Date/Time: 06/03/24 13:12 Patient Disposition: Home Health Service Discharge Diagnosis: s/p VATS left upper lobectomy Referrals: Yoseph Mccarthy MD [Primary Care Provider] - 1 Week Andre Vasquez MD [Physician] - 1 Week Discharge Medications: New hydrocodone-acetaminophen 5-325 mg tablet 1 tab PO Q4-6H PRN (Reason: pain) Qty: 30 0RF Rx Instructions: Partial Fill upon patient request. docusate sodium [Colace] 100 mg capsule 100 mg PO BID Qty: 20 0RF oxycodone 5 mg tablet 5 mg PO Q8H PRN (Reason: pain) Qty: 30 0RF Rx Instructions: Partial Fill upon patient request. Continued fluticasone propionate 50 mcg/actuation spray,suspension 1 spray intranasal Q12H Qty: 48 3RF metformin 500 mg tablet 500 mg PO BID Qty: 180 1RF ipratropium-albuterol 0.5 mg-3 mg(2.5 mg base)/3 mL solution for nebulization 3 ml inhalation QID 30 Days Qty: 270 3RF fluticasone propion-salmeterol [AirDuo RespiClick] 232-14 mcg/actuation aerosol powdr breath activated 1 inh inhalation BID 30 Days Qty: 1 6RF albuterol sulfate 90 mcg/actuation HFA aerosol inhaler 1 puff PO Q4H PRN (Reason: for wheezing) Qty: 20.1 11RF esomeprazole magnesium 40 mg capsule,delayed release(DR/EC) 40 mg PO DAILY@0630 atorvastatin 20 mg tablet 20 mg PO BEDTIME (DME) OneTouch Verio test strips Strip See Rx Instructions .ROUTE .MEDSUPPLY Qty: 100 4RF Rx Instructions: As directed, 90 day supply (DME) blood-glucose meter [OneTouch Verio Flex Start] Kit See Rx Instructions .Route Qty: 1 0RF Rx Instructions: daily As directed. 999 days ferrous sulfate 324 mg (65 mg iron) tablet,delayed release (DR/EC) 324 mg PO QAM 90 Days Qty: 90 2RF mupirocin 2 % ointment 1 appl topical BID 10 Days Qty: 15 0RF clotrimazole 1 % cream 1 appl topical BID 28 Days Qty: 90 0RF No Action oxycodone 5 mg capsule 5 mg PO Q4H PRNQty: 30 0RF Rx Instructions: Partial Fill upon patient request. Discharge Orders: Discharge Order (Routine); Ordered 06/03/24 Ordered By: Susy Robbins Diet: Advance to usual diet Activity on Discharge: No heavy lifting Stand Alone Forms: Patient Portal Discharge page Print Language: [place] Activity Restrictions/Additional Instructions: VNA, May shower . Leave Steri-Strips intact. No strenuous activities xeroform followed by dry sponge and tape to chest tube site, change every other day. Care Plan Goals: Return to baseline health and resume normal activities following recovery period. 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 Discharge Date/Time: 06/03/24 14:52
[2024-06-03 14:23] LABS: Vancomycin Random 9.2 mcg/mL (15-20)
--- NOTE | 2024-06-03 14:24 | PM.EVENT ---
Event Note Date of Service: 06/03/24 Event Note: Patient noted to be hypotensive originally at 0800 this a.m. BP retested immediately and found to be 135/80. Initial reading was erroneous Time Spent With Patient Time: Total time managing care of this patient today ____ minutes.
--- NOTE | 2024-06-03 14:31 | HE.PHANOTE ---
RE Vanco Trough returned at 9.2, subtherapeutic for bloodstream infection. Will increase to 750 mg q8h starting now. Projected AUC is 566 mg/L with a trough of 17.6 mg/L. Will order trough for 06/04 @ 1230.
--- NOTE | 2024-06-03 15:53 | MHC.CM.PN ---
Second IMM 06/03/24, pt has been medically cleared for DC, she will go home via family transport and have home care services from [facility].
--- NOTE | 2024-06-04 09:01 | W.MHC.F2F ---
Service Date Service Date: 06/04/24 Encounter Date of encounter: 06/03/24 Reasons for Services Signs and symptoms assessed: respiratory status, ambulatory status, incision appearance, bowel function Reason for residential: wound care and postoperative assessment and/or care Reason for physical therapy: therapeutic exercises Homebound: Leaving the home is medically contraindicated at this time without the asist of a device and/or another person due th the listed conditions above and below. Reason homebound: weakness related to hospital stay and unable to drive Homebound supporting statement: Ms. Cote is s/p VATS left upper lobectomy. She will need home PT for deconditioning and VNA services for post op assessment and chest tube site dressing changes. Certification: Based on the above findings, I certify that this patient is confined to the home and needs intermittent residential care, physical therapy and/or speech therapy, or continues to need occupational therapy. The patient is under my care, and I have initiated the establishment of the plan of care. The patient will be followed by a physician who will periodically review the plan of care. Time Spent With Patient Time: Total time managing care of this patient today ____ minutes.
== END 2024-06-03 14:52 | disposition home health service (06) | DRG 164 ==
LOC: HO.SSSA 07:03 → HO.IMC 12:52
PROVIDERS: Hospitalist; Internal Medicine; Nurse Practitioner; Physician Assistant Surgical; Student in an Organized Health Care Education/Training Program; Surgery; Admitting Provider Surgery; PCP Family Medicine; Visit Provider Surgery
PROC: 0BNL4ZZ Release Left Lung, Percutaneous Endoscopic Approach (ICD-10-PCS; principal; 2024-05-22 07:30)
PROC: 0BNL4ZZ Release Left Lung, Percutaneous Endoscopic Approach (ICD-10-PCS; 2024-05-22 07:30)
DX: C34.12 Malignant neoplasm of upper lobe, left bronchus or lung (principal); E87.20 Acidosis, unspecified; J44.9 Chronic obstructive pulmonary disease, unspecified; G89.18 Other acute postprocedural pain; E11.9 Type 2 diabetes mellitus without complications; K21.9 Gastro-esophageal reflux disease without esophagitis; D50.9 Iron deficiency anemia, unspecified; K52.89 Other specified noninfective gastroenteritis and colitis; F41.9 Anxiety disorder, unspecified; G47.33 Obstructive sleep apnea (adult) (pediatric); R00.0 Tachycardia, unspecified; K59.03 Drug induced constipation; T40.605A Adverse effect of unspecified narcotics, initial encounter; Z87.891 Personal history of nicotine dependence; Z79.51 Long term (current) use of inhaled steroids; Z79.84 Long term (current) use of oral hypoglycemic drugs; Z79.899 Other long term (current) drug therapy
CPT/HCPCS: 36415; 36600; 71045; 71046; 74018; 74176; 80048; 80053; 80202; 81001; 82565; 82803; 82947; 83036; 83605; 85014; 85018; 85025; 85027; 86850; 86900; 86901; 86923; 87040; 87205; 88305; 88309; 88341; 88342; 92950; 93005; 94640; 97161; A7041; C1729; C1758; C1889; J0131; J0690; J0696; J1100; J1170; J1630; J1650; J1805; J1885; J2250; J2270; J2371; J2405; J2543; J2704; J3010; J3370; J3371; J7120; P9016; P9047

== ENCOUNTER → 2024-05-22 06:58 | Outpatient (BNV) | payer OTHER, SELFPAY | PROVIDERS: Admitting Provider Surgery; PCP Family Medicine; Visit Provider Hospitalist | DX: Z90.2 Acquired absence of lung [part of] (principal); D50.9 Iron deficiency anemia, unspecified | CPT/HCPCS: 99222; 99231; 99232; 99233; 99499 ==

== ENCOUNTER → 2024-05-22 06:58 | Outpatient (BNV) | payer OTHER, SELFPAY | PROVIDERS: Admitting Provider Surgery; PCP Family Medicine; Visit Provider Surgery | DX: Z90.2 Acquired absence of lung [part of] (principal) | CPT/HCPCS: 32652; 32670; 32674; 99024; G0180 ==